=== PATIENT | female | born 1990 | race Caucasian/White ===

== ENCOUNTER 2017-01-05 05:51 | Emergency (ER) | payer MEDICAID ==
[~2017-01-05 05:51] MED LIST: EFFEXOR XR150 MG PO; IBUPROFEN200 M1 PO; NORCO 5-325 TA1 EACH PO; PREDNISONE20 MG PO
[2017-04-29] MEDS ORDERED: LATUDA20 MG PO (22:47)
[2017-04-29] MEDS ORDERED: WELLBUTRIN XL150 MG (22:48)
== END 2017-01-05 07:13 | disposition left against medical advice (07) ==
LOC: ED 05:51
DX: Z53.21 Procedure and treatment not carried out due to patient leaving prior to being seen by health care provider (principal)

== ENCOUNTER 2017-11-03 14:34 | Emergency (ER) | payer MEDICAID ==
[~2017-11-03] VITALS: Ht 172.7 cm; Wt 93.4 kg
[~2017-11-03 14:34] MED LIST changes: +LATUDA20 MG PO; +WELLBUTRIN XL150 MG
[2017-11-03] MEDS ORDERED: CIPRO500 MG PO (16:25)
== END 2017-11-03 16:52 | disposition home or self-care (01) ==
LOC: ED 14:34
DX: N39.0 Urinary tract infection, site not specified (principal); Z88.8 Allergy status to other drugs, medicaments and biological substances; Z79.899 Other long term (current) drug therapy
CPT/HCPCS: 74176; 81001; 87088; 87491; 87591; 99284

== ENCOUNTER 2019-02-15 18:57 | Emergency (ER) | payer OTHER ==
[~2019-02-15] VITALS: Ht 172.7 cm; Wt 93.4 kg
--- OUTSIDE RECORDS SUMMARY | ~2019-02-15 | XMS | Clinical Summary ---
Demographics + + + | Address | [address] | | | [place] [address] | + + + | Home Phone [...] Organization | [facility] | | | and [...] [place] | | | | | [address] | | + + + + + Care Team Providers + +------+ + | Care Pipe Fitter Marine Name | Role | Phone | + [...] | mouth at bedtime | | | /20 | | e | | ER tablet [...] + | Overview: Pap | + + Encounters +--------+ + + + + | Date | Type | Specialty | Care Team | Description | +--------+ + + + + | 12/13/ | Orders Only | | Provider, | | | 2019 | | | Aruna, | | +--------+ + + + + from Last 3 Months Immunizations + + + + | Name | Dates Previously Given | Next Due | + + + [...] + +---------+ + | Alcohol Use | Drinks/We | oz/Week | Comments | | | ek | | | + + +---------+ + | Yes | 1 Cans | 1.2 | | | | of beer | | | | | 1 Shots | | | | | of liquor | | | + + [...] Filed Vital Signs + + + + | Vital Sign | Reading | Time Taken | + + + + | Blood Pressure | 139/79 | 03/22/20182051 PST | + + + + | Pulse | 98 | 03/22/20182051 PST | + + + + | Temperature | 37.9 C (100.3 F) | 03/22/20182051 PST | + + + + | Respiratory Rate | 16 | 03/22/20182051 PST | + + + + | Oxygen Saturation | 98% | 03/22/20182051 PST | + + + + | Inhaled Oxygen | - | - | | Concentration | | | + + + + | Weight | 90.7 kg (200 lb) | 03/22/20182051 PST | + + + + | Height | 172.7 cm (5' 8") | 03/22/20182051 PST | + + + + | Body Mass Index | 30.41 | 03/22/20182051 PST | + + + + Plan of Treatment [...] Right: | JOLANTA | | 03/01/ | [id number] | | - SxImplanted: Qty: 1 on | | | [employer] | | 2019 | /X | | 04/30/2017 by Kilo Gallo | | Ureter | - JOLANTA | | | /[id number] | | MD Jeff | | | | | | 09 [...] | [employer] | MODA | [id number] | | [phone] | | Medica | | MEDICAID HMO [...] Self | [birth year] | [address] | | [place] | al/Fam | | 1989 | [phone] | [place], [place] | | | yoni | | | 3 (Home) | [address] | + +--------+ +--------+ + + Advance Directives Patient has advance care planning documents, and code status on file. For more information, please contact:[facility] [place] [id number] + + + + + | Code Status | Date | Date | Comments | | | Activated | Inactivated | | + + + + + | Full Code | 05/11/2017 | 05/11/2017 | | | | 18:55 | 21:37 | | + + + + + + + + +---+ | | | | | + + + +---+ | Full Code | 05/01/2017 | 05/02/2017 | | | | 11:21 | 18:59 | | + + + +---+ + + + +---+ | | | | | + + + +---+ | Full Code | 04/30/2017 | 04/30/2017 | | | | 6:04 | 10:56 | | + + + +---+
--- OUTSIDE RECORDS SUMMARY | ~2019-02-15 | XMS | Clinical Summary ---
Demographics + + + | Address | [address] | | | [place] [address] | + + + | Home Phone | | + + + | Preferred Language | Unknown | + + + | Marital Status | Single | + + + | Protestant Affiliation | Unknown | + + + | Race | Unknown | + + + | Ethnic Group | Unknown | + + + Author + + + | Author | [facility] | | | and [place] | + + + | Organization | [facility] | [...] [place] | | | | | [address] | | + + + + + Care Team Providers + +------+ + | Care File System Installer Name | Role | Phone | [...] Right: | JOLANTA | | 03/01/ | [id number] | | - SxImplanted: Qty: 1 on | | | [employer] | | 2019 | /X | | 04/30/2017 by Kilo Gallo | | Ureter | - JOLANTA | | | /[id number] | | MD Jeff | | | [...] | [employer]AN | MODA | [id number] | | [phone] | | Medica | | MEDICAID HMO [...] [place] | al/Fam | | 1989 | [phone] | [place], [place] | | | yoni | | | 3 (Home) | [address] | + +--------+ +--------+ + + Advance Directives Patient has advance care planning documents, and code status on file. For more information, please contact:[facility] [place] [facility] [place] [address] + + + + + | Code [...]
--- OUTSIDE RECORDS SUMMARY | ~2019-02-15 | XMS | Encounter Summary ---
Demographics + + + | Address | [address] | | | [place] [address] | + + + | Home Phone | | + + + | Preferred Language | Unknown | + + + | Marital Status | Single | + + + | Episcopal Affiliation | Unknown | + + + | Race | Unknown | + + + | Ethnic Group | Unknown | + + + Author + + + | Author | [facility] | | | and [place] | + + + | Organization | [facility] | | | and [place] | + + + | Address | Unknown | + + + | Phone | Unavailable | + + + Support + + + + + | Name | Relationship | Address | Phone | + + + + + | Gt Welch | ECON | [address] [facility] | | | | | [place] | | | | | [place] | | | | | [address] | | + + + + + Care Team Providers + +------+ + | Care Distributed Energy Systems Consultant Name | Role | Phone | [...] | | CONVERSION [address] LAO | [address] | | | | | [address] [place], [place] | [place] [id number] | | | | | [address] | | | | | | [phone] | | | +--------+ + + + [...]
--- OUTSIDE RECORDS SUMMARY | ~2019-02-15 | XMS | Encounter Summary ---
Demographics + + + | Address | [address] | | | [place] [address] | + + + | Home Phone [...] Organization | [facility] | | | and [place] | + + + | Address | Unknown | + + + | Phone | Unavailable | + + + Support + + + + + | Name | Relationship | Address | Phone | + + + + + | Gt Welch | ECON | [address] [facility] | | | | | [place] | | | | | [place] | | | | | [address] | | + + + + + Care Team Providers + +------+ + | Care Environmental Field Team Member Name | Role | Phone | + +------+ + | No, Physician | PCP | Unavailable | + +------+ + Encounter Details +--------+ + + + + | Date | Type | Department | Care Team | Description | +--------+ + + + + | 12/13/ | Orders Only | [facility] | Provider, | | | 2019 | | [facility] | MD Aruna [address] | | | | | CON[address] | [address] | | | | | [address] [place], [place] | [place] [address] | | | | | [address] | | | | | | [phone] | | | +--------+ + + + [...]
[~2019-02-15 18:57] MED LIST changes: +CIPRO500 MG PO
--- OUTSIDE RECORDS SUMMARY | 2019-02-15 19:00 | XMS ---
PreManage Notification: VEE RAMIREZ Security Marker Maker Events No recent Security Events currently on file CRITERIA MET - Group Notification - [facility] Guidelines [facility] CANDIS RICKS Nurse Practitioner: Women's Health 11/06/2017-Current PHONE: [phone] DANIELA ANGEL Primary Care 02/20/2015-Current PHONE: [phone] ISIDORO HOWARD Primary Care 04/07/2016-Current PHONE: [phone] Care Guidelines exist for the following facilities: [facility] ( 10/06/2014 ) Care History Medical/Surgical 11/06/2017 [facility] - Patient is currently established with [facility]. If patient is seen in the ED during business hours. Please contact CHWs at [facility] at [phone]. - Please refer patient to Candis Ricks patient PCP. Patient has not seen and or established with Candis Ricks. Patient needs to be seen and follow up with PCP. Care Recommendation: This patient has had 5 or more Emergency Department visits in the last 12 months.\T\nbsp; Patient requires education on the scope and purpose of the ED as an acute care provider not a Primary Care Provider and should not be utilized for chronic conditions.\T\nbsp; If patient returns to ED please contact Community Health WorkerTiffanie at [phone]. These are guidelines and the provider should exercise clinical judgment when providing care. E.D. VISIT COUNT (12 MO.) 1 [facility] 1 [facility] TOTAL 2 NOTE: Visits indicate total known visits. ED/UCC VISIT TRACKING (12 MO.) 02/15/2019 18:58 [facility] TYPE: Emergency COMPLAINT: - SOB 03/22/2018 20:18 [facility] Tressa LITTLE TYPE: Emergency DIAGNOSES: - Throat pain - Streptococcal pharyngitis - Sore Throat INPATIENT VISIT TRACKING (12 MO.) No inpatient visits to display in this time frame [id number]
[2019-02-15] MEDS ORDERED: METHADONE HCL40 MG PO (19:06)
== END 2019-02-15 21:07 | disposition home or self-care (01) ==
LOC: ED 18:57
DX: R10.11 Right upper quadrant pain (principal); F15.10 Other stimulant abuse, uncomplicated; F17.200 Nicotine dependence, unspecified, uncomplicated; Z88.8 Allergy status to other drugs, medicaments and biological substances; Z79.899 Other long term (current) drug therapy
CPT/HCPCS: 76705; 80053; 81001; 83690; 84703; 85025; 85379; 96361; 96374; 96375; 96376; 99284-25; J1170; J2405; J7030

== ENCOUNTER 2019-03-30 14:05 | Emergency (ER) | payer OTHER ==
[~2019-03-30] VITALS: Ht 172.7 cm; Wt 93.4 kg
--- OUTSIDE RECORDS SUMMARY | ~2019-03-30 | XMS | Encounter Summary ---
Demographics + + + | Address | [address] | | | [place] [address] | + + + | Home Phone | | + + + | Preferred Language | Unknown | + + + | Marital Status | Single | + + + | Quaker Affiliation | Unknown | + + + | Race | Unknown | + + + | Ethnic Group | Unknown | + + + Author + + + | Author | [facility] | | | and [place] | + + + | Organization | [facility] | | | and [place] | + + + | Address | Unknown | + + + | Phone | Unavailable | + + + Support + + + + + | Name | Relationship | Address | Phone | + + + + + | Gt Welch | ECON | [address] | | | | | [place] | | | | | [place] | | | | | [address] | | + + + + + Care Team Providers + +------+ + | Care Customer Greeter Name | Role | Phone | + +------+ + | No, Physician | PCP | Unavailable | + +------+ + Encounter Details +--------+ + + + + | Date | Type | Department | Care Team | Description | +--------+ + + + + | 01/16/ | Emergency | [facility] | Gold Delcid MD | Dependent edema | | 2018 | | [facility] | [address] | | | | | EMERGENCY CENTER | [place] [address] | | | | | [address] | [phone] | | | | | [place], [place] | | | | | | [address] | | | | | | [phone] | | | +--------+ + + + + Social History + + + +--------+ + | Tobacco Use | Types | Packs/Day | Years | Date | | | | | Used | | + + + +--------+ + | Former Smoker | Cigarettes | 0.5 | | Quit: 03/04/2015 | + + + +--------+ + + +---+---+---+ | Smokeless Tobacco: | | | | | Never Used | | | | + +---+---+---+ + + +---------+ + | Alcohol Use | Drinks/Week | oz/Week | Comments | + + +---------+ + | Yes | 1 Cans of beer 1 | 2.0 | | | | Shots of liquor | | | + + +---------+ + + + + | Sex Assigned at | Date Recorded | | | | + + + | Not on file | | + + + + + + + | Job Start Date | Occupation | Industry | + + + + | Not on file | Not on file | Not on file | + + + + + + + + | Travel History | Travel Start | Travel End | + + + + + + | No recent travel history available. | + + documented as of this encounter Last Filed Vital Signs + + + + + | Vital Sign | Reading | Time Taken | Comments | + + + + + | Blood Pressure | 126/67 | 01/16/2018 11:30 AM | | | | | PDT | | + + + + + | Pulse | 80 | 01/16/2018 11:30 AM | | | | | PDT | | + + + + + | Temperature | 36.7 C (98 F) | 01/16/2018 11:30 AM | | | | | PDT | | + + + + + | Respiratory Rate | 20 | 01/16/2018 11:30 AM | | | | | PDT | | + + + + + | Oxygen Saturation | - | - | | + + + + + | Inhaled Oxygen | - | - | | | Concentration | | | | + + + + + | Weight | 89.8 kg (197 lb 15.5 | 01/16/2018 11:30 AM | | | | oz) | PDT | | + + + + + | Height | - | - | | + + + + + | Body Mass Index | 30.1 | 07/21/2017 4:31 PM | | | | | PDT | | + + + + + documented in this encounter Functional Status + + + + | Functional Status | Response | Date of Assessment | + + + + | Are you deaf or do you have serious | No | 05/02/2017 | | difficulty hearing? | | | + + + + | Are you blind or do you have serious | No | 05/02/2017 | | difficulty seeing, even when wearing | | | | glasses? | | | + + + + | Do you have serious difficulty walking or | No | 05/02/2017 | | climbing stairs? (5 years old or older) | | | + + + + | Do you have difficulty dressing or bathing? | No | 05/02/2017 | | (5 years old or older) | | | + + + + | Because of a physical, mental, or emotional | No | 05/02/2017 | | condition, do you have difficulty doing | | | | errands alone such as visiting a doctor's | | | | office or shopping? [15 years old or | | | | older)] | | | + + + + + + + + | Cognitive Status | Response | Date of Assessment | + + + + | Because of a physical, mental, or emotional | No | 05/02/2017 | | condition, do you have serious difficulty | | | | concentrating, remembering, or making | | | | decisions? (5 years old or older) | | | + + + + documented as of this encounter Medications at Time of Discharge + + + +---------+ + + | Medication | Sig | Dispensed | Refills | Start | End Date | | | | | | Date | | + + + +---------+ + + | albuterol 90 | Inhale 2 puffs into | | 0 | | | | mcg/puff inhaler | the lungs as needed. | | | | | + + + +---------+ + + | | Place 1 Film under | | 0 | | | | buprenorphine-naloxo | the tongue Daily. | | | | | | ne (SUBOXONE) 8-2 mg | | | | | | | SL film | | | | | | + + + +---------+ + + | buPROPion | Take 300 mg by mouth | | 0 | | | | (WELLBUTRIN XL) 300 | every morning. | | | | | | mg 24 hr tablet | | | | | | + + + +---------+ + + | LATUDA 20 MG | Take 4 tablets by | | 0 | 04/25/20 | | | tablet | mouth nightly. | | | 17 | | + + + +---------+ + + | SUMAtriptan | Take 25 mg by mouth | | 0 | | | | (IMITREX) 25 mg | as needed for | | | | | | tablet | Migraine. | | | | | + + + +---------+ + + | ketorolac | Take 1 tablet by | 12 | 0 | 05/11/19 | | | (TORADOL) 10 MG | mouth every 6 hours | tablet | | 18 | 8 | | tablet | as needed for Pain. | | | | | + + + +---------+ + + | oxybutynin | Take 1 tablet by | 30 | 1 | 05/02/20 | | | (DITROPAN) 5 mg | mouth every 6 hours | tablet | | 17 | 8 | | tablet | as needed for | | | | | | | Urinary incontinence | | | | | | | or Bladder Spasms. | | | | | + + + +---------+ + + | traMADol (ULTRAM) | Take 1 tablet by | 10 | 0 | 05/11/19 | | | 50 mg tablet | mouth every 8 hours | tablet | | 18 | 8 | | | as needed for Pain. | | | | | + + + +---------+ + + documented as of this encounter Plan of Treatment Not on filedocumented as of this encounter Procedures + +--------+ + + + | Procedure Name | Priori | Date/Time | Associated Diagnosis | Comments | | | ty | | | | + +--------+ + + + | EXTERNAL LAB: KUSUM | Routin | 01/16/2018 | | Results for this | | | e | 10:15 AM | | procedure are in the | | | | PDT | | results section. | + +--------+ + + + | PROTIME INR | Routin | 01/16/2018 | | Results for this | | | e | 10:15 AM | | procedure are in the | | | | PDT | | results section. | + +--------+ + + + | B TYPE NATRIURETIC | Routin | 01/16/2018 | | Results for this | | PEPTIDE | e | 10:15 AM | | procedure are in the | | | | PDT | | results section. | + +--------+ + + + | MAGNESIUM | Routin | 01/16/2018 | | Results for this | | | e | 10:15 AM | | procedure are in the | | | | PDT | | results section. | + +--------+ + + + | LIPASE | Routin | 01/16/2018 | | Results for this | | | e | 10:15 AM | | procedure are in the | | | | PDT | | results section. | + +--------+ + + + | COMPREHENSIVE | Routin | 01/16/2018 | | Results for this | | METABOLIC PANEL | e | 10:15 AM | | procedure are in the | | | | PDT | | results section. | + +--------+ + + + | URINALYSIS, REFLEX | Routin | 01/16/2018 | | Results for this | | MICROSCOPIC AND/OR | e | 9:49 AM | | procedure are in the | | CULTURE | | PDT | | results section. | + +--------+ + + + documented in this encounter Results Protime INR (01/16/2018 10:15 AM PDT) + + + + + + | Component | Value | Ref Range | Performed | Pathologist | | | | | At | Signature | + + + + + + | INR | 1.0Comment: REFERENCE | | EXTERNAL | | | | RANGE:0.9 - 1.2 | | LAB | | | | NON-ANTICOAGULATED2.0 | | | | | | - 3.0 ALL OTHER | | | | | | THERAPEUTIC | | | | | | INDICATIONS2.5 - 3.5 | | | | | | MECHANICAL HEART VALVES, | | | | | | RECURRENT OR SYSTEMIC | | | | | | EMBOLISMTesting | | | | | | performed at [facility] | | | | | | [address];[place], [place] | | | | | | [address] | | | | + + + + + + + + | Specimen | + + | Blood specimen | | (specimen) | + + + +---------+ + + | Performing | Address | City/State/Zipcode | Phone Number | | Organization | | | | + +---------+ + + | EXTERNAL LAB | | | | + +---------+ + + External Lab: CBC (01/16/2018 10:15 AM PDT) + + + + + + | Component | Value | Ref Range | Performed | Pathologist | | | | | At | Signature | + + + + + + | WBC | 7.85 | 3.80 - 11.00 | EXTERNAL | | | | | K/uL | LAB | | + + + + + + | RED CELL | 4.61 | 3.70 - 5.10 | EXTERNAL | | | COUNT | | M/uL | LAB | | + + + + + + | Hgb | 14.7 | 11.3 - 15.5 | EXTERNAL | | | | | g/dL | LAB | | + + + + + + | Hematocrit, | 41.6 | 34.0 - 46.0 % | EXTERNAL | | | POC | | | LAB | | + + + + + + | MCV | 90.3 | 80.0 - 100.0 fl | EXTERNAL | | | | | | LAB | | + + + + + + | MCH | 31.9 | 27.0 - 34.0 pg | EXTERNAL | | | | | | LAB | | + + + + + + | MCHC | 35.3 | 32.0 - 35.5 | EXTERNAL | | | | | g/dL | LAB | | + + + + + + | RDW-CV | 40.7 | 37 - 53 fl | EXTERNAL | | | | | | LAB | | + + + + + + | Platelet | 278 | 150 - 400 K/uL | EXTERNAL | | | Count | | | LAB | | | Plasma | | | | | + + + + + + | MPV | 9.3 | fl | EXTERNAL | | | | | | LAB | | + + + + + + | Differentia | AUTOMATED | | EXTERNAL | | | l Type | | | LAB | | + + + + + + | % Segmented | 55.31 | % | EXTERNAL | | | | | | LAB | | | Neutrophils | | | | | + + + + + + | % | 32.65 | % | EXTERNAL | | | Lymphocytes | | | LAB | | + + + + + + | % Monocytes | 9.73 | % | EXTERNAL | | | | | | LAB | | + + + + + + | % | 1.52 | % | EXTERNAL | | | Eosinophils | | | LAB | | + + + + + + | % Basophils | 0.79 | % | EXTERNAL | | | | | | LAB | | + + + + + + | Absolute | 4.34 | 1.90 - 7.40 | EXTERNAL | | | Segmented | | K/uL | LAB | | | Neutrophils | | | | | + + + + + + | Absolute | 2.56 | 1.00 - 3.90 | EXTERNAL | | | Lymphocytes | | K/uL | LAB | | + + + + + + | Absolute | 0.76 | 0.00 - 0.80 | EXTERNAL | | | Monocytes | | K/uL | LAB | | + + + + + + | Absolute | 0.12 | 0.00 - 0.50 | EXTERNAL | | | Eosinophils | | K/uL | LAB | | + + + + + + | Absolute | 0.06Comment: Testing | 0.00 - 0.10 | EXTERNAL | | | Basophils | performed at [facility];[address] | [address] | LAB | | | | [address];[place], [place] | | | | | | [address] | | | | + + + + + + + + | Specimen | + + | Blood specimen | | (specimen) | + + + +---------+ + + | Performing | Address | City/State/Zipcode | Phone Number | | Organization | | | | + +---------+ + + | EXTERNAL LAB | | | | + +---------+ + + B Type Natriuretic Peptide (01/16/2018 10:15 AM PDT) + + + + + + | Component | Value | Ref Range | Performed | Pathologist | | | | | At | Signature | + + + + + + | BNP | <5.0Comment: Testing | 0 - 100 pg/mL | EXTERNAL | | | | performed at [facility] | | LAB | | | | [facility];[place], [place] | | | | | | [address] | | | | + + + + + + + + | Specimen | + + | Blood specimen | | (specimen) | + + + +---------+ + + | Performing | Address | City/State/Zipcode | Phone Number | | Organization | | | | + +---------+ + + | EXTERNAL LAB | | | | + +---------+ + + Magnesium (01/16/2018 10:15 AM PDT) + + + + + + | Component | Value | Ref Range | Performed | Pathologist | | | | | At | Signature | + + + + + + | Magnesium | 2.1Comment: Testing | 1.7 - 2.4 mg/dL | EXTERNAL | | | | performed at [facility];[address] | | LAB | | | | [address];[place] | | | | | | [address] | | | | + + + + + + + + | Specimen | + + | Blood specimen | | (specimen) | + + + +---------+ + + | Performing | Address | City/State/Zipcode | Phone Number | | Organization | | | | + +---------+ + + | EXTERNAL LAB | | | | + +---------+ + + Lipase (01/16/2018 10:15 AM PDT) + + + + + + | Component | Value | Ref Range | Performed | Pathologist | | | | | At | Signature | + + + + + + | Lipase | 101Comment: Testing | 73 - 393 U/L | EXTERNAL | | | | performed at [facility];[address] | | LAB | | | | [address];[place], [place] | | | | | | [address] | | | | + + + + + + + + | Specimen | + + | Blood specimen | | (specimen) | + + + +---------+ + + | Performing | Address | City/State/Zipcode | Phone Number | | Organization | | | | + +---------+ + + | EXTERNAL LAB | | | | + +---------+ + + Comprehensive Metabolic Panel (01/16/2018 10:15 AM PDT) + + + + + + | Component | Value | Ref Range | Performed | Pathologist | | | | | At | Signature | + + + + + + | Na | 140 | 135 - 145 | EXTERNAL | | | | | mmol/L | LAB | | + + + + + + | K | 3.4 (L) | 3.5 - 4.9 | EXTERNAL | | | | | mmol/L | LAB | | + + + + + + | Cl | 105 | 99 - 109 mmol/L | EXTERNAL | | | | | | LAB | | + + + + + + | CO2 | 28 | 23 - 32 mmol/L | EXTERNAL | | | | | | LAB | | + + + + + + | Anion Gap | 11 | 5 - 20 mmol/L | EXTERNAL | | | | | | LAB | | + + + + + + | Glucose, | 88 | 65 - 99 mg/dL | EXTERNAL | | | Fasting | | | LAB | | + + + + + + | BUN | 8 | 8 - 25 mg/dL | EXTERNAL | | | | | | LAB | | + + + + + + | Creatinine | 0.73 | 0.50 - 1.00 | EXTERNAL | | | | | mg/dL | LAB | | + + + + + + | BUN/Creatin | 12 | | EXTERNAL | | | ine Ratio | | | LAB | | + + + + + + | Calcium | 8.8 | 8.5 - 10.5 | EXTERNAL | | | | | mg/dL | LAB | | + + + + + + | Protein, | 7.7 | 6.3 - 8.2 g/dL | EXTERNAL | | | Total | | | LAB | | + + + + + + | Albumin | 4.0 | 3.6 - 5.0 g/dL | EXTERNAL | | | | | | LAB | | + + + + + + | Globulin | 3.7 | 1.3 - 4.9 g/dL | EXTERNAL | | | | | | LAB | | + + + + + + | A/G Ratio | 1.1 | 1.0 - 2.4 | EXTERNAL | | | | | | LAB | | + + + + + + | Bilirubin | 0.3 | 0.1 - 1.5 mg/dL | EXTERNAL | | | Total | | | LAB | | + + + + + + | ALP, | 52 | 35 - 115 U/L | EXTERNAL | | | External | | | LAB | | + + + + + + | AST | 8 (L) | 10 - 45 U/L | EXTERNAL | | | | | | LAB | | + + + + + + | ALT | 20 | 10 - 65 U/L | EXTERNAL | | | | | | LAB | | + + + + + + | Estimated | >60Comment: GFR <60: | mL/min/1.73m2 | EXTERNAL | | | GFR | CHRONIC KIDNEY DISEASE, | | LAB | | | | IF FOUND OVER A 3 MONTH | | | | | | PERIOD.GFR <15: KIDNEY | | | | | | FAILURE.FOR | | | | | | AMERICANS, MULTIPLY THE | | | | | | CALCULATED GFR BY | | | | | | 1.210.This eGFR is | | | | | | calculated using the | | | | | | [facility] traceable | | | | | | equation.Testing | | | | | | performed at [facility];[address] | | | | | | [facility];[place], [place] | | | | | | [address] | | | | + + + + + + + + | Specimen | + + | Blood specimen | | (specimen) | + + + +---------+ + + | Performing | Address | City/State/Zipcode | Phone Number | | Organization | | | | + +---------+ + + | EXTERNAL LAB | | | | + +---------+ + + Urinalysis, Reflex Microscopic and/or Culture (01/16/2018 9:49 AM PDT) + + + + + + | Component | Value | Ref Range | Performed | Pathologist | | | | | At | Signature | + + + + + + | Color | YELLOW | | EXTERNAL | | | | | | LAB | | + + + + + + | Clarity | HAZY | | EXTERNAL | | | | | | LAB | | + + + + + + | Specific | 1.020 | 1.002 - 1.030 | EXTERNAL | | | Baggs | | | LAB | | + + + + + + | Leukocyte | NEGATIVE | | EXTERNAL | | | Esterase, | | | LAB | | | Urine | | | | | + + + + + + | Nitrite, | NEGATIVE | | EXTERNAL | | | Urine | | | LAB | | + + + + + + | Urobilinoge | 4.0 (H) | mg/dL | EXTERNAL | | | n, Urine | | | LAB | | + + + + + + | Protein, | NEGATIVE | mg/dL | EXTERNAL | | | Urine | | | LAB | | + + + + + + | pH, Urine | 7.0 | 5.0 - 8.0 | EXTERNAL | | | | | | LAB | | + + + + + + | Blood, | NEGATIVE | | EXTERNAL | | | Urine | | | LAB | | + + + + + + | Ketones | NEGATIVE | mg/dL | EXTERNAL | | | | | | LAB | | + + + + + + | Bilirubin, | NEGATIVE | | EXTERNAL | | | Urine | | | LAB | | + + + + + + | Glucose, | NEGATIVEComment: Testing | mg/dL | EXTERNAL | | | Urine | performed at [facility];[address] | | LAB | | | | [address];[place] | | | | | | [address] | | | | + + + + + + + + | Specimen | + + | | + + + +---------+ + + | Performing | Address | City/State/Zipcode | Phone Number | | Organization | | | | + +---------+ + + | EXTERNAL LAB | | | | + +---------+ + + documented in this encounter Visit Diagnoses + + | Diagnosis | + + | Dependent edema Edema | + + documented in this encounter"
--- OUTSIDE RECORDS SUMMARY | ~2019-03-30 | XMS | Encounter Summary ---
Demographics + + + | Address | [address] | | | [place] [address] | + + + | Home Phone | | + + + | Preferred Language | Unknown | + + + | Marital Status | Single | + + + | Druze Affiliation | Unknown | + + + | Race | Unknown | + + + | Ethnic Group | Unknown | + + + Author + + + | Author | [facility] | | | and [place] | + + + | Organization | [facility] | | | and [place] | + + + | Address | Unknown | + + + | Phone | Unavailable | + + + Support + + + + + | Name | Relationship | Address | Phone | + + + + + | Gt Welch | ECON | [address] [facility] | | | | | [place] | | | | | [place] | | | | | [phone] | | + + + + + Care Team Providers + +------+ + | Care Cost And Risk Analysis Manager Name | Role | Phone | + +------+ + | Bro Mora MD | PCP | | + +------+ + Reason for Visit +--------+ + | Reason | Comments | +--------+ + | Cough | | +--------+ + Encounter Details +--------+ + + + + | Date | Type | Department | Care Team | Description | +--------+ + + + + | 08/03/ | Emergency | [facility] | [place], | Asthma, severe | | 2015 | | [facility] | Luis Carlos Cervnates MD [address] | persistent, with | | | | CENTER [address] | [address] [facility] | acute exacerbation | | | | [place] | [place] [address] | (Primary Dx) | | | | [address] | [phone] | | | | | [phone] | | | +--------+ + + + + Social History + + + +--------+------+ | Tobacco Use | Types | Packs/Day | Years | Date | | | | | Used | | + + + +--------+------+ | Current Every Day | Cigarettes | 0.5 | | | | Smoker | | | | | + + + +--------+------+ + +---+---+---+ | Smokeless Tobacco: | | | | | Never Used | | | | + +---+---+---+ + + +---------+ + | Alcohol Use | Drinks/Week | oz/Week | Comments | + + +---------+ + | No | | | | + + +---------+ + [...] + + + | Blood Pressure | 121/104 | 08/03/2014 11:21 AM | | | | | PDT | | + + + + + | Pulse | 133 | 08/03/2014 11:21 AM | | | | | PDT | | + + + + + | Temperature | 34.1 C (93.4 F) | 08/03/2014 9:35 AM | | | | | PDT | | + + + + + | Respiratory Rate | 18 | 08/03/2014 11:21 AM | | | | | PDT | | + + + + + | Oxygen Saturation | 96% | 08/03/2014 11:21 AM | | | | | PDT | | + + + + + | Inhaled Oxygen | - | - | | | Concentration | | | | + + + + + | Weight | 104.3 kg (230 lb) | 08/03/2014 9:35 AM | | | | | PDT | | + + + + + | Height | 172.7 cm (5' 7.99") | 08/03/2014 9:35 AM | | | | | PDT | | + + + + + | Body Mass Index | 34.98 | 08/03/2014 9:35 AM | | | | | PDT | | + + + + + documented in this encounter Functional Status + + + + | Functional Status | Response | Date of Assessment | + + + + | Are you deaf or do you have serious | No | 03/28/2014 | | difficulty hearing? | | | + + + + | Are you blind or do you have serious | No | 03/28/2014 | | difficulty seeing, even when wearing | | | | glasses? | | | + + + + | Do you have serious difficulty walking or | No | 03/28/2014 | | climbing stairs? (5 years old or older) | | | + + + + | Do you have difficulty dressing or bathing? | No | 03/28/2014 | | (5 years old or older) | | | + + + + | Because of a physical, mental, or emotional | No | 03/28/2014 | | condition, do you have difficulty [...] physical, mental, or emotional | No | 03/28/2014 | | condition, do you have serious difficulty | | | | concentrating, remembering, or making | | | | decisions? (5 years old or older) | | | + + + + documented as of this encounter Discharge Instructions Instructions Luis Carlos Camargo MD - 08/03/2014Continue inhalers Start terbutaline as well to help treat asthma Follow up in the women's clinic this week documented in this encounter Medications at Time of Discharge + + + +---------+ + + | Medication | Sig | Dispensed | Refills | Start | End Date | | | | | | Date | | + + + +---------+ + + | albuterol 2.5 mg/3 | Take 3 mLs by | 360 | 1 | 07/26/19 | | | mL nebulizer | nebulization every 3 | vial | | 15 | 7 | | solution | hours as needed for | | | | | | | Wheezing or | | | | | | | Shortness of Breath. | | | | | + + + +---------+ + + | | Inhale 1 treatment | 100 mL | 0 | 07/31/19 | | | albuterol-ipratropiu | in nebulizer every 4 | | | 15 | 7 | | m (DUONEB) 2.5-0.5 | hours daily | | | | | | mg/3 mL SOLN | | | | | | + + + +---------+ + + | azithromycin | Take 250 mg by mouth | | 0 | | | | (ZITHROMAX) 250 mg | Daily. | | | | 7 | | tablet | | | | | | + + + +---------+ + + | | Take 5 mLs by mouth | | 0 | | | | guaiFENesin-dextrome | 3 times daily as | | | | 7 | | thorphan (ROBITUSSIN | needed for Cough. | | | | | | DM) 100-10 mg/5 mL | | | | | | | syrup | | | | | | + + + +---------+ + + | ibuprofen | Take 800 mg by mouth | | 0 | | | | (ADVIL,MOTRIN) 800 | every 6 hours as | | | | 8 | | MG tablet | needed. | | | | | + + + +---------+ + + | | Take 1 tablet by | 10 | 0 | 08/04/19 | | | oxyCODONE-acetaminop | mouth every 6 hours | tablet | | 15 | 7 | | hen (PERCOCET) 5-325 | as needed (Cough). | | | | | | mg per tablet | | | | | | + + + +---------+ + + | 27-0.8 mg | Take 1 tablet by | | 0 | | | | multivitamin tablet | mouth Daily. | | | | 7 | + + + +---------+ + + | | Take 5 mLs by mouth | 240 mL | 1 | 07/26/19 | | | promethazine-codeine | EVERY 4 TO 6 HOURS | | | 15 | 7 | | (PHENERGAN WITH | NEEDED for Cough. | | | | | | CODEINE) 6.25-10 | | | | | | | mg/5 mL syrup | | | | | | + + + +---------+ + + | terbutaline | Take 1 tablet by | 40 | 0 | 08/04/19 | | | (BRETHINE) 2.5 mg | mouth every 6 hours | tablet | | 15 | 5 | | tablet | for 10 days. | | | | | + + + +---------+ + + documented as of this encounter Plan of Treatment Not on filedocumented as of this encounter Procedures + +--------+ + + + | Procedure Name | Priori | Date/Time | Associated Diagnosis | Comments | | | ty | | | | + +--------+ + + + | XR CHEST AP PORTABLE | STAT | 08/03/2014 | | Results for this | | | | 9:59 AM | | procedure are in the | | | | PDT | | results section. | + +--------+ + + + | ED INFORMATION | Routin | 08/03/2014 | | Results for this | | EXCHANGE | e | 9:29 AM | | procedure are in the | | | | PDT | | results section. | + +--------+ + + + documented in this encounter Results XR Chest AP Portable (08/03/2014 9:59 AM PDT) + + | Specimen | + + | | + + + + + | Narrative | Performed At | + + + | XR CHEST AP PORTABLE 08/03/2014 9:51 AM HISTORY: Dyspnea. | [facility] | | COMPARISON: None. Findings: Heart size is within normal limits. | | | Aorta is normal. Mediastinum is unremarkable. Central pulmonary | | | vasculature is normal. The bilateral lungs are clear with no evidence | | | for pleural effusion or pneumothorax. There are no acute osseous | | | abnormalities. IMPRESSION - No acute findings. Dictated and | | | Signed by: Curtis Esquivel MD Electronically signed: 08/03/2014 10:40 | | | AM | | + + + + + | Procedure Note | + + | Louie, Rad Results In - 08/03/2014 10:43 AM PDT XR CHEST AP PORTABLE 08/03/2014 9:51 AM | | | | HISTORY: Dyspnea. | | | | COMPARISON: None. | | | | Findings: | | Heart size is within normal limits. Aorta is normal. Mediastinum is | | unremarkable. Central pulmonary vasculature is normal. The bilateral lungs are | | clear with no evidence for pleural effusion or pneumothorax. There are no acute | | osseous abnormalities. | | | | IMPRESSION - | | No acute findings. | | | | Dictated and Signed by: Curtis Esquivel MD | | Electronically signed: 08/03/2014 10:40 AM | + + + +---------+ + + | Performing | Address | City/State/Zipcode | Phone Number | | Organization | | | | + +---------+ + + | [facility] | | | | + +---------+ + + ED INFORMATION EXCHANGE (08/03/2014 9:29 AM PDT) + + | Specimen | + + | | + + + + + | Narrative | Performed At | + + + | INPATIENT VISIT TRACKING (1 MO.) Visit Date | [facility] | | LocationTypeDiagnoses | | | VISIT TRACKING (3 MO.) Visit Date | | | Location Type | | | Diagnoses -------- | | | ---- 08/03/2014 | | | 09:28 [facility] | | | -Cough/SOB 07/30/2014 09:54 [facility] | | | Emergency -Cough | | | | | | -Asthma, unspecified type, with (acute) exacerbation | | | | | | -Cough, SOB 07/25/2014 16:01 [facility] | | | [facility] -Diff Breathing 07/25/2014 | | | 08:38 [facility] | | | -Unspecified infection or infestation of mother, antepartum | | | | | | condition or complication | | | | | | -Asthma, unspecified type, with (acute) | | | exacerbation | | | -Cough | | | | | | -COUGH/VOMITING/16 WKS PREG 07/04/2014 | | | 18:23 [facility] | | | -14 WEEKS , BLEEDING AND CRAMPING | | | | | | -Other specified complications of , antepartum | | | condition or | | | complication | | | | | | -Unspecified complication of | | | , antepartum condition or | | | | | | complication | | | 1. Unspecified | | | hemorrhage in early , antepartum condition | | | | | | or complication | | | | | | 2. Personal history of tobacco use 06/19/2014 15:28 [facility] | | | [facility] -COUGH, JAW PAIN | | | | | | -Other specified complications of | | | , antepartum condition or | | | | | | complication | | | -Other specified | | | complications of , antepartum condition or | | | | | | complication | | | | | | 1. Other specified complications of , antepartum condition | | | | | | or complication | | | | | | 2. Asthma,unspecified type, unspecified | | | | | | 2. Personal history of tobacco use | | | | | | 2. Acute bronchitis 05/20/2014 | | | 19:00 [facility] | | | -Unspecified hemorrhage in early , antepartum condition or | | | | | | complication | | | | | | -Threatened , antepartum condition or | | | complication | | | -VAGINAL BLEEDING | | | | | | 1. Threatened , antepartum | | | condition or complication | | | 2. | | | Recurrent loss, antepartum condition or complication | | | | | | 2. Personal history of tobacco use | | | VISIT COUNT (1 YR.) Visits [place] Dx Location | | | ------ --------- 2 0 | | | [facility] 2 0 | | | [facility] 6 0 | | | [facility] 6 0 | | | [facility] 1 0 | | | [facility] 17 0 | | | Total Note: Visits indicate total known visits. | | | [place] Dx are the number of primary diagnoses on the [facility]'s | | | non-emergent dx list. | | | | | | --- Guidelines Source: [facility] Guidelines | | | Date: 05/13/2013 Care Recommendation: -RESTRICT | | | USE OF OPIODS IN ED TO ONLY OBVIOUS TRAUMA OR SEVERE MEDICAL ISSUES | | | -ESTABLISH THAT NO OPATES OR BENZO'S WILL BE GIVEN FOR CHRONIC | | | CONDITIONS -PROVIDE EDUCATION REGARDING APPROPRIATE USE OF ER | | + + + + +---------+ + + | Performing | Address | City/State/Zipcode | Phone Number | | Organization | | | | + +---------+ + + | [facility] | | | | + +---------+ + + documented in this encounter Visit Diagnoses + + | Diagnosis | + + | Asthma, severe persistent, with acute exacerbation - Primary | + + documented in this encounter Administered Medications + +--------+ +-------+------+ + | Medication Order | MAR | Action | Dose | Rate | Site | | | Action | Date | | | | + +--------+ +-------+------+ + | diphenhydrAMINE (BENADRYL) | Given | 08/04/19 | 50 mg | | Deltoid- | | injection 50 mg 50 mg, | | 15 10:56 | | | Right | | Intramuscular, ONCE, 08/03/14 | | AM PDT | | | | | at 1115, For 1 dose | | | | | | + +--------+ +-------+------+ + +---+---+ | | | +---+---+ + +-------+ +---------+---+ + | terbutaline (BRETHINE) | Given | 08/04/19 | 0.25 mg | | Arm-Left | | injection 0.25 mg 0.25 mg, | | 15 10:28 | | | Upper | | Subcutaneous, ONCE, 08/03/14 | | AM PDT | | | | | at 1030, For 1 dose | | | | | | + +-------+ +---------+---+ + +---+---+ | | | +---+---+ documented in this encounter
--- OUTSIDE RECORDS SUMMARY | ~2019-03-30 | XMS | Encounter Summary ---
Demographics + + + | Address | [address] | | | [place] [address] | + + + | Home Phone | | + + + | Preferred Language | Unknown | + + + | Marital Status | Single | + + + | Congregational Affiliation | Unknown | + + + | Race | Unknown | + + + | Ethnic Group | Unknown | + + + Author + + + | Author | [facility] | | | and [place] | + + + | Organization | [facility] | | | and [place] | + + + | Address | Unknown | + + + | Phone | Unavailable | + + + Support + + + + + | Name | Relationship | Address | Phone | + + + + + | Gt Welch | ECON | [address] [facility] | | | | | [place] | | | | | [place] | | | | | [address] | | + + + + + Care Team Providers + +------+ + | Care Honey Blender Name | Role | Phone | + +------+ + | Bro Mora MD | PCP | | + +------+ + Reason for Visit Auth/Cert +--------+--------+ + + + + | Status | Reason | Specialty | Diagnoses / | Referred By | Referred To | | | | | Procedures | Contact | Contact | +--------+--------+ + + + + | | | | Diagnoses | | | | | | | Right | | | | | | | ureteral | | | | | | | calculus | | | | | | | (N20.1) | | | | | | | Procedures | | | | | | | CO | | | | | | | CYSTO/URETER | | | | | | | O/PYELOSCOPY | | | | | | | , CALCULUS | | | | | | | TX CO | | | | | | | CYSTOSCOPY,I | | | | | | | NSERT | | | | | | | URETERAL | | | | | | | STENT | | | | | | | Cystoscopy, | | | | | | | Right | | | | | | | Ureteroscopi | | | | | | | c Stone | | | | | | | Extraction, | | | | | | | Possible | | | | | | | Right | | | | | | | Ureteral | | | | | | | Stent | | | | | | | Replacement | | | +--------+--------+ + + + + Encounter Details +--------+ + + + + | Date | Type | Department | Care Team | Description | +--------+ + + + + | 05/11/ | Hospital | [facility] | Gold Florentino, | Ureteral calculus, | | 2018 | Encounter | [facility] OP | MD [address] | right | | | | [address] | [place], [place] | | | | | [place], [place] | [address] | | | | | [address] | | | | | | [phone] | | | +--------+ + + + [...] + + + | Blood Pressure | 130/88 | 05/11/2017 7:15 PM | | | | | PST | | + + + + + | Pulse | 82 | 05/11/2017 7:15 PM | | | | | PST | | + + + + + | Temperature | 36.5 C (97.7 F) | 05/11/2017 6:38 PM | | | | | PST | | + + + + + | Respiratory Rate | 16 | 05/11/2017 7:15 PM | | | | | PST | | + + + + + | Oxygen Saturation | 97% | 05/11/2017 7:15 PM | | | | | PST | | + + + + + | Inhaled Oxygen | - | - | | | Concentration | | | | + + + + + | Weight | - | - | | + + + + + | Height | - | - | | + + + + + | Body Mass Index | - | - | | + [...] as of this encounter Discharge Instructions Instructions Gold Florentino MD - 05/11/2017DISCHARGE INSTRUCTIONS URINARY TRACT STONE SURGERY including: URETEROSCOPY URETERAL STENT REMOVAL Good news!!! Your stone is gone, and I was able to remove your stent!!! Activity: Light for 1-2 days. Walk frequently as tolerated. Gradually return to normal activitie s as tolerated. Best to avoid intercourse for 5-7 days. Preferable to avoid heavy lifting or straining for 5-7 days. Following laser lithotripsy, please strain your urine and save any stones for analysis. Diet: Clear liquids until nausea passes, then return to normal diet as tolerated. Fluids are encouraged to help flush blood out of your urinary tract. Drink 8 glasses of fluid a day until urine is free of blood. Pain pills can cause constipation. Use a laxative of your choice if necessary. Pain and Comfort: Bloody urine is common and will generally clear up within several days, but can last tristan tono. Slight burning on urination may occur. Urinary urgency and frequency is also not unusua l after this type of surgery. Use pain medication as directed. Take Tylenol for less severe pain. Do not take Aspirin for 72 hours after your surgery, unless instructed differently. Additional Instructions: You may shower at any time. Follow up: Call Dr Florentino's office ([phone]) to set up your follow-up appointment or other arr angements as appropriate. Call YOUR UROLOGIST'S office for: Unremitting very heavy bright red bleeding and/or large volume of clots when urinating, that is worsening despite rest and pushing oral fluids. Inability to urinate. Elevated fever over 101 F. Frequent unremitting nausea/vomiting. Severe pain not relieved by rest or prescribed pain medication. If you are unable to reach your doctor at the above number, call the answering service at (after hours and weekends). If you have received sedation / an anesthetic today, DO NOT drive a vehicle, use alcoholic beverages, sign legal documents, take public transportation alone or care for a dependent pe rson for the next 24 hours. Also, you should not drive until you are off of all narcotic pa in medications and can move your legs easily without pain. Stent: You do not have a ureteral stent in on your right side. It was removed. documented in this encounter Medications at Time [...] 4 tablets by | | 0 | 12/19/20 | | | tablet | mouth nightly. [...] + + + +---------+ + + | levoFLOXacin | Take 1 tablet by | 10 | 0 | 05/05/20 | | | (LEVAQUIN) 500 mg | mouth Daily for 10 | tablet | | 17 | 8 | | tabletIndications: | days. Indications: | | | | | | UTI - LOWER, UTI - | UTI - Lower, UTI - | | | | | | UPPER | Upper | | | | | + + [...] | + +--------+ + + + | FL PYELOGRAM | Routin | 05/11/2017 | | Results for this | | RETROGRADE | e | 6:46 PM | | procedure are in the | | | | PST | | results section. | + +--------+ + + + | URETEROSCOPY STONE | | 05/11/2017 | Right ureteral | | | BASKETING | | 5:55 PM | calculus | | | | | PST | | | + +--------+ + + + documented in this encounter Results FL Pyelogram Retrograde (05/11/2017 6:46 PM PST) + + | Specimen | + + | | + + + + + | Narrative | Performed At | + + + | FL PYELOGRAM RETROGRADE 05/11/2017 6:45 PM HISTORY: intra op. | [facility] | | COMPARISON: None. FINDINGS: Fluoroscopic images from retrograde | | | pyelogram were obtained. IMPRESSION - Retrograde pyelogram. | | | Please see the operative report for further information. Dictated | | | and Signed by: Curtis Esquivel MD Electronically signed: 05/12/2017 | | | 8:55 AM | | + + + + + | Procedure Note | + + | Mack Palma Results In - 05/12/2017 8:58 AM PST FL PYELOGRAM RETROGRADE 05/11/2017 6:45 | | PMHISTORY: intra op.COMPARISON: None.FINDINGS:Fluoroscopic images from retrograde | | pyelogram were obtained.IMPRESSION -Retrograde pyelogram.Please see the operative report | | for further information.Dictated and Signed by: Curtis Esquivel MD Electronically signed: | | 05/12/2017 8:55 AM | | | |FINDINGS: | |Fluoroscopic images from retrograde pyelogram were obtained. | | | |IMPRESSION - | |Retrograde pyelogram. | | | |Please see the operative report for further information. | | | |Dictated and Signed by: Curtis Esquivel MD | | Electronically signed: 05/12/2017 8:55 AM | + + + +---------+ + + | Performing | Address | City/State/Zipcode | Phone Number | | Organization | | | | + +---------+ + + | [facility] | | | | + +---------+ + + documented in this encounter Visit Diagnoses + + | Diagnosis | + + | Ureteral calculus, right Calculus of ureter | + + documented in this encounter Administered Medications + +--------+ +--------+------+------+ | Medication Order | MAR | Action | Dose | Rate | Site | | | Action | Date | | | | + +--------+ +--------+------+------+ | acetaminophen (TYLENOL) tablet | Given | 05/11/19 | 975 mg | | | | 975 mg 975 mg (rounded from | | 18 5:44 | | | | | 1,000 mg), Oral, ONCE, Tiffany 05/11/17 | | PM PST | | | | | at 1800, For 1 dose, Pre-op | | | | | | + +--------+ +--------+------+------+ + +---+ | | | + +---+ | albuterol 2.5 mg/3 mL nebulizer | | | solution 2.5 mg 2.5 mg, | | | Nebulization, ONCE PRN, Wheezing, | | | Starting Tiffany 05/11/17 at 1733, For | | | 1 dose, RT will administer., | | | Pre-op | | + +---+ | | | + +---+ | albuterol 2.5 mg/3 mL nebulizer | | | solution 2.5 mg 2.5 mg, | | | Nebulization, ONCE PRN, Wheezing, | | | Starting Tiffany 05/11/17 at 1830, For | | | 1 dose, Notify anesthesia if | | | patient is wheezing and does not | | | have a history of asthma or COPD | | | or current smoking., | | | Recovery/Phase I | | + +---+ | | | + +---+ | albuterol-ipratropium (DUONEB) | | | 2.5-0.5 mg/3 mL nebulizer | | | solution 3 mL 3 mL, | | | Nebulization, ONCE PRN, Wheezing, | | | Starting Tiffany 05/11/17 at 1733, For | | | 1 dose, Pre-op | | + +---+ | | | + +---+ | dextrose 50% injection 12.5-25 | | | g 12.5-25 g, Intravenous, EVERY | | | 15 MIN PRN, Low Blood Sugar, Give | | | 12.5g (25 mL) IV if blood | | | glucose 50-69 mg/dL. Give 25g | | | (50 mL) IV if blood glucose < 50, | | | Starting [facility] 05/11/17 at 1733, | | | Repeat in 15 min if blood glucose | | | remains < 70 mg/dL. Repeat | | | blood glucose in 30 min once | | | blood glucose > 70., Pre-op | | + +---+ | | | + +---+ | fentaNYL (PF) injection 25-50 | | | mcg 25-50 mcg, Intravenous, | | | EVERY 15 MIN PRN, Pain, pain, | | | Starting [facility] 05/11/17 at 1733, Max | | | total dose 100 mcg., Pre-op | | + +---+ | | | + +---+ + +-------+ +--------+---+---+ | fentaNYL (PF) injection 25-50 | Given | 05/11/19 | 25 mcg | | | | mcg 25-50 mcg, Intravenous, | | 18 6:50 | | | | | EVERY 5 MIN PRN, Pain, Starting | | PM PST | | | | | Tiffany 05/11/17 at 1830, Maximum total | | | | | | | dose 250 mcg. PACU IV Narcotic | | | | | | | Priority: Only use fentanyl for | | | | | | | immediate post-op pain (one dose) | | | | | | | or breakthrough pain when any | | | | | | | other IV narcotics ordered have | | | | | | | been ineffective (if ordered). | | | | | | | If both morphine and | | | | | | | hydromorphone are ordered, use | | | | | | | morphine first, and use | | | | | | | hydromorphone if morphine | | | | | | | ineffective., Recovery/Phase I | | | | | | + +-------+ +--------+---+---+ +-------+ +--------+---+---+ | Given | 05/11/19 | 25 mcg | | | | | 18 6:48 | | | | | | PM PST | | | | +-------+ +--------+---+---+ +---+---+ | | | +---+---+ + +-------+ +--------+---+---+ | gabapentin (NEURONTIN) capsule | Given | 05/11/19 | 600 mg | | | | 600 mg 600 mg, Oral, ONCE, Tiffany | | 18 5:43 | | | | | 05/11/17 at 1800, For 1 dose, | | PM PST | | | | | Pre-op | | | | | | + +-------+ +--------+---+---+ +---+---+ | | | +---+---+ + +-------+ +--------+---+---+ | HYDROmorphone (DILAUDID) | Given | 05/11/19 | 0.5 mg | | | | injection 0.2-0.5 mg 0.2-0.5 mg, | | 18 7:08 | | | | | Intravenous, EVERY 5 MIN PRN, | | PM PST | | | | | Pain, Starting Tiffany 05/11/17 at | | | | | | | 1830, Maximum total dose 4 mg. | | | | | | | PACU IV Narcotic Priority: Only | | | | | | | use fentanyl for immediate | | | | | | | post-op pain (one dose) or | | | | | | | breakthrough pain when any other | | | | | | | IV narcotics ordered have been | | | | | | | ineffective (if ordered). If | | | | | | | both morphine and hydromorphone | | | | | | | are ordered, use morphine first, | | | | | | | and use hydromorphone if morphine | | | | | | | ineffective., Recovery/Phase I | | | | | | + +-------+ +--------+---+---+ +-------+ +--------+---+---+ | Given | 05/11/19 | 0.5 mg | | | | | 18 6:41 | | | | | | PM PST | | | | +-------+ +--------+---+---+ +---+---+ | | | +---+---+ + +-------+ +------+---+---+ | ondansetron (ZOFRAN) injection | Given | 05/11/19 | 4 mg | | | | 4 mg 4 mg, Intravenous, ONCE | | 18 7:08 | | | | | PRN, Nausea, Starting Tiffany 05/11/17 | | PM PST | | | | | at 1830, For 1 dose, | | | | | | | Recovery/Phase I | | | | | | + +-------+ +------+---+---+ +---+---+ | | | +---+---+ + +-------+ +------+---+---+ | oxybutynin (DITROPAN) tablet 5 | Given | 05/11/19 | 5 mg | | | | mg 5 mg, Oral, 3 TIMES DAILY | | 18 7:08 | | | | | PRN, Bladder Spasms, Starting Tiffany | | PM PST | | | | | 05/11/17 at 1855, Post-op/Phase II | | | | | | + +-------+ +------+---+---+ +---+---+ | | | +---+---+ + +-------+ +--------+---+---+ | phenazopyridine (PYRIDIUM) | Given | 05/11/19 | 200 mg | | | | tablet 200 mg 200 mg, Oral, | | 18 7:08 | | | | | ONCE, Tiffany 05/11/17 at 1915, For 1 | | PM PST | | | | | dose, Post-op/Phase II | | | | | | + +-------+ +--------+---+---+ +---+---+ | | | +---+---+ + +---------+ +---+---+---+ | sodium chloride 0.9% (NS) | New Bag | 05/11/19 | | | | | infusion at 25 mL/hr, | | 18 5:49 | | | | | Intravenous, CONTINUOUS, Starting | | PM PST | | | | | Tiffany 05/11/17 at 1800, TKO, Pre-op | | | | | | + +---------+ +---+---+---+ +---------+ +---+ +---+ | New Bag | 05/11/19 | | 25 mL/hr | | | | 18 5:45 | | | | | | PM PST | | | | +---------+ +---+ +---+ +---+---+ | | | +---+---+ + +-------+ +-------+---+---+ | traMADol (ULTRAM) tablet 50 mg | Given | 05/11/19 | 50 mg | | | | 50 mg, Oral, EVERY 6 HOURS PRN, | | 18 7:08 | | | | | Pain, Starting Tiffany 05/11/17 at | | PM PST | | | | | 1855, Post-op/Phase II | | | | | | + +-------+ +-------+---+---+ +---+---+ | | | +---+---+ documented in this encounter"
--- OUTSIDE RECORDS SUMMARY | ~2019-03-30 | XMS | Encounter Summary ---
Demographics + + + | Address | [address] | | | [place] [address] | + + + | Home Phone | | + + + | Preferred Language | Unknown | + + + | Marital Status | Single | + + + | Mu-Ism Affiliation | Unknown | + + + | Race | Unknown | + + + | Ethnic Group | Unknown | + + + Author + + + | Author | [facility] | | | and [place] | + + + | Organization | [facility] | | | and [place] | + + + | Address | Unknown | + + + | Phone | Unavailable | + + + Support + + + + + | Name | Relationship | Address | Phone | + + + + + | Gt Welch | ECON | [address] | | | | | [place] | | | | | [place] | | | | | [address] | | + + + + + Care Team Providers + +------+ + | Care Hyperion Developer Name | Role | Phone | + +------+ + | Bro Mora MD | PCP | | + +------+ + Encounter Details +--------+ + + + + | Date | Type | Department | Care Team | Description | +--------+ + + + + | 05/11/ | Episode | [facility] | Ambreen Torres | | | 2017 | Changes | [address] | [place] | | | | | [place], [place] | | | | | | [address] | | | | | | [phone] | | | +--------+ + + + [...] + + documented as of this encounter Functional Status + + + [...] Not on filedocumented as of this encounter Visit Diagnoses Not on filedocumented in this encounter"
--- OUTSIDE RECORDS SUMMARY | ~2019-03-30 | XMS | Encounter Summary ---
Demographics + + + | Address | [address] | | | [place] [address] | + + + | Home Phone | | + + + | Preferred Language | Unknown | + + + | Marital Status | Single | + + + | Anabaptism Affiliation | Unknown | + + + | Race | Unknown | + + + | Ethnic Group | Unknown | + + + Author + + + | Author | [facility] | | | and [place] | + + + | Organization | [facility] | | | and [place] | + + + | Address | Unknown | + + + | Phone | Unavailable | + + + Support + + + + + | Name | Relationship | Address | Phone | + + + + + | Gt Welch | ECON | [address] [facility] | | | | | [place] | | | | | [place] | | | | | [address] | | + + + + + Care Team Providers + +------+ + | Care Animal Husbandry Manager Name | Role | Phone | + +------+ + | No, Physician | PCP | Unavailable | + +------+ + Reason for Visit + + + | Reason | Comments | + + + | Abdominal Pain | | + + + Encounter Details +--------+ + + + + | Date | Type | Department | Care Team | Description | +--------+ + + + + | 02/25/ | Emergency | [facility] | Luis Carlos Bob | Pelvic pain in | | 2013 | | [facility] | Nico Contreras MD | female (Primary Dx); | | | | CENTER [address] | [address] | Ovarian cyst, left | | | | [place], [place] | [place], [place] | | | | | [address] | [address] | | | | | [phone] | | | +--------+ + + + + Social History + + + +--------+------+ | Tobacco Use | Types | Packs/Day | Years | Date | | | | | Used | | + + + +--------+------+ | Current Every Day | Cigarettes | 0.5 | | | | Smoker | | | | | + + + +--------+------+ + + | Tobacco Cessation: Ready to Quit: No | + + + + +---------+ + | Alcohol Use [...] + + + | Blood Pressure | 133/86 | 02/25/2014 12:13 AM | | | | | PDT | | + + + + + | Pulse | 88 | 02/25/2014 12:13 AM | | | | | PDT | | + + + + + | Temperature | 36 C (96.8 F) | 02/25/2014 12:13 AM | | | | | PDT | | + + + + + | Respiratory Rate | 14 | 02/25/2014 12:13 AM | | | | | PDT | | + + + + + | Oxygen Saturation | 98% | 02/25/2014 12:13 AM | | | | | PDT | | + + + + + | Inhaled Oxygen | - | - | | | Concentration | | | | + + + + + | Weight | 88.5 kg (195 lb) | 02/25/2014 12:13 AM | | | | | PDT | | + + + + + | Height | 172.7 cm (5' 8") | 02/25/2014 12:13 AM | | | | | PDT | | + + + + + | Body Mass Index | 29.65 | 02/25/2014 12:13 AM | | | | | PDT | | + + + + + documented in this encounter Discharge Instructions Instructions Luis Carlos Bob MD - 02/25/2014Return for worsening pain nausea v omiting or other worsening symptoms. documented in this encounter Medications at Time of Discharge + + + +---------+ + + | Medication | Sig | Dispensed | Refills | Start | End Date | | | | | | Date | | + + + +---------+ + + | | Take 1 tablet by | 15 | 0 | 02/26/20 | | | HYDROcodone-acetamin | mouth every 6 hours | tablet | | 14 | 5 | | ophen (NORCO) 5-325 | as needed for Pain. | | | | | | mg [...] + | ED INFORMATION | Routin | 02/24/2014 | | Results for this | | EXCHANGE | e | 11:43 PM | | procedure are in the | | | | PDT | | results section. | + +--------+ + + + documented in this encounter Results ED INFORMATION EXCHANGE (02/24/2014 11:43 PM PDT) + + | Specimen | + + | | + + + + + | Narrative | Performed At | + + + | VISIT TRACKING (3 MO.) Visit Date Location | [facility] | | Type Diagnoses | | | -------- | | | ---- 02/24/2014 23:42 [place] | | | [facility] -left ovary pain | | | 01/30/2014 10:02 [facility] | | | Emergency -Threatened , antepartum condition or | | | complication | | | -8 WEEK | | | AND BLEEDING | | | -Threatened | | | , antepartum condition or complication | | | | | | 1. Threatened , antepartum condition or | | | complication | | | 2. Supervision of | | | high-risk with other poor reproductive | | | | | | history | | | 2. | | | Tobacco use disorder complicating , childbirth, or the | | | | | | puerperium, antepartum condition or | | | complication | | | 2. Other | | | abnormalities in shape or position of gravid uterus and of | | | | | | neighboring structures, antepartum | | | condition or complication | | | 2. | | | Surgical or other procedure not carried out because of patient's | | | | | | decision | | | | | | 2. Other and unspecified ovarian cyst 01/24/2014 16:45 | | | [facility] Emergency -DENTAL | | | PAIN | | | -Unspecified disorder of the | | | teeth and supporting structures | | | | | | -Periapical abscess without sinus | | | | | | 1. Periapical abscess without sinus | | | | | | 2. Tobacco use disorder 12/22/2013 17:30 [facility] | | | [facility] 1. Acute bronchitis | | | | | | 2. Other malaise and fatigue | | | | | | 2. Personal history of tobacco use | | | VISIT COUNT (1 YR.) Visits Medicaid NE Dx Location | | | ------ --------- 3 0 | | | [facility] 3 0 | | | [facility] 1 0 | | | [facility] 4 0 | | | [facility] 1 0 | | | [facility] 1 0 | | | [facility] 2 0 | | | [facility] 1 0 | | | [facility] 2 0 | | | [facility] 18 0 | | | Total Note: Visits indicate total known visits. | | | Medicaid [place] Dx are the number of primary diagnoses on the [facility]'s | | | non-emergent dx list. | | | | | | --- Guidelines Source: [facility] Guidelines | | | Date: 05/13/2013 Care [...] | | + +---------+ + + | [facility] | | | | + +---------+ + + documented in this encounter Visit Diagnoses + + | Diagnosis | + + | Pelvic pain in female - Primary Unspecified symptom associated with female genital | | organs | + + | Ovarian cyst, left Other and unspecified ovarian cyst | + + documented in this encounter Administered Medications + + + + +------+------+ | Medication Order | MAR | Action | Dose | Rate | Site | | | Action | Date | | | | + + + + +------+------+ | HYDROcodone-acetaminophen | Dispense | 02/26/20 | 1 tablet | | | | (NORCO) 5-325 mg per tablet (ER | to Home | 14 12:32 | | | | | Prepack) 1-2 tablet 1-2 tablet, | | AM PDT | | | | | Oral, ONCE, 02/25/14 at 0045, | | | | | | | For 1 dose, 1 tablet(s) every 6 | | | | | | | hours prn pain Dispense for home | | | | | | | use., | | | | | | + + + + +------+------+ +---+---+ | | | +---+---+ + +-------+ +--------+---+---+ | ibuprofen (ADVIL,MOTRIN) tablet | Given | 02/26/20 | 600 mg | | | | 600 mg 600 mg, Oral, ONCE, Mon | | 14 12:32 | | | | | 02/25/14 at 0045, For 1 dose, | | AM PDT | | | | | Give with food., | | | | | | + +-------+ +--------+---+---+ +---+---+ | | | +---+---+ documented in this encounter
--- OUTSIDE RECORDS SUMMARY | ~2019-03-30 | XMS | Encounter Summary ---
Demographics + + + | Address | [address] | | | [place] [address] | + + + | Home Phone | | + + + | Preferred Language | Unknown | + + + | Marital Status | Single | + + + | Sikh Affiliation | Unknown | + + + | Race | Unknown | + + + | Ethnic Group | Unknown | + + + Author + + + | Author | [facility] | | | and [place] | + + + | Organization | [facility] | | | and [place] | + + + | Address | Unknown | + + + | Phone | Unavailable | + + + Support + + + + + | Name | Relationship | Address | Phone | + + + + + | Gt Welch | ECON | [address] [facility] | | | | | [place] | | | | | [place] | | | | | [address] | | + + + + + Care Team Providers + +------+ + | Care Elevated Guard Name | Role | Phone | + +------+ + PCP | Unavailable | + +------+ + Encounter Details +--------+ + + + + | Date | Type | Department | Care Team | Description | +--------+ + + + + | 06/06/ | Abstract | [facility] | Lori Newman, | | | 2017 | | [facility] FACTORY CLERK | | | | | [facility] [address] | | | | | [address] | | | | | | [place] [address] | | | | | | [phone] | | | +--------+ + + + [...]
--- OUTSIDE RECORDS SUMMARY | ~2019-03-30 | XMS | Encounter Summary ---
Demographics + + + | Address | [address] | | | [place] [address] | + + + | Home Phone | | + + + | Preferred Language | Unknown | + + + | Marital Status | Single | + + + | Anabaptist Affiliation | Unknown | + + + | Race | Unknown | + + + | Ethnic Group | Unknown | + + + Author + + + | Author | [facility] | | | and [place] | + + + | Organization | [facility] | | | and [place] | + + + | Address | Unknown | + + + | Phone | Unavailable | + + + Support + + + + + | Name | Relationship | Address | Phone | + + + + + | Gt Welch | ECON | [address] | | | | | [place] | | | | | [place] | | | | | [address] | | + + + + + Care Team Providers + +------+ + | Care Bindery Cutter Operator Name | Role | Phone | + +------+ + | Bro Mora MD | PCP | | + +------+ + Reason for Visit + + + | Reason | Comments | + + + | Headache | | + + + Encounter Details +--------+ + + + + | Date | Type | Department | Care Team | Description | +--------+ + + + + | 10/13/ | Hospital | [facility] | Marcell Hummel | | | 2015 | Encounter | [facility] | DO [address] | | | | [address] | [facility] | | | | | [place], | [place] [address] | | | | | [place] [address] | [phone] | | | | | [phone] | | | +--------+ + + + [...] + + + | Blood Pressure | 118/67 | 10/13/2014 2:30 PM | | | | | PDT | | + + + + + | Pulse | 84 | 10/13/2014 2:30 PM | | | | | PDT | | + + + + + | Temperature | 35.9 C (96.6 F) | 10/13/2014 2:00 PM | | | | | PDT | | + + + + + | Respiratory Rate | 16 | 10/13/2014 2:00 PM | | | | | PDT | | + + + + + | Oxygen Saturation | 96% | 10/13/2014 2:30 PM | | | | | PDT [...] as of this encounter Discharge Instructions Instructions Brianna Sahu RN - 10/13/2014Discharge Education for the Undelivered Patient You can use the following list as a guide to help you know when to call your provider or re turn to the hospital. Labor Contractions (labor pains) every 5 minutes or less, lasting 60 seconds or more Contractions become stronger Bag of pierce broken or leaking fluid from the vagina Labor (more than 3 weeks before your due date) Contractions (labor pains) that occur more than 4 times per hour (every 15 minutes), la sting 30 seconds or more, for 2 hours Backache or pelvic pressure Bag of pierce broken or leaking fluid from the vagina Movement Counting Starting at 7 months (28 weeks) Decreased (less than 10 movements in 2 hours) Other Reasons to Call Constant headache Changes in vision Sudden increase in swelling, especially rapid weight gain chiefly in your face and/ or hands Constant abdominal (belly) pain Bright red vaginal bleeding or passing enough clots to need a pad Temperature over 100.4 (38 C) documented in this encounter Medications at Time [...] | 360 | 1 | 07/26/19 | 05/02/ | | mL nebulizer | nebulization every [...] + + documented as of this encounter Progress Notes Brianna Sahu RN - 10/13/2014 3:42 PM PDTDischarge instructions received. Verbal and wri tten discharge instructions provided to patient. Patient verbalizes understanding.Electronic ally signed by Brianna Sahu RN at 10/13/2014 3:43 PM Brianna Barakat RN - 10/13/2014 2:00 PM PDTIce water and cool cloth provided.Electronically signed by Brianna Sahu RN at 0 10/13/2014 3:15 PM Brianna Barakat RN - 10/13/2014 1:46 PM PDTPatient presents to unit ith complaint of severe migraine. Denies vaginal bleeding, leaking of fluid or contractions. documented in this enc ounter Plan of Treatment Not on filedocumented as of this encounter Procedures + +--------+ + + + | Procedure Name | Priori | Date/Time | Associated Diagnosis | Comments | | | ty | | | | + +--------+ + + + | URINALYSIS WITH | Routin | 10/13/2014 | | Results for this | | MICROSCOPIC WITH | e | 3:07 PM | | procedure are in the | | CULTURE IF INDICATED | | PDT | | results section. | + +--------+ + + + documented in this encounter Results Urinalysis with Microscopic with Culture if Indicated (10/13/2014 3:07 PM PDT) + + + + + + | Component | Value | Ref Range | Performed | Pathologist | | | | | At | Signature | + + + + + + | Color | Yellow | Light Yellow, | [facility] | | | | | Yellow | [facility] | | | | | | [facility] | | | | | [facility] - | | | | | | LAB[facility]ATORY | | + + + + + + | Clarity | Clear | Clear | [facility] | | | | | | [facility] | | | | | | [facility] | | | | [facility] - | | | | | | LAB[facility]ATORY | | + + + + + + | pH, Urine | 6.5 | 5.0 - 8.0 | [facility] | | | | | | [facility] | | | [facility] | | [facility] | | | | | | [facility] - | | | | | | LAB[facility]ATORY | | + + + + + + | Specific | <=1.005 | 1.001 - 1.030 | [facility] | | | [place] | | | [facility] | | | | | | [facility] | | | | | | [facility] - | | | | | | LABORATORY | | + + + + + + | Protein, | Negative | Negative | [facility] | | | Urine | | | [facility] | | | | | | [facility] | | | | | | [facility] - | | | | | | LABORATORY | | + + + + + + | Blood, | Negative | Negative | [facility] | | | Urine | | | [facility] | | | | | | [facility] | | | | | | [facility] - | | | | | | LABORATORY | | + + + + + + | Glucose, | Negative | Negative | [facility] | | | Urine | | | [facility] | | | | | | [facility] | | | | | | [facility] - | | | | | | LABORATORY | | + + + + + + | Ketones, | Trace (A) | Negative | [facility] | | | Urine | | | [facility] | | | | | | [facility] | | | | | | [facility] - | | | | | | LAB[facility]ATORY | | + + + + + + | Bilirubin, | Negative | Negative | [facility] | | | Urine | | | [facility] | | | | | | [facility] | | | | | | [facility] - | | | | | | LABORATORY | | + + + + + + | Nitrite, | Negative | Negative | [facility] | | | Urine | | | [facility] | | | | | | [facility] | | | | | | [facility] - | | | | | | LAB[facility]ATORY | | + + + + + + | Leukocyte | Negative | Negative | [facility] | | | Esterase, | | | [facility] | | | Urine | | | MEDICAL | | | | | | CENTER - | | | | | | LABORATORY | | + + + + + + | Urobilinoge | 0.2 E.U./dL | 0.2 E.U./dL, | [facility] | | | n, Urine | | 1.0 E.U./dL | [facility] | | | | | | [facility] | | | | | | [facility] - | | | | | | LABORATORY | | + + + + + + | WBC UA | 0-2 | 0 - 2 /HPF | [facility] | | | | | | [facility] | | | | | | [facility] | | | | | | [facility] - | | | | | | LABORATORY | | + + + + + + | RBC UA | 0-2 | 0 - 2 /HPF | [facility] | | | | | | [facility] | | | | | | [facility] | | | | | | [facility] - | | | | | | LABORATORY | | + + + + + + | SQUAMOUS | 2-5 (A) | 0 - 2 /LPF | [facility] | | | EPITHELIAL | | | [facility] | | | UA | | | MEDICAL | | | | | | CENTER - | | | | | | LABORATORY | | + + + + + + | BACTERIA UA | 1+ (A) | Negative /HPF | [facility] | | | | | | [facility] | | | | | | [facility] | | | | | | [facility] - | | | | | | LABORATORY | | + + + + + + | URINE | Urine Culture Not | | [facility] | | | COMMENT | Indicated | | [facility] | | | | | | [facility] | | | | | | [facility] - | | | | | | LABORATORY | | + + + + + + + + | Specimen | + + | Urine | + + + + + + + | Performing | Address | City/State/Zipcode | Phone Number | | Organization | | | | + + + + + | [facility] | [address] | [place] | [phone] | | [facility] | | [address] | | | - LABORATORY | | | | + + + + + documented in this encounter Visit Diagnoses Not on filedocumented in this encounter Administered Medications + +--------+---------+------+------+------+ | Medication Order | MAR | Action | Dose | Rate | Site | | | Action | Date | | | | + +--------+---------+------+------+------+ + +---+ | acetaminophen (TYLENOL) 500 mg | | | tablet Starting 10/13/14 at | | | 1428, For 1 dose, BRIANNA SAHU: | | | cabinet override, | | + +---+ | | | + +---+ + +-------+ + +---+---+ | acetaminophen (TYLENOL) tablet | Given | 06/08/20 | 1,000 mg | | | | 1,000 mg 1,000 mg, Oral, EVERY 8 | | 15 2:33 | | | | | HOURS PRN, Pain, Starting Mon | | PM PDT | | | | | 10/13/14 at 1425 | | | | | | + +-------+ + +---+---+ +---+---+ | | | +---+---+ documented in this encounter"
--- OUTSIDE RECORDS SUMMARY | ~2019-03-30 | XMS | Encounter Summary ---
Demographics + + + | Address | [address] | | | [place] [address] | + + + | Home Phone | | + + + | Preferred Language | Unknown | + + + | Marital Status | Single | + + + | Mandaeism Affiliation | Unknown | + + + | Race | Unknown | + + + | Ethnic Group | Unknown | + + + Author + + + | Author | [facility] | | | and [place] | + + + | Organization | [facility] | | | and [place] | + + + | Address | Unknown | + + + | Phone | Unavailable | + + + Support + + + + + | Name | Relationship | Address | Phone | + + + + + | Gt Welch | ECON | [address] | | | | | [place] | | | | | [place] | | | | | [address] | | + + + + + Care Team Providers + +------+ + | Care Grain Shipper Name | Role | Phone | + [...] | | | | | | | STONE | | | | | | | INFECTION | | | | | | | FLANK PAIN | | | | | | | Procedures | | | | | | | CYSTOSCOPY | | | | | | | PLACEMENT | | | | | | | URETERAL | | | | | | | STENT | | | +--------+--------+ + + + + Encounter Details +--------+---------+ + + + | Date | Type | Department | Care Team | Description | +--------+---------+ + + + | 04/30/ | Surgery | [facility] | Kilo Gallo, | CYSTOSCOPY PLACEMENT | | 2016 | | [facility] | [address] | URETERAL STENT, | | | | [address] | [address] | bilateral retrograde | | | | [place] | [id number] | pyelogram, right | | | | [id number] | | ureteral stent | | | | [phone] | | placement | +--------+---------+ + + + Social History + + [...] + +---------+ + | Yes | 1 Shots of liquor | 2.0 | | | | 1 Cans of beer | | | + + +---------+ + [...] + + + | Blood Pressure | 126/66 | 05/02/2017 11:18 AM | | | | | PST | | + + + + + | Pulse | 116 | 05/02/2017 11:18 AM | | | | | PST | | + + + + + | Temperature | 37.2 C (99 F) | 05/02/2017 11:18 AM | | | | | PST | | + + + + + | Respiratory Rate | 16 | 05/02/2017 11:18 AM | | | | | PST | | + + + + + | Oxygen Saturation | 94% | 05/02/2017 11:18 AM | | | | | PST | | + + + + + | Inhaled Oxygen | - | - | | | Concentration | | | | + + + + + | Weight | 96.2 kg (212 lb) | 04/30/2017 5:44 AM | | | | | PST | | + + + + + | Height | 170.2 cm (5' 7") | 04/30/2017 5:44 AM | | | | | PST | | + + + + + | Body Mass Index | 33.2 | 04/30/2017 5:44 AM | | | | | PST | [...] + documented as of this encounter Discharge Summaries Gely Fernando RN - 05/02/2017 4:46 PM PSTPt left in w/c with friends/famly. Encouraged to follow d/c instructions. P M Juliet Stiles MD - 05/02/2017 8:53 AM PST [facility] UROLOGY DISCHARGE SUMMARY Patient Name: Albania Bain Patient : 1990 PCP: Bro Mora Date of Admission: 04/30/2017 Date of Discharge: 05/02/2017 Primary Discharge Dx: Infected, obstructed right ureteral stone Secondary Discharge Dx(s): Chronic pain There are no hospital problems to display for this patient. Procedure: Cystoscopy, right retrograde pyelogram with right ureteral stent placement, done by Dr. Rudi troncoso on 04/30/2017 Hospital Course: The patient was admitted to [facility] by Dr. Gallo for an infected ureteral ston e. She had been seen at [facility] in [facility] but the urologist e commerce solution architect their felt she was too complex to be admitted there. She was treated with IV antibiotics and went to [facility] operating room for ureteral stent placement. She was then taken to the the floor and sta yed on antibiotics. Prior to discharge she was no longer having fevers, her white count was down trending. She continued to complain of pain which she has chronic pain issues. Her cultures were no growth. She was discharged to home with antibiotics due to her presenting diagnosis and her having had antibiotics prior to the cultures drawn here. I was unable to find any positive culture from the outside. She will plan to have follow-up closer to her h ome, likely in [place]. She is aware she still has a stone and stent in place. Condition on Discharge: Stable Discharge Medications: Discharge Medications New Medications Details levoFLOXacin 500 mg tablet Take 1 tablet by mouth Daily for 10 days. Indications: UTI - Lower, UTI - Upper aka: LEVAQUIN oxybutynin 5 mg tablet Take 1 tablet by mouth every 6 hours as needed for Urinary incontinence or Bladder Spasms. aka: DITROPAN oxyCODONE 5 mg tablet Take 1-2 tablets by mouth EVERY 4 TO 6 HOURS NEEDED for Pain. aka: ROXICODONE tamsulosin 0.4 mg Caps Take 1 capsule by mouth daily (after breakfast). aka: FLOMAX Unchanged Medications Details buPROPion 300 mg 24 hr tablet Take 300 mg by mouth every morning. aka: WELLBUTRIN XL ibuprofen 800 MG tablet Take 800 mg by mouth every 6 hours as needed. aka: ADVIL,MOTRIN SUMAtriptan 25 mg tablet Take 25 mg by mouth as needed for Migraine. aka: IMITREX Discontinued Medications albuterol 2.5 mg/3 mL nebulizer solution albuterol-ipratropium 2.5-0.5 mg/3 mL Soln aka: DUONEB azithromycin 250 mg tablet aka: ZITHROMAX guaiFENesin-dextromethorphan 100-10 mg/5 mL syrup aka: ROBITUSSIN DM oxyCODONE-acetaminophen 5-325 mg per tablet aka: PERCOCET 27-0.8 mg multivitamin tablet promethazine-codeine 6.25-10 mg/5 mL syrup aka: PHENERGAN with CODEINE Follow-Up: 1. Patient is planning to find urologist closer to her home, likely in [place]. She s leisa have follow-up in the next 1-2 weeks. If there are any urological concerns or questions Please call [facility] at . Electronically Signed by: Juliet Darnell MD, 05/02/2017 8:53 [facility] Jones thapa in this encounter Discharge Instructions Instructions Juliet Darnell MD - 05/02/2017 [facility] DISCHARGE INSTRUCTIONS FOLLOWING YOUR PROCEDURE FOR YOUR URINARY STONES AFTER YOUR PROCEDURE: - You may experience blood in your urine and increased pain with urination, this is not uncommon. - You have an ureteral stent in place. This is not a permanent stent, and needs to be removed after further evaluation and potentially another surgery. - With the stent in place you may notice some occasional flank discomfort, and a sense of pressure in your side when you void, and sometimes a spasm type sensation when you complete voiding, this unfortunately is not unexpected with a stent in place. CALL YOUR DOCTOR IF: - you have a fever greater than 101.5F - you find that you cannot void - if you develop nausea, vomiting, and fear you are getting dehydrated - if your pain is not controlled with the prescribed pain medications PAIN CONTROL INSTRUCTIONS: - you may take the narcotic pain med prescribed for you as instructed - you can take this medication with scheduled ibuprofen, as per the instructions on the ibuprofen bottle, provided you do not have any issues with gastric ulcers CONTACT INFORMATION: - [facility] Office Number: [facility] Office [place] Office FOLLOWUP INFORMATION: - will see you back postoperatively in 5-10 days or you can work to schedule with a urologist in [place] with a Xray prior, please call to confirm this appointment if it has not been made already. documented in this encounter Medications at Time [...] tablet by | 10 | 0 | 05/02/20 | | | (LEVAQUIN) 500 mg | mouth Daily for 10 | tablet | | 17 | 7 | | tabletIndications: | days. Indications: | [...] + + + +---------+ + + | oxyCODONE | Take 1-2 tablets by | 30 | 0 | 05/02/20 | | | (ROXICODONE) 5 mg | mouth EVERY 4 TO 6 | tablet | | 17 | 7 | | tablet | HOURS NEEDED for | | | | | | | Pain. | | | | | + + + +---------+ + + | tamsulosin | Take 1 capsule by | 30 | 1 | 05/02/20 | | | (FLOMAX) 0.4 mg CAPS | mouth daily (after | capsule | | 17 | 8 | | | breakfast). | | | | | + + + +---------+ + + documented as of this encounter Progress Notes Oriana Jaimes RN - 05/02/2017 2:55 PM PSTDischarged to go home. Awaiting ride as lives [place] away. In am refused to ambulate in [place]. When giving discharge instructions , Pt said S he didn't care to hear them. Read Jessy discharge instructions . Printed discharge instr uctions given. Hardcopy prescriptions given. Pt still at [facility] at this time awaiting ride.( I have been given an Low census). 2: 59 PM Juliet Stiles MD - 05/02/2017 8:35 AM PSTFormatting of this note might be differ ent from the original. [facility] Day: 3 DATE/TIME: 05/02/2017 8:35 IMPRESSION POD #2 s/p Right ureteral stent by DR. Gallo for infected stone PLAN 1. D/c to home. Patient wants to do f/u in [place] which is closer to home. Will ne ed f/u in 7-10 days with a KUB done prior 2. D/C home with antibiotics due to her history. I expect this patient will be hospitalized for greater than 2-midnights and expect the post -hospital plan to be discharge to home or to an adult foster home. SUBJECTIVE -States she has pain from stent but pain meds do help when given -no fevers -urine culture no growth to date. Per Dr. Gallo's note there was no purulent output when st ent placed OBJECTIVE Temp: 37.6 C (99.6 F) BP: 112/67 Pulse: 96 Resp: 16 SpO2: 98 % on Min/Max Temp past 24 hours:Temp Av.8 C (98.2 F) Min: 36.2 C (97.2 F) Max: 3 7.6 C (99.6 F) Intake/Output Summary (Last 24 hours) at 05/02/17 0835 Last data filed at 05/02/17 0336 Gross per 24 hour Intake 4612 ml Output 3000 ml Net 1612 ml Wt. Admission: Weight: 96.2 kg (212 lb) Wt. Current: Weight: 96.2 kg (212 lb) General:alert in no acute distress Lungs: no labored breathing Abdomen/back: soft, non-tender. No CVA tenderness Chemistry: Hematology: Medications and labs were personally reviewed by me. Electronically Signed by: Juliet Darnell MD, 05/02/2017 8:35 [facility] Juliet Stiles MD - 1 07/02/2016 11:26 AM PST [facility] Day: 2 DATE/TIME: 05/01/2017 11:26 IMPRESSION POD #1 s/p Right ureteral stent by DR. Gallo for infected stone PLAN 1. Keep today for final cultures, since pt did have fever and still with leukocytosis thoug h decreasing. Will switch to levaquin for broader coverage. I do not have any previous cx' s on her. 2. OOB to halls 3. Oral pain meds for pain control 4. Plan for d/c home tomorrow. Patient wants to do f/u in [place] which is closer to ome. I expect this patient will be hospitalized for greater than 2-midnights and expect the post -hospital plan to be discharge to home or to an adult foster home. SUBJECTIVE -had issues with catheter, but now it is out. Hasn't voided yet -States she has a lot of pain, but per notes and on initial exam patient is resting and "un able to open eyes" -hasn't been oob to [place] -urine culture no growth to date. Per Dr. Gallo's note there was no purulent output when st ent placed OBJECTIVE Temp: 36.2 C (97.1 F) BP: 121/75 Pulse: 103 Resp: 16 SpO2: 95 % on Min/Max Temp past 24 hours:Temp Av.3 C (99.2 F) Min: 36.2 C (97.1 F) Max: 3 8.2 C (100.8 F) Intake/Output Summary (Last 24 hours) at 05/01/17 1126 Last data filed at 05/01/17 0930 Gross per 24 hour Intake 2628 ml Output 2600 ml Net 28 ml Wt. Admission: Weight: 96.2 kg (212 lb) Wt. Current: Weight: 96.2 kg (212 lb) General: initially patient can't open eyes and states she is in pain. Though resting quietl y. At end of visit pt is awake and eating breakfast in no acute distress. Lungs: no labored breathing Abdomen/back: soft, non-tender. No CVA tenderness : Boothe is out EXT: warm, no edema Chemistry: Hematology: Lab Results Component Value Date HGB 12.7 05/01/2017 HCT 36.5 05/01/2017 WBC 14.1 05/01/2017 Medications and labs were personally reviewed by me. Electronically Signed by: Juliet Darnell MD, 05/01/2017 11:26 [facility] awanna Choi R N - 04/30/2017 11:43 AM PSTPt drowsy but arouses to voice. Denies nausea. IVF's: NS at 125ml /hr. SCD's on and activated. Boothe patent, good output. Urine tung colored. Pt on cont ox: 94% on RA, HR 104. VSS. T: 100.1. Blankets removed. Pt has productive cough. Tele on. Electr onically signed by Tawanna Choi RN at 04/30/2017 11:46 AM PSTdocumented in this encou nter Plan of Treatment Not on filedocumented as of this encounter Procedures + +--------+ + + + | Procedure Name | Priori | Date/Time | Associated Diagnosis | Comments | | | ty | | | | + +--------+ + + + | CBC NO DIFFERENTIAL | Routin | 05/01/2017 | | Results for this | | | e | 3:42 AM | | procedure are in the | | | | PST | | results section. | + +--------+ + + + | CULTURE, URINE | Routin | 04/30/2017 | | Results for this | | | e | 10:44 AM | | procedure are in the | | | | PST | | results section. | + +--------+ + + + | CULTURE, URINE | Routin | 04/30/2017 | | Results for this | | | e | 10:40 AM | | procedure are in the | | | | PST | | results section. | + +--------+ + + + | FL PYELOGRAM | Routin | 04/30/2017 | | Results for this | | RETROGRADE | e | 10:10 AM | | procedure are in the | | | | PST | | results section. | + +--------+ + + + | CYSTOSCOPY PLACEMENT | | 04/30/2017 | FLANK PAIN | | | URETERAL STENT | | 9:11 AM | | | | | | PST | | | + +--------+ + + + | CBC NO DIFFERENTIAL | Routin | 04/30/2017 | | Results for this | | | e | 7:10 AM | | procedure are in the | | | | PST | | results section. | + +--------+ + + + | COMPREHENSIVE | Routin | 04/30/2017 | | Results for this | | METABOLIC PANEL | e | 7:10 AM | | procedure are in the | | | | PST | | results section. | + +--------+ + + + | LABS - EXTERNAL SCAN | | 04/29/2017 | | Results for this | | | | 12:00 AM | | procedure are in the | | | | PST | | results section. | + +--------+ + + + documented in this encounter Results CBC no Differential (05/01/2017 3:42 AM PST) + + + + + + | Component | Value | Ref Range | Performed | Pathologist | | | | | At | Signature | + + + + + + | WBC | 14.1 (H) | 4.0 - 11.0 K/uL | [facility] | | | | [facility] | [facility] | [facility] | | + + + + + + | RBC | 3.99 | 3.80 - 5.20 | [facility] | | | | | M/uL | [facility] | | | | | [facility] | | + + + + + + | Hemoglobin | 12.7 | 11.6 - 15.5 | [facility] | | | | | g/dL | [facility] | | | | | [facility] | | + + + + + + | Hematocrit | 36.5 | 35.0 - 46.0 % | [facility] | | | | | | [facility] | | | | | [facility] | | + + + + + + | MCV | 91.4 | 80.0 - 100.0 fL | [facility] | | | | | [facility] | | | | | | [facility] | | + + + + + + | MCH | 31.8 | 27.0 - 34.0 pg | [facility] | | | | | | [facility] | | | | | | [facility] | | + + + + + + | MCHC | 34.8 | 32.0 - 35.5 | [facility] | | | | | g/dL | [facility] | | | | | | [facility] | | + + + + + + | RDW-CV | 12.4 | 11.0 - 15.0 % | [facility] | | | | | | [facility] | | | | | | [facility] | | + + + + + + | Platelet | 224 | 150 - 400 K/uL | [facility] | | | Count | | | [facility] | [facility] | | | | | | [facility] | | + + + + + + + + | Specimen | + + | Blood | + + + + + + + | Performing | Address | City/State/Zipcode | Phone Number | | Organization | | | | + + + + + | [facility] | [address] [facility] | [place] [address] | | | [facility] | | | | | [facility]ORY | | | | + + + + + Culture, Urine (04/30/2017 10:44 AM PST) + + + + + + | Component | Value | Ref Range | Performed | Pathologist | | | | | At | Signature | + + + + + + | Specimen | Urine, Clean Catch | | [facility] | | | Source | | | [facility] | | | | [facility] | | | | | | [facility] | | + + + + + + | RESULT | No growth or <1,000 | | [facility] | | | | CFU/mL | | [facility] | [facility] | | | | | | [facility] | | + + + + + + | RESULT | Performed at [facility] | | [facility] | | | | [facility], | | [facility] | | | | [address] [place], [place] | | HOSPITAL | | | | [address] | | LABORATORY | | + + + + + + | Status | 05/02/2017 Final | | [facility] | | | | | | [facility] | | | | | | [facility] | | + + + + + + + + | Specimen | + + | Urine - Urine | | specimen obtained by | | clean catch | | procedure (specimen) | + + + + + + + | Performing | Address | City/State/Zipcode | Phone Number | | Organization | | | | + + + + + | [facility] | [address] [facility] | [place] [address] | | | [facility] | | | | | [facility]ATORY | | | | + + + + + Culture, Urine (04/30/2017 10:40 AM PST) + + + + + + | Component | Value | Ref Range | Performed | Pathologist | | | | | At | Signature | + + + + + + | Specimen | Urine, Clean Catch | | [facility] | | | Source | | | [facility] | | | | [facility] | | | | | | LAB[facility]ORY | | + + + + + + | RESULT | No growth or <1,000 | | [facility] | | | | CFU/mL | | [facility] | | | | [facility] | | | | | | [facility]ATORY | | + + + + + + | RESULT | Performed at [facility] | | [facility] | | | | [facility], | | [facility] | | | | [address], [place], [place] | | HOSPITAL | | | | [address] | | LABORATORY | | + + + + + + | Status | 05/02/2017 Final | | [facility] | | | | | | [facility] | | | | | | [facility] | | + + + + + + + + | Specimen | + + | Urine - Urine | | specimen obtained by | | clean catch | | procedure (specimen) | + + + + + + + | Performing | Address | City/State/Zipcode | Phone Number | | Organization | | | | + + + + + | [facility] | [address] | [place] [address] | | | [facility] | | | | | LAB[facility]ATORY | | | | + + + + + FL Pyelogram Retrograde (04/30/2017 10:10 AM [facility]) + + | Specimen | + + | | + + + + + | Narrative | Performed At | + + + | RETROGRADE PYELOGRAM CLINICAL INFORMATION: Bilateral | [facility] | | retrogrades. Right stent placement. COMPARISON: No comparisons | | | FINDINGS: Fluoroscopy guided retrograde pyelogram. Please see | | | separate procedural notes for details. Fluoro Time: 45 seconds | | | Total number of images: 10. IMPRESSION: Fluoroscopy guided | | | retrograde pyelogram. Please see separate procedural notes for | | | details. Signed by: Yahaira Marsh | | + + + + + | Procedure Note | + + | Mack Palma In - 04/30/2017 10:16 AM PST | | RETROGRADE PYELOGRAM | | | | CLINICAL INFORMATION: | | Bilateral retrogrades. Right stent placement. | | | | COMPARISON: | | No comparisons | | | | FINDINGS: | | Fluoroscopy guided retrograde pyelogram. Please see separate | | procedural notes for details. | | | | Fluoro Time: 45 seconds Total number of images: 10. | | | | IMPRESSION: | | Fluoroscopy guided retrograde pyelogram. Please see separate procedural | | notes for details. | | | | | | | | | | Signed by: Yahaira Marsh | + + + +---------+ + + | Performing | Address | City/State/Zipcode | Phone Number | | Organization | | | | + +---------+ + + | [facility] | | | | + +---------+ + + Comprehensive Metabolic Panel (04/30/2017 7:10 AM PST) + + + + + + | Component | Value | Ref Range | Performed | Pathologist | | | | | At | Signature | + + + + + + | Na | 139 | 135 - 146 | [facility] | | | | | mmol/L | [facility] | | | | | | [facility] | | + + + + + + | K | 3.7 | 3.6 - 5.2 | [facility] | | | | | mmol/L | [facility] | | | | | | [facility] | | + + + + + + | Cl | 104 | 98 - 109 mmol/L | [facility] | | | | | | [facility] | | | | | | [facility] | | + + + + + + | CO2 | 26 | 21 - 32 mmol/L | [facility] | | | | | | [facility] | | | | | | [facility] | | + + + + + + | Glucose | 83 | 65 - 99 mg/dL | [facility] | | | | | | [facility] | | | | | | [facility] | | + + + + + + | BUN | 6 (L) | 7 - 23 mg/dL | [facility] | | | | | | [facility] | | | | | | [facility] | | + + + + + + | Creatinine | 0.56 | 0.40 - 1.00 | [facility] | | | | | mg/dL | [facility] | | | | | | [facility] | | + + + + + + | Calcium | 8.1 (L) | 8.5 - 10.2 | [facility] | | | | | mg/dL | [facility] | | | | | | [facility] | | + + + + + + | Total | 6.7 | 6.3 - 8.0 g/dL | [facility] | | | Protein | | | [facility] | | | | | | [facility] | | + + + + + + | Albumin | 3.2 (L) | 3.5 - 5.0 g/dL | [facility] | | | | | | [facility] | | | | | | [facility] | | + + + + + + | Bilirubin | 0.6 | 0.1 - 1.5 mg/dL | [facility] | | | Total | | | [facility] | | | | | | [facility] | | + + + + + + | Alkaline | 53 | 35 - 115 U/L | [facility] | | | Phosphatase | | | [facility] | | | | | | [facility] | | + + + + + + | AST | 15 | 5 - 40 U/L | [facility] | | | | | | [facility] | | | | | | [facility] | | + + + + + + | ALT | 19 | 10 - 65 U/L | [facility] | | | | | | [facility] | | | | | | [facility] | | + + + + + + | Anion Gap | 9 | 5 - 16 mmol/L | [facility] | | | | | | [facility] | [facility] | | | | | | [facility] | | + + + + + + | Estimated | >60Comment: GFR <60: | >60 | [facility] | | | GFR | Chronic kidney disease, | ml/min/1.73m2 | [facility] | | | | if found over a 3 month | | HOSPITAL | | | | period.GFR <15: Kidney | | LABORATORY | | | | failure.For | | | | | | Americans, multiply the | | | | | | calculated GFR by 1.210 | | | | + + + + + + + + | Specimen | + + | Blood | + + + + + + + | Performing | Address | City/State/Zipcode | Phone Number | | Organization | | | | + + + + + | [facility] | [address] | [place] [address] | | | [facility] | | | | | LAB[facility]ORY | | | | + + + + + CBC no Differential (04/30/2017 7:10 AM PST) + + + + + + | Component | Value | Ref Range | Performed | Pathologist | | | | | At | Signature | + + + + + + | WBC | 15.5 (H) | 4.0 - 11.0 K/uL | [facility] | | | | | | [facility] | | | | | | [facility] | | + + + + + + | RBC | 4.35 | 3.80 - 5.20 | [facility] | | | | | M/uL | [facility] | | | | | | [facility] | | + + + + + + | Hemoglobin | 13.7 | 11.6 - 15.5 | [facility] | | | | | g/dL | [facility] | | | | | | [facility] | | + + + + + + | Hematocrit | 39.7 | 35.0 - 46.0 % | [facility] | | | | | | [facility] | | | | | | [facility] | | + + + + + + | MCV | 91.3 | 80.0 - 100.0 fL | [facility] | | | | | | [facility] | | | | | | [facility] | | + + + + + + | MCH | 31.4 | 27.0 - 34.0 pg | [facility] | | | | | | [facility] | | | | | | [facility] | | + + + + + + | MCHC | 34.4 | 32.0 - 35.5 | [facility] | | | | | g/dL | [facility] | | | | | | [facility] | | + + + + + + | RDW-CV | 12.4 | 11.0 - 15.0 % | [facility] | | | | | | [facility] | | | | | | [facility] | | + + + + + + | Platelet | 224 | 150 - 400 K/uL | [facility] | | | Count | | | [facility] | [facility] | | | | | | [facility] | | + + + + + + + + | Specimen | + + | Blood | + + + + + + + | Performing | Address | City/State/Zipcode | Phone Number | | Organization | | | | + + + + + | [facility] | [address] [facility] | [place] [address] | | | [facility] | | | | | LAB[facility]ORY | | | | + + + + + LABS - EXTERNAL SCAN (04/29/2017 12:00 AM PST) + + + | Narrative | Performed At | + + + | Ordered by an | | | unspecified provider. | | + + + documented in this encounter Visit Diagnoses Not on filedocumented in this encounter Administered Medications + +--------+---------+------+------+------+ | Medication Order | MAR | Action | Dose | Rate | Site | | | Action | Date | | | | + +--------+---------+------+------+------+ + +---+ | acetaminophen (TYLENOL) tablet | | | 650 mg 650 mg, Oral, EVERY 6 | | | HOURS PRN, Pain, Starting Mon | | | 05/01/17 at 1400 | | + +---+ | | | + +---+ + +-------+ +--------+---+---+ | amoxicillin (AMOXIL) capsule | Given | 05/02/20 | 500 mg | | | | 500 mg 500 mg, Oral, 3 TIMES | | 17 1:20 | | | | | DAILY, First dose on 05/01/17 | | PM PST | | | | | at 1400, Indications: UTI - | | | | | | | UPPER | | | | | | + +-------+ +--------+---+---+ +-------+ +--------+---+---+ | Given | 05/02/20 | 500 mg | | | | | 17 8:41 | | | | | | AM PST | | | | +-------+ +--------+---+---+ | Given | 05/01/20 | 500 mg | | | | | 17 9:03 | | | | | | PM PST | | | | +-------+ +--------+---+---+ +---+---+ | | | +---+---+ + +-------+ +--------+---+---+ | buPROPion (WELLBUTRIN XL) 24 hr | Given | 05/02/20 | 300 mg | | | | tablet 300 mg 300 mg, Oral, | | 17 8:41 | | | | | EVERY MORNING, First dose on Sun | | AM PST | | | | | 04/30/17 at 1145, Do not cut or | | | | | | | crush., | | | | | | + +-------+ +--------+---+---+ + + +--------+---+---+ | Given by Other | 05/01/20 | 300 mg | | | | | 17 9:36 | | | | | | AM PST | | | | + + +--------+---+---+ + +---+ | | | + +---+ | docusate sodium (COLACE) 50 | | | mg/5 mL liquid 100 mg 100 mg, | | | Oral, 2 TIMES DAILY PRN, | | | Constipation, Starting Sun | | | 04/30/17 at 1333 | | + +---+ | | | + +---+ + +-------+ +--------+---+ + | iohexol (OMNIPAQUE 300) 300 | Given | 04/30/20 | 30 mLs | | Surgical | | mg/mL injection PRN, Starting | | 17 9:53 | | | Site | | 04/30/17 at 0953, Intra-op | | AM PST | | | | + +-------+ +--------+---+ + +---+---+ | | | +---+---+ + +-------+ +-------+---+---+ | ketorolac (TORADOL) injection | Given | 05/01/20 | 30 mg | | | | 30 mg 30 mg, Intravenous, EVERY | | 17 11:47 | | | | | 6 HOURS PRN, Pain, Starting Mon | | PM PST | | | | | 05/01/17 at 1400, For 4 days | | | | | | + +-------+ +-------+---+---+ +-------+ +-------+---+---+ | Given | 05/01/20 | 30 mg | | | | | 17 4:09 | | | | | | PM PST | | | | +-------+ +-------+---+---+ +---+---+ | | | +---+---+ + +-------+ +--------+---+---+ | levoFLOXacin (LEVAQUIN) tablet | Given | 05/02/20 | 500 mg | | | | 500 mg 500 mg, Oral, DAILY, | | 17 8:42 | | | | | First dose on 05/01/17 at | | AM PST | | | | | 1200, Give 2 hours before or 2 | | | | | | | hours after antacids, iron, or | | | | | | | zinc., Indications: UTI - LOWER, | | | | | | | UTI - UPPER | | | | | | + +-------+ +--------+---+---+ +-------+ +--------+---+---+ | Given | 05/01/20 | 500 mg | | | | | 17 1:48 | | | | | | PM PST | | | | +-------+ +--------+---+---+ +---+---+ | | | +---+---+ + +-------+ + +---+---+ | lidocaine (XYLOCAINE) 2% jelly | Given | 04/30/20 | 1 | | | | (uro-jet) SARA, Starting Sun | | 17 9:53 | Applicat | | | | 04/30/17 at 0953, Intra-op | | AM PST | ion | | | + +-------+ + +---+---+ +---+---+ | | | +---+---+ + +-------+ +------+---+---+ | LORazepam (ATIVAN) injection | Given | 05/02/20 | 1 mg | | | | 0.5-1 mg 0.5-1 mg, Intravenous, | | 17 9:15 | | | | | EVERY 6 HOURS PRN, Anxiety, | | AM PST | | | | | Starting 04/30/17 at 1658, | | | | | | | Dilute 1:1 with Sterile Water or | | | | | | | Saline for Injection, | | | | | | + +-------+ +------+---+---+ +-------+ +------+---+---+ | Given | 05/01/20 | 1 mg | | | | | 17 10:12 | | | | | | PM PST | | | | +-------+ +------+---+---+ | Given | 05/01/20 | 1 mg | | | | | 17 4:08 | | | | | | PM PST | | | | +-------+ +------+---+---+ +---+---+ | | | +---+---+ + +---------+ +---------+---+ + | nicotine (NICODERM) 21 mg/24 hr | Patch | 05/02/20 | 1 patch | | Arm-Left | | 1 patch 1 patch, Transdermal, | Applied | 17 8:41 | | | Upper | | DAILY, First dose on 05/01/17 | | AM PST | | | | | at 1715 | | | | | | + +---------+ +---------+---+ + + + +---------+---+ + | Patch Applied | 05/01/20 | 1 patch | | Arm-Righ | | | 17 5:32 | | | t Upper | | | PM PST | | | | + + +---------+---+ + +---+---+ | | | +---+---+ + +-------+ +------+---+---+ | ondansetron (ZOFRAN ODT) | Given | 04/30/20 | 4 mg | | | | disintegrating tablet 4 mg 4 mg, | | 17 10:17 | | | | | Oral, EVERY 8 HOURS PRN, Nausea, | | PM PST | | | | | Vomiting, Starting 04/30/17 | | | | | | | at 1342 | | | | | | + +-------+ +------+---+---+ +---+---+ | | | +---+---+ + +-------+ +------+---+---+ | ondansetron (ZOFRAN) injection | Given | 05/01/20 | 4 mg | | | | 4 mg 4 mg, Intravenous, EVERY 8 | | 17 4:09 | | | | | HOURS PRN, Nausea, Vomiting, | | PM PST | | | | | Starting 04/30/17 at 1332, IV | | | | | | | Doses greater than 8 mg should | | | | | | | go in IVPB., | | | | | | + +-------+ +------+---+---+ +---+---+ | | | +---+---+ + +-------+ +------+---+---+ | oxybutynin (DITROPAN) tablet 5 | Given | 05/02/20 | 5 mg | | | | mg 5 mg, Oral, EVERY 6 HOURS | | 17 3:08 | | | | | PRN, Urinary incontinence, | | PM PST | | | | | Bladder Spasms, Starting Sun | | | | | | | 04/30/17 at 1700, Give on an | | | | | | | empty stomach., | | | | | | + +-------+ +------+---+---+ +-------+ +------+---+---+ | Given | 05/02/20 | 5 mg | | | | | 17 9:08 | | | | | | AM PST | | | | +-------+ +------+---+---+ | Given | 05/01/20 | 5 mg | | | | | 17 4:01 | | | | | | PM PST | | | | +-------+ +------+---+---+ +---+---+ | | | +---+---+ + +-------+ +-------+---+---+ | oxyCODONE (ROXICODONE) tablet | Given | 05/02/20 | 10 mg | | | | 5-10 mg 5-10 mg, Oral, EVERY 4 | | 17 1:20 | | | | | HOURS PRN, Pain, Starting Sun | | PM PST | | | | | 04/30/17 at 1407 | | | | | | + +-------+ +-------+---+---+ +-------+ +-------+---+---+ | Given | 05/02/20 | 10 mg | | | | | 17 8:42 | | | | | | AM PST | | | | +-------+ +-------+---+---+ | Given | 05/01/20 | 10 mg | | | | | 17 9:03 | | | | | | PM PST | | | | +-------+ +-------+---+---+ +---+---+ | | | +---+---+ + +-------+ +---------+---+---+ | probiotic formula capsule 1 | Given | 05/02/20 | 1 | | | | capsule 1 capsule, Oral, 2 TIMES | | 17 8:42 | capsule | | | | DAILY WITH BREAKFAST & DINNER, | | AM PST | | | | | First dose on 04/30/17 at | | | | | | | 1700, VSL#3 capsule. DO NOT OPEN | | | | | | | OR CRUSH. Opening capsules | | | | | | | increases the risk of | | | | | | | aerosolization of the probiotics | | | | | | | bacteria and contamination of the | | | | | | | surrounding environment., | | | | | | + +-------+ +---------+---+---+ + + +---------+---+---+ | Given | 05/01/20 | 1 | | | | | 17 5:32 | capsule | | | | | PM PST | | | | + + +---------+---+---+ | Given by Other | 05/01/20 | 1 | | | | | 17 9:36 | capsule | | | | | AM PST | | | | + + +---------+---+---+ +---+---+ | | | +---+---+ + +---------+ +---+-------+---+ | sodium chloride 0.9% (NS) | New Bag | 05/02/20 | | 125 | | | infusion at 125 mL/hr, | | 17 1:44 | | mL/hr | | | Intravenous, CONTINUOUS, Starting | | AM PST | | | | | 04/30/17 at 0630 | | | | | | + +---------+ +---+-------+---+ +---------+ +---------+-------+---+ | New Bag | 05/01/20 | 950 mLs | 125 | | | | 17 5:32 | | mL/hr | | | | PM PST | | | | +---------+ +---------+-------+---+ | New Bag | 05/01/20 | 950 mLs | 125 | | | | 17 9:30 | | mL/hr | | | | AM PST | | | | +---------+ +---------+-------+---+ +---+---+ | | | +---+---+ + +-------+ +--------+---+---+ | tamsulosin (FLOMAX) capsule 0.4 | Given | 05/02/20 | 0.4 mg | | | | mg 0.4 mg, Oral, DAILY AFTER | | 17 8:42 | | | | | BREAKFAST, First dose on Sun | | AM PST | | | | | 04/30/17 at 1730, May open | | | | | | | capsule and sprinkle over acidic | | | | | | | soft food (applesauce, yogurt) or | | | | | | | in a small quantity of acidic | | | | | | | fruit juice (orange, grape). Do | | | | | | | not crush, chew or dissolve | | | | | | | granules., | | | | | | + +-------+ +--------+---+---+ + + +--------+---+---+ | Given by Other | 05/01/20 | 0.4 mg | | | | | 17 9:36 | | | | | | AM PST | | | | + + +--------+---+---+ | Given | 04/30/20 | 0.4 mg | | | | | 17 6:52 | | | | | | PM PST | | | | + + +--------+---+---+ +---+---+ | | | +---+---+ documented in this encounter
--- OUTSIDE RECORDS SUMMARY | ~2019-03-30 | XMS | Encounter Summary ---
Demographics + + + | Address | [address] | | | [place] [address] | + + + | Home Phone | | + + + | Preferred Language | Unknown | + + + | Marital Status | Single | + + + | Orthodoxy Affiliation | Unknown | + + + | Race | Unknown | + + + | Ethnic Group | Unknown | + + + Author + + + | Author | [facility] | | | and [place] | + + + | Organization | [facility] | | | and [place] | + + + | Address | Unknown | + + + | Phone | Unavailable | + + + Support + + + + + | Name | Relationship | Address | Phone | + + + + + | Gt Rebekah | ECON | [address] | | | | | [place] | | | | | [place] | | | | | [address] | | + + + + + Care Team Providers + +------+ + | Care Gluing Machine Adjuster Name | Role | Phone | + +------+ + | No, Physician | PCP | Unavailable | + +------+ + Reason for Visit Evaluate & Treat (Routine) +--------+ + + + + + | Status | Reason | Specialty | Diagnoses / | Referred By | Referred To | | | | | Procedures | Contact | Contact | +--------+ + + + + + | Closed | Specialty | Oncology | Diagnoses | [place], | [facility] | | | Services | | 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 | [address] | Clinic [address] | | | | | embolism | [address] [place] | [place] | | | | | Procedures | [place], [place] | [place], | | | | | [place] OFFICE | [address] | [place] [address] | | | | | OUTPATIENT | Phone: | Phone: | | | | | NEW 45 | [phone] | [phone] | | | | | MINUTES | Fax: | Fax: | | | | | | [phone] | [phone] | +--------+ + + + + + Encounter Details +--------+ + + + + | Date | Type | Department | Care Team | Description | +--------+ + + + + | 06/07/ | Hospital | [facility] | Marcell Lebron | No Show | | 2018 | Encounter | MED CTR MEDICAL | MD Luis Carlos [address] | | | | | ONCOLOGY CLINIC [address] [place] | | | | | [place] | [place] [address] | | | | | [place] [address] | [phone] | | | | | [phone] | | | +--------+ + + + [...]
--- OUTSIDE RECORDS SUMMARY | ~2019-03-30 | XMS | Encounter Summary ---
Demographics + + + | Address | [address] | | | [place] [address] | + + + | Home Phone | | + + + | Preferred Language | Unknown | + + + | Marital Status | Single | + + + | Latter-Day Affiliation | Unknown | + + + | Race | Unknown | + + + | Ethnic Group | Unknown | + + + Author + + + | Author | [facility] | | | and [place] | + + + | Organization | [facility] | | | and [place] | + + + | Address | Unknown | + + + | Phone | Unavailable | + + + Support + + + + + | Name | Relationship | Address | Phone | + + + + + | Gt Rebekah | ECON | [address] | | | | | [place] | | | | | [place] | | | | | [address] | | + + + + + Care Team Providers + +------+ + | Care Machine Tech Name | Role | Phone | + +------+ + PCP | Unavailable | + +------+ + Encounter Details +--------+ + + + + | Date | Type | Department | Care Team | Description | +--------+ + + + + | /04/ | Emergency | [facility] | Ketty Aguilera, | Abdominal Pain, | | 2006 - | | MEDICAL CENTER | [address] | Unspecified Site | | | | EMERGENCY CENTER | [place] [address] | | | 08/10/ | | [address] | [phone] | | | 2006 | | [place], [place] | | | | | | [address] | | | | | | [phone] | | | +--------+ + + + + Social History + +-------+ +--------+------+ | Tobacco Use | Types | Packs/Day | Years | Date | | | | | Used | | + +-------+ +--------+------+ | Never Assessed | | | | | + +-------+ +--------+------+ + + + | Sex Assigned at [...] filedocumented as of this encounter Visit Diagnoses + + | Diagnosis | + + | Abdominal pain, unspecified site | + + documented in this encounter"
--- OUTSIDE RECORDS SUMMARY | ~2019-03-30 | XMS | Encounter Summary ---
Demographics + + + | Address | [address] | | | [place] [address] | + + + | Home Phone | | + + + | Preferred Language | Unknown | + + + | Marital Status | Single | + + + | Jain Affiliation | Unknown | + + + | Race | Unknown | + + + | Ethnic Group | Unknown | + + + Author + + + | Author | [facility] | | | and [place] | + + + | Organization | [facility] | | | and [place] | + + + | Address | Unknown | + + + | Phone | Unavailable | + + + Support + + + + + | Name | Relationship | Address | Phone | + + + + + | Gt Hartarte | ECON | [address] [facility] [facility] | | | | | [place] | | | | | [place] | | | | | [address] | | + + + + + Care Team Providers + +------+ + | Care Meal Attendant Name | Role | Phone | + +------+ + PCP | Unavailable | + +------+ + Encounter Details +--------+ + + + + | Date | Type | Department | Care Team | Description | +--------+ + + + + | 05/24/ | Hospital | [facility] | ChaddGold, | Right ureteral | | 2018 | Encounter | MED CTR XRAY [address] | [address] [facility] | calculus | | | | [place] | [place], [place] | | | | | [place] [address] | [address] | | | | | [phone] | | | +--------+ + + + [...] | 10 | 0 | 05/11/19 | 11/15/201 | | 50 mg tablet | mouth [...] + +--------+ + + + | XR ABDOMEN AP | Routin | 05/24/2017 | Right ureteral | Results for this | | | e | 7:51 AM | calculus | procedure are in the | | | | PST | | results section. | + +--------+ + + + documented in this encounter Results XR Abdomen AP (05/24/2017 7:51 AM PST) + + | Specimen | + + | | + + + + + | Narrative | Performed At | + + + | CLINICAL INFORMATION: Right ureteral calculus, spontaeously passed. | [facility] | | COMPARISON: Radiograph dated 05/11/[address] 05/05/2017. | | | FINDINGS: Frontal view of the abdomen. Bowel gas pattern: | | | Normal. Abnormal calcifications: No abnormal calcification | | | identified. Bones: No acute abnormality. IMPRESSION - No | | | calcified stone identified. Dictated and Signed by: Don | | | MD Sang Electronically signed: 05/24/2017 10:38 AM | | + + + + + | Procedure Note | + + | Louie, Rad Results In - 05/24/2017 10:41 AM PST CLINICAL INFORMATION: Right ureteral | | calculus, spontaeously passed.COMPARISON: Radiograph dated 05/11/[address] | | 05/05/2017.FINDINGS: Frontal view of the abdomen. Bowel gas pattern: Normal. Abnormal | | calcifications: No abnormal calcification identified. Bones: No acute abnormality. | | IMPRESSION - No calcified stone identified.Dictated and Signed by: Don Domínguez MD | | Electronically signed: 05/24/2017 10:38 AM | | | |Bowel gas pattern: Normal. | | | |Abnormal calcifications: No abnormal calcification identified. | | | |Bones: No acute abnormality. | | | | | |IMPRESSION - No calcified stone identified. | | | | | |Dictated and Signed by: Don Domínguez MD | | Electronically signed: 05/24/2017 10:38 AM | + + + +---------+ + + | Performing | Address | City/State/Zipcode | Phone Number | | Organization | | | | + +---------+ + + | [facility] | | | | + +---------+ + + documented in this encounter Visit Diagnoses + + | Diagnosis | + + | Right ureteral calculus Calculus of ureter | + + documented in this encounter"
--- OUTSIDE RECORDS SUMMARY | ~2019-03-30 | XMS | Encounter Summary ---
Demographics + + + | Address | [address] | | | [place] [address] | + + + | Home Phone | | + + + | Preferred Language | Unknown | + + + | Marital Status | Single | + + + | Denominational Affiliation | Unknown | + + + | Race | Unknown | + + + | Ethnic Group | Unknown | + + + Author + + + | Author | [facility] | | | and [place] | + + + | Organization | [facility] | | | and [place] | + + + | Address | Unknown | + + + | Phone | Unavailable | + + + Support + + + + + | Name | Relationship | Address | Phone | + + + + + | Gt Welch | ECON | [address] [facility] | | | | | [place] | | | | | [place] | | | | | [address] | | + + + + + Care Team Providers + +------+ + | Care Physical Therapist Clinic Director Name | Role | Phone | + [...] | | | | | | | [place] | | | | | | | CYSTO/URETER | | | | | | | O/PYELOSCOPY | | | | | | | , CALCULUS | | | | | | | [place] | | | | | | | [...] + + + + | 05/11/ | Anesthesia | [facility] | Yasmany Church, | | | 2018 | Event | MED CTR OR INTRA OP | DO [address] | | | | | [address] | [place], [place] | | | | | [place], [place] | [address] | | | | | [address] | | | | | | | Luis Carlos Maciel | | | | | | II, [address] | | | | | | [address] [place] | | | | | | [place] [address] | | | | | | [phone] | | | | | | | | +--------+ + + + + Anesthesia Record + + + + + | Procedure Name | Responsible | Anesthesia Start | Anesthesia Stop Time | | | Anesthesiologist | Time | | + + + + + | Cystoscopy, Right | Yasmany Church DO | 05/11/17 244 | 05/11/17 1839 | | Ureteroscopy, | | | | | Retrograde | | | | | Pyelogram, Right | | | | | Ureteral Stent | | | | | Removal (Right | | | | | Ureter) | | | | + + + + + +----+---+ + + | Da | T | Event | Comment | | te | i | | | | | m | | | | | e | | | +----+---+ + + | 01 | 1 | | | | /0 | 7 | | | | 4/ | 4 | | | | 20 | 7 | | | | 18 | | | | +----+---+ + + | | 1 | An Checkout | Pre-use anesthesia machine/equipment checkout. | | | 7 | | | | | 4 | | | | | 9 | | | +----+---+ + + | | 1 | An Start | Reassessment prior to anesthesia induction/procedure. | | | 7 | | | | | 5 | | | | | 8 | | | +----+---+ + + | | 1 | Preoxygenat | | | | 8 | ed | | | | 0 | | | | | 1 | | | +----+---+ + + | | 1 | Pre-Procedu | | | | 8 | ral Timeout | | | | 0 | Completed | | | | 1 | | | +----+---+ + + | | 1 | An | | | | 8 | Induction | | | | 0 | | | | | 1 | | | +----+---+ + + | | 1 | An | | | | 8 | Intubation | | | | 0 | | | | | 2 | | | +----+---+ + + | | 1 | Antibiotic | | | | 8 | Given | | | | 0 | | | | | 2 | | | +----+---+ + + | | 1 | [place] | | | | 8 | 43-degrees | | | | 0 | | | | | 5 | | | +----+---+ + + | | 1 | Breathing | | | | 8 | Spontaneous | | | | 0 | ly | | | | 5 | | | +----+---+ + + | | 1 | First | | | | 8 | Inc/Proc St | | | | 1 | | | | | 0 | | | +----+---+ + + | | 1 | Extubated | | | | 8 | Awake | | | | 3 | | | | | 5 | | | +----+---+ + + | | 1 | an stop | | | | 8 | data | | | | 3 | | | | | 5 | | | +----+---+ + + | | 1 | An Stop | Patient handed off to recovery nurse. | | | 3 | | | | | 9 | | | +----+---+ + + +------+ | Meds | +------+ + +--------+ | Name | Total | + +--------+ | midazolam | 2 mg | + +--------+ | fentaNYL injection (2 mL) | 50 mcg | + +--------+ | propofol (DIPRIVAN) injection | 150 mg | | (bolus) (20 mL) | | + +--------+ | lidocaine 2% | 100 mg | + +--------+ | ondansetron | 4 mg | + +--------+ | dexamethasone | 10 mg | + +--------+ | cefTRIAXone (ROCEPHIN) 1 g in | 1 g | | sodium chloride 0.9% 50 mL IVPB | | + +--------+ | sodium chloride 0.9% (NS) | 300 mL | | infusion | | + +--------+ + + | Name | + + | N2O Flow Rate (L/Min) | + + | O2 Flow Rate (L/Min) | + + | Insp O2 | + + | Exp SEV | + + | Air Flow Rate (L/Min) | + + + + | No blood administrations on file. | + + +--------+ + + + | Type | Details | Placement | Removal | +--------+ + + + | Periph | 05/11/17; 1727; Right; Hand; | 05/11/171727 by Jack | 05/11/171925 by Jack | | eral | [id number] catheter system; | Freda Faith RN | Freda Faith RN | | IV | 18 gauge; intradermal injection; | | | | | 05/11/17; 1925 | | | +--------+ + + + | Airway | Placement Date: 05/11/17; | 05/11/171801 by | 05/11/171834 by | | | Placement Time: 1801 (created via | Yasmany Church DO | Yasmany Church DO | | | procedure documentation); Mask | | | | | Ventilation: EZ; Attempts: 1; | | | | | Airway Type: laryngeal mask; | | | | | Size: 4; Trauma: none; Placement | | | | | Check: exhaled CO2 detection | | | | | device, bilateral chest rise; | | | | | Removal Date: 05/11/17; Removal | | | | | Time: 1834 | | | +--------+ + + + | Read | 05/11/17; 1823; vagina; 05/11/17; | 05/11/171823 by | 05/11/171925 by Jack | | only - | 1925 | Jose F Viera RN | Freda Faith RN | | | | | | | Incisi | | | | | on | | | | +--------+ + + + documented in this encounter Social History + + + +--------+------+ | [...] | + +--------+ + + + | ANE AIRWAY NOTE | Routin | 05/11/2017 | | Results for this | | | e | 6:07 PM | | procedure are in the | | | | PST | | results section. | + +--------+ + + + documented in this encounter Results Anesthesia Airway Note (05/11/2017 6:07 PM PST) + + + | Narrative | Performed At | + + + | Yasmany Church DO 05/11/2017 18:07 Anesthesia Airway | | | Placement 05/11/2017 18:02 Preprocedure check: patient identified, | | | oxygen, airway equipment checked, suction, airway assessed and | | | patient reassessment prior to induction Mask ventilation: easy | | | Attempts: 1 Airway type: laryngeal mask Size: 4 Route, reference | | | point: center of mouth Tube secured with: adhesive tape Trauma: none | | | Tube placement verification: bilateral chest rise and carbon dioxide | | | detection Performing provider: YASMANY CHURCH | | | Electronically Signed by: Yasmany Church DO | | | ESig date/time: 05/11/2017 18:07 | | | | | + + + + + | Procedure Note | + + | Yasmany Church DO - 05/11/2017 6:07 PM PST Anesthesia Airway Placement05/11/2017 | | 18:02Preprocedure check: patient identified, oxygen, airway equipment checked, suction, | | airway assessed and patient reassessment prior to inductionMask ventilation: | | easyAttempts: 1Airway type: laryngeal maskSize: 4Route, reference point: center of | | mouthTube secured with: adhesive tapeTrauma: noneTube placement verification: bilateral | | chest rise and carbon dioxide detectionPerforming provider: YASMANY CHURCH | | GABRIELElectronically Signed by: DO Davida Salmeron | | date/time: 05/11/2017 18:07 | |Route, reference point: center of mouth | |Tube secured with: adhesive tape | |Trauma: none | |Tube placement verification: bilateral chest rise and carbon dioxide detection | |Performing provider: YASMANY CHURCH | | | | | |Electronically Signed by: DO Davida Salmeron date/time : 05/11/2017 18:07 | | | + + documented in this encounter Visit Diagnoses Not on filedocumented in this encounter Administered Medications + +---------+ +------+------+------+ | Medication Order | MAR | Action | Dose | Rate | Site | | | Action | Date | | | | + +---------+ +------+------+------+ | cefTRIAXone (ROCEPHIN) 1 g in | New Bag | 05/11/19 | 1 g | | | | sodium chloride 0.9% 50 mL IVPB | | 18 6:02 | | | | | 1 g, Intravenous, Administer over | | PM PST | | | | | 30 Minutes, TEAR DOWN WORKER, Starting | | | | | | | Tiffany 05/11/17 at 1733, For 1 dose, | | | | | | | Activate system and mix before | | | | | | | use., Pre-op, Indications: | | | | | | | Surgical Prophylaxis | | | | | | + +---------+ +------+------+------+ +---+---+ | | | +---+---+ + +-------+ +-------+---+---+ | dexamethasone (PF) 10 mg/mL | Given | 05/11/19 | 10 mg | | | | injection Intravenous, PRN, | | 18 6:01 | | | | | Starting [facility] 05/11/17 at 1801, | | PM PST | | | | | Anesthesia Intra-op | | | | | | + +-------+ +-------+---+---+ +---+---+ | | | +---+---+ + +-------+ +--------+---+---+ | fentaNYL (PF) injection | Given | 05/11/19 | 50 mcg | | | | Intravenous, PRN, Pain, Starting | | 18 6:01 | | | | | Tiffany 05/11/17 at 1801, Anesthesia | | PM PST | | | | | Intra-op | | | | | | + +-------+ +--------+---+---+ +---+---+ | | | +---+---+ + +-------+ +--------+---+---+ | lidocaine (PF) 2% injection | Given | 05/11/19 | 100 mg | | | | Intravenous, PRN, Starting Tiffany | | 18 6:01 | | | | | 05/11/17 at 1801, Anesthesia | | PM PST | | | | | Intra-op | | | | | | + +-------+ +--------+---+---+ +---+---+ | | | +---+---+ + +-------+ +------+---+---+ | midazolam (VERSED) 1 mg/mL | Given | 05/11/19 | 2 mg | | | | injection Intravenous, PRN, | | 18 5:56 | | | | | Anxiety, Starting Tiffany 05/11/17 at | | PM PST | | | | | 1756, Anesthesia Intra-op | | | | | | + +-------+ +------+---+---+ +---+---+ | | | +---+---+ + +-------+ +------+---+---+ | ondansetron (ZOFRAN) injection | Given | 05/11/19 | 4 mg | | | | Intravenous, PRN, Nausea, | | 18 6:01 | | | | | Vomiting, Starting Tiffany 05/11/17 at | | PM PST | | | | | 1801, Anesthesia Intra-op | | | | | | + +-------+ +------+---+---+ +---+---+ | | | +---+---+ + +-------+ +--------+---+---+ | propofol (DIPRIVAN) injection | Given | 05/11/19 | 150 mg | | | | Intravenous, PRN, Starting Tiffany | | 18 6:01 | | | | | 05/11/17 at 1801, Anesthesia | | PM PST | | | | | Intra-op | | | | | | + [...] +---+ +---+ +---+---+ | | | +---+---+ documented in this encounter"
--- OUTSIDE RECORDS SUMMARY | ~2019-03-30 | XMS | Encounter Summary ---
Demographics + + + | Address | [address] | | | [place] [address] | + + + | Home Phone | | + + + | Preferred Language | Unknown | + + + | Marital Status | Single | + + + | Islam Affiliation | Unknown | + + + | Race | Unknown | + + + | Ethnic Group | Unknown | + + + Author + + + | Author | [facility] | | | and [place] | + + + | Organization | [facility] | | | and [place] | + + + | Address | Unknown | + + + | Phone | Unavailable | + + + Support + + + + + | Name | Relationship | Address | Phone | + + + + + | Gt Welch | ECON | [address] | | | | | [place] | | | | | [place] | | | | | [address] | | + + + + + Care Team Providers + +------+ + | Care Financial Sales Manager Name | Role | Phone | [...] | +--------+ + + + + | 07/30/ | Emergency | [facility] | James Thompson, | Reactive airway | | 2015 | | [facility] | [address] | disease, mild | | | | CENTER [address] | [place] | persistent, with | | | | [place] | [phone] | acute exacerbation | | | | [phone] | | (Primary Dx) | | | | [phone] | | | +--------+ + + + [...] + + + | Blood Pressure | 122/70 | 07/30/2014 9:58 AM | | | | | PDT | | + + + + + | Pulse | 102 | 07/30/2014 10:23 AM | | | | | PDT | | + + + + + | Temperature | 37.3 C (99.1 F) | 07/30/2014 9:58 AM | | | | | PDT | | + + + + + | Respiratory Rate | 18 | 07/30/2014 10:23 AM | | | | | PDT | | + + + + + | Oxygen Saturation | 97% | 07/30/2014 10:23 AM | | | | | PDT | | + + + + + | Inhaled Oxygen | - | - | | | Concentration | | | | + + + + + | Weight | 59 kg (130 lb) | 07/30/2014 9:58 AM | | | | | PDT | | + + + + + | Height | 172.7 cm (5' 8") | 07/30/2014 9:58 AM | | | | | PDT | | + + + + + | Body Mass Index | 19.77 | 07/30/2014 9:58 AM | | | | | PDT [...] documented as of this encounter Discharge Instructions AttachmentsThe following attachments cannot be sent through Care Everywhere.ASTHMA AND PREG NILSA (VIETNAMESE)documented in this encounter Medications at Time of [...] tablet by | 15 | 0 | 07/31/19 | | | oxyCODONE-acetaminop | mouth every 6 hours | tablet | | 15 | 5 | | hen (PERCOCET) 5-325 | as needed for Pain. | [...] + | ED INFORMATION | Routin | 07/30/2014 | | Results for this | | EXCHANGE | e | 9:40 AM | | procedure are in the | | | | PDT | | results section. | + +--------+ + + + documented in this encounter Results ED INFORMATION EXCHANGE (07/30/2014 9:40 AM PDT) + + | Specimen | + + | | + + + + + | Narrative | Performed At | + + + | INPATIENT VISIT TRACKING (1 MO.) Visit Date | [facility] | | LocationTypeDiagnoses | | | VISIT TRACKING (3 MO.) Visit Date | | | Location Type | | | Diagnoses -------- | | | ---- 07/30/2014 | | | 09:39 [facility] Emergency | | | -Cough, SOB 07/25/2014 16:01 [facility] | | | Center Emergency -Diff Breathing 07/25/2014 08:38 | | | [facility] Emergency -Unspecified | | | infection or infestation of mother, antepartum | | | | | | condition or complication | | | | | | -Asthma, unspecified type, with (acute) exacerbation | | | | | | -Cough | | | | | | -COUGH/VOMITING/16 WKS PREG 07/04/2014 18:23 [place] | | | [facility] Emergency -14 WEEKS , | | | BLEEDING AND CRAMPING | | | -Other | | | specified complications of , antepartum condition or | | | | | | complication | | | | | | -Unspecified complication of , antepartum | | | condition or | | | complication | | | | | | 1. Unspecified hemorrhage in early | | | , antepartum condition | | | | | | or complication | | | 2. Personal | | | history of tobacco use 06/19/2014 15:28 [facility] | | | Hospital Emergency -COUGH, JAW PAIN | | | | | | -Other specified complications of , | | | antepartum condition or | | | | [...] Acute bronchitis 05/20/2014 | | | 19:00 [facility] Emergency | | | -Unspecified hemorrhage in [...] ------ --------- 2 0 | | | [facility] 2 0 | | | [facility] 5 0 | | | [facility] 6 0 | | | [facility] 1 0 | | | [facility] 16 0 | | | Total Note: Visits indicate total known visits. | | | Medicaid [place] Dx are the number of primary diagnoses on the [facility]'s | | | non-emergent dx list. | | | | | | --- Guidelines Source: [facility] Guidelines | | | Date: [...] | + +---------+ + + | [place] [facility] | | | | + +---------+ + + documented in this encounter Visit Diagnoses + + | Diagnosis | + + | Reactive airway disease, mild persistent, with acute exacerbation - Primary | + + documented in this encounter Administered Medications + +--------+ +-------+------+------+ | Medication Order | MAR | Action | Dose | Rate | Site | | | Action | Date | | | | + +--------+ +-------+------+------+ | albuterol-ipratropium (DUONEB) | Given | 07/30/20 | 3 mLs | | | | 2.5-0.5 mg/3 mL nebulizer | | 15 10:23 | | | | | solution 3 mL 3 mL, | | AM PDT | | | | | Nebulization, RT Once, Wed | | | | | | | 07/30/14 at 1030, For 1 dose | | | | | | + +--------+ +-------+------+------+ +---+---+ | | | +---+---+ + +-------+ + +---+---+ | oxyCODONE-acetaminophen | Given | 07/31/19 | 1 tablet | | | | (PERCOCET) 5-325 mg per tablet 1 | | 15 10:33 | | | | | tablet 1 tablet, Oral, ONCE, Wed | | AM PDT | | | | | 07/30/14 at 1045, For 1 dose | | | | | | + +-------+ + +---+---+ +---+---+ | | | +---+---+ documented in this encounter
--- OUTSIDE RECORDS SUMMARY | ~2019-03-30 | XMS | Encounter Summary ---
Demographics + + + | Address | [address] | | | [place] [address] | + + + | Home Phone | | + + + | Preferred Language | Unknown | + + + | Marital Status | Single | + + + | Roman Catholic Affiliation | Unknown | + + + | Race | Unknown | + + + | Ethnic Group | Unknown | + + + Author + + + | Author | [facility] | | | and [place] | + + + | Organization | [facility] | | | and [place] | + + + | Address | Unknown | + + + | Phone | Unavailable | + + + Support + + + + + | Name | Relationship | Address | Phone | + + + + + | Gt Welch | ECON | [address] [facility] | | | | | [place] | | | | | [place] | | | | | [address] | | + + + + + Care Team Providers + +------+ + | Care Shipping Clerk Packing Name | Role | Phone | + +------+ + | Maikol Lance MD | PCP | | + +------+ + Reason for Visit + + + | Reason | Comments | + + + | Numbness | left leg | + + + Encounter Details +--------+ + + + + | Date | Type | Department | Care Team | Description | +--------+ + + + + | 03/28/ | Emergency | [facility] | Nico Orourke | Leg numbness | | 2013 | | [facility] CTR EM[facility] | MD Michael [address] | (Primary Dx); Leg | | | | CENTER [address] | [address] [facility] | weakness | | | | [place], [place] | [place] [address] | | | | | [address] | [phone] | | | | | [phone] | | | +--------+ + + + [...] + + + | Blood Pressure | 118/60 | 03/28/2014 12:59 AM | | | | | PST | | + + + + + | Pulse | 78 | 03/28/2014 1:15 AM | | | | | PST | | + + + + + | Temperature | 35.7 C (96.2 F) | 03/28/2014 12:08 AM | | | | | PST | | + + + + + | Respiratory Rate | 20 | 03/28/2014 12:08 AM | | | | | PST | | + + + + + | Oxygen Saturation | 98% | 03/28/2014 1:15 AM | | | | | PST | | + + + + + | Inhaled Oxygen | - | - | | | Concentration | | | | + + + + + | Weight | 90.7 kg (200 lb) | 03/28/2014 12:08 AM | | | | | PST | | + + + + + | Height | 172.7 cm (5' 8") | 03/28/2014 12:08 AM | | | | | PST | | + + + + + | Body Mass Index | 30.41 | 03/28/2014 12:08 AM | | | | | PST [...] as of this encounter Discharge Instructions Instructions Nico Orourke MD - 03/28/2014See printed instructions. Return with n ew or worsening symptoms. Followup with your DrNicole for further workup. AttachmentsThe following attachments cannot be sent through Care Everywhere.ED WEAKNESS, UN K CAUSE (TAJIK)ED PARAESTHESIAS (TAJIK)documented in this encounter Medications at Time of Discharge + + + +---------+ + + | Medication | Sig | Dispensed | Refills | Start | End Date | | | | | | Date | | + + + +---------+ + + | busPIRone (BUSPAR) | Take 10 mg by mouth | | 0 | | | | 10 MG tablet | 3 times daily. | | | | 5 | + + + +---------+ + + [...] | + +--------+ + + + | CT HEAD WO CONTRAST | STAT | 03/28/2014 | | Results for this | | | | 12:53 AM | | procedure are in the | | | | PST | | results section. | + +--------+ + + + | ED INFORMATION | Routin | 03/28/2014 | | Results for this | | EXCHANGE | e | 12:09 AM | | procedure are in the | | | | PST | | results section. | + +--------+ + + + documented in this encounter Results CT Head wo Contrast (03/28/2014 12:53 AM PST) + + | Specimen | + + | | + + + + + | Narrative | Performed At | + + + | CT HEAD WITHOUT CONTRAST: 03/28/2014 12:52 AM CLINICAL HISTORY: | MISCELANIOUS | | NUMBNESS TECHNIQUE: Axial images are obtained from skull base to | LAB | | calvarium without the use of contrast. Study is reviewed in | | | multiplanar reformations. COMPARISON: None FINDINGS:No | | | intra-axial or extra-axial hemorrhage or midline shift. The | | | ventricular spaces, CSF cisterns and sulci show a normal symmetric | | | appearance. Mild kylah cisterna magna configuration. Arhcer-white | | | differentiation is normal. No mass or mass effect. No areas of | | | abnormal white matter signal. Posterior fossa contents are normal. | | | Normal pituitary. No orbital abnormality. Mild mucoperiosteal | | | thickening in the ethmoid regions, with otherwise normal mastoids and | | | paranasal sinuses. No bony abnormality. IMPRESSION - No acute | | | intracranial abnormality. Comment: Results of this exam, without | | | significant discordance, were provided by the after-hours radiology | | | service on completion of the study. Dictated and Signed by: Deion Selby | | MD Gage Electronically signed: 03/28/2014 9:00 AM | | + + + + + | Procedure Note | + + | Louie, Rad Results In - 03/28/2014 9:[address] HEAD WITHOUT CONTRAST: 03/28/2014 | | 12:52 AMCLINICAL HISTORY: NUMBNESSTECHNIQUE: Axial images are obtained from skull base | | to calvarium without theuse of contrast. Study is reviewed in multiplanar | | reformations.COMPARISON: NoneFINDINGS:No intra-axial or extra-axial hemorrhage or | | midline shift. Theventricular spaces, CSF cisterns and sulci show a normal symmetric | | appearance.Mild kylah cisterna magna configuration. Archer-white differentiation is normal. | | Nomass or mass effect. No areas of abnormal white matter signal.Posterior fossa | | contents are normal. Normal pituitary. No orbital abnormality.Mild mucoperiosteal | | thickening in the ethmoid regions, with otherwise normalmastoids and paranasal sinuses. | | No bony abnormality.IMPRESSION -No acute intracranial abnormality.Comment: Results of | | this exam, without significant discordance, were provided bythe after-hours radiology | | service on completion of the study.Dictated and Signed by: Deion Almonte MD | | Electronically signed: 03/28/2014 9:00 AM | | | |Posterior fossa contents are normal. Normal pituitary. No orbital abnormality. | |Mild mucoperiosteal thickening in the ethmoid regions, with otherwise normal | |mastoids and paranasal sinuses. No bony abnormality. | | | |IMPRESSION - | |No acute intracranial abnormality. | | | |Comment: Results of this exam, without significant discordance, were provided by | |the after-hours radiology service on completion of the study. | | | |Dictated and Signed by: Deion Almonte MD | | Electronically signed: 03/28/2014 9:00 AM | + + + +---------+ + + | Performing | Address | City/State/Zipcode | Phone Number | | Organization | | | | + +---------+ + + | MISCELLANEOUS LAB | | | [phone] | + +---------+ + + | MISCELANIOUS LAB | | | [phone] | + +---------+ + + ED INFORMATION EXCHANGE (03/28/2014 12:09 AM PST) + + | Specimen | + + | | + + + + + | Narrative | Performed At | + + + | VISIT TRACKING (3 MO.) Visit Date Location | [facility] | | Type Diagnoses | | | -------- | | | ---- 03/28/2014 00:06 [place] | | | [facility] Emergency -Numbness 02/25/2014 | | | 00:[address] [facility] Emergency | | | -Unspecified symptom associated with female genital organs | | | | | | -left ovary pain | | | | | | -Abdominal Pain | | | | | | -Other and unspecified ovarian cyst 01/30/2014 10:02 [place] | | | [facility] Emergency -Threatened , | | | antepartum condition or complication | | | | | | -8 WEEK AND BLEEDING | | | | | | -Threatened , antepartum condition or complication | | | | | | 1. Threatened , antepartum | | | condition or complication | | | 2. | | | Supervision of high-risk with other poor reproductive | | | | | | history | | | | | | 2. Tobacco use disorder complicating , childbirth, | | | or the | | | puerperium, antepartum | | | condition or complication | | | 2. | | | Other abnormalities in shape or position of gravid [...] ovarian cyst 01/24/2014 16:45 | | | Emergency -DENTAL | | | PAIN | | | -Unspecified disorder of the | | | teeth and supporting structures | | | | | | -Periapical abscess without sinus | | | | | | 1. Periapical abscess without sinus | | | | | | 2. Tobacco use disorder VISIT COUNT (1 YR.) Visits | | | Medicaid [place] Dx Location ------ | | | --------- [address] [facility] | | | [facility] 3 0 [facility] | | | [facility] 1 0 [facility] | | | [facility] 3 0 | | | [facility] 2 0 | | | [facility] 1 0 | | | [facility] 2 0 | | | 2 0 | | | [facility] 17 0 | | | Total Note: Visits indicate total known visits. | | | Medicaid [place] Dx are the number of primary diagnoses on the [facility]'s | | | non-emergent dx list. | | | | | | --- Guidelines Source: [facility] Guidelines | | | Date: 05/13/2013 [...] + | Diagnosis | + + | Leg numbness - Primary Disturbance of skin sensation | + + | Leg weakness Other musculoskeletal symptoms referable to limbs | + + documented in this encounter Administered Medications + +--------+ +--------+------+------+ | Medication Order | MAR | Action | Dose | Rate | Site | | | Action | Date | | | | + +--------+ +--------+------+------+ | acetaminophen (TYLENOL) tablet | Given | 03/28/20 | 650 mg | | | | 650 mg 650 mg, Oral, ONCE, Fri | | 14 12:23 | | | | | 03/28/14 at 0045, For 1 dose | | AM PST | | | | + +--------+ +--------+------+------+ +---+---+ | | | +---+---+ documented in this encounter
--- OUTSIDE RECORDS SUMMARY | ~2019-03-30 | XMS | Encounter Summary ---
Demographics + + + | Address | [address] | | | [place] [address] | + + + | Home Phone | | + + + | Preferred Language | Unknown | + + + | Marital Status | Single | + + + | Orthodoxy Affiliation | Unknown | + + + | Race | Unknown | + + + | Ethnic Group | Unknown | + + + Author + + + | Author | [facility] | | | and [place] | + + + | Organization | [facility] | | | and [place] | + + + | Address | Unknown | + + + | Phone | Unavailable | + + + Support + + + + + | Name | Relationship | Address | Phone | + + + + + | Gtjuliann Welch | ECON | [address] [facility] | | | | | [place] | | | | | [place] | | | | | [address] | | + + + + + Care Team Providers + +------+ + | Care Grad Intern Name | Role | Phone | + +------+ + PCP | Unavailable | + +------+ + Encounter Details +--------+ + + + + | Date | Type | Department | Care Team | Description | +--------+ + + + + | 01/08/ | Emergency | [facility] | Keshav Blanchard | Right ankle sprain | | 2011 | | MEDICAL CENTER | MD [place] [address] | | | | | [facility] | [address] | | | | | [address] | [place] [address] | | | | | [place], [place] | [phone] | | | | | [address] | | | | | | [phone] | | | +--------+ + + + [...] + +--------+ + + + | XR ANKLE RIGHT 3 + | Routin | 01/09/2012 | | Results for this | | VW | e | 10:15 PM | | procedure are in the | | | | PDT | | results section. | + +--------+ + + + documented in this encounter Results XR Ankle Right 3 + Vw (01/09/2012 10:15 PM PDT) + + | Specimen | + + | | + + + + + | Narrative | Performed At | + + + | [facility] XR ANKLE RIGHT 01/09/2012 10:10 PM HISTORY: | | | Injury. TECHNIQUE: Three views right ankle. FINDINGS: No | | | comparison. There is mild soft tissue swelling. No acute fracture | | | or dislocation is seen. A plantar calcaneal spur is noted. | | | IMPRESSION: 1. Soft tissue swelling, but no evidence of acute | | | fracture. Electronically signed by Brock Oneil MD on | | | 01/10/2012 7:51 AM | | + + + + + | Procedure Note | + + | Mack Palma - 12/29/2018 7:20 AM [facility] ANKLE RIGHT01/09/2012 | | 10:10 PM HISTORY:Injury. TECHNIQUE:Three views right ankle. FINDINGS:No comparison. | | There is mild soft tissue swelling. No acute fracture or dislocation is seen. A | | plantar calcaneal spur is noted. IMPRESSION:1. Soft tissue swelling, but no evidence of | | acute fracture. | |Injury. | | | |TECHNIQUE: | |Three views right ankle. | | | |FINDINGS: | |No comparison. There is mild soft tissue swelling. No acute fracture or dislocation is se en. A plantar calcaneal spur is noted. | | | |IMPRESSION: | |1. Soft tissue swelling, but no evidence of acute fracture. | | | | | + + documented in this encounter Visit Diagnoses + + | Diagnosis | + + | Right ankle sprain Sprain of ankle, unspecified site | + + documented in this encounter"
--- OUTSIDE RECORDS SUMMARY | ~2019-03-30 | XMS | Encounter Summary ---
Demographics + + + | Address | [address] | | | [place] [address] | + + + | Home Phone | | + + + | Preferred Language | Unknown | + + + | Marital Status | Single | + + + | Christian Affiliation | Unknown | + + + | Race | Unknown | + + + | Ethnic Group | Unknown | + + + Author + + + | Author | [facility] | | | and [place] | + + + | Organization | [facility] | | | and [place] | + + + | Address | Unknown | + + + | Phone | Unavailable | + + + Support + + + + + | Name | Relationship | Address | Phone | + + + + + | Gt Welch | ECON | [address] [facility] | | | | | [place] | | | | | [place] | | | | | [address] | | + + + + + Care Team Providers + +------+ + | Care Dice Table Operator Name | Role | Phone | + +------+ + | Bro Mora MD | PCP | | + +------+ + Encounter Details +--------+ + + + + | Date | Type | Department | Care Team | Description | +--------+ + + + + | 08/19/ | Hospital | [facility] | Marcell Hummel | Supervision of other | | 2015 | Encounter | MED CTR ULTRASOUND | DO Michael [address] | normal , | | | | [address] [place] | [address] [place] | second trimester | | | | [place], [place] | [place] [address] | | | | | [address] | [phone] | | | | | [phone] | | | | | | | [address] | | | | | | Billy, Technologist | | | | | | [place], [place] | | | | | | [address] | | +--------+ + + + + [...] | + +--------+ + + + | US OB 14 + WEEKS | Routin | 08/19/2014 | Supervision of | Results for this | | SINGLE OR FIRST | e | 11:08 AM | other normal | procedure are in the | | GESTATION | | PDT | , second | results section. | | | | | trimester | | + +--------+ + + + documented in this encounter Results US OB 14 + Week Singl or First Gestation (08/19/2014 11:08 AM PDT) + + | Specimen | + + | | + + + + + | Narrative | Performed At | + + + | COMPLETE OBSTETRIC ULTRASOUND 08/19/2014 9:50 AM CLINICAL | [facility] | | HISTORY: Evaluate size and dates, approximately 19 weeks 2 days | | | based on LMP COMPARISON: LIMITED OBSTETRIC ULTRASOUND | | | JULY 25 FINDINGS: A single intrauterine fetus is present, and is | | | in variable lie. The maternal cervix is not optimally visualized | | | due to poor acoustic windows but appears closed and measures | | | approximately 4.9 cm in length. The placenta is anterior, without | | | evidence of placenta previa or subchorionic hemorrhage. Amniotic | | | fluid volume is subjectively within normal limits. | | | biometric data: BPD of 4.1 cm equals 18 weeks 3 days. Head | | | circumference of 16.1 cm equals 19 weeks 0 days. Abdominal | | | circumference of 13.4 cm equals 19 weeks 0 days. Femur length of 2.9 | | | cm equals 19 weeks 0 days. Average sonographic age is 18 weeks 6 | | | days, which is 3 days less than the calculated gestational age based | | | on LMP. anatomic survey: Contents of the posterior fossa and | | | the lateral ventricles are unremarkable. A four-chamber heart | | | is present, with a regular rate of 152 BPM. Cardiac ventricular | | | outflow tracts are normal in orientation. A fluid filled stomach | | | and bladder are present. The spine, renal region and | | | three-vessel umbilical cord and its insertion are unremarkable. | | | Two upper and lower extremities are visualized. IMPRESSION | | | - 1. SINGLE, LIVING INTRAUTERINE FETUS IN VARIABLE LIE, WITH | | | AVERAGE SONOGRAPHIC AGE 18 WEEKS 6 DAYS, WHICH IS 3 DAYS LESS THAN | | | THE CALCULATED GESTATIONAL AGE BASED ON LMP. 2. NORMAL | | | ANATOMIC SURVEY. Dictated and Signed by: Theodore Lu MD | | | Electronically signed: 08/19/2014 11:31 AM | | + + + + + | Procedure Note | + + | Louie, Rad Results In - 08/19/2014 11:34 AM PDT COMPLETE OBSTETRIC ULTRASOUND | | 08/19/2014 9:50 AMCLINICAL HISTORY: Evaluate size and dates, approximately 19 weeks 2 | | days based on LMPCOMPARISON: LIMITED OBSTETRIC ULTRASOUND JULY 25FINDINGS: A | | single intrauterine fetus is present, and is in variable lie. Thematernal cervix is not | | optimally visualized due to poor acoustic windows butappears closed and measures | | approximately 4.9 cm in length. The placenta isanterior, without evidence of placenta | | previa or subchorionic hemorrhage. Amniotic fluid volume is subjectively within normal | | limits. biometric data:BPD of 4.1 cm equals 18 weeks 3 days.Head circumference of | | 16.1 cm equals 19 weeks 0 days.Abdominal circumference of 13.4 cm equals 19 weeks 0 | | days.Femur length of 2.9 cm equals 19 weeks 0 days.Average sonographic age is 18 weeks 6 | | days, which is 3 days less than thecalculated gestational age based on LMP. | | anatomic survey: Contents of the posterior fossa and the lateralventricles are | | unremarkable. A four-chamber heart is present, with a regularrate of 152 BPM. | | Cardiac ventricular outflow tracts are normal in orientation. A fluid filled stomach | | and bladder are present. The spine, renalregion and three-vessel umbilical cord | | and its insertion are unremarkable. Two upper and lower extremities are visualized. | | IMPRESSION -1. SINGLE, LIVING INTRAUTERINE FETUS IN VARIABLE LIE, WITH AVERAGE | | SONOGRAPHICAGE 18 WEEKS 6 DAYS, WHICH IS 3 DAYS LESS THAN THE CALCULATED GESTATIONAL | | AGEBASED ON LMP. 2. NORMAL ANATOMIC SURVEY.Dictated and Signed by: Theodore Lu | | Electronically signed: 08/19/2014 11:31 AM | |calculated gestational age based on LMP. | | | | anatomic survey: Contents of the posterior fossa and the lateral | |ventricles are unremarkable. A four-chamber heart is present, with a regular | |rate of 152 BPM. Cardiac ventricular outflow tracts are normal in orientation. | | A fluid filled stomach and bladder are present. The spine, renal | |region and three-vessel umbilical cord and its insertion are unremarkable. | |Two upper and lower extremities are visualized. | | | |IMPRESSION - | |1. SINGLE, LIVING INTRAUTERINE FETUS IN VARIABLE LIE, WITH AVERAGE SONOGRAPHIC | |AGE 18 WEEKS 6 DAYS, WHICH IS 3 DAYS LESS THAN THE CALCULATED GESTATIONAL AGE | |BASED ON LMP. | | | |2. NORMAL ANATOMIC SURVEY. | | | |Dictated and Signed by: Theodore Lu MD | | Electronically signed: 08/19/2014 11:31 AM | + + + +---------+ + + | Performing | Address | City/[facility] | Phone Number | | Organization | | | | + +---------+ + + | [facility] | | | | + +---------+ + + documented in this encounter Visit Diagnoses + + | Diagnosis | + + | Supervision of other normal , second trimester | + + documented in this encounter"
--- OUTSIDE RECORDS SUMMARY | ~2019-03-30 | XMS | Encounter Summary ---
Demographics + + + | Address | [address] | | | [place] [address] | + + + | Home Phone [...] | Organization | [facility] | | | and [place] | + + + | Address | Unknown | + + + | Phone | Unavailable | + + + Support + + + + + | Name | Relationship | Address | Phone | + + + + + | Gt Welch | ECON | [address] [facility] | | | | | [place] | | | | | [place] | | | | | [address] | | + + + + + Care Team Providers + +------+ + | Care Faucet Polisher Name | Role | Phone | + +------+ + | No, Physician | PCP | Unavailable | + +------+ + Encounter Details +--------+ + + + + | Date | Type | Department | Care Team | Description | +--------+ + + + + | 05/11/ | Orders Only | [facility] | Conversion | | | 2018 | | [address] | Transaction, | | | | | [address] | Provider Unknown | | | | | [address] | [phone] | | | | | [phone] | | | +--------+ + + + [...] | + +--------+ + + + | CREATININE | Routin | 05/11/2017 | | Results for this | | | e | 12:00 AM | | procedure are in the | | | | PST | | results section. | + +--------+ + + + documented in this encounter Results Creatinine (05/11/2017 12:00 AM PST) + +-------+ + + + | Component | Value | Ref Range | Performed | Pathologist | | | | | At | Signature | + +-------+ + + + | Creatinine | 0.66 | mg/dL | EXTERNAL | | | | | | LAB | | + +-------+ + + + + + | Specimen [...]
--- OUTSIDE RECORDS SUMMARY | ~2019-03-30 | XMS | Encounter Summary ---
Demographics + + + | Address | [address] | | | [place] [address] | + + + | Home Phone | | + + + | Preferred Language | Unknown | + + + | Marital Status | Single | + + + | Nondenominational Affiliation | Unknown | + + + | Race | Unknown | + + + | Ethnic Group | Unknown | + + + Author + + + | Author | [facility] | | | and [place] | + + + | Organization | [facility] | | | and [place] | + + + | Address | Unknown | + + + | Phone | Unavailable | + + + Support + + + + + | Name | Relationship | Address | Phone | + + + + + | Gt Welch | ECON | [address] [facility] | | | | | [place] | | | | | [place] | | | | | [address] | | + + + + + Care Team Providers + +------+ + | Care Munitions Handler Supervisor Name | Role | Phone | + +------+ + | Bro Mora MD | PCP | | + +------+ + Encounter Details +--------+ + + + + | Date | Type | Department | Care Team | Description | +--------+ + + + + | 11/06/ | Emergency | [facility] | Ariane Almanza, | Plantar fasciitis | | 2016 - | | [facility] | MD Mahi Alexandra | | | | | EMERGENCY RAUL | [place] [address] | | | 11/07/ | | [address] | [phone] | | | 2015 | | [place], [place] | | | | | | [address] | | | | | | [phone] | | | +--------+ + + + [...] + + + | Blood Pressure | 165/80 | 11/07/2015 11:34 PM | | | | | PDT | | + + + + + | Pulse | 84 | 11/07/2015 11:34 PM | | | | | PDT | | + + + + + | Temperature | 36.7 C (98.1 F) | 11/07/2015 11:34 PM | | | | | PDT | | + + + + + | Respiratory Rate | 20 | 11/07/2015 11:34 PM | | | | | PDT | | + + + + + | Oxygen Saturation | - | - | | + + + + + | Inhaled Oxygen | - | - | | | Concentration | | | | + + + + + | Weight | 101.8 kg (224 lb 6.9 | 11/07/2015 11:34 PM | | | | oz) | PDT | | + + + + + | Height | 172.7 cm (5' 8") | 11/07/2015 11:34 PM | | | | | PDT | | + + + + + | Body Mass Index | 34.12 | 11/07/2015 11:34 PM | | | | | PDT [...] + | Diagnosis | + + | Plantar fasciitis Plantar fascial fibromatosis | + + documented in this encounter
--- OUTSIDE RECORDS SUMMARY | ~2019-03-30 | XMS | Encounter Summary ---
Demographics + + + | Address | [address] | | | [place] [address] | + + + | Home Phone | | + + + | Preferred Language | Unknown | + + + | Marital Status | Single | + + + | Druze Affiliation | Unknown | + + + | Race | Unknown | + + + | Ethnic Group | Unknown | + + + Author + + + | Author | [facility] | | | and [place] | + + + | Organization | [facility] | | | and [place] | + + + | Address | Unknown | + + + | Phone | Unavailable | + + + Support + + + + + | Name | Relationship | Address | Phone | + + + + + | Gt Rebekah | ECON | [address] [facility] | | | | | [place] | | | | | [place] | | | | | [id number] | | + + + + + Care Team Providers + +------+ + | Care Manager Data Warehouse Name | Role | Phone | + +------+ + | Bro Mora MD | PCP | | + +------+ + Reason for Referral Evaluate & Treat (Routine) +--------+ + + + + + | Status | Reason | Specialty | Diagnoses / | Referred By | Referred To | | | | | Procedures | Contact | Contact | +--------+ + + + + + | Closed | Specialty | Oncology | Diagnoses | Chadd, | [facility] | | | Services | | 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 | [address] | Clinic [address] | | | | | embolism | [address] [place] | [place] | | | | | Procedures | [place], [place] | [place], | | | | | [place] OFFICE | [address] | [place] [address] | | | | | OUTPATIENT | Phone: | Phone: | | | | | NEW 45 | [phone] | [phone] | | | | | MINUTES | Fax: | Fax: | | | | | | [phone] | [phone] | +--------+ + + + + + Reason for Visit + + + | Reason | Comments | + + + | Nephrolithiasis | | + + + Evaluate & Treat (Emergency) +--------+--------+ + + + + | Status | Reason | Specialty | Diagnoses / | Referred By | Referred To | | | | | Procedures | Contact | Contact | +--------+--------+ + + + + | Closed | | Urology | Diagnoses | Brian, | Chadd, | | | | | Calculus of | Gabriel Richards, | Gold Cervantes MD | | | | | ureter | [address] | [address] | | | | | Unspecified | [address] | [place], | | | | | abdominal | [facility] | [place] [address] | | | | | pain NEW/ | [place], | Phone: | | | | | ER FOLLOW | [place] | [phone] | | | | | UP, STENT | [address] | Fax: | | | | | REMOVAL, S/P | Phone: | [phone] | | | | | SURG BY | [phone] | | | | | | [place] | Fax: | | | | | | 04/30/17 | [phone] | | | | | | Procedures | | | | | | | [place] OFFICE | | | | | | | OUTPATIENT | | | | | | | NEW 45 | | | | | | | MINUTES NEW | | | | | | | PATIENT | | | +--------+--------+ + + + + Encounter Details +--------+---------+ + + + | Date | Type | Department | Care Team | Description | +--------+---------+ + + + | 05/11/ | Office | [facility] | Gold Florentino, | Right ureteral | | 2018 | Visit | [address] | MD [address] | calculus (Primary | | | | [place], [place] | [place], [place] | Dx); Abnormal | | | | [address] | [address] | urinalysis; Flank | | | | [phone] | | pain; History of | | | | | | pulmonary embolism | +--------+---------+ + + + Social History [...] + + + | Blood Pressure | 164/104 | 05/11/2017 12:50 PM | | | | | PST | | + + + + + | Pulse | 95 | 05/11/2017 12:50 PM | | | | | PST | | + + + + + | Temperature | - | - | | + + + + + | Respiratory Rate | 16 | 05/11/2017 12:50 PM | | | | | PST | | + + + + + | Oxygen Saturation | - | - | | + + + + + | Inhaled Oxygen | - | - | | | Concentration | | | | + + + + + | Weight | 93.6 kg (206 lb 5.6 | 05/11/2017 12:50 PM | | | | oz) | PST | | + + + + + | Height | 172.7 cm (5' 8") | 05/11/2017 12:50 PM | | | | | PST | | + + + + + | Body Mass Index | 31.38 | 05/11/2017 12:50 PM | | | | | PST [...] + + documented as of this encounter Patient Instructions Patient Instructions Ambreen Torres RN - 05/11/2017 1:30 PM PSTPreoperative Instructi ons Your surgery with Dr. Gold Florentino has been scheduled for May 11, 2017 at 6:30 PM at [facility]. [facility] no later than 5:00 PM. REMEMBER: NOTHING TO EAT OR DRINK UNTIL AFTER SURGERY. NO ASPIRIN OR ASPIRIN PRODUCTS ONE WEEK PRIOR TO SURGERY. Tylenol and Advil are OK. You will need to get the following testing done prior to surgery: CBC, BMP Call us at [phone] with any questions. [x] Pain management booklet provided to patient. documented in this encounter Progress Notes Gold Florentino MD - 05/11/2017 1:30 PM PSTFormatting of this note might be different fro m the original. [place] is a 27 y.o. female patient of Bro Mora MD being seen today for kidney sto neNicole Lovelace presented to [facility] on ~04/29/2017 with a 3 mm right ureteral stone associated with infection and obstruction. She was apparently refused at [facility], and was then sent by [employer] air transport to [place] where she was treated at [facility] by Dr. Kilo Gallo. A right ureteral stent was placed by Dr. Kilo Gallo on 04/30/2017. Dr. Gallo encountere d "extensive cystitis throughout the bladder" with a right distal ureteral calculus with min imal obstruction and minimal hydronephrosis and no grossly purulent urine obtained from the right renal pelvis. Left retrograde pyelogram was normal. She states that she forgot to vegetable picker her antibiotic prescription in [place], but was recen tly seen in the emergency department at [facility] on 05/05/2017 and diagnosed with infection and treated with oral Levaquin, which she states she is continuing to take. She presents today complaining of increasing pain in her right flank, exacerbated with void ing. The pain is constant, and sharp and crampy in nature. She denies any fever or chills, but has had hematuria. She denies any dysuria, but does have suprapubic pressure and urgen cy. No radiation of her pain into the buttock or legs. She continues to use oxybutynin, which does help somewhat. She quit taking Flomax, after s he developed a rash. She denies chronic back pain. She denies any radiculopathy symptoms. She denies any cough or chest pain or shortness breath or hemoptysis. She has had history of pulmonary embolus following her hysterectomy. She also reports that her mother has had a PE and an aunt has also had a pulmonary embolus. She also has history of uterine cancer in 2015 treated with hysterectomy and subsequent bakari motherapy. She reports past history of endometriosis, and chronic pain. She reports that her physicia n had been treating her with oxycodone 30 mg a day which she took for about a year, and then after her physician reportedly lost his license (per patient) she was then titrated down to oxycodone 15 mg a day which she used for about 5 years. She is not currently taking any narcotics, but is taking Suboxone which she has been utiliz ing for the past year. She takes it intermittently, and states that she'll take 1 tablet ab out every 2 weeks. She last used Suboxone about 2 days ago. She has never previously had kidney stones. She blames her current kidney stone episode on drinking 40 ounces of Red Bull daily. She denies any vaginal drainage or discharge or bleeding. She denies any changes in her bowel habits. She denies any hematochezia or melena or const ipation or diarrhea. 10 point review of systems has multiple positives, including fever and chills prior to her recent surgical procedure, change in appetite and energy, abdominal pain, nausea, indigestio n, skin rash, back pain, otherwise negative. She states she is smoking 1 cigarette per day. She is currently on Wellbutrin. I spent in excess of 45 minutes with [place] today, over 50% of this time spent in student loan counselor ing regarding her ureteral calculus and flank pain and treatment options for stone, and diet pako recommendations to reduce her risk of stone disease, and her history of pulmonary embolu s. Past Medical History She has a past medical history of Asthma; Endometriosis of ovary; Pulmonary embolism (HCC) (05/22/2014); and Uterine cancer (HCC) (05/08/2014). Past Surgical History She has a past surgical history that includes Carpal tunnel release (2008); Endometrial bio psy; and Cystoscopy Insertion/Removal Stent/Stone (N/A, 04/30/2017). Family History: Mother is alive at age 50. She has had a pulmonary embolus. Father is alive at age 52. H er grandfather had prostate cancer. Social History: She reports that she has been smoking Cigarettes. She has been smoking about 0.50 packs pe r day. She has never used smokeless tobacco. She reports that she drinks about 1.2 oz of alc ohol per week . She reports that she uses drugs, including Marijuana. Allergies Allergen Reactions Lamotrigine Rash Tamsulosin Hcl Rash Medications: Outpatient Encounter Prescriptions as of 05/11/2017 Medication Sig Dispense Refill albuterol 90 mcg/puff inhaler Inhale 2 puffs into the lungs as needed. buprenorphine-naloxone (SUBOXONE) 8-[address] 1 Film under the tongue Daily. buPROPion (WELLBUTRIN XL) 300 mg 24 hr tablet Take 300 mg by mouth every morning. ibuprofen (ADVIL,MOTRIN) 800 MG tablet Take 800 mg by mouth every 6 hours as needed. LATUDA 20 MG tablet Take 4 tablets by mouth nightly. 0 levoFLOXacin (LEVAQUIN) 500 mg tablet Take 1 tablet by mouth Daily for 10 days. Indicat ions: UTI - Lower, UTI - Upper 10 tablet 0 oxybutynin (DITROPAN) 5 mg tablet Take 1 tablet by mouth every 6 hours as needed for Ur inary incontinence or Bladder Spasms. 30 tablet 1 SUMAtriptan (IMITREX) 25 mg tablet Take 25 mg by mouth as needed for Migraine. [DISCONTINUED] tamsulosin (FLOMAX) 0.4 mg CAPS Take 1 capsule by mouth daily (after babar akfast). (Patient not taking: Reported on 05/11/2017) 30 capsule 1 No facility-administered encounter medications on file as of 05/11/2017. REVIEW OF SYSTEMS: [] All Negative Constitutional Symptoms: []Fever [x]Chills [x]Headache [x]Change in appetite [] Change in weight [x] Change in en ergy []Other: Neurological: []Tremors []Dizzy Spells []Numbness/Tingling []Seizures []Other: Endocrine: []Excessive thirst []Too hot [] Too cold []Tired/Sluggish Gastrointestinal: [x]Abdominal pain [x]Nausea/vomiting [x]Indigestion/heartburn []Change in stool size [] Ch john in stool shape [] Change in stool color []Pain with swallowing []Other: Cardiovascular: []Chest Pain []Rapid heart rate []High blood pressure []Other: Integumentary: [x]Skin rash [x]Boils []Persistent itch []Other: Musculoskeletal: []Neck Pain []Joint swelling/pain [x]Back pain []Bone pain []Other: Respiratory: []Wheezing []Frequent cough []Shortness of breath []Other: Hematologic/Lymphatic: []Swollen glands []Blood clotting problems []Prior blood transfusions []Other: Psychologic: Are you generally satisfied with your life? yes Do you feel severely depressed? no Have you considered suicide? no Other: Habits: Do you smoke? yes :Occasionally [x] Yes [] No Patient advised to follow up with PCP regarding positives on review of s ystems. PHYSICAL EXAM Vitals: BP (!) 164/104 | Pulse 95 | Resp 16 | Ht 1.727 m (5' 8") | Wt 93.6 kg (206 lb 5 .6 oz) | LMP 04/06/2014 (Approximate) | BMI 31.38 kg/m General: Awake, alert, in moderate distress. Appears uncomfortable. Speech is fluent. A ppears to be stated age. Initially laying down on the exam table, then sitting up, and then laying back down again. Neck: Supple; no lymphadenopathy. Lungs: Normal respiratory effort, no wheezing, no stridor, no tachypnea. Chest: No rib or bony tenderness. Back: 2+ right CVA tenderness. Abdomen: Soft, nondistended, moderate right flank tenderness,, no hepatosplenomegaly. No m asses. No guarding; benign. Bladder nondistended, but there is mild suprapubic guarding. Extremities: Non-edematous. Hips and long bones nontender to fist percussion. Neuro: Awake, alert, oriented x3. Normal station and gait. Psychiatric: Mood and affect are normal. Normal judgment. Skin: Warm and dry, no erythematous rash. Groin: No mass. No lymphadenopathy. Genitalia: No vaginal drainage or discharge or bleeding. Normal-appearing external genita shashi. DIAGNOSTIC DATA: Lab Results Component Value Date CREA 0.71 05/05/2017 BUN 10 05/05/2017 NA 135 (L) 05/05/2017 K 3.7 05/05/2017 CL 102 05/05/2017 CO2 26 05/05/2017 Lab Results Component Value Date WBC 12.0 (H) 05/05/2017 HGB 13.4 05/05/2017 HCT 39.1 05/05/2017 MCV 90.5 05/05/2017 PLT 369 05/05/2017 Lab Results Component Value Date ALT 19 04/30/2017 AST 15 04/30/2017 ALKPHOS 53 04/30/2017 BILITOT 0.6 04/30/2017 Lab Results Component Value Date COLORUA Yellow 05/05/2017 CLARITYUA Hazy (A) 05/05/2017 PHUR 6.0 05/05/2017 SPECIFICGRAV 1.015 05/05/2017 PROTUA 30 mg/dL (A) 05/05/2017 BLOODU Moderate (A) 05/05/2017 GLUCOSEU Negative 05/05/2017 KETONES Negative 05/05/2017 BILIRUBINUA Negative 05/05/2017 NITRITEUA Negative 05/05/2017 LEUKOESTUA Moderate (A) 05/05/2017 UROBILIUA Negative 05/05/2017 WBCUA >100 (A) 05/11/2017 RBCUA >100 (A) 05/11/2017 SQUAMEPIUA 0-2 05/11/2017 BACTERIAUA 1+ (A) 05/11/2017 Lab Results Component Value Date COLORPOC Brown (A) 05/11/2017 CLARITYU Turbid 05/11/2017 GLUCOSEPOC Negative 05/11/2017 BILIPOC Moderate (A) 05/11/2017 SG 1.020 05/11/2017 RBCUR Large (A) 05/11/2017 PHUAPOC 5.5 05/11/2017 PROTEINPOC >=300 mg/dL (A) 05/11/2017 UROBILINOGEN 1.0 E.U./dL 05/11/2017 NITRITEPOC Positive (A) 05/11/2017 LEUKOCYTESUR Trace (A) 05/11/2017 Microbiology Results (Last 14 Days by Collected Date with Culture/Sensitivity) Procedure Component Value Units Date/Time Culture, Urine [[id number]] Collected: 05/11/17 8651 Order Status: Sent Lab Status: In process Updated: 05/11/17 1355 Specimen: Urine from Urine, clean catch Culture, Urine [[id number]] Collected: 04/30/17 1044 Order Status: Completed Lab Status: Final result Updated: 05/02/17715 Specimen: Urine from Urine, clean catch Specimen Source Urine, Clean Catch RESULT No growth or <1,000 CFU/mL RESULT Performed at [facility], [address], [place] [address] Status 05/02/2017 Final Culture, Urine [[id number]] Collected: 04/30/17 1040 Order Status: Completed Lab Status: Final result Updated: 05/02/17715 Specimen: Urine from Urine, clean catch Specimen Source Urine, Clean Catch RESULT No growth or <1,000 CFU/mL RESULT Performed at [facility], [address], [place] [address] Status 05/02/[address] ABDOMEN AND PELVIS WITHOUT CONTRAST (CPT) CT KUB CLINICAL INFORMATION: Right flank pain for four days post right ureteral stent placement. COMPARISON: None available. PROCEDURE: Axial images through the abdomen and pelvis. Multiplanar reconstructions. FINDINGS: KIDNEYS, URETERS and BLADDER: Right ureteral stent in good position. No residual hydronephrosis. There is a persistent small calcification near the right UVJ, however it is 3 mm from the ureteral stent and is probably not within the ureter. No solid renal mass. LUNG BASES: No significant pulmonary abnormality. No pleural effusion or pneumothorax. ABDOMEN Liver and Biliary: Solid organ evaluation suboptimal without contrast. No visible abnormality in the liver or gallbladder. Pancreas, Spleen and Adrenals: Normal adrenal, spleen and pancreas morphology, without adjacent stranding or hematoma. ABDOMEN AND PELVIS Bowel: No small bowel or colonic dilation or adjacent inflammation. No appendiceal dilation or inflammation. Moderate amount stool noted throughout the colon. Vessels: Abdominal aorta normal in caliber. No aneurysm. Veins not assessed without contrast. Lymph Nodes: No adenopathy. Peritoneum and Retroperitoneum: No ascites or free air. No significant retroperitoneal abnormality. PELVIS Genitourinary: No pelvic mass and no significant urethral abnormality. Hysterectomy changes. BODY WALL Soft Tissues: No bowel or inflamed fat containing hernia, mass or hemorrhage. Bones: No acute fracture or vertebral end plate destruction. No lytic or blastic lesion. IMPRESSION- Right ureteral stent in good position. No residual hydronephrosis. There is a persistent small calcification near the right UVJ, however it is 3 mm from the ureteral stent and likely represents a phlebolith. Moderate amount of stool throughout the colon. Dictated and Signed by: Don Domínguez MD Electronically signed: 05/06/2017 (Images personally reviewed with the patient today) IMPRESSION: 1. 3 mm distal right ureteral calculus. This appears to be near the UVJ. Status post rig ht ureteral stent placement by Dr. Gallo on 04/30/2017. 2. Severe right flank pain. 3. Chronic narcotic dependence. Currently on Suboxone. 4. Hematuria and pyuria. Likely related to her ureteral stent. She is currently on Levaq uin, saw not suspicious of a UTI. Recent urinalysis showed no bacteria. 5. Anxiety disorder. 6. History of pulmonary embolus. This is following a hysterectomy procedure. Cannot rule out coagulopathy. 7. Family history of pulmonary emboli. 8. History of uterine cancer. Status post hysterectomy in 2014. 9. Endometriosis. PLAN: [place] is given Toradol 30 mg IM today. Elements of a kidney stone risk reduction diet are reviewed with [place] in detail. I rec ommended that she increase water intake to target a urinary output of 2 L per day. I gave Silvio geovani a list of foods containing oxalates, and I recommended a low oxalate diet, with inst ructions to minimize oxalate consumption to 40-50 mg per day. I also recommended a low sodi um, low animal protein, low fat, high citrate diet. She has already. I gave [place] a pamphlet describing kidney stones and the various treatment options avail able, which we reviewed together. We discussed performing ESWL vs ureteroscopy with laser l ithotripsy vs PCNL (percutaneous nephrostolithotomy) (Not recommended) vs seeking a second o jarvis vs doing nothing. After a thorough discussion, she elects to proceed with right ureteroscopy with stone extra ction. I told her I think is unlikely that she'll require laser lithotripsy. The risks, benefits, and alternatives of cystoscopy, and right ureteroscopy with ureteral s tone extraction, and possible right ureteral stent replacement are discussed with [place] herndon. I told her that this procedure may not render her stone free, necessitating adrian tional procedures in the future. Risks are to include, but are not limited to bleeding, pain, infection, failure of the proc edure, inability to retrieve or remove or fragment the stone, failure to diagnose, ureteral injury, ureteral perforation, ureteral avulsion with its severe sequelae of damage to the ki dney or need for subsequent surgical corrective procedures, potential need for additional pr ocedures, inherent irritability and discomfort associated with a ureteral stent, inherent ri sks of any surgical procedure and anesthesia including DVT, PE, ID, CVA, and even . [place] indicates her understanding, and indicates a desire to proceed as outlined. No gu arantees are given or implied. Given her severe pain, at her request, her surgical procedure will be performed later today . [place] is given appropriate written and verbal preoperative instructions. She indicates that she has been NPO since yesterday. We also discussed her past history of pulmonary embolus, and her family history of pulmonar y emboli. I told her that she needs to see a sinter press operator for further evaluation of her coa gulopathy. A referral was submitted to the [facility]. [place] is instructed to resume her usual and customary care with her primary care provide r. I asked [place] to notify me if there were any difficulties voiding, or UTI symptoms, or f lank pain, or for any questions or concerns whatsoever. This document was generated in part using voice recognition software. Although I have atte mpted to edit the content, I have not thoroughly proofread this note, and carpet repairer erro rs may occur. documented in this en counter Plan of Treatment + + +--------+ + + | Name | Type | Priori | Associated Diagnoses | Order Schedule | | | | ty | | | + + +--------+ + + | * [facility] | Outpatient | Routin | History of | Ordered: 05/11/2017 | | Oncology Clinic - | Referral | e | pulmonary embolism | | | AMB Referral | | | | | + + +--------+ + + documented as of this encounter Procedures + +--------+ + + + | Procedure Name | Priori | Date/Time | Associated Diagnosis | Comments | | | ty | | | | + +--------+ + + + | URINALYSIS, | Routin | 05/11/2017 | Abnormal | Results for this | | MICROSCOPIC ONLY, | e | 1:18 PM | urinalysis | procedure are in the | | WITH CULTURE IF | | PST | | results section. | | INDICATED | | | | | + +--------+ + + + | CULTURE, URINE | Routin | 05/11/2017 | Abnormal | Results for this | | | e | 1:18 PM | urinalysis | procedure are in the | | | | PST | | results section. | + +--------+ + + + | POCT URINALYSIS, | Routin | 05/11/2017 | Abnormal | Results for this | | AUTO WITH CONF | e | 1:17 PM | urinalysis | procedure are in the | | | | PST | | results section. | + +--------+ + + + | PATHOLOGY - EXTERNAL | | 03/04/2015 | | Results for this | | SCAN | | 12:00 AM | | procedure are in the | | | | PDT | | results section. | + +--------+ + + + documented in this encounter Results Basic Metabolic Panel (05/11/2017 3:47 PM PST) + + + + + + | Component | Value | Ref Range | Performed | Pathologist | | | | | At | Signature | + + + + + + | Na | 142 | 136 - 149 | [facility] | | | | | mmol/L | [facility] | | | | | | [facility] | | | | | | [facility] - | | | | | | LABORATORY | | + + + + + + | K | 4.0 | 3.5 - 5.1 | [facility] | | | | | mmol/L | [facility] | | | | | | [facility] | | | | | | [facility] - | | | | | | LABORATORY | | + + + + + + | Cl | 105 | 98 - 109 mmol/L | [facility] | | | | | | [facility] | | | | | | [facility] | | | | | | [facility] - | | | | | | LABORATORY | | + + + + + + | CO2 | 28 | 24 - 31 mmol/L | [facility] | | | | | | [facility] | | | | | | [facility] | | | | | | [facility] - | | | | | | LABORATORY | | + + + + + + | Anion Gap | 9 | 3 - 16 mmol/L | [facility] | | | | | | [facility] | | | | | | [facility] | | | | | | [facility] - | | | | | | LABORATORY | | + + + + + + | Glucose | 91 | 70 - 109 mg/dL | [facility] | | | | | | [facility] | | [facility] | | | [facility] | | | | | | [facility] - | | | | | | LABORATORY | | + + + + + + | BUN | 11 | 7 - 18 mg/dL | [facility] | | | | | | [facility] | | | | | | [facility] | | | | | | C[facility] - | | | | | | LABORATORY | | + + + + + + | Creatinine | 0.66 | 0.60 - 1.30 | [facility] | | | | | mg/dL | [facility] | | | | | | MEDICAL | | | | | | CENTER - | | | | | | LABORATORY | | + + + + + + | eGFR if not | >60Comment: GLOMERULAR | >=60 | [facility] | | | | FILTRATION | mL/min/1.73m2 | [facility] | | | COLOMBIAN | RATE,ESTIMATED | | MEDICAL | | | | mL/min/1.21y2Fcnq than | | CENTER - | | | | 60 Chronic kidney | | LABORATORY | | | | disease,if found over a | | | | | | 3-month period.Less than | | | | | | 15 Kidney failureFor | | | | | | | | | | | | Americans,multiply the | | | | | | calculated GFR by 1.21. | | | | | | | | | | + + + + + + | Calcium | 9.3 | 8.3 - 10.5 | [facility] | | | | | mg/dL | [facility] | | | | | | [facility]ICAL | | | | | | CENTER - | | | | | | LABORATORY | | + + + + + + | BUN/Creatin | 16.7 | | [facility] | | | ine Ratio | | | [facility] | | [...] | + + + + + | [facility] | [address] | [place] | [phone] | | [facility] | | [address] | | | - LABORATORY | | | | + + + + + CBC with Differential (05/11/2017 3:47 PM PST) + + + + + + | Component | Value | Ref Range | Performed | Pathologist | | | | | At | Signature | + + + + + + | WBC | 12.2 (H) | 4.0 - 11.0 K/uL | [facility] | | | | | | [facility] | | | | | | [facility] | | | | | | [facility] - | | | | | | LABORATORY | | + + + + + + | RBC | 4.38 | 3.70 - 5.20 | [facility] | | | | | M/uL | [facility] | | | | | | [facility] | | | | | | C[facility] - | | | | | | LABORATORY | | + + + + + + | Hemoglobin | 13.7 | 11.5 - 16.0 | [facility] | | | | | g/dL | [facility] | | | | | | MEDICAL | | | | | | CENTER - | | | | | | LABORATORY | | + + + + + + | Hematocrit | 40.2 | 34.0 - 47.0 % | [facility] | | | | | | [facility] | | | | | | [facility] | | | | | | [facility] - | | | | | | LABORATORY | | + + + + + + | MCV | 91.8 | 83.0 - 101.0 fL | [facility] | | | | | | [facility] | | | | | | MEDICAL | | | | | | CENTER - | | | | | | LABORATORY | | + + + + + + | MCH | 31.2 | 28.0 - 35.0 pg | [facility] | | | | | | [facility] | | | | | | [facility] | | | | | | CENTER - | | | | | | LABORATORY | | + + + + + + | MCHC | 34.0 | 32.0 - 36.0 | [facility] | | | | | g/dL | [facility] | | | | | | MEDICAL | | | | | | CENTER - | | | | | | LABORATORY | | + + + + + + | RDW-CV | 12.5 | <15.0 % | [facility] | | | | | | [facility] | | | | | | [facility] | | | | | | CENTER - | | | | | | LABORATORY | | + + + + + + | Platelet | 360 | 140 - 440 K/uL | [facility] | | | Count | | | [facility] | | | | | | [facility] | | | | | | CENTER - | | | | | | LABORATORY | | + + + + + + | MPV | 8.4 | fL | [facility] | | | | | | [facility] | | | | | | [facility] | | | | | | CENTER - | | | | | | LABORATORY | | + + + + + + | % | 59.3 | 45.0 - 82.0 % | [facility] | | | Neutrophils | | | [facility] | | | | | | [facility]ICAL | | | | | | CENTER - | | | | | | LABORATORY | | + + + + + + | % | 30.2 | 20.0 - 45.0 % | [facility] | | | Lymphocytes | | | [facility] | | | | | | [facility]ICAL | | | | | | CENTER - | | | | | | LABORATORY | | + + + + + + | % Monocytes | 7.4 | 4.0 - 12.0 % | [facility] | | | | | | [facility] | | | | | | [facility] | | | | | | CENTER - | | | | | | LABORATORY | | + + + + + + | % | 2.3 | 0.0 - 5.0 % | [facility] | | | Eosinophils | | | [facility] | | | | | | MEDICAL | | | | | | CENTER - | | | | | | LABORATORY | | + + + + + + | % Basophils | 0.8 | 0.0 - 1.0 % | [facility] | | | | | | [facility] | | | | | | [facility] | | | | | | CENTER - | | | | | | LABORATORY | | + + + + + + | Absolute | 7.20 | 1.80 - 8.50 | [facility] | | | Neutrophils | | K/uL | [facility] | | | | | | [facility]ICAL | | | | | | CENTER - | | | | | | LABORATORY | | + + + + + + | Absolute | 3.70 (H) | 0.60 - 3.20 | [facility] | | | Lymphocytes | | K/uL | [facility] | | | | | | MEDICAL | | | | | | CENTER - | | | | | | LABORATORY | | + + + + + + | Absolute | 0.90 | 0.00 - 1.00 | [facility] | | | Monocytes | | K/uL | [facility] | | | | | | MEDICAL | | | | | | CENTER - | | | | | | LABORATORY | | + + + + + + | Absolute | 0.30 | 0.00 - 0.40 | [facility] | | | Eosinophils | | K/uL | [facility] | | | | | | MEDICAL | | | | | | CENTER - | | | | | | LABORATORY | | + + + + + + | Absolute | 0.10 | 0.00 - 0.10 | [facility] | | | Basophils | | K/uL | [facility] | | | | [...] | + + + + + | [facility] | [address] | [place] | [phone] | | [facility] | | [address] | | | - LABORATORY | | | | + + + + + Culture, Urine (05/11/2017 1:18 PM PST) + + + + + + | Component | Value | Ref Range | Performed | Pathologist | | | | | At | Signature | + + + + + + | Culture | No Growth | | [facility] | | | | | | [facility] | | | | | | [...] + + | [facility] | [address] | [place], [place] | [phone] | | [facility] | | [address] | | | - LABORATORY | | | | + + + + + Urinalysis, Microscopic Only, with Culture if Indicated (05/11/2017 1:18 PM PST) + + + + + + | Component | Value | Ref Range | Performed | Pathologist | | | | | At | Signature | + + + + + + | WBC UA | >100 (A) | 0 - 2 /HPF | [facility] | | | | | | [facility] | | | [facility] | | [facility]ICAL | | | | | | CENTER - | | | | | | LABORATORY | | + + + + + + | WBC CLUMPS | Many (A) | None Seen /HPF | [facility] | | | UA | | | [facility] | | | | | | MEDICAL | | | | | | CENTER - | | | | | | LABORATORY | | + + + + + + | RBC UA | >100 (A) | 0 - 2 /HPF | [facility] | | | | | | [facility] | | [facility] | | | [facility]ICAL | | | | | | CENTER - | | | | | | LABORATORY | | + + + + + + | SQUAMOUS | 0-2 | 0 - 2 /LPF | [facility] [...] [address] | [place] | [phone] | | [facility] | | [address] | | | - LABORATORY | | | | + + + + + POCT Urinalysis Dipstick Automated (05/11/2017 1:17 PM PST) + + + + + + | Component | Value | Ref Range | Performed | Pathologist | | | | | At | Signature | + + + + + + | Color, UA, | Brown (A) | Yellow, Light | | | | POC | | Yellow | | | + + + + + + | Clarity, | Turbid | | | | | UA, POC | | | | | + + + + + + | Glucose, | Negative | Negative | | | | UA, POC | | | | | + + + + + + | Bilirubin, | Moderate (A) | Negative | | | | UA, POC | | | | | + + + + + + | Ketones, | Trace (A) | Negative, 100 | | | | UA, POC | | mg/dL | | | + + + + + + | Specific | 1.020 | 1.001 - 1.030 | | | | Wedron, | | | | | | UA, POC | | | | | + + + + + + | Blood, UA, | Large (A) | Negative | | | | POC | | | | | + + + + + + | pH, UA, POC | 5.5 | 5.0, 6.0, 7.0, | | | | | | 8.0, 5.5, 6.5, | | | | | | 7.5 | | | + + + + + + | Protein, | >=300 mg/dL (A) | Negative | | | | UA, POC | | | | | + + + + + + | Urobilinoge | 1.0 E.U./dL | 0.2, Negative, | | | | n, UA, POC | | Normal, < 0.2 | | | | | | mg/dL, 1 mg/dL, | | | | | | < 0.2 E.U./dl, | | | | | | 1.0 E.U./dL, | | | | | | 0.2 mg/dL | | | + + + + + + | Nitrite, | Positive (A) | Negative | | | | UA, POC | | | | | + + + + + + | Leukocyte | Trace (A) | Negative | | | | Esterase, | | | | | | UA, POC | | | | | + + + + + + | Reducing | | | | | | Substances, | | | | | | Urine | | | | | + + + + + + | Ictotest | | Negative | | | + + + + + + | Remark | | | | | + + + + + + + + | Specimen | + + | Urine | + + PATHOLOGY - EXTERNAL SCAN (03/04/2015 12:00 AM PDT) + + + | Narrative | Performed At | + + + | Ordered by an | | | unspecified provider. | | + + + documented in this encounter Visit Diagnoses + + | Diagnosis | + + | Right ureteral calculus - Primary Calculus of ureter | + + | Abnormal urinalysis Other nonspecific finding on examination of urine | + + | Flank pain Abdominal pain, unspecified site | + + | History of pulmonary embolism Personal history of pulmonary embolism | + + documented in this encounter Administered Medications + +--------+ +-------+------+ + | Medication Order | MAR | Action | Dose | Rate | Site | | | Action | Date | | | | + +--------+ +-------+------+ + | ketorolac (TORADOL) injection | Given | 05/11/19 | 30 mg | | Glut-Lef | | 30 mg 30 mg, Intramuscular, | | 18 2:00 | | | t | | ONCE, [facility] 05/11/17 at 1445, For 1 | | PM PST | | | | | dose | | | | | | + +--------+ +-------+------+ + +---+---+ | | | +---+---+ documented in this encounter
--- OUTSIDE RECORDS SUMMARY | ~2019-03-30 | XMS | Encounter Summary ---
Demographics + + + | Address | [address] | | | [place] [address] | + + + | Home Phone | | + + + | Preferred Language | Unknown | + + + | Marital Status | Single | + + + | Protestant Affiliation | Unknown | + + + | Race | Unknown | + + + | Ethnic Group | Unknown | + + + Author + + + | Author | [facility] | | | and [place] | + + + | Organization | [facility] | | | and [place] | + + + | Address | Unknown | + + + | Phone | Unavailable | + + + Support + + + + + | Name | Relationship | Address | Phone | + + + + + | Gt Welch | ECON | [address] [facility] | | | | | [place] | | | | | [place] | | | | | [address] | | + + + + + Care Team Providers + +------+ + | Care English As A Second Language Teacher Name | Role | Phone | + +------+ + | Bro Mora MD | PCP | | + +------+ + Encounter Details +--------+ + + + + | Date | Type | Department | Care Team | Description | +--------+ + + + + | 02/01/ | Emergency | [facility] | Nico [facility] | Pain, dental; | | 2015 | | [facility] | MD Michael [address] | Elevated blood | | | | EMERGENCY [facility] | [facility] | pressure | | | | [address] | [place] [address] | | | | | [place] | [phone] | | | | | [address] | | | | | | [phone] | | | +--------+ + + + [...] + + + | Blood Pressure | 145/94 | 02/02/2016 1:39 PM | | | | | PDT | | + + + + + | Pulse | 79 | 02/02/2016 1:39 PM | | | | | PDT | | + + + + + | Temperature | 36.7 C (98.1 F) | 02/02/2016 1:39 PM | | | | | PDT | | + + + + + | Respiratory Rate | 16 | 02/02/2016 1:39 PM | | | | | PDT | | + + + + + | Oxygen Saturation | - | - | | + + + + + | Inhaled Oxygen | - | - | | | Concentration | | | | + + + + + | Weight | 99.2 kg (218 lb 11.2 | 02/02/2016 1:39 PM | | | | oz) | PDT | | + + + + + | Height | 172.7 cm (5' 8") | 02/02/2016 1:39 PM | | | | | PDT | | + + + + + | Body Mass Index | 33.25 | 02/02/2016 1:39 PM | | | | | PDT [...] + | Diagnosis | + + | Pain, dental Unspecified disorder of the teeth and supporting structures | + + | Elevated blood pressure Elevated blood pressure reading without diagnosis of | | hypertension | + + documented in this encounter
--- OUTSIDE RECORDS SUMMARY | ~2019-03-30 | XMS | Encounter Summary ---
Demographics + + + | Address | [address] | | | [place] [address] | + + + | Home Phone | | + + + | Preferred Language | Unknown | + + + | Marital Status | Single | + + + | Scientology Affiliation | Unknown | + + + | Race | Unknown | + + + | Ethnic Group | Unknown | + + + Author + + + | Author | [facility] | | | and [place] | + + + | Organization | [facility] | | | and [place] | + + + | Address | Unknown | + + + | Phone | Unavailable | + + + Support + + + + + | Name | Relationship | Address | Phone | + + + + + | Gtjuliann Welch | ECON | [address] [facility] | | | | | [place] | | | | | [place] | | | | | [address] | | + + + + + Care Team Providers + +------+ + | Care Watch Engine Operator Name | Role | Phone | + +------+ + | No, Physician | PCP | Unavailable | + +------+ + Encounter Details +--------+ + + + + | Date | Type | Department | Care Team | Description | +--------+ + + + + | 07/26/ | Orders Only | [facility] | Gold Florentino, | Right kidney stone | | 2018 | | [address] | MD [address] | (Primary Dx) | | | | [place] | [place] | | | | | [address] | [address] | | | | | [phone] | | | +--------+ + + + [...] as of this encounter Plan of Treatment + +---------+--------+ + + | Name | Type | Priori | Associated Diagnoses | Order Schedule | | | | ty | | | + +---------+--------+ + + | XR Abdomen AP | Imaging | Routin | Right kidney stone | Expected: 05/23/2018 | | | | e | | (Approximate), | | | | | | Expires: 07/26/2018 | + +---------+--------+ + + documented as of this encounter Visit Diagnoses + + | Diagnosis | + + | Right kidney stone - Primary Calculus of kidney | + + documented in this encounter"
--- OUTSIDE RECORDS SUMMARY | ~2019-03-30 | XMS | Encounter Summary ---
Demographics + + + | Address | [address] | | | [place] [address] | + + + | Home Phone | | + + + | Preferred Language | Unknown | + + + | Marital Status | Single | + + + | Gnosticism Affiliation | Unknown | + + + | Race | Unknown | + + + | Ethnic Group | Unknown | + + + Author + + + | Author | [facility] | | | and [place] | + + + | Organization | [facility] | | | and [place] [...] [place] | | | | | [address] | | + + + + + Care Team Providers + +------+ + | Care Apparatus Repair Mechanic Name | Role | Phone | + +------+ + PCP | Unavailable | + +------+ + Encounter Details +--------+ + + + + | Date | Type | Department | Care Team | Description | +--------+ + + + + | 02/ | Emergency | [facility] | Surjit Morrison | Substance abuse; | | 2013 - | | MEDICAL CENTER | DO Crow Anguiano | Vomiting; Abdominal | | | | EMERGENCY CENTER | [place], [place] | pain; Discomfort | | 06/17/ | | [address] | [address] | during ; | | 2013 | | [place], [place] | | Suicidal ideation | | | | [address] | | | | | | [phone] | | | +--------+ + + + [...] documented as of this encounter Progress Notes Conversion Transaction, Provider Unknown - 06/16/2013 10:57 PM PSTFormatting of this note m ight be different from the original. Case Management by PAARG Pimentel at 06/16/132256 Author: PARAG Pimentel Service: (none) Author Type: Logistics/Shipper Filed: 06/16/13 4380 Date of Service: 06/16/132256 Status: Signed Sales Order Processor: PARAG Pimentel (Logistics/Shipper) CM spoke with patient about suicidal ideations. It was concerning when patient spoke of hu rting herself. She spoke of herself in negative terms. "I'm so stupid. I'm so embarrassed to see my family after my relapse." "I miss my children." ED MD would like CRU to come and evaluate her and I agree. CM called Crisis. They need to know she is medically cleared. MD says she is. CM faxed l ab results. CRU would like toxicology results also before they come out. Tox results need to be faxed as soon as they arrive at [phone]. onver rafaela Transaction, Provider Unknown - 06/16/2013 9:05 PM PST Case Management by PARAG Pimentel at 06/16/132104 Author: PARAG Pimentel Service: (none) Author Type: Logistics/Shipper Filed: 06/16/132106 Date of Service: 06/16/132104 Status: Signed Sales Order Processor: PARAG Pimentel (Logistics/Shipper) E.D. Visit Count ([address] Y[address] ED 1 [facility] 1 Total 9 Provider Type Service Dates Phone Fax [facility] Current Care Recommendation: RESTRICT USE OF OPIODS IN ED TO ONLY OBVIOUS TRAUMA OR SEVERE MEDICAL ISSUES ESTABLISH THAT NO OPATES OR BENZO'S WILL BE GIVEN FOR CHRONIC CONDITIONS PROVIDE EDUCATION REGARDING APPROPRIATE USE OF ER These are guidelines and the provider should exercise clinical judgment when providing care . Last Modified by Nila Oquendo on May 13, 2013 Visit Date Location Type Diagnoses 06/16/2013 20:51 [facility] Emergency - Abdominal Pain - Emesis - Nausea - Rash 05/25/2013 07:55 [facility] Emergency 1. Urinary tract infection, site not specified 2. Unspecified symptom associated with female genital organs 3. Leukorrhea, not specified as infective 4. Tobacco use disorder 5. Amphetamine or related acting sympathomimetic abuse, unspecified 05/17/2013 16:52 [facility] Emergency 0. Dehydration 1. Nausea with vomiting 1. Tobacco use disorder 1. Long-term (current) use of other medications 1. Counseling on substance use and abuse 05/12/2013 22:59 [facility] Emergency 1. Dental caries, unspecified 05/03/2013 11:37 [facility] Emergency - Issue of repeat prescriptions - Sleep disturbance, unspecified - Dysuria 04/29/2013 14:32 [facility] Emergency - Other specified symptoms asso ciated with female genital organs 04/23/2013 09:56 [facility] Emergency - Drug withdrawal 03/21/2013 15:26 [facility] Emergency 02/25/2013 23:34 [facility] Emergency - Arm Pain - Cellulitis and abscess of upper arm and forearm - possible seizure - Amphetamine or related acting sympathomimetic abuse, unspecified - Anxiety state, unspecified docume nted in this encounter Plan of Treatment Not on filedocumented as of this encounter Procedures + +--------+ + + + | Procedure Name | Priori | Date/Time | Associated Diagnosis | Comments | | | ty | | | | + +--------+ + + + | DRUGS OF ABUSE | Routin | 06/16/2013 | | Results for this | | SCREEN, URINE (H) | e | 10:40 PM | | procedure are in the | | | | PST | | results section. | + +--------+ + + + | URINALYSIS, | Routin | 06/16/2013 | | Results for this | | MICROSCOPIC ONLY | e | 10:40 PM | | procedure are in the | | | | PST | | results section. | + +--------+ + + + | HCG, URINE, QUAL | Routin | 06/16/2013 | | Results for this | | | e | 10:40 PM | | procedure are in the | | | | PST | | results section. | + +--------+ + + + | EXTERNAL LAB: CBC | Routin | 06/16/2013 | | Results for this | | | e | 9:15 PM | | procedure are in the | | | | PST | | results section. | + +--------+ + + + | PROTIME INR | Routin | 06/16/2013 | | Results for this | | | e | 9:15 PM | | procedure are in the | | | | PST | | results section. | + +--------+ + + + | LIPASE | Routin | 06/16/2013 | | Results for this | | | e | 9:15 PM | | procedure are in the | | | | PST | | results section. | + +--------+ + + + | AMYLASE | Routin | 06/16/2013 | | Results for this | | | e | 9:15 PM | | procedure are in the | | | | PST | | results section. | + +--------+ + + + | ALCOHOL | Routin | 06/16/2013 | | Results for this | | | e | 9:15 PM | | procedure are in the | | | | PST | | results section. | + +--------+ + + + | ACETAMINOPHEN LEVEL | Routin | 06/16/2013 | | Results for this | | | e | 9:15 PM | | procedure are in the | | | | PST | | results section. | + +--------+ + + + | SALICYLATE LEVEL | Routin | 06/16/2013 | | Results for this | | | e | 9:15 PM | | procedure are in the | | | | PST | | results section. | + +--------+ + + + | COMPREHENSIVE | Routin | 06/16/2013 | | Results for this | | METABOLIC PANEL | e | 9:15 PM | | procedure are in the | | | | PST | | results section. | + +--------+ + + + documented in this encounter Results Drugs Of ABuse Screen, Urine (H) (06/16/2013 10:40 PM PST) + + + + + + | Component | Value | Ref Range | Performed | Pathologist | | | | | At | Signature | + + + + + + | Methampheta | POSITIVE (A)Comment: | | EXTERNAL | | | mine/ | Positive cutoff for | | LAB | | | Amphetamine | AMP = 1000 ng/mLTesting | | | | | Screen, | performed at [facility];[address] | | | | | UA, POC | [address];[place] | | | | | | [address] | | | | + + + + + + | Barbiturate | NEGATIVEComment: | | EXTERNAL | | | s Screen, | Positive cutoff for | | LAB | | | Urine | CONCHA = 200 ng/mLTesting | | | | | | performed at [facility];[address] | | | | | | [address];[place] | | | | | | [address] | | | | + + + + + + | Benzodiazep | NEGATIVEComment: | | EXTERNAL | | | vin | Positive cutoff for | | LAB | | | Screen, | BENZO = 200 ng/mLTesting | | | | | Urine | performed at [facility];[address] | | | | | | [address];[place] | | | | | | [address] | | | | + + + + + + | Cocaine | NEGATIVEComment: | | EXTERNAL | | | | Positive cutoff for | | LAB | | | | EPIFANIO = 300 ng/mLTesting | | | | | | performed at [facility];[address] | | | | | | [address];[place] | | | | | | [address] | | | | + + + + + + | Methadone | NEGATIVEComment: | | EXTERNAL | | | | Positive cutoff for | | LAB | | | | MTD = 300 ng/mLTesting | | | | | | performed at [facility];[address] | | | | | | [address];[place] | | | | | | [address] | | | | + + + + + + | Opiates | NEGATIVEComment: | | EXTERNAL | | | | Positive cutoff for | | LAB | | | | OPI = 300 ng/mLTesting | | | | | | performed at [facility];[address] | | | | | | [address];[place] | | | | | | [address] | | | | + + + + + + | PCP | NEGATIVEComment: | | EXTERNAL | | | | Positive cutoff for PCP | | LAB | | | | = 25 ng/mLTesting | | | | | | performed at [facility] | | | | | | [address];[place] | | | | | | [address] | | | | + + + + + + | Cannabinoid | NEGATIVEComment: | | EXTERNAL | | | s Screen, | Positive cutoff for THC | | LAB | | | Serum | = 50 ng/mLThe above are | | | | | | unconfirmed screening | | | | | | results. These results | | | | | | are to be used only for | | | | | | medical | | | | | | (i.e.,treatment) | | | | | | purposes. Unconfirmed | | | | | | screening results must | | | | | | not be used for | | | | | | non-medical purposes | | | | | | (e.g., employment | | | | | | testing, legal | | | | | | testing).Testing | | | | | | performed at [facility];[address] | | | | | | [address];[place] | | | | | | [address] | | | | + + + + + + + + | Specimen | + + | | + + + +---------+ + + | Performing | Address | City/State/Zipcode | Phone Number | | Organization | | | | + +---------+ + + | EXTERNAL LAB | | | | + +---------+ + + , Urine, Qual (06/16/2013 10:40 PM PST) + + + + + + | Component | Value | Ref Range | Performed | Pathologist | | | | | At | Signature | + + + + + + | Preg Test, | POSITIVEComment: Testing | | EXTERNAL | | | Ur | performed at [facility];[address] | | LAB | | | | [address];[place], [place] | | | | | | [address] | | | | + + + + + + + + | Specimen | + + | Urine specimen | | (specimen) | + + + +---------+ + + | Performing | Address | City/State/Zipcode | Phone Number | | Organization | | | | + +---------+ + + | EXTERNAL LAB | | | | + +---------+ + + Urinalysis, Microscopic Only (06/16/2013 10:40 PM PST) + + + + + + | Component | Value | Ref Range | Performed | Pathologist | | | | | At | Signature | + + + + + + | WBC, UA | 0-2Comment: Testing | 0 - 5 /hpf | EXTERNAL | | | | performed at [facility];[address] | | LAB | | | | [address];[place] | | | | | | [address] | | | | + + + + + + | RBC, UA | 0-2Comment: Testing | 0 - 5 /hpf | EXTERNAL | | | | performed at [facility];[address] | | LAB | | | | [address];[place] | | | | | | [address] | | | | + + + + + + | Epithelial | 6-10Comment: Testing | /lpf | EXTERNAL | | | Cells | performed at [facility];[address] | | LAB | | | | [address];[place] | | | | | | [address] | | | | + + + + + + | Bacteria, | TRACE (A)Comment: | | EXTERNAL | | | UA | Testing performed at | | LAB | | | | [facility];[address] [facility] | | | | | | [facility];[place] [address] | | | | + + + + + + + + | Specimen | + + | Urine specimen | | (specimen) | + + + +---------+ + + | Performing | Address | City/State/Zipcode | Phone Number | | Organization | | | | + +---------+ + + | EXTERNAL LAB | | | | + +---------+ + + Katarzynaime INR (06/16/2013 9:15 PM PST) + + + + + + | Component | Value | Ref Range | Performed | Pathologist | | | | | At | Signature | + + + + + + | INR | 1.1Comment: REFERENCE | | EXTERNAL | | | [...] | | | | | performed at [facility] | | | | | | [address];[place], [place] | | | | | | [address] | | | | + + + [...] + +---------+ + + External Lab: CBC (06/16/2013 9:15 PM PST) + + + + + + | Component | Value | Ref Range | Performed | Pathologist | | | | | At | Signature | + + + + + + | WBC | 13.6 (H)Comment: Testing | 3.8 - 11.0 K/uL | EXTERNAL | | | | performed at [facility] | | LAB | | | | [address];[place] | | | | | | [address] | | | | + + + + + + | RED CELL | 3.94Comment: Testing | 3.70 - 5.10 | EXTERNAL | | | COUNT | performed at [facility];[address] | M/uL | LAB | | | | [address];[place] | | | | | | [address] | | | | + + + + + + | Hgb | 12.7Comment: Testing | 11.3 - 15.5 | EXTERNAL | | | | performed at [facility];[address] | g/dL | LAB | | | | [address];[place] | | | | | | [address] | | | | + + + + + + | Hematocrit, | 35.6Comment: Testing | 34.0 - 46.0 % | EXTERNAL | | | POC | performed at [facility];[address] | | LAB | | | | [address];[place] | | | | | | [address] | | | | + + + + + + | MCV | 90.4Comment: Testing | 80.0 - 100.0 fl | EXTERNAL | | | | performed at [facility];[address] | | LAB | | | | [address];[place] | | | | | | [address] | | | | + + + + + + | MCH | 32.3Comment: Testing | 27.0 - 34.0 pg | EXTERNAL | | | | performed at [facility];[address] | | LAB | | | | [address];[place] | | | | | | [address] | | | | + + + + + + | MCHC | 35.7 (H)Comment: Testing | 32.0 - 35.5 | EXTERNAL | | | | performed at [facility];[address] | g/dL | LAB | | | | [address];[place] | | | | | | [address] | | | | + + + + + + | RDW-CV | 41.1Comment: Testing | 37 - 53 fl | EXTERNAL | | | | performed at [facility];[address] | | LAB | | | | [address];[place] | | | | | | [address] | | | | + + + + + + | Platelet | 272Comment: Testing | 150 - 400 K/uL | EXTERNAL | | | Count | performed at [facility];[address] | | LAB | | | Plasma | [address];[place] | | | | | | [address] | | | | + + + + + + | MPV | 8.3Comment: Testing | fl | EXTERNAL | | | | performed at [facility];[address] | | LAB | | | | [address];[place] | | | | | | [address] | | | | + + + + + + | Differentia | AUTOMATEDComment: | | EXTERNAL | | | l Type | Testing performed at | | LAB | | | | [facility];[address];[place] [address] | | | | + + + + + + | % Segmented | 69.7 | % | EXTERNAL | | | | | | LAB | | | Neutrophils | | | | | + + + + + + | % | 19.6 | % | EXTERNAL | | | Lymphocytes | | | LAB | | + + + + + + | % Monocytes | 9.5 | % | EXTERNAL | | | | | | LAB | | + + + + + + | % | 0.4 | % | EXTERNAL | | | Eosinophils | | | LAB | | + + + + + + | % Basophils | 0.8 | % | EXTERNAL | | | | | | LAB | | + + + + + + | Absolute | 9.5 (H) | 1.9 - 7.4 K/uL | EXTERNAL | | | Segmented | | | LAB | | | Neutrophils | | | | | + + + + + + | Absolute | 2.7 | 1.0 - 3.9 K/uL | EXTERNAL | | | Lymphocytes | | | LAB | | + + + + + + | Absolute | 1.3 (H) | 0 - 0.8 K/uL | EXTERNAL | | | Monocytes | | | LAB | | + + + + + + | Absolute | 0.1 | 0 - 0.5 K/uL | EXTERNAL | | | Eosinophils | | | LAB | | + + + + + + | Absolute | 0.1 | 0 - 0.1 K/uL | EXTERNAL | | | Basophils | | | LAB | | + [...] | | + +---------+ + + Lipase (06/16/2013 9:15 PM PST) + + + + + + | Component | Value | Ref Range | Performed | Pathologist | | | | | At | Signature | + + + + + + | Lipase | 60 (L)Comment: Testing | 73 - 393 U/L | EXTERNAL | | | | performed at [facility];[address] | | LAB | | | | [address];[place] | | | | | | [address] | | | | + + + + + + + + | Specimen | + + | Blood specimen | | (specimen) | + + + +---------+ + + | Performing | Address | City/State/Zipcode | Phone Number | | Organization | | | | + +---------+ + + | EXTERNAL LAB | | | | + +---------+ + + Amylase (06/16/2013 9:15 PM PST) + + + + + + | Component | Value | Ref Range | Performed | Pathologist | | | | | At | Signature | + + + + + + | Amylase | 28Comment: Testing | 25 - 115 U/L | EXTERNAL | | | | performed at [facility];[address] | | LAB | | | | [address];[place] | | | | | | [address] | | | | + + + + + + + + | Specimen | + + | Blood specimen | | (specimen) | + + + +---------+ + + | Performing | Address | City/State/Zipcode | Phone Number | | Organization | | | | + +---------+ + + | EXTERNAL LAB | | | | + +---------+ + + Ethanol (06/16/2013 9:15 PM PST) + + + + + + | Component | Value | Ref Range | Performed | Pathologist | | | | | At | Signature | + + + + + + | Ethyl | <3Comment: Testing | mg/dL | EXTERNAL | | | Alcohol | performed at [facility];[address] | | LAB | | | | [address];[place] | | | | | | [address] | | | | + + + + + + + + | Specimen | + + | Blood specimen | | (specimen) | + + + +---------+ + + | Performing | Address | City/State/Zipcode | Phone Number | | Organization | | | | + +---------+ + + | EXTERNAL LAB | | | | + +---------+ + + Acetaminophen Level (06/16/2013 9:15 PM PST) + + + + + + | Component | Value | Ref Range | Performed | Pathologist | | | | | At | Signature | + + + + + + | ACETAMINOPH | <2.0 (L)Comment: Testing | 10.0 - 30.0 | EXTERNAL | | | EN LEVEL | performed at [facility];[address] | ug/mL | LAB | | | | [address];[place], [place] | | | | | | [address] | | | | + + + + + + + + | Specimen | + + | Blood specimen | | (specimen) | + + + +---------+ + + | Performing | Address | City/State/Zipcode | Phone Number | | Organization | | | | + +---------+ + + | EXTERNAL LAB | | | | + +---------+ + + Salicylate Level (06/16/2013 9:15 PM PST) + + + + + + | Component | Value | Ref Range | Performed | Pathologist | | | | | At | Signature | + + + + + + | Salicylate | <1.7 (L)Comment: Testing | 2.8 - 20.0 | EXTERNAL | | | Lvl | performed at [facility];[address] | mg/dL | LAB | | | | [address];[place], [place] | | | | | | [address] | | | | + + + [...] + +---------+ + + Comprehensive Metabolic Panel (06/16/2013 9:15 PM PST) + + + + + + | Component | Value | Ref Range | Performed | Pathologist | | | | | At | Signature | + + + + + + | Na | 140Comment: Testing | 135 - 143 | EXTERNAL | | | | performed at [facility];[address] | mmol/L | LAB | | | | [address];[place] | | | | | | [address] | | | | + + + + + + | K | 3.2 (L)Comment: Testing | 3.5 - 4.9 | EXTERNAL | | | | performed at [facility];[address] | mmol/L | LAB | | | | [address];[place] | | | | | | [address] | | | | + + + + + + | Cl | 107Comment: Testing | 99 - 109 mmol/L | EXTERNAL | | | | performed at [facility];[address] | | LAB | | | | [address];[place] | | | | | | [address] | | | | + + + + + + | CO2 | 23Comment: Testing | 23 - 32 mmol/L | EXTERNAL | | | | performed at [facility];[address] | | LAB | | | | [address];[place] | | | | | | [address] | | | | + + + + + + | Anion Gap | 13Comment: Testing | 5 - 20 mmol/L | EXTERNAL | | | | performed at [facility];[address] | | LAB | | | | [address];[place] | | | | | | [address] | | | | + + + + + + | Glucose, | 82Comment: Testing | 65 - 99 mg/dL | EXTERNAL | | | Fasting | performed at [facility];[address] | | LAB | | | | [address];[place] | | | | | | [address] | | | | + + + + + + | BUN | 7 (L)Comment: Testing | 8 - 25 mg/dL | EXTERNAL | | | | performed at [facility];[address] | | LAB | | | | [address];[place] | | | | | | [address] | | | | + + + + + + | Creatinine | 0.63Comment: Testing | 0.50 - 1.00 | EXTERNAL | | | | performed at [facility];[address] | mg/dL | LAB | | | | [address];[place] | | | | | | [address] | | | | + + + + + + | BUN/Creatin | 11Comment: Testing | | EXTERNAL | | | ine Ratio | performed at [facility];[address] | | LAB | | | | [address];[place] | | | | | | [address] | | | | + + + + + + | Calcium | 8.0 (L)Comment: Testing | 8.5 - 10.2 | EXTERNAL | | | | performed at [facility];[address] | mg/dL | LAB | | | | [address];[place] | | | | | | [address] | | | | + + + + + + | Protein, | 6.8Comment: Testing | 6.3 - 8.2 g/dL | EXTERNAL | | | Total | performed at [facility];[address] | | LAB | | | | [address];[place] | | | | | | [address] | | | | + + + + + + | Albumin | 3.5 (L)Comment: Testing | 3.6 - 5.0 g/dL | EXTERNAL | | | | performed at [facility];[address] | | LAB | | | | [address];[place] | | | | | | [address] | | | | + + + + + + | Globulin | 3.3Comment: Testing | 1.3 - 4.9 g/dL | EXTERNAL | | | | performed at [facility];[address] | | LAB | | | | [address];[place] | | | | | | [address] | | | | + + + + + + | A/G Ratio | 1.1Comment: Testing | 1.0 - 2.4 | EXTERNAL | | | | performed at [facility];[address] | | LAB | | | | [address];[place] | | | | | | [address] | | | | + + + + + + | Bilirubin | 0.4Comment: Testing | 0.1 - 1.5 mg/dL | EXTERNAL | | | Total | performed at [facility];[address] | | LAB | | | | [address];[place] | | | | | | [address] | | | | + + + + + + | ALP, | 50Comment: Testing | 35 - 115 U/L | EXTERNAL | | | External | performed at [facility];[address] | | LAB | | | | [address];[place] | | | | | | [address] | | | | + + + + + + | AST | 16Comment: Testing | 10 - 45 U/L | EXTERNAL | | | | performed at [facility];[address] | | LAB | | | | [address];[place] | | | | | | [address] | | | | + + + + + + | ALT | 18Comment: Testing | 10 - 65 U/L | EXTERNAL | | | | performed at [facility];[address] | | LAB | | | | [address];[place] | | | | | | [address] | | | | + + + [...] BY | | | | | | 1.210.Testing performed | | | | | | at [facility];[address] | | | | | | [facility];[place] [address] | | | | + + + [...] + | Diagnosis | + + | Substance abuse (HCC) Other, mixed, or unspecified nondependent drug abuse, | | unspecified | + + | Vomiting Vomiting alone | + + | Abdominal pain Abdominal pain, unspecified site | + + | Discomfort during | + + | Suicidal ideation | + + documented in this encounter
--- OUTSIDE RECORDS SUMMARY | ~2019-03-30 | XMS | Encounter Summary ---
Demographics + + + | Address | [address] | | | [place] [address] | + + + | Home Phone | | + + + | Preferred Language | Unknown | + + + | Marital Status | Single | + + + | Yarsanism Affiliation | Unknown | + + + | Race | Unknown | + + + | Ethnic Group | Unknown | + + + Author + + + | Author | [facility] | | | and [place] | + + + | Organization | [facility] | | | and [place] | + + + | Address | Unknown | + + + | Phone | Unavailable | + + + Support + + + + + | Name | Relationship | Address | Phone | + + + + + | Gtjuliann Welch | ECON | [address] | | | | | [place] | | | | | [place] | | | | | [address] | | + + + + + Care Team Providers + +------+ + | Care Narrative Writer Name | Role | Phone | + [...] [place] | | | | | [address] | [address] | | | | | [phone] | | | +--------+ + + + [...]
--- OUTSIDE RECORDS SUMMARY | ~2019-03-30 | XMS | Encounter Summary ---
Demographics + + + | Address | [address] | | | [place] [address] | + + + | Home Phone | | + + + | Preferred Language | Unknown | + + + | Marital Status | Single | + + + | Congregational Affiliation | Unknown | + + + | Race | Unknown | + + + | Ethnic Group | Unknown | + + + Author + + + | Author | [facility] | | | and [place] | + + + | Organization | [facility] | | | and [place] | + + + | Address | Unknown | + + + | Phone | Unavailable | + + + Support + + + + + | Name | Relationship | Address | Phone | + + + + + | Gt Welch | ECON | [address] [facility] | | | | | [place] | | | | | [place] | | | | | [address] | | + + + + + Care Team Providers + +------+ + | Care Expeditionary Fighting Vehicle Crewman Name | Role | Phone | + +------+ + PCP | Unavailable | + +------+ + Encounter Details +--------+ + + + + | Date | Type | Department | Care Team | Description | +--------+ + + + + | 02/25/ | Emergency | [facility] | Brock Fernández, | Cellulitis of right | | 2012 - | | MEDICAL CENTER | MD Mahi ZHAO | arm; Methamphetamine | | | | [place] | [place] [address] | abuse; Anxiety | | 02/26/ | | [address] | [phone] | reaction | | 2012 | | [place], [place] | | | | | | [address] | | | | | | [phone] | | | +--------+ + + + [...] + | CULTURE, URINE | Routin | 02/26/2013 | | Results for this | | | e | 12:03 AM | | procedure are in the | | | | PDT | | results section. | + +--------+ + + + documented in this encounter Results Culture, Urine (02/26/2013 12:03 AM PDT) + + | Specimen | + + | | + + + + + | Narrative | Performed At | + + + | Specimen Description CLEAN CATCH URINE | EXTERNAL LAB | | Testing performed at | | | [facility], [address] [place] [address] CULTURE | | | 10,000 TO 50,000 CFU/ML MIXED GRAM POSITIVE | | | ROCAEL INCLUDING | | | <10,000 CFU/ML STREPTOCOCCUS AGALACTIAE (GROUP B)Abnormal | | | THE PRESENCE OF GROUP B | | | STREP IS RELEVANT ONLY IN WOMEN. 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
--- OUTSIDE RECORDS SUMMARY | ~2019-03-30 | XMS | Encounter Summary ---
Demographics + + + | Address | [address] | | | [place] [address] | + + + | Home Phone | | + + + | Preferred Language | Unknown | + + + | Marital Status | Single | + + + | Cheondoism Affiliation | Unknown | + + + | Race | Unknown | + + + | Ethnic Group | Unknown | + + + Author + + + | Author | [facility] | | | and [place] | + + + | Organization | [facility] | | | and [place] | + + + | Address | Unknown | + + + | Phone | Unavailable | + + + Support + + + + + | Name | Relationship | Address | Phone | + + + + + | Gt Welch | ECON | [address] [facility] | | | | | [place] | | | | | [place] | | | | | [address] | | + + + + + Care Team Providers + +------+ + | Care Network Development Coordinator Name | Role | Phone | + +------+ + | Bro Mora MD | PCP | | + +------+ + Encounter Details +--------+ + + + + | Date | Type | Department | Care Team | Description | +--------+ + + + + | 05/12/ | Orders Only | [facility] | Gold Florentino, | Right ureteral | | 2018 | | [address] | MD [address] | calculus (Primary | | | | [place], [place] | [place], [place] | Dx) | | | | [address] | [address] | | | | | [phone] | | | +--------+ + + + [...] Not on filedocumented as of this encounter Results XR Abdomen AP (05/24/2017 [...] + | Mack Palma Results In - 05/24/2017 10:41 AM PST [...] Primary Calculus of ureter | + + documented in this encounter"
--- OUTSIDE RECORDS SUMMARY | ~2019-03-30 | XMS | Encounter Summary ---
Demographics + + + | Address | [address] | | | [place] [address] | + + + | Home Phone | | + + + | Preferred Language | Unknown | + + + | Marital Status | Single | + + + | Congregational Affiliation | Unknown | + + + | Race | Unknown | + + + | Ethnic Group | Unknown | + + + Author + + + | Author | [facility] | | | and [place] | + + + | Organization | [facility] | | | and [place] | + + + | Address | Unknown | + + + | Phone | Unavailable | + + + Support + + + + + | Name | Relationship | Address | Phone | + + + + + | Gt Hartarte | ECON | [address] [facility] | | | | | [place] | | | | | [place] | | | | | [address] | | + + + + + Care Team Providers + +------+ + | Care Living Advisor Name | Role | Phone | + +------+ + PCP | Unavailable | + +------+ + Encounter Details +--------+ + + + + | Date | Type | Department | Care Team | Description | +--------+ + + + + | 04/05/ | Emergency | [facility] | Dana Nolenn Jeff, | Abdominal Pain, | | 2006 | | MEDICAL CENTER | [address] [facility] | Unspecified Site | | | | EMERGENCY CENTER | [place], [place] | | | | | [address] | [address] | | | | | [place], [place] | | | | | | [address] | | | | | | [phone] | | | +--------+ + + + [...]
--- OUTSIDE RECORDS SUMMARY | ~2019-03-30 | XMS | Encounter Summary ---
Demographics + + + | Address | [address] | | | [place] [address] | + + + | Home Phone | | + + + | Preferred Language | Unknown | + + + | Marital Status | Single | + + + | Shinto Affiliation | Unknown | + + + | Race | Unknown | + + + | Ethnic Group | Unknown | + + + Author + + + | Author | [facility] | | | and [place] | + + + | Organization | [facility] | | | and [place] | + + + | Address | Unknown | + + + | Phone | Unavailable | + + + Support + + + + + | Name | Relationship | Address | Phone | + + + + + | Gt Welch | ECON | [address] [facility] | | | | | [place] | | | | | [place] | | | | | [address] | | + + + + + Care Team Providers + +------+ + | Care Supervisor Air Conditioning Installer Name | Role | Phone | + +------+ + | No, Physician | PCP | Unavailable | + +------+ + Reason for Visit + + + | Reason | Comments | + + + | Flu Like Symptoms | | + + + Encounter Details +--------+ + + + + | Date | Type | Department | Care Team | Description | +--------+ + + + + | 07/21/ | Emergency | [facility] | Keith Martinez | Strep pharyngitis | | 2018 | | [facility] | MD Luis Carlos [address] | (Primary Dx) | | | | CENTER [address] | [facility] | | | | | [place], [place] | [place] [address] | | | | | [address] | [phone] | | | | | [phone] | | | +--------+ + + + [...] + + + | Blood Pressure | 179/98 | 07/21/2017 4:31 PM | | | | | PDT | | + + + + + | Pulse | 104 | 07/21/2017 4:31 PM | | | | | PDT | | + + + + + | Temperature | 37.2 C (99 F) | 07/21/2017 4:31 PM | | | | | PDT | | + + + + + | Respiratory Rate | 18 | 07/21/2017 4:31 PM | | | | | PDT | | + + + + + | Oxygen Saturation | 99% | 07/21/2017 4:31 PM | | | | | PDT | | + + + + + | Inhaled Oxygen | - | - | | | Concentration | | | | + + + + + | Weight | 86.2 kg (190 lb) | 07/21/2017 4:31 PM | | | | | PDT | | + + + + + | Height | 172.7 cm (5' 8") | 07/21/2017 4:31 PM | | | | | PDT | | + + + + + | Body Mass Index | 28.89 | 07/21/2017 4:31 PM | | | [...] following attachments cannot be sent through Care Everywhere.Pharyngitis, St rep (Presumed) (Indonesian)documented in this encounter Medications at Time of [...] + + + +---------+ + + | amoxicillin | Take 1 capsule by | 20 | 0 | 07/22/19 | | | (AMOXIL) 500 MG | mouth 2 times daily | capsule | | 18 | 8 | | capsule | for 10 days. | | | | | + + + +---------+ + + | ibuprofen (ADVIL, | Take 1 tablet by | 12 | 0 | 07/22/19 | | | MOTRIN) 400 mg | mouth every 8 hours | tablet | | 18 | 8 | | tablet | as needed for up to | | | | | | | 3 days. | | | | | + [...] of this encounter Plan of Treatment + +------+--------+ + + | Name | Type | Priori | Associated Diagnoses | Date/Time | | | | ty | | | + +------+--------+ + + | ED INFORMATION | OLAF | Routin | | 07/21/2017 4:29 PM | | EXCHANGE | | e | | PDT | + +------+--------+ + + documented as of this encounter Procedures + +--------+ + + + | Procedure Name | Priori | Date/Time | Associated Diagnosis | Comments | | | ty | | | | + +--------+ + + + | URINALYSIS WITH | Routin | 07/21/2017 | | Results for this | | MICROSCOPIC WITH | e | 4:53 PM | | procedure are in the | | CULTURE IF INDICATED | | PDT | | results section. | + +--------+ + + + | POCT TEST, | STAT | 07/21/2017 | | Results for this | | URINE, QUAL | | 4:53 PM | | procedure are in the | | | | PDT | | results section. | + +--------+ + + + | INFLUENZA A AND B | STAT | 07/21/2017 | | Results for this | | RNA, NAAT | | 4:42 PM | | procedure are in the | | | | PDT | | results section. | + +--------+ + + + | ED INFORMATION | Routin | 07/21/2017 | | | | EXCHANGE | e | 4:29 PM | | | | | | PDT | | | + +--------+ + + + +---+--------+ | | | | | Proced | | | ure | | | Note - | | | Zuleika, | | | Lab In | | | | | | Hlseve | | | n - | | | 07/21/ | | | 2017 | | | 4:30 | | | PM PDT | | | | | | Format | | | ting | | | of | | | this | | | note | | | might | | | be | | | differ | | | ent | | | from | | | the | | | origin | | | al.ZULEIKA | | | E?NOTI | | | FICATI | | | ON?/ | | | | | | 8 | | | 16:26? | | | CHUTE, | | | | | | CASAND | | | RA | | | C?MRN: | | | | | | [id number] | | | [id number] | | | his | | | patien | | | t has | | | regist | | | ered | | | at the | | | | | | Provid | | | ence | | | St. | | | [facility] | | | Medica | | | l | | | Center | | | | | | Emerge | | | ncy | | | Depart | | | ment | | | For | | | more | | | inform | | | ation | | | visit: | | | | | | https: | | | //secu | | | [email or web address] | | | ecarep | | | [email or web address] | | | m/denita | | | ent/67 | | | [id number] | | | -[phone] | | | [id number] | | | [id number] | | | [email or web address] | | | [email or web address] | | | Securi | | | ty | | | Events | | | Date | | | Locati | | | on | | | Type | | | Specif | | | ics | | | 8/31/1 | | | 7 5:51 | | | AM | | | [facility] | | | [facility] | | | al | | | Elopem | | | ent | | | Patien | | | t | | | eloped | | | | | | before | | | | | | treatm | | | ent | | | comple | | | alanis. | | | Detail | | | s: | | | LWBS | | | Securi | | | ty | | | Events | | | (18 | | | Mo.) | | | Count | | | Elopem | | | ent 1 | | | Total | | | 1 ED | | | Care | | | Guidel | | | inesTh | | | ere | | | are | | | curren | | | tly no | | | ED | | | Care | | | Guidel | | | vin | | | in | | | OLAF | | | for | | | this | | | patien | | | t. | | | Please | | | check | | | your | | | facili | | | ty's | | | medica | | | l | | | record | | | s | | | system | | | .Recen | | | t | | | Emerge | | | ncy | | | Depart | | | ment | | | Visit | | | Summar | | | yAdmit | | | Date | | | Facili | | | ty | | | City | | | State | | | Type | | | Major | | | Type | | | Diagno | | | ses or | | | Chief | | | | | | Compla | | | int | | | Mar | | | 16, | | | 2018 | | | Provid | | | ence | | | [facility] | | | [facility] | | | [place] | | | [place] | | | Emerge | | | ncy | | | Emerge | | | ncy | | | | | | Flu-li | | | ke | | | sympto | | | ms | | | Joel | | | 27, | | | 2018 | | | [facility] | | | [facility] | | | [place] | | | [place] | | | Emerge | | | ncy | | | Emerge | | | ncy | | | | | | Person | | | al | | | histor | | | y of | | | urinar | | | y | | | calcul | | | i | | | Person | | | al | | | histor | | | y of | | | pneumo | | | loyda | | | (recur | | | rent) | | | | | | Allerg | | | y | | | status | | | to | | | other | | | drugs, | | | | | | medica | | | ments | | | and | | | biolog | | | ical | | | substa | | | nces | | | status | | | | | | Headac | | | he | | | Acquir | | | ed | | | absenc | | | e of | | | both | | | cervix | | | and | | | uterus | | | Dec | | | 29, | | | 2017 | | | Provid | | | ence | | | [facility] | | | [facility] | | | [place] | | | [place] | | | Emerge | | | ncy | | | Emerge | | | ncy | | | rash, | | | back | | | pain | | | Rash | | | | | | Dysuri | | | a | | | Flank | | | Pain | | | Pain | | | from | | | genito | | | urinar | | | y | | | prosth | | | etic | | | device | | | s, | | | implan | | | ts and | | | | | | grafts | | | , | | | initia | | | l | | | encoun | | | ter | | | Other | | | | | | prurig | | | o | | | Unspec | | | ified | | | abdomi | | | nal | | | pain | | | Dec | | | 23, | | | 2017 | | | [facility] | | | [place] | | | [place] | | | Emerge | | | ncy | | | Emerge | | | ncy | | | | | | Urinar | | | y | | | tract | | | infect | | | ion, | | | site | | | not | | | specif | | | ied | | | | | | Person | | | al | | | histor | | | y of | | | pulmon | | | pako | | | emboli | | | sm | | | Acquir | | | ed | | | absenc | | | e of | | | both | | | cervix | | | and | | | uterus | | | | | | Nicoti | | | ne | | | depend | | | ence, | | | unspec | | | ified, | | | | | | uncomp | | | licate | | | d | | | Other | | | long | | | term | | | (curre | | | nt) | | | drug | | | therap | | | y | | | Unspec | | | ified | | | abdomi | | | nal | | | pain | | | | | | Hydron | | | ephros | | | is | | | with | | | renal | | | and | | | ureter | | | al | | | calcul | | | ous | | | obstru | | | ction | | | | | | Sepsis | | | , | | | unspec | | | ified | | | organi | | | sm | | | E.D. | | | Visit | | | Count | | | (12 | | | mo.)Fa | | | cility | | | | | | Visits | | | Low | | | Acuity | | | | | | Provid | | | ence | | | St. | | | [facility] | | | Medica | | | l | | | Center | | | 2 0 | | | [facility] | | | y | | | Hospit | | | al 4 0 | | | Total | | | 6 0 | | | Note: | | | Visits | | | | | | indica | | | te | | | total | | | known | | | visits | | | . | | | Medica | | | id Low | | | | | | Acuity | | | Dx | | | are | | | the | | | number | | | of | | | primar | | | y | | | diagno | | | ses on | | | the | | | Medica | | | id's | | | Low | | | Acuity | | | dx | | | list. | | | | | | Recent | | | | | | Inpati | | | ent | | | Visit | | | Summar | | | yAdmit | | | Date | | | Facili | | | ty | | | City | | | State | | | Type | | | Major | | | Type | | | Diagno | | | ses or | | | Chief | | | | | | Compla | | | int | | | Dec | | | 24, | | | 2017 | | | Provid | | | ence | | | [facility] | | [facility] | | | [place] | [place] | | | [place] | | | Urolog | | | y | | | Inpati | | | ent | | | | | | URETER | | | AL | | | STONE | | | INFECT | | | ION | | | FLANK | | | PAIN | | | Care | | | Provid | | | ersPro | | | vider | | | PRC | | | Type | | | Phone | | | Fax | | | Servic | | | e | | | Dates | | | PIERSO | | | N, | | | ANNA | | | H T. | | | Primar | | | y Care | | | (509) | | | | | | [phone] | | | 23 | | | Oct | | | 16, | | | 2015 - | | | | | | Curren | | | t | | | ANNA | | | H | | | PIERSO | | | N | | | Primar | | | y Care | | | (509) | | | | | | [phone] | | | 23 | | | Oct | | | 16, | | | 2015 - | | | | | | Curren | | | t | | | Criter | | | ia met | | | PDMP | | | | | | Medica | | | id 5 | | | in | | | 12Know | | | n | | | Aliase | | | sNo | | | known | | | aliase | | | s. The | | | above | | | | | | inform | | | ation | | | is | | | provid | | | ed for | | | the | | | sole | | | purpos | | | e of | | | patien | | | t | | | treatm | | | ent. | | | Use of | | | this | | | inform | | | ation | | | beyond | | | the | | | terms | | | of | | | Data | | | Sharin | | | g | | | Memora | | | ndum | | | of | | | Unders | | | tandin | | | g and | | | Licens | | | e | | | Agreem | | | ent is | | | | | | prohib | | | ited. | | | In | | | certai | | | n | | | cases | | | not | | | all | | | visits | | | may | | | be | | | repres | | | ented. | | | | | | Consul | | | t the | | | aforem | | | ention | | | ed | | | facili | | | ties | | | for | | | additi | | | onal | | | inform | | | ation. | | | ? | | | 2018 | | | [employer] | | | tive | | | Medica | | | l | | | [employer] | | | logies | | | , [employer] | | | - | | | [place] | | | [place] | | | [place], | | | [place] - | | | [email or web address] | | | ollect | | | ivemed | | | icalte | | | [email or web address] | | | | +---+--------+ documented in this encounter Results POCT Test, Urine, QUAL (07/21/2017 4:53 PM PDT) + + + + + + | Component | Value | Ref Range | Performed | Pathologist | | | | | At | Signature | + + + + + + | | Negative | Negative | | | | Test, | | | | | | Urine, POC | | | | | + + + + + + | Internal QC | Acceptable | Acceptable | | | + + + + + + | Specific | | 1.010, 1.015, | | | | [place], | | 1.020, 1.025 | | | | POC | | | | | + + + + + + | Lot Number | | | | | + + + + + + | Expiration | | | | | | Date | | | | | + + + + + + + + | Specimen | + + | Urine | + + Urinalysis with Microscopic with Culture if Indicated (07/21/2017 4:53 PM PDT) + + + + + + | Component | Value | Ref Range | Performed | Pathologist | | | | | At | Signature | + + + + + + | Color | Yellow | Light Yellow, | [facility] | | | | | Yellow, Straw | [facility] | | | | | | MEDICAL | | | | | | CENTER - | | | | | | LABORATORY | | + + + + + + | Clarity | Cloudy (A) | Clear | [facility] | | | | | | [facility] | | | | | | MEDICAL | | | | | | CENTER - | | | | | | LABORATORY | | + + + + + + | pH, Urine | 5.0 | 5.0 - 8.0 | [facility] | | | | | | [facility] | | | | | | MEDICAL | | | | | | CENTER - | | | | | | LABORATORY | | + + + + + + | Specific | 1.019 | 1.001 - 1.030 | [facility] | | | [place] | | | [facility] | | | | | | MEDICAL | | | | | | CENTER - | | | | | | LABORATORY | | + + + + + + | Protein, | Negative | Negative | [facility] | | | Urine | | | [facility] | | | | | | MEDICAL | | | | | | CENTER - | | | | | | LABORATORY | | + + + + + + | Blood, | Negative | Negative | [facility] | | | Urine | | | [facility] | | | | | | MEDICAL | | | | | | CENTER - | | | | | | LABORATORY | | + + + + + + | Glucose, | Negative | Negative | [facility] | | | Urine | | | [facility] | | | | | | MEDICAL | | | | | | CENTER - | | | | | | LABORATORY | | + + + + + + | Ketones, | 20 mg/dL (A) | Negative | [facility] | | | Urine | | | [facility] | | | | | | MEDICAL | | | | | | CENTER - | | | | | | LABORATORY | | + + + + + + | Bilirubin, | Negative | Negative | [facility] | | | Urine | | | [facility] | | | | | | MEDICAL | | | | | | CENTER - | | | | | | LABORATORY | | + + + + + + | Nitrite, | Negative | Negative | [facility] | | | Urine | | | [facility] | | | | | | MEDICAL | | | | | | CENTER - | | | | | | LABORATORY | | + + + + + + | Leukocyte | Negative | Negative | [facility] | | | Esterase, | | | [facility] | | | Urine | | | MEDICAL | | | | | | CENTER - | | | | | | LABORATORY | | + + + + + + | Urobilinoge | Negative | 0.2 mg/dL, 1.0 | [facility] | | | n, Urine | | mg/dL, Negative | [facility] | | | | | | MEDICAL | | | | | | CENTER - | | | | | | LABORATORY | | + + + + + + | WBC UA | 2-5 (A) | 0 - 2 /HPF | [facility] | | | | | | [facility] | | | | | | MEDICAL | | | | | | CENTER - | | | | | | LABORATORY | | + + + + + + | RBC UA | 2-5 (A) | 0 - 2 /HPF | [facility] | | | | | | [facility] | | | | | | MEDICAL | | | | | | CENTER - | | | | | | LABORATORY | | + + + + + + | SQUAMOUS | >100 (A) | 0 - 2 /LPF | [facility] | | | EPITHELIAL | | | [facility] | | | UA | | | MEDICAL | | | | | | CENTER - | | | | | | LABORATORY | | + + + + + + | BACTERIA UA | 1+ (A) | Negative /HPF | [facility] | | | | | | [facility] | | | | | | MEDICAL [...] ST. | [address] | [place], [place] | [phone] | | [facility] | | [address] | | | - LABORATORY | | | | + + + + + Influenza A and B RNA, NAAT (07/21/2017 4:42 PM PDT) + + + + + + | Component | Value | Ref Range | Performed | Pathologist | | | | | At | Signature | + + + + + + | Influenza A | Negative | Negative | [facility] | | | PCR | | | [facility] | | | | | | MEDICAL | | | | | | CENTER - | | | | | | LABORATORY | | + + + + + + | Influenza B | Negative | Negative | [facility] | | | PCR | | | [facility] | | | | | | MEDICAL | | | | | | CENTER - | | | | | | LABORATORY | | + + + + + + + + | Specimen | + + | Respiratory - Both | | anterior nares (body | | structure) | + + + + + + + | Performing | Address | City/State/Zipcode | Phone Number | | Organization | | | | + + + + + | [facility] | [address] | [place] | [phone] | | [facility] | | [address] | | | - LABORATORY | | | | + + + + + documented in this encounter Visit Diagnoses + + | Diagnosis | + + | Strep pharyngitis - Primary Streptococcal sore throat | + + documented in this encounter Administered Medications + +--------+ +--------+------+------+ | Medication Order | MAR | Action | Dose | Rate | Site | | | Action | Date | | | | + +--------+ +--------+------+------+ | amoxicillin (AMOXIL) capsule | Given | 07/22/19 | 500 mg | | | | 500 mg 500 mg, Oral, ONCE, Fri | | 18 5:23 | | | | | 07/21/17 at 1715, For 1 dose, | | PM PDT | | | | | Indications: Streptococcal | | | | | | | Pharyngitis | | | | | | + +--------+ +--------+------+------+ +---+---+ | | | +---+---+ + +-------+ +-------+---+---+ | dexamethasone (DECADRON) 10 | Given | 07/22/19 | 10 mg | | | | mg/mL injection for oral use 10 | | 18 5:23 | | | | | mg 10 mg, Oral, ONCE, Fri | | PM PDT | | | | | 18 at 1715, For 1 dose, Use | | | | | | | dexamethasone 10 mg/mL vial for | | | | | | | inject for this oral dose, | | | | | | + +-------+ +-------+---+---+ +---+---+ | | | +---+---+ + +-------+ +--------+---+---+ | ibuprofen (ADVIL,MOTRIN) tablet | Given | 07/22/19 | 600 mg | | | | 600 mg 600 mg, Oral, ONCE, Fri | | 18 5:24 | | | | | 07/21/17 at 1715, For 1 dose, Give | | PM PDT | | | | | with food., | | | | | | + +-------+ +--------+---+---+ +---+---+ | | | +---+---+ documented in this encounter
--- OUTSIDE RECORDS SUMMARY | ~2019-03-30 | XMS | Encounter Summary ---
Demographics + + + | Address | [address] | | | [place] [address] | + + + | Home Phone | | + + + | Preferred Language | Unknown | + + + | Marital Status | Single | + + + | Alevism Affiliation | Unknown | + + + | Race | Unknown | + + + | Ethnic Group | Unknown | + + + Author + + + | Author | [facility] | | | and [place] | + + + | Organization | and [facility] | | | and [place] | + + + | Address | Unknown | + + + | Phone | Unavailable | + + + Support + + + + + | Name | Relationship | Address | Phone | + + + + + | Gt Welch | ECON | [address] [facility] | | | | | [place] | | | | | [place] | | | | | [address] | | + + + + + Care Team Providers + +------+ + | Care Wet Roller Name | Role | Phone | + +------+ + | Bro Mora MD | PCP | | + +------+ + Reason for Visit + + + | Reason | Comments | + + + | Rash | | + + + | Dysuria | | + + + | Flank Pain | | + + + Encounter Details +--------+ + + + + | Date | Type | Department | Care Team | Description | +--------+ + + + + | 05/05/ | Emergency | [facility] [place] | Gabriel Torres, | Right flank pain | | 2017 | | [facility] | MD [address] | (Primary Dx); Pain | | | | CENTER [address] | [facility] [place] | due to ureteral | | | | [place], [place] | [place] [address] | stent, initial | | | | [address] | [phone] | encounter (HCC); | | | | [phone] | | Pruritic rash | +--------+ + + + + Social [...] + + + | Blood Pressure | 128/77 | 05/05/2017 11:15 PM | | | | | PST | | + + + + + | Pulse | 94 | 05/05/2017 11:15 PM | | | | | PST | | + + + + + | Temperature | 36.1 C (97 F) | 05/05/2017 9:20 PM | | | | | PST | | + + + + + | Respiratory Rate | 15 | 05/05/2017 9:20 PM | | | | | PST | | + + + + + | Oxygen Saturation | 95% | 05/05/2017 11:15 PM | | | | | PST | | + + + + + | Inhaled Oxygen | - | - | | | Concentration | | | | + + + + + | Weight | 95 kg (209 lb 7 oz) | 05/05/2017 9:20 PM | | | | | PST | | + + + + + | Height | 172.7 cm (5' 8") | 05/05/2017 9:20 PM | | | | | PST | | + + + + + | Body Mass Index | 31.84 | 05/05/2017 9:20 PM | | | | | PST [...] as of this encounter Discharge Instructions Instructions Gabriel Torres MD - 05/05/2017Levaquin daily Benadryl as needed for itching Stop Flomax Follow-up with urology Follow-up with primary care Stay well-hydrated AttachmentsThe following attachments cannot be sent through Care Everywhere.Stents, Uretera l (Lao)documented in this encounter Medications at Time of [...] INFORMATION | OLAF | Routin | | 05/05/2017 9:11 PM | | EXCHANGE | | e | | PST | + +------+--------+ + + documented as of this encounter Procedures + +--------+ + + + | Procedure Name | Priori | Date/Time | Associated Diagnosis | Comments | | | ty | | | | + +--------+ + + + | URINALYSIS WITH | STAT | 05/05/2017 | | Results for this | | MICROSCOPIC WITH | | 10:57 PM | | procedure are in the | | CULTURE IF INDICATED | | PST | | results section. | + +--------+ + + + | CBC WITH | STAT | 05/05/2017 | | Results for this | | DIFFERENTIAL | | 9:43 PM | | procedure are in the | | | | PST | | results section. | + +--------+ + + + | BASIC METABOLIC | STAT | 05/05/2017 | | Results for this | | PANEL | | 9:43 PM | | procedure are in the | | | | PST | | results section. | + +--------+ + + + | CT RENAL STONE WO | STAT | 05/05/2017 | | Results for this | | CONTRAST | | 9:41 PM | | procedure are in the | | | | PST | | results section. | + +--------+ + + + | ED INFORMATION | Routin | 05/05/2017 | | | | EXCHANGE | e | 9:11 PM | | | | | | PST | | | + +--------+ + + + +---+--------+ | | | | | Proced | | | ure | | | Note - | | | Zuleika, | | | Lab In | | | | | | Hlseve | | | n - | | | 05/05/ | | | 2016 | | | 9:12 | | | PM PST | | | | | | Format [...] ON?/ | | | | | | 7 | | | 21:09? | | | CHUTE, | | | | | | CASAND | | | RA | | | C?MRN: | | | | | | [id number] | | | [id number] | | | his | | | [...] | | | ent/67 | | | [id number] | | | [id number] | | | [...] | | | St. | | | [facility] | | | y | | | [...] | | | St. | | | [facility] | | | y H. | | [...] Acuity | | | | | | [facility] | | | | | | Region | | | al | | | Medica | | | l | | | Center | | | 1 0 | | | Provid | | | ence | | | St. | | | [facility] | | | Medica | | | l | | | Center | | | 1 0 | | | [facility] | | | [facility] | | | y | | | Hospit | | | al 3 0 | | | Total | | | 5 0 | | | Note: | | [...] | | | Dates | | | Shavon | | | T | | | Amie | | | | | | Primar | | | y Care | | | | | | Curren | | | t | | | SHANNO | | | N | | | LEE | | | | | | Primar | | | y Care | | | (509) | | | | | | [phone] | | | 43 | | | (509) | | | [phone] | | | 27 Dec | | | 1, | | | 2016 - | | | | | | Curren | | | t | | | LADI | | | J ORTIZ | | | | | | Primar | | | y Care | | | (509) | | | | | | [phone] | | | 98 | | | (509) | | | [phone] | | | 61 | | | Curren | | | t | | | ANFISS | | | A | | | [place] | | | [place] | | | Primar | | | y Care | | | | | | Curren | | | t | | | PIERSO | | | [...] | | | ? | | | 2017 | | | Collec | | | [...] | +---+--------+ documented in this encounter Results Urinalysis with Microscopic with Culture if Indicated (05/05/2017 10:57 PM PST) + + + + + [...] + + + + | Clarity | Hazy (A) | Clear | [facility] | | | | | | [facility]ICAL | | | | | | CENTER - | | | | | | LABORATORY | | + + + + + + | pH, Urine | 6.0 | 5.0 - 8.0 | [facility] | | | | | | [facility] | | | | | | MEDICAL | | | | | | CENTER - | | | | | | LABORATORY | | + + + + + + | Specific | 1.015 | 1.001 - 1.030 | [facility] | | | [place] | | | [facility] | | | | | | MEDICAL | | | | | | CENTER - | | | | | | LABORATORY | | + + + + + + | Protein, | 30 mg/dL (A) | Negative | [facility] | | | Urine | | | [facility] | | | | | | MEDICAL | | | | | | CENTER - | | | | | | LABORATORY | | + + + + + + | Blood, | Moderate (A) | Negative | [facility] | | [...] + + + + | Ketones, | Negative | Negative | [facility] | [...] + + + + | Leukocyte | Moderate (A) | Negative | [facility] | | [...] + + + | WBC UA | 15-25 (A) | 0 - 2 /HPF | [...] + + + + | SQUAMOUS | 10-15 (A) | 0 - 2 /LPF | [facility] | | | EPITHELIAL | | | [facility] | | | UA | | | MEDICAL | | | | | | CENTER - | | | | | | LABORATORY | | + + + + + + | BACTERIA UA | Negative | Negative /HPF | [facility] | | | | | | [facility] | | | | | | MEDICAL | | | | | | CENTER - | | | | | | LABORATORY | | + + + + + + | MUCUS UA | Present (A) | Negative /LPF | [facility] | | | | | | [facility] | | | | | | MEDICAL | | | | | | CENTER - | | | | | | LABORATORY | | + + + + + + | URINE | Urine Culture Not | | [facility] | | | COMMENT | Indicated | | [facility] | | | [...] + | [facility] | [address] | [place] | [phone] | | [facility] | | [address] | | | - LABORATORY | | | | + + + + + Basic Metabolic Panel (05/05/2017 9:43 PM PST) + + + + + + | Component | Value | Ref Range | Performed | Pathologist | | | | | At | Signature | + + + + + + | Na | 135 (L) | 136 - 149 | [facility] | | | | | mmol/L | [facility] | | | | | | MEDICAL | | | | | | CENTER - | | | | | | LABORATORY | | + + + + + + | K | 3.7 | 3.5 - 5.1 | [facility] | | | | | mmol/L | [facility] | | | | | | MEDICAL | | | | | | CENTER - | | | | | | LABORATORY | | + + + + + + | Cl | 102 | 98 - 109 mmol/L | [facility] | | | | | | [facility] | | | | | | MEDICAL | | | | | | CENTER - | | | | | | LABORATORY | | + + + + + + | CO2 | 26 | 24 - 31 mmol/L | [facility] | | | | | | [facility] | | | | | | MEDICAL | | | | | | CENTER - | | | | | | LABORATORY | | + + + + + + | Anion Gap | 7 | 3 - 16 mmol/L | [facility] | | | | | | [facility] | | | | | | MEDICAL | | | | | | CENTER - | | | | | | LABORATORY | | + + + + + + | Glucose | 97 | 70 - 109 mg/dL | [facility] | | | | | | [facility] | | | | | | MEDICAL | | | | | | CENTER - | | | | | | LABORATORY | | + + + + + + | BUN | 10 | 7 - 18 mg/dL | [facility] | | | | | | [facility] | | | | | | MEDICAL | | | | | | CENTER - | | | | | | LABORATORY | | + + + + + + | Creatinine | 0.71 | 0.60 - 1.30 | [facility] | | | | | mg/dL | [facility] | | | | | | MEDICAL | | | | | | CENTER - | | | | | | LABORATORY | | + + + + + + | eGFR if not | >60Comment: GLOMERULAR | >=60 | [facility] | | | | FILTRATION | mL/min/1.73m2 | [facility] | | | [place] | RATE,ESTIMATED | | MEDICAL | | | | mL/min/1.33f8Illf than | | CENTER - | | [...] + + + + | Calcium | 8.9 | 8.3 - 10.5 | [facility] | | | | | mg/dL | [facility] | | | | | | MEDICAL | | | | | | CENTER - | | | | | | LABORATORY | | + + + + + + | BUN/Creatin | 14.1 | | [facility] | | | ine Ratio | | | [facility] | | | | | | [...] ST. | [address] | [place] | [phone] | | [facility] | | [address] | | | - LABORATORY | | | | + + + + + CBC with Differential (05/05/2017 9:43 PM PST) + + + + + + | Component | Value | Ref Range | Performed | Pathologist | | | | | At | Signature | + + + + + + | WBC | 12.0 (H) | 4.0 - 11.0 K/uL | [facility] | | | | | | [facility] | | | | | | MEDICAL | | | | | | CENTER - | | | | | | LABORATORY | | + + + + + + | RBC | 4.32 | 3.70 - 5.20 | [facility] | | | | | M/uL | [facility] | | | | | | MEDICAL | | | | | | CENTER - | | | | | | LABORATORY | | + + + + + + | Hemoglobin | 13.4 | 11.5 - 16.0 | [facility] | | | | | g/dL | [facility] | | | | | | MEDICAL | | | | | | CENTER - | | | | | | LABORATORY | | + + + + + + | Hematocrit | 39.1 | 34.0 - 47.0 % | [facility] | | | | | | [facility] | | | | | | MEDICAL | | | | | | CENTER - | | | | | | LABORATORY | | + + + + + + | MCV | 90.5 | 83.0 - 101.0 fL | [facility] | | | | | | [facility] | | | | | | MEDICAL | | | | | | CENTER - | | | | | | LABORATORY | | + + + + + + | MCH | 30.9 | 28.0 - 35.0 pg | [facility] | | | | | | [facility] | | | | | | MEDICAL | | | | | | CENTER - | | | | | | LABORATORY | | + + + + + + | MCHC | 34.1 | 32.0 - 36.0 | [facility] | | | | | g/dL | [facility] | | | | | | MEDICAL | | | | | | CENTER - | | | | | | LABORATORY | | + + + + + + | RDW-CV | 12.1 | <15.0 % | [facility] | | | | | | [facility] | | | | | | MEDICAL | | | | | | CENTER - | | | | | | LABORATORY | | + + + + + + | Platelet | 369 | 140 - 440 K/uL | [facility] | | | Count | | | [facility] | | | | | | MEDICAL | | | | | | CENTER - | | | | | | LABORATORY | | + + + + + + | MPV | 8.0 | fL | [facility] | | | | | | [facility] | | | | | | MEDICAL | | | | | | CENTER - | | | | | | LABORATORY | | + + + + + + | % | 55.5 | 45.0 - 82.0 % | [facility] | | | Neutrophils | | | [facility] | | | | | | MEDICAL | | | | | | CENTER - | | | | | | LABORATORY | | + + + + + + | % | 29.6 | 20.0 - 45.0 % | [facility] | | | Lymphocytes | | | [facility] | | | | | | MEDICAL | | | | | | CENTER - | | | | | | LABORATORY | | + + + + + + | % Monocytes | 10.4 | 4.0 - 12.0 % | [facility] | | | | | | [facility] | | | | | | MEDICAL | | | | | | CENTER - | | | | | | LABORATORY | | + + + + + + | % | 3.6 | 0.0 - 5.0 % | [facility] | | | Eosinophils | | | [facility] | | | | | | MEDICAL | | | | | | CENTER - | | | | | | LABORATORY | | + + + + + + | % Basophils | 0.9 | 0.0 - 1.0 % | [facility] | | | | | | [facility] | | | | | | MEDICAL | | | | | | CENTER - | | | | | | LABORATORY | | + + + + + + | Absolute | 6.60 | 1.80 - 8.50 | [facility] | | | Neutrophils | | K/uL | [facility] | | | | | | MEDICAL | | | | | | CENTER - | | | | | | LABORATORY | | + + + + + + | Absolute | 3.50 (H) | 0.60 - 3.20 | [facility] | | | Lymphocytes | | K/uL | [facility] | | | | | | MEDICAL | | | | | | CENTER - | | | | | | LABORATORY | | + + + + + + | Absolute | 1.20 (H) | 0.00 - 1.00 | [facility] | | | Monocytes | | K/uL | [facility] | | | | | | MEDICAL | | | | | | CENTER - | | | | | | LABORATORY | | + + + + + + | Absolute | 0.40 | 0.00 - 0.40 | [facility] | | | Eosinophils | | K/uL | [facility] | | | | | | MEDICAL | | | | | | CENTER - | | | | | | LABORATORY | | + + + + + + | Absolute | 0.10 | 0.00 - 0.10 | [facility] | | | Basophils | | K/uL | [facility] | | | | [...] [address] | [place] | [phone] | | [facility] | | [address] | | | - LABORATORY | | | | + + + + + CT Renal Stone Wo Contrast (05/05/2017 9:41 PM PST) + + | Specimen | + + | | + + + + + | Narrative | Performed At | + + + | CT ABDOMEN AND PELVIS WITHOUT CONTRAST (CPT) CT KUB | [facility] | | CLINICAL INFORMATION: Right flank pain for four days post right | | | ureteral stent placement. COMPARISON: None available. | | | PROCEDURE: Axial images through the abdomen and pelvis. Multiplanar | | | reconstructions. FINDINGS: KIDNEYS, URETERS and BLADDER: Right | | | ureteral stent in good position. No residual hydronephrosis. There | | | is a persistent small calcification near the right UVJ, however it is | | | 3 mm from the ureteral stent and is probably not within the ureter. | | | No solid renal mass. LUNG BASES: No significant pulmonary | | | abnormality. No pleural effusion or pneumothorax. ABDOMEN Liver | | | and Biliary: Solid organ evaluation suboptimal without contrast. No | | | visible abnormality in the liver or gallbladder. Pancreas, Spleen and | | | Adrenals: Normal adrenal, spleen and pancreas morphology, without | | | adjacent stranding or hematoma. ABDOMEN AND PELVIS Bowel: No | | | small bowel or colonic dilation or adjacent inflammation. No | | | appendiceal dilation or inflammation. Moderate amount stool noted | | | throughout the colon. Vessels: Abdominal aorta normal in caliber. | | | No aneurysm. Veins not assessed without contrast. Lymph Nodes: | | | No adenopathy. Peritoneum and Retroperitoneum: No ascites or free | | | air. No significant retroperitoneal abnormality. PELVIS | | | Genitourinary: No pelvic mass and no significant urethral abnormality. | | | Hysterectomy changes. BODY WALL Soft Tissues: No bowel or | | | inflamed fat containing hernia, mass or hemorrhage. Bones: No acute | | | fracture or vertebral end plate destruction. No lytic or blastic | | | lesion. IMPRESSION- Right ureteral stent in good position. No | | | residual hydronephrosis. There is a persistent small calcification | | | near the right UVJ, however it is 3 mm from the ureteral stent and | | | likely represents a phlebolith. Moderate amount of stool | | | throughout the colon. Dictated and Signed by: Don Domínguez MD | | | Electronically signed: 05/06/2017 10:13 AM | | + + + + + | Procedure Note | + + | Zuleika, Rad Results In - 05/06/2017 10:16 AM PST | | CT ABDOMEN AND PELVIS WITHOUT CONTRAST (CPT) | | | | CT KUB | | | | CLINICAL INFORMATION: | | Right flank pain for four days post right ureteral stent placement. | | | | COMPARISON: | | None available. | | | | PROCEDURE: | | Axial images through the abdomen and pelvis. Multiplanar | | reconstructions. | | | | FINDINGS: | | KIDNEYS, URETERS and BLADDER: Right ureteral stent in good position. | | No residual hydronephrosis. There is a persistent small calcification | | near the right UVJ, however it is 3 mm from the ureteral stent and is | | probably not within the ureter. No solid renal mass. | | | | LUNG BASES: No significant pulmonary abnormality. No pleural effusion | | or pneumothorax. | | | | ABDOMEN | | Liver and Biliary: Solid organ evaluation suboptimal without contrast. | | No visible abnormality in the liver or gallbladder. | | Pancreas, Spleen and Adrenals: Normal adrenal, spleen and pancreas | | morphology, without adjacent stranding or hematoma. | | | | ABDOMEN AND PELVIS | | Bowel: No small bowel or colonic dilation or adjacent inflammation. No | | appendiceal dilation or inflammation. Moderate amount stool noted throughout | | the colon. | | Vessels: Abdominal aorta normal in caliber. No aneurysm. Veins not | | assessed without contrast. | | Lymph Nodes: No adenopathy. | | Peritoneum and Retroperitoneum: No ascites or free air. No significant | | retroperitoneal abnormality. | | | | PELVIS | | Genitourinary: No pelvic mass and no significant urethral abnormality. | | Hysterectomy changes. | | | | BODY WALL | | Soft Tissues: No bowel or inflamed fat containing hernia, mass or | | hemorrhage. | | Bones: No acute fracture or vertebral end plate destruction. No lytic | | or blastic lesion. | | | | IMPRESSION- | | Right ureteral stent in good position. No residual hydronephrosis. | | There is a persistent small calcification near the right UVJ, however | | it is 3 mm from the ureteral stent and likely represents a phlebolith. | | | | Moderate amount of stool throughout the colon. | | | | Dictated and Signed by: Don Domínguez MD | | Electronically signed: 05/06/2017 10:13 AM | + + + +---------+ + + | Performing | Address | City/State/Zipcode | Phone Number | | Organization | | | | + +---------+ + + | [facility] | | | | + +---------+ + + documented in this encounter Visit Diagnoses + + | Diagnosis | + + | Right flank pain - Primary Abdominal pain, unspecified site | + + | Pain due to ureteral stent, initial encounter (HCC) | + + | Pruritic rash Prurigo | + + documented in this encounter Administered Medications + +--------+ +------+------+------+ | Medication Order | MAR | Action | Dose | Rate | Site | | | Action | Date | | | | + +--------+ +------+------+------+ | HYDROmorphone (DILAUDID) 1 | Given | 05/05/20 | 1 mg | | | | mg/mL injection 1 mg 1 mg, | | 17 10:10 | | | | | Intravenous, ONCE, Mon05/05/17 | | PM PST | | | | | at 2205, For 1 dose | | | | | | + +--------+ +------+------+------+ +---+---+ | | | +---+---+ + +---------+ +--------+-------+---+ | sodium chloride 0.9% (NS) bolus | New Bag | 05/05/20 | 1,000 | 1000 | | | 1,000 mL 1,000 mL, Intravenous, | | 17 10:16 | mLs | mL/hr | | | Administer over 1 Hours, ONCE, | | PM PST | | | | | 05/05/17 at 2215, For 1 dose | | | | | | + +---------+ +--------+-------+---+ +---+---+ | | | +---+---+ documented in this encounter
--- OUTSIDE RECORDS SUMMARY | ~2019-03-30 | XMS | Encounter Summary ---
Demographics + + + | Address | [address] | | | [place] [address] | + + + | Home Phone | | + + + | Preferred Language | Unknown | + + + | Marital Status | Single | + + + | Yazidism Affiliation | Unknown | + + + | Race | Unknown | + + + | Ethnic Group | Unknown | + + + Author + + + | Author | [facility] | | | and [place] | + + + | Organization | [facility] | | | and [place] | + + + | Address | Unknown | + + + | Phone | Unavailable | + + + Support + + + + + | Name | Relationship | Address | Phone | + + + + + | Gt Welch | ECON | [address] [facility] | | | | | [place] | | | | | [place] | | | | | [address] | | + + + + + Care Team Providers + +------+ + | Care Account Executive Metalworking Name | Role | Phone | + +------+ + | Bro Mora MD | PCP | | + +------+ + Encounter Details +--------+ + + + + | Date | Type | Department | Care Team | Description | +--------+ + + + + | 04/30/ | Hospital | [facility] | Conversion | Pain | | 2017 | Encounter | CONVERSION [address] | Transaction, | | | | | [address] | Provider Unknown | | | | | [place], [place] | [phone] | | | | | [address] | (Fax) | | | | | [phone] | | | +--------+ + + + [...] + +--------+ + + + | CT ABDOMEN PELVIS WO | Routin | 04/29/2017 | | Results for this | | CONTRAST | e | 12:13 AM | | procedure are in the | | | | PST | | results section. | + +--------+ + + + documented in this encounter Results CT Abdomen Pelvis wo Contrast (04/29/2017 12:13 AM PST) + + | Specimen | + + | | + + + + + | Narrative | Performed At | + + + | This is a non-reportable procedure without a radiologist report and | | | is used for image storage only | | + + + + + | Procedure Note | + + | Mack Palma - 12/20/2018 4:16 AM PDT This is a non-reportable procedure | | without a radiologist report and isused for image storage only | + + documented in this encounter Visit Diagnoses + + | Diagnosis | + + | Pain Generalized pain | + + documented in this encounter"
--- OUTSIDE RECORDS SUMMARY | ~2019-03-30 | XMS | Encounter Summary ---
Demographics + + + | Address | [address] | | | [place] [address] | + + + | Home Phone | | + + + | Preferred Language | Unknown | + + + | Marital Status | Single | + + + | Orthodox Affiliation | Unknown | + + + | Race | Unknown | + + + | Ethnic Group | Unknown | + + + Author + + + | Author | [facility] | | | and [place] | + + + | Organization | [facility] | | | and [place] | + + + | Address | Unknown | + + + | Phone | Unavailable | + + + Support + + + + + | Name | Relationship | Address | Phone | + + + + + | Gt Welch | ECON | [address] [facility] | | | | | [place] | | | | | [place] | | | | | [address] | | + + + + + Care Team Providers + +------+ + | Care Manager Animal Name | Role | Phone | + +------+ + | No, Physician | PCP | Unavailable | + +------+ + Encounter Details +--------+ + + + + | Date | Type | Department | Care Team | Description | +--------+ + + + + | 05/14/ | Orders Only | [facility] | Conversion | | | 2018 | | [address] | Transaction, | | | | | [address] [place] | Provider Unknown | | | | | [address] | [phone] | | | | | [phone] | | | +--------+ + + + [...] + + | CREATININE | Routin | 05/14/2017 | | Results for this | | | e | 11:13 AM | | procedure are in the | | | | PST | | results section. | + +--------+ + + + documented in this encounter Results Creatinine (05/14/2017 11:13 AM PST) + +-------+ + + + [...]
--- OUTSIDE RECORDS SUMMARY | ~2019-03-30 | XMS | Encounter Summary ---
Demographics + + + | Address | [address] | | | [place] [address] | + + + | Home Phone | | + + + | Preferred Language | Unknown | + + + | Marital Status | Single | + + + | Christian Affiliation | Unknown | + + + | Race | Unknown | + + + | Ethnic Group | Unknown | + + + Author + + + | Author | [facility] | | | and [place] | + + + | Organization | [facility] | | | and [place] | + + + | Address | Unknown | + + + | Phone | Unavailable | + + + Support + + + + + | Name | Relationship | Address | Phone | + + + + + | Gt Welch | ECON | [address] [facility] | | | | | [place] | | | | | [place] | | | | | [address] | | + + + + + Care Team Providers + +------+ + | Care Icd 9 Coder Name | Role | Phone | + +------+ + PCP | Unavailable | + +------+ + Encounter Details +--------+ + + + + | Date | Type | Department | Care Team | Description | +--------+ + + + + | // | Emergency | [facility] | Sherry Ramirez, | C[facility] | | 2009 | | [facility] | DO [address] | | | | | EMERGENCY CENTER | [place] [address] | | | | | [address] | [phone] | | | | | [place], [place] | | | | | | [address] | | | | | | [phone] | | | +--------+ + + + [...] + | Diagnosis | + + | Cough | + + documented in this encounter"
--- OUTSIDE RECORDS SUMMARY | ~2019-03-30 | XMS | Encounter Summary ---
Demographics + + + | Address | [address] | | | [place] [address] | + + + | Home Phone | | + + + | Preferred Language | Unknown | + + + | Marital Status | Single | + + + | Yarsanism Affiliation | Unknown | + + + | Race | Unknown | + + + | Ethnic Group | Unknown | + + + Author + + + | Author | [facility] | | | and [place] | + + + | Organization | [facility] | | | and [place] | + + + | Address | Unknown | + + + | Phone | Unavailable | + + + Support + + + + + | Name | Relationship | Address | Phone | + + + + + | Gt Welch | ECON | [address] | | | | | [place] | | | | | [place] | | | | | [address] | | + + + + + Care Team Providers + +------+ + | Care Lawn Maintenance Worker Name | Role | Phone | + +------+ + PCP | Unavailable | + +------+ + Encounter Details +--------+ + + + + | Date | Type | Department | Care Team | Description | +--------+ + + + + | 11/28/ | Emergency | [facility] | Caleb Bowling | Cervicalgia | | 2008 | | MEDICAL CENTER | [place] [address] | | | | | EMERGENCY CENTER | [address] [place], [place] | | | | | [address] [facility] | [address] | | | | | [place], [place] | [phone] | | | | | [address] | | | | | | [phone] | | | +--------+ + + + [...] + | Diagnosis | + + | Cervicalgia | + + documented in this encounter"
--- OUTSIDE RECORDS SUMMARY | ~2019-03-30 | XMS | Encounter Summary ---
Demographics + + + | Address | [address] | | | [place] [address] | + + + | Home Phone | | + + + | Preferred Language | Unknown | + + + | Marital Status | Single | + + + | Orthodoxy Affiliation | Unknown | + + + | Race | Unknown | + + + | Ethnic Group | Unknown | + + + Author + + + | Author | [facility] | | | and [place] | + + + | Organization | [facility] | | | and [...] [place] | | | | | [address] | | + + + + + Care Team Providers + +------+ + | Care Cdl Team Truck Driver Name | Role | Phone | + +------+ + PCP | Unavailable | + +------+ + Encounter Details +--------+ + + + + | Date | Type | Department | Care Team | Description | +--------+ + + + + | 06/06/ | Abstract | [facility] | Lori Newman, | | | 2017 | | [facility] | [facility] | | | | | [facility] [address] | | | | | | [address] | | | | | | [place] [address] | | | | | | [phone] | | | +--------+ + + + [...]
--- OUTSIDE RECORDS SUMMARY | ~2019-03-30 | XMS | Encounter Summary ---
Demographics + + + | Address | [address] | | | [place] [address] | + + + | Home Phone | | + + + | Preferred Language | Unknown | + + + | Marital Status | Single | + + + | Episcopalian Affiliation | Unknown | + + + | Race | Unknown | + + + | Ethnic Group | Unknown | + + + Author + + + | Author | [facility] | | | and [place] | + + + | Organization | [facility] | | | and [place] | + + + | Address | Unknown | + + + | Phone | Unavailable | + + + Support + + + + + | Name | Relationship | Address | Phone | + + + + + | Gt Welch | ECON | [address] [facility] | | | | | [place] | | | | | [place] | | | | | [address] | | + + + + + Care Team Providers + +------+ + | Care Development Professional Name | Role | Phone | + +------+ + | Bro Mora MD | PCP | | + +------+ + Encounter Details +--------+ + + + + | Date | Type | Department | Care Team | Description | +--------+ + + + + | 06/30/ | Emergency | [facility] | Mike Perry MD | Epigastric abdominal | | 2017 | | MEDICAL CENTER | [address] | pain; Nausea and | | | | EMERGENCY CENTER | [place] [address] | vomiting, | | | | [address] | [phone] | intractability of | | | | [place], [place] | | vomiting not | | | | [address] | | specified, | | | | [phone] | | unspecified vomiting | | | | | | type; | | | | | | Gastroesophageal | | | | | | reflux disease, | | | | | | esophagitis presence | | | | | | not specified | +--------+ + + + + Social [...] + + + | Blood Pressure | 146/97 | 06/30/2016 7:56 PM | | | | | PST | | + + + + + | Pulse | 86 | 06/30/2016 7:56 PM | | | | | PST | | + + + + + | Temperature | 36.3 C (97.3 F) | 06/30/2016 7:56 PM | | | | | PST | | + + + + + | Respiratory Rate | 18 | 06/30/2016 7:56 PM | | | | | PST | | + + + + + | Oxygen Saturation | - | - | | + + + + + | Inhaled Oxygen | - | - | | | Concentration | | | | + + + + + | Weight | 96.6 kg (212 lb 15.4 | 06/30/2016 7:56 PM | | | | oz) | PST | | + + + + + | Height | - | - | | + + + + + | Body Mass Index | 32.38 | 02/02/2016 1:39 PM | | | [...] + +--------+ + + + | CT ANGIOGRAM | Routin | 06/30/2016 | | Results for this | | PULMONARY | e | 8:07 PM | | procedure are in the | | | | PST | | results section. | + +--------+ + + + | EXTERNAL LAB: CBC | Routin | 06/30/2016 | | Results for this | | | e | 6:25 PM | | procedure are in the | | | | PST | | results section. | + +--------+ + + + | D-DIMER | Routin | 06/30/2016 | | Results for this | | | e | 6:25 PM | | procedure are in the | | | | PST | | results section. | + +--------+ + + + | LIPASE | Routin | 06/30/2016 | | Results for this | | | e | 6:25 PM | | procedure are in the | | | | PST | | results section. | + +--------+ + + + | COMPREHENSIVE | Routin | 06/30/2016 | | Results for this | | METABOLIC PANEL | e | 6:25 PM | | procedure are in the | | | | PST | | results section. | + +--------+ + + + | URINALYSIS, REFLEX | Routin | 06/30/2016 | | Results for this | | MICROSCOPIC AND/OR | e | 6:24 PM | | procedure are in the | | CULTURE | | PST | | results section. | + +--------+ + + + | HCG, URINE, QUAL | Routin | 06/30/2016 | | Results for this | | | e | 6:24 PM | | procedure are in the | | | | PST | | results section. | + +--------+ + + + documented in this encounter Results CT Angiogram Pulmonary w Contrast (06/30/2016 8:07 PM PST) + + | Specimen | + + | | + + + + + | Impressions | Performed At | + + + | 1. No pulmonary arterial embolism seen. 2. No evidence of | | | pneumonia, pleural effusion or pneumothorax noted. 3. Interval | | | resolution of the previously noted airspace disease. 4. Unchanged | | | soft tissue density in the anterior mediastinum, likely representing | | | residual thymic tissue. | | + + + + + + | Narrative | Performed At | + + + | VEE RAMIRZE 1990 26 years Female CTA CHEST PULMONARY | | | EMBOLISM W CONTRAST 06/30/2016 8:07 PM HISTORY: Pulmonary | | | embolism. Elevated d-dimer. TECHNIQUE: 1.5-mm axial images of the | | | chest were acquired in the arterial phase according to a CT | | | angiography protocol. Coronal CT angiographic MIP reconstructions | | | were performed by nuclear medicine chief technologist. No 3-D imaging. Radiation dose | | | reduction performed with automated exposure control. IV contrast: | | | 78 mL Isovue-370 COMPARISON: CT chest 09/18/2015 FINDINGS: No | | | main or lobar pulmonary arterial embolus seen. No definite segmental | | | pulmonary arterial embolus seen. No pulmonary artery enlargement | | | noted. Small amount of dependent atelectasis involving the lungs. | | | No evidence of pneumonia, pleural effusion or pneumothorax seen. | | | Previously noted foci of airspace disease appear to have resolved. | | | Aorta appears to be normal in course and caliber. No cardiomegaly or | | | pericardial effusion seen. The enlarged right hilar lymph node appears | | | to have resolved. Unchanged soft tissue density noted within the | | | anterior mediastinum, likely representing residual thymic tissue. No | | | enlarged mediastinal or hilar lymph nodes by CT size criteria noted. | | | The visualized liver, spleen, pancreas appear grossly unremarkable. No | | | acute or destructive osseous process seen. | | + + + + + | Procedure Note | + + | Louie, Rad Conversion - 12/20/2018 4:16 AM PDT VEE Anguiano [age] years | | FemaleCTA CHEST PULMONARY EMBOLISM W CONTRAST06/30/2016 8:07 PM HISTORY:Pulmonary | | embolism. Elevated d-dimer. TECHNIQUE:1.5-mm axial images of the chest were acquired in | | the arterial phase according to a CT angiography protocol. Coronal CT angiographic MIP | | reconstructions were performed by nuclear medicine chief technologist. No 3-D imaging. Radiation dose | | reduction performed with automated exposure control.IV contrast: 78 mL Isovue-370 | | COMPARISON: CT chest 09/18/2015 FINDINGS: No main or lobar pulmonary arterial embolus | | seen. No definite segmental pulmonary arterial embolus seen. No pulmonary artery | | enlargement noted. Small amount of dependent atelectasis involving the lungs. No | | evidence of pneumonia, pleural effusion or pneumothorax seen. Previously noted foci of | | airspace disease appear to have resolved. Aorta appears to be normal in course and | | caliber. No cardiomegaly or pericardial effusion seen. The enlarged right hilar lymph | | node appears to have resolved. Unchanged soft tissue density noted within the anterior | | mediastinum, likely representing residual thymic tissue. No enlarged mediastinal or | | hilar lymph nodes by CT size criteria noted. The visualized liver, spleen, pancreas | | appear grossly unremarkable. No acute or destructive osseous process seen. IMPRESSION: | | 1. No pulmonary arterial embolism seen.2. No evidence of pneumonia, pleural effusion | | or pneumothorax noted.3. Interval resolution of the previously noted airspace | | disease.4. Unchanged soft tissue density in the anterior mediastinum, likely | | representing residual thymic tissue. Electronically signed by Nimesh Sol MD on | | 06/30/2016 8:17 PM | |residual thymic tissue. No enlarged mediastinal or hilar lymph nodes by CT size criteria no alanis. The visualized liver, spleen, pancreas appear grossly unremarkable. No acute or destruc tive osseous process seen. | | | |IMPRESSION: | |1. No pulmonary arterial embolism seen. | |2. No evidence of pneumonia, pleural effusion or pneumothorax noted. | |3. Interval resolution of the previously noted airspace disease. | |4. Unchanged soft tissue density in the anterior mediastinum, likely representing residual thymic tissue. | | | | | + + D-Dimer (06/30/2016 6:25 PM PST) + + + + + + | Component | Value | Ref Range | Performed | Pathologist | | | | | At | Signature | + + + + + + | D-DIMER, | 0.60 (H)Comment: D Dimer | 0.19 - 0.50 | EXTERNAL | | | MANUAL | results less than 0.50 | mg/L FEU | LAB | | | | mg/L FEU may rule out | | | | | | DVT and PE. However, | | | | | | all laboratory results | | | | | | should be interpreted in | | | | | | the context of all | | | | | | available clinical, | | | | | | radiologic and | | | | | | laboratory | | | | | | information.Testing | | | | | | performed at [facility] | | | | | | [facility];[place], [place] | | | | | | [address] | | | | + + + [...] + +---------+ + + External Lab: CBC (06/30/2016 6:25 PM PST) + + + + + + | Component | Value | Ref Range | Performed | Pathologist | | | | | At | Signature | + + + + + + | WBC | 9.98Comment: Testing | 3.80 - 11.00 | EXTERNAL | | | | performed at [facility];[address] | K/uL | LAB | | | | [address];[place] | | | | | | [address] | | | | + + + + + + | RED CELL | 4.33Comment: Testing | 3.70 - 5.10 | EXTERNAL | | | COUNT | performed at [facility];[address] | M/uL | LAB | | | | [address];[place] | | | | | | [address] | | | | + + + + + + | Hgb | 13.6Comment: Testing | 11.3 - 15.5 | EXTERNAL | | | | performed at [facility];[address] | g/dL | LAB | | | | [address];[place] | | | | | | [address] | | | | + + + + + + | Hematocrit, | 37.9Comment: Testing | 34.0 - 46.0 % | EXTERNAL | | | POC | performed at [facility];[address] | | LAB | | | | [address];[place] | | | | | | [address] | | | | + + + + + + | MCV | 87.6Comment: Testing | 80.0 - 100.0 fl | EXTERNAL | | | | performed at [facility];[address] | | LAB | | | | [address];[place] | | | | | | [address] | | | | + + + + + + | MCH | 31.4Comment: Testing | 27.0 - 34.0 pg | EXTERNAL | | | | performed at [facility];[address] | | LAB | | | | [address];[place] | | | | | | [address] | | | | + + + + + + | MCHC | 35.8 (H)Comment: Testing | 32.0 - 35.5 | EXTERNAL | | | | performed at [facility];888 | g/dL | LAB | | | | [address];[place] | | | | | | [address] | | | | + + + + + + | RDW-CV | 38.5Comment: Testing | 37 - 53 fl | EXTERNAL | | | | performed at [facility];[address] | | LAB | | | | [address];[place] | | | | | | [address] | | | | + + + + + + | Platelet | 207Comment: Testing | 150 - 400 K/uL | EXTERNAL | | | Count | performed at [facility];[address] | | LAB | | | Plasma | [address];[place] | | | | | | [address] | | | | + + + + + + | MPV | 8.8Comment: Testing | fl | EXTERNAL | | | | performed at [facility];[address] | | LAB | | | | [address];[place] | | | | | | [address] | | | | + + + + + + | Differentia | AUTOMATEDComment: | | EXTERNAL | | | l Type | Testing performed at | | LAB | | | | [facility];[address];[place] [address] | | | | + + + + + + | % Segmented | 60.57Comment: Testing | % | EXTERNAL | | | | performed at [facility];[address] | | LAB | | | Neutrophils | [address];[place] | | | | | | [address] | | | | + + + + + + | % | 28.91Comment: Testing | % | EXTERNAL | | | Lymphocytes | performed at [facility];[address] | | LAB | | | | [address];[place] | | | | | | [address] | | | | + + + + + + | % Monocytes | 7.73Comment: Testing | % | EXTERNAL | | | | performed at [facility];[address] | | LAB | | | | [address];[place] | | | | | | [address] | | | | + + + + + + | % | 2.31Comment: Testing | % | EXTERNAL | | | Eosinophils | performed at [facility];[address] | | LAB | | | | [address];[place] | | | | | | [address] | | | | + + + + + + | % Basophils | 0.48Comment: Testing | % | EXTERNAL | | | | performed at [facility];[address] | | LAB | | | | [address];[place] | | | | | | [address] | | | | + + + + + + | Absolute | 6.04Comment: Testing | 1.90 - 7.40 | EXTERNAL | | | Segmented | performed at [facility];[address] | K/uL | LAB | | | Neutrophils | [address];[place] | | | | | | [address] | | | | + + + + + + | Absolute | 2.89Comment: Testing | 1.00 - 3.90 | EXTERNAL | | | Lymphocytes | performed at [facility];[address] | K/uL | LAB | | | | [address];[place] | | | | | | [address] | | | | + + + + + + | Absolute | 0.77Comment: Testing | 0.00 - 0.80 | EXTERNAL | | | Monocytes | performed at [facility];[address] | K/uL | LAB | | | | [address];[place] | | | | | | [address] | | | | + + + + + + | Absolute | 0.23Comment: Testing | 0.00 - 0.50 | EXTERNAL | | | Eosinophils | performed at [facility];[address] | K/uL | LAB | | | | [address];[place] | | | | | | [address] | | | | + + + + + + | Absolute | 0.05Comment: Testing | 0.00 - 0.10 | EXTERNAL | | | Basophils | performed at [facility];[address] | K/uL | LAB | | | | [address];[place] | | | | | | [address] | | | | + + + + + + + + | Specimen | + + | Blood specimen | | (specimen) | + + + +---------+ + + | Performing | Address | City/State/Zipcode | Phone Number | | Organization | | | | + +---------+ + + | EXTERNAL LAB | | | | + +---------+ + + Lipase (06/30/2016 6:25 PM PST) + + + + + + | Component | Value | Ref Range | Performed | Pathologist | | | | | At | Signature | + + + + + + | Lipase | 128Comment: Testing | 73 - 393 U/L | EXTERNAL | | | | performed at [facility];[address] | | LAB | | | | [address];[place], [place] | | | | | | [address] | | | | + + + [...] + +---------+ + + Comprehensive Metabolic Panel (06/30/2016 6:25 PM PST) + + + + + + | Component | Value | Ref Range | Performed | Pathologist | | | | | At | Signature | + + + + + + | Na | 142Comment: Testing | 135 - 145 | EXTERNAL | | | | performed at [facility];[address] | mmol/L | LAB | | | | [address];[place] | | | | | | [address] | | | | + + + + + + | K | 3.4 (L)Comment: Testing | 3.5 - 4.9 | EXTERNAL | | | | performed at [facility];888 | mmol/L | LAB | | | | [address];[place] | | | | | | [address] | | | | + + + + + + | Cl | 107Comment: Testing | 99 - 109 mmol/L | EXTERNAL | | | | performed at [facility];[address] | | LAB | | | | [address];[place] | | | | | | [address] | | | | + + + + + + | CO2 | 29Comment: Testing | 23 - 32 mmol/L | EXTERNAL | | | | performed at [facility];[address] | | LAB | | | | [address];[place] | | | | | | [address] | | | | + + + + + + | Anion Gap | 10Comment: Testing | 5 - 20 mmol/L | EXTERNAL | | | | performed at [facility];[address] | | LAB | | | | [address];[place] | | | | | | [address] | | | | + + + + + + | Glucose, | 114 (H)Comment: Testing | 65 - 99 mg/dL | EXTERNAL | | | Fasting | performed at [facility];[address] | | LAB | | | | [address];[place] | | | | | | [address] | | | | + + + + + + | BUN | 9Comment: Testing | 8 - 25 mg/dL | EXTERNAL | | | | performed at [facility];[address] | | LAB | | | | [address];[place] | | | | | | [address] | | | | + + + + + + | Creatinine | 0.56Comment: Testing | 0.50 - 1.00 | EXTERNAL | | | | performed at [facility];888 | mg/dL | LAB | | | | [address];[place] | | | | | | [address] | | | | + + + + + + | BUN/Creatin | 17Comment: Testing | | EXTERNAL | | | ine Ratio | performed at [facility];[address] | | LAB | | | | [address];[place] | | | | | | [address] | | | | + + + + + + | Calcium | 8.6Comment: Testing | 8.5 - 10.5 | EXTERNAL | | | | performed at [facility];888 | mg/dL | LAB | | | | [address];[place] | | | | | | [address] | | | | + + + + + + | Protein, | 6.6Comment: Testing | 6.3 - 8.2 g/dL | EXTERNAL | | | Total | performed at [facility];[address] | | LAB | | | | [address];[place] | | | | | | [address] | | | | + + + + + + | Albumin | 3.3 (L)Comment: Testing | 3.6 - 5.0 g/dL | EXTERNAL | | | | performed at [facility];[address] | | LAB | | | | [address];[place] | | | | | | [address] | | | | + + + + + + | Globulin | 3.3Comment: Testing | 1.3 - 4.9 g/dL | EXTERNAL | | | | performed at [facility];[address] | | LAB | | | | [address];[place] | | | | | | [address] | | | | + + + + + + | A/G Ratio | 1.0Comment: Testing | 1.0 - 2.4 | EXTERNAL | | | | performed at [facility];[address] | | LAB | | | | [address];[place] | | | | | | [address] | | | | + + + + + + | Bilirubin | 0.2Comment: Testing | 0.1 - 1.5 mg/dL | EXTERNAL | | | Total | performed at [facility];[address] | | LAB | | | | [address];[place] | | | | | | [address] | | | | + + + + + + | ALP, | 52Comment: Testing | 35 - 115 U/L | EXTERNAL | | | External | performed at [facility];[address] | | LAB | | | | [address];[place] | | | | | | [address] | | | | + + + + + + | AST | 22Comment: Testing | 10 - 45 U/L | EXTERNAL | | | | performed at [facility];[address] | | LAB | | | | [address];[place] | | | | | | [address] | | | | + + + + + + | ALT | 35Comment: Testing | 10 - 65 U/L | EXTERNAL | | | | performed at [facility];[address] | | LAB | | | | [address];[place] | | | | | | [address] | | | | + + + [...] | | | | | | at [facility];[address] [facility] | | | | | | [address];[place] [address] | | | | + + + [...] + + Urinalysis, Reflex Microscopic and/or Culture (06/30/2016 6:24 PM PST) + + + + + + | Component | Value | Ref Range | Performed | Pathologist | | | | | At | Signature | + + + + + + | Color | YELLOWComment: Testing | | EXTERNAL | | | | performed at [facility];[address] | | LAB | | | | [address];[place] | | | | | | [address] | | | | + + + + + + | Clarity | CLEARComment: Testing | | EXTERNAL | | | | performed at [facility];[address] | | LAB | | | | [address];[place] | | | | | | [address] | | | | + + + + + + | Specific | 1.006Comment: Testing | 1.002 - 1.030 | EXTERNAL | | | [place] | performed at [facility];[address] | | LAB | | | | [address];[place] | | | | | | [address] | | | | + + + + + + | Leukocyte | NEGATIVEComment: Testing | | EXTERNAL | | | Esterase, | performed at [facility];[address] | | LAB | | | Urine | [address];[place] | | | | | | [address] | | | | + + + + + + | Nitrite, | NEGATIVEComment: Testing | | EXTERNAL | | | Urine | performed at [facility];[address] | | LAB | | | | [address];[place] | | | | | | [address] | | | | + + + + + + | Urobilinoge | NORMALComment: Testing | mg/dL | EXTERNAL | | | n, Urine | performed at [facility];[address] | | LAB | | | | [address];[place] | | | | | | [address] | | | | + + + + + + | Protein, | NEGATIVEComment: Testing | mg/dL | EXTERNAL | | | Urine | performed at [facility];[address] | | LAB | | | | [address];[place] | | | | | | [address] | | | | + + + + + + | pH, Urine | 6.0Comment: Testing | 5.0 - 8.0 | EXTERNAL | | | | performed at [facility];[address] | | LAB | | | | [address];[place] | | | | | | [address] | | | | + + + + + + | Blood, | NEGATIVEComment: Testing | | EXTERNAL | | | Urine | performed at [facility];[address] | | LAB | | | | [address];[place] | | | | | | [address] | | | | + + + + + + | Ketones | NEGATIVEComment: Testing | mg/dL | EXTERNAL | | | | performed at [facility];[address] | | LAB | | | | [address];[place] | | | | | | [address] | | | | + + + + + + | Bilirubin, | NEGATIVEComment: Testing | | EXTERNAL | | | Urine | performed at [facility];[address] | | LAB | | | | [address];[place] | | | | | | [address] | | | | + + + + + + | Glucose, | NEGATIVEComment: Testing | mg/dL | EXTERNAL | | | Urine | performed at [facility];[address] | | LAB | | | | [address];[place], [place] | | | | | | [address] | | | | + + + + + + + + | Specimen | + + | | + + + +---------+ + + | Performing | Address | City/State/Zipcode | Phone Number | | Organization | | | | + +---------+ + + | EXTERNAL LAB | | | | + +---------+ + + , Urine, Qual (06/30/2016 6:24 PM PST) + + + + + + | Component | Value | Ref Range | Performed | Pathologist | | | | | At | Signature | + + + + + + | Preg Test, | NEGATIVEComment: Testing | | EXTERNAL | | | Ur | performed at [facility] | | LAB | | | | [address];[place] | | | | | | [address] | | | | + + + [...] + | Diagnosis | + + | Epigastric abdominal pain Abdominal pain, epigastric | + + | Nausea and vomiting, intractability of vomiting not specified, unspecified vomiting | | type | + + | Gastroesophageal reflux disease, esophagitis presence not specified | + + documented in this encounter"
--- OUTSIDE RECORDS SUMMARY | ~2019-03-30 | XMS | Encounter Summary ---
Demographics + + + | Address | [address] | | | [place] [address] | + + + | Home Phone [...] + + | Author | [facility] | | | and [place] | + + + | Organization | [facility] | | | and [place] | + + + | Address | Unknown | + + + | Phone | Unavailable | + + + Support + + + + + | Name | Relationship | Address | Phone | + + + + + | Gt Welch | ECON | [address] [facility] [facility] [address] | | | | | [place] | | | | | [place] | | | | | [address] | | + + + + + Care Team Providers + +------+ + | Care Nurse Healthcare Manager Name | Role | Phone | + +------+ + PCP | Unavailable | + +------+ + Encounter Details +--------+ + + + + | Date | Type | Department | Care Team | Description | +--------+ + + + + | 09/30/ | Emergency | [facility] | Nolen, Thanh S, | Cervicalgia | | 2007 | | MEDICAL CENTER | [address] [facility] | | | | | EMERGENCY CENTER | [place], [place] | | | | | [address] [facility] | [address] | | | | | [place], [place] | | | | | | [address] | | | | | | [phone] | | | +--------+ + + + [...]
--- OUTSIDE RECORDS SUMMARY | ~2019-03-30 | XMS | Encounter Summary ---
Demographics + + + | Address | [address] | | | [place] [address] | + + + | Home Phone [...] + + + | Author | [facility] | | | and [place] | + + + | Organization | [facility] | | | and [place] | + + + | Address | Unknown | + + + | Phone | Unavailable | + + + Support + + + + + | Name | Relationship | Address | Phone | + + + + + | Gt Welch | ECON | [address] [facility] | | | | | [place] | | | | | [place] | | | | | [address] | | + + + + + Care Team Providers + +------+ + | Care Car Rental Agency Manager Name | Role | Phone | + +------+ + | Bro Mora MD | PCP | | + +------+ + Reason for Visit +--------+ + | Reason | Comments | +--------+ + | Other | Discontinue Levaquin | +--------+ + Encounter Details +--------+ + + + + | Date | Type | Department | Care Team | Description | +--------+ + + + + | 05/12/ | Telephone | [facility] | Gold Florentino, | Other (Discontinue | | 2017 | | [address] | MD [address] | Mall[place]) | | | | [place] | [place] | | | | | [address] | [address] | | | | | [phone] | | | +--------+ + + + [...]
--- OUTSIDE RECORDS SUMMARY | ~2019-03-30 | XMS | Encounter Summary ---
Demographics + + + | Address | [address] | | | [place] [address] | + + + | Home Phone | | + + + | Preferred Language | Unknown | + + + | Marital Status | Single | + + + | Buddhism Affiliation | Unknown | + + + | Race | Unknown | + + + | Ethnic Group | Unknown | + + + Author + + + | Author | [facility] | | | and [place] | + + + | Organization | [facility] | | | and [place] | + + + | Address | Unknown | + + + | Phone | Unavailable | + + + Support + + + + + | Name | Relationship | Address | Phone | + + + + + | Gt Welch | ECON | [address] [facility] | | | | | [place] | | | | | [place] | | | | | [address] | | + + + + + Care Team Providers + +------+ + | Care Director Of Payroll Name | Role | Phone | + [...] | | | | | | | [place] | | | | | | | CYSTO/URETER | | | | | | | O/PYELOSCOPY | | | | | | | , CALCULUS | | | | | | | [place] | | | | | | | [...] | | | | | [address] | [place], [place] | | | | | [place], [place] | [address] | | | | | [address] | | | | | | | Luis Carlos Maciel | | | | | | II, [address] | | | | | | [address] [place] | | | | | | [place] [address] | | | | | | [phone] | | | | | | | | +--------+ + + + + Anesthesia Record + + + + + | Procedure Name | Responsible | Anesthesia Start | Anesthesia Stop Time | | | Anesthesiologist | Time | | + + + + + | Cystoscopy, Right | Yasmany Church DO | 05/11/17 678 | 05/11/17 1839 | | Ureteroscopy, | [...] +----+---+ + + | | 1 | [place] | | | | 8 | 43-degrees [...] 05/11/171925 by Jack | | eral | yrku-dds-gibiau catheter system; | Freda Faith RN | [...] | | | | | 30 Minutes, COLOR CONTROL OPERATOR, Starting | | | | | | [...] 6:01 | | | | | [facility] 05/11/17 at 1801, | | PM PST [...]
--- OUTSIDE RECORDS SUMMARY | ~2019-03-30 | XMS | Encounter Summary ---
Demographics + + + | Address | [address] | | | [place] [address] | + + + | Home Phone | | + + + | Preferred Language | Unknown | + + + | Marital Status | Single | + + + | Anabaptist Affiliation | Unknown | + + + | Race | Unknown | + + + | Ethnic Group | Unknown | + + + Author + + + | Author | [facility] | | | and [place] | + + + | Organization | [facility] [...] [place] | | | | | [address] | | + + + + + Care Team Providers + +------+ + | Care Wire Frame Lamp Shade Maker Name | Role | Phone | + +------+ + | No, Physician | PCP | Unavailable | + +------+ + Reason for Visit + + + | Reason | Comments | + + + | Sore Throat | | + + + Encounter Details +--------+ + + + + | Date | Type | Department | Care Team | Description | +--------+ + + + + | 03/22/ | Emergency | [facility] | Gabriel Torres, | Strep throat | | 2018 | | [facility] | MD [address] | (Primary Dx) | | | | CENTER [address] | [facility] [place] | | | | | [place] | [place], [place] [address] | | | | | [address] | [phone] | | | | | [phone] | | | +--------+ + + + [...] + + + | Blood Pressure | 139/79 | 03/22/2018 8:52 PM | | | | | PST | | + + + + + | Pulse | 98 | 03/22/2018 8:52 PM | | | | | PST | | + + + + + | Temperature | 37.9 C (100.3 F) | 03/22/2018 8:52 PM | | | | | PST | | + + + + + | Respiratory Rate | 16 | 03/22/2018 8:52 PM | | | | | PST | | + + + + + | Oxygen Saturation | 98% | 03/22/2018 8:52 PM | | | | | PST | | + + + + + | Inhaled Oxygen | - | - | | | Concentration | | | | + + + + + | Weight | 90.7 kg (200 lb) | 03/22/2018 8:52 PM | | | | | PST | | + + + + + | Height | 172.7 cm (5' 8") | 03/22/2018 8:52 PM | | | | | PST | | + + + + + | Body Mass Index | 30.41 | 03/22/2018 8:52 PM | | | | | PST [...] as of this encounter Discharge Instructions Instructions Cynthia Barker RN - 03/22/2018Take the medicine as prescribed It is very important to take the antibiotics until completed Follow-up with primary care AttachmentsThe following attachments cannot be sent through Care Everywhere.Strep Throat (E rennylish)documented in this encounter Medications at Time of [...] + + + +---------+ + + | COMBIVENT RESPIMAT | | | 0 | 03/03/20 | | | 20-100 MCG/ACT | | | | 18 | | | inhaler | | | | | | + + + +---------+ + + | FLUZONE | | | 0 | 03/15/20 | | | QUADRIVALENT vaccine | | | | 18 | | | injection | | | | | | + + + +---------+ + + | LATUDA 20 MG | Take 4 tablets by | | 0 | 04/25/20 | | | tablet | mouth nightly. | | | 17 | | + + + +---------+ + + | methylphenidate | take 1 tablet by | | 0 | 02/29/20 | | | (CONCERTA) 27 mg ER | mouth every morning | | | 18 | | | tablet | | | | | | + + + +---------+ + + | phentermine | | | 0 | 02/17/20 | | | (ADIPEX-P) 37.5 mg | | | | 18 | | | tablet | | | | | | + + + +---------+ + + | propranolol | take 1 capsule by | | 0 | 03/16/20 | | | (INDERAL LA) 80 mg | mouth once daily | | | 18 | | | SR capsule | | | | | | + + + +---------+ + + | QUEtiapine | take 1 tablet by | | 0 | 03/16/20 | | | (SEROQUEL XR) 300 mg | mouth at bedtime | | | 18 | | | ER tablet | | | | | | + + + +---------+ + + | SUMAtriptan | Take 25 mg by mouth | | 0 | | | | (IMITREX) 25 mg | as needed for | | | | | | tablet | Migraine. | | | | | + + + +---------+ + + | ziprasidone | take 1 capsule by | | 0 | 02/29/20 | | | (GEODON) 40 mg | mouth AFTER EVENING | | | 18 | | | capsule | MEAL for 4 days then | | | | | | | INCREA... (REFER | | | | | | | TO PRESCRIPTION | | | | | | | NOTES). | | | | | + + + +---------+ + + | ibuprofen | Take 1 tablet by | 20 | 0 | 03/22/20 | | | (ADVIL,MOTRIN) 600 | mouth every 6 hours | tablet | | 18 | 8 | | MG tablet | for 5 days. | | | | | + + + +---------+ + + | penicillin 500 mg | Take 2 tablets by | 40 | 0 | 03/22/20 | | | tablet | mouth 2 times daily | tablet | | 18 | 8 | | | for 10 days. | | | | | + + + +---------+ + + documented as of this encounter Plan of Treatment + +------+--------+ + + | Name | Type | Priori | Associated Diagnoses | Date/Time | | | | ty | | | + +------+--------+ + + | ED INFORMATION | OLAF | Routin | | 03/22/2018 8:22 PM | | EXCHANGE | | e | | PST | + +------+--------+ + + documented as of this encounter Procedures + +--------+ + + + | Procedure Name | Priori | Date/Time | Associated Diagnosis | Comments | | | ty | | | | + +--------+ + + + | STREP A DNA PROBE, | STAT | 03/22/2018 | | Results for this | | NAAT | | 8:56 PM | | procedure are in the | | | | PST | | results section. | + +--------+ + + + | ED INFORMATION | Routin | 03/22/2018 | | | | EXCHANGE | e | 8:22 PM | | | | | | PST | | | + +--------+ + + + +---+--------+ | | | | | Proced | | | ure | | | Note - | | | Zuleika, | | | Lab In | | | | | | Hlseve | | | n - | | | 11/15/ | | | 2018 | | | 8:23 | | | PM PST | | [...] | | | FICATI | | | ON?11/ | | | 15/201 | | | 8 | | | 20:18? | | | CHUTE, | | | | | | CASAND | | | RA | | | C?MRN: | | | | | | [id number] | | | [id number] | | | his | | | [...] | | | ent/67 | | | [id number] | | | [id number] | | | [id number] | | | [id number] | | | [id number] | | | [id number] | | | Securi | | | ty | | | Events | | | Date | | | Locati | | | on | | | Type | | | Specif | | | ics | | | 01/05/ | | | 7 5:51 | | | AM | | | [facility] | | | y | | | [...] | | | int | | | Nov | | | 15, | | | 2018 | | | Provid | | | ence | | | St[facility] | | | [facility] | [facility] | | | [place] | | | [place] | | | Emerge | | | ncy | | | Emerge | | | ncy | | | | | | Throat | | | pain | | | Sep | | | 11, | | | 2018 | | | [facility] | | | | | | Region | | | al | | | [facility] | | | [place] | | | [place] | | | Emerge | | | ncy | | | Emerge | | | ncy | | | Leg | | | Swelli | | | ng | | | Dizzin | | | ess | | | | | | Dysuri | | | a | | | Abdomi | | | nal | | | Pain | | | | | | Edema, | | | | | | unspec | | | ified | | | E.D. | | | [...] | | | Center | | | 3 0 | | | [facility] | | | y | | | Hospit | | | al 3 0 | | | Total | | | 7 0 | | | Note: | | [...] | | | Summar | | | yNo | | | record | | | ed | | | inpati | | | ent | | | visits | | | . PDMP | | | | | | Report | | | PDMP | | | query | | | found | | | no | | | report | | | .Care | | | Provid | | | ersPro | | | vider | | | PRC | | | Type | | | Phone | | | Fax | | | Servic | | | e | | | Dates | | | MOR[place] | | | A, | | | TABBY | | | C, | | | WHNP-B | | | C | | | Nurse | | | Practi | | | tioner | | | : | | | Women' | | | s | | | Health | | | (541) | | | | | | [phone] | | | 35 | | | (541) | | | [phone] | | | 97 Richard | | | 2, | | | 2018 - | | | | | | [...] (509) | | | | | | [phone] | | | 11 | | | (509) | | | [phone] | | | 91 Oct | | | 16, | | | 2015 - | | | | | | Curren | | | t | | | Care | | | Histor | | | yMedic | | | al/Dannielle | | | [email or web address] | | | /2/18 | | | 12:00 | | | AM | | | [facility] | | | Hospit | | | al | | | Patien | | | t is | | | curren | | | tly | | | establ | | | ished | | | with | | | St | | | [facility] | | | y | | | Clinic | | | . If | | | patien | | | t is | | | seen | | | in the | | | ED | | | during | | | | | | busine | | | ss | | | hours. | | | | | | Please | | | | | | contac | | | t [facility] | | | at St | | | | | | [facility] | | | y | | | Clinic | | | at | | | Ext | | | [phone] | | | 04. | | | Please | | | refer | | | | | | patien | | | t to | | | Tabby | | | [place] | | | a | | | patien | | | t PCP. | | | | | | Patien | | | t has | | | not | | | seen | | | and or | | | | | | establ | | | ished | | | with | | | Tabby | | | [place] | | | a. | | | Patien | | | t | | | needs | | | to be | | | seen | | | and | | | follow | | | up | | | with | | | PCP.Ca | | | re | | | Recomm | | | endati | | | on:Thi | | | s | | | patien | | | t has | | | had 5 | | | or | | | more | | | Emerge | | | ncy | | | Depart | | | ment | | | visits | | | in | | | the | | | last | | | 12 | | | months | | | .? | | | Patien | | | t | | | requir | | | es | | | educat | | | ion on | | | the | | | scope | | | and | | | purpos | | | e of | | | the ED | | | as an | | | acute | | | care | | | provid | | | er not | | | a | | | Primar | | | y Care | | | | | | Provid | | | er and | | | | | | should | | | not | | | be | | | utiliz | | | ed for | | | | | | chroni | | | c | | | condit | | | ions.? | | | If | | | patien | | | t | | | return | | | s to | | | ED | | | please | | | | | | contac | | | t | | | Commun | | | ity | | | Health | | | | | | Worker | | | , | | | Tiffanie | | | at | | | [phone] | | | .These | | | are | | | guidel | | | vin | | | and | | | the | | | provid | | | er | | | should | | | | | | exerci | | | se | | | clinic | | | al | | | judgme | | | nt | | | when | | | provid | | | ing | | | care.C | | | riteri | | | a met | | | | | | Medica [...] | +---+--------+ documented in this encounter Results Strep A DNA probe, NAAT (03/22/2018 8:56 PM PST) + + + + + + | Component | Value | Ref Range | Performed | Pathologist | | | | | At | Signature | + + + + + + | Group A | Positive (A) | Negative | [facility] | | | Strep, DNA | | | [facility] | | | | | | MEDICAL | | | | | | CENTER - | | | | | | LABORATORY | | + + + + + + + + | Specimen | + + | Tissue - Specimen | | from throat | | (specimen) | + + + + + + + | Performing | Address | City/State/Zipcode | Phone Number | | Organization | | | | + + + + + | [facility] | [address] | [place] | [phone] | | [facility] | | [address] | | | - LABORATORY | | | | + + + + + documented in this encounter Visit Diagnoses + + | Diagnosis | + + | Strep throat - Primary Streptococcal sore throat | + + documented in this encounter Administered Medications + +--------+ +--------+------+------+ | Medication Order | MAR | Action | Dose | Rate | Site | | | Action | Date | | | | + +--------+ +--------+------+------+ | ibuprofen (ADVIL,MOTRIN) tablet | Given | 03/22/20 | 600 mg | | | | 600 mg 600 mg, Oral, ONCE, Tiffany | | 18 9:44 | | | | | 03/22/18 at 2140, For 1 dose, | | PM PST | | | | | Give with food., | | | | | | + +--------+ +--------+------+------+ +---+---+ | | | +---+---+ + +-------+ +--------+---+---+ | penicillin tablet 500 mg 500 | Given | 03/22/20 | 500 mg | | | | mg, Oral, ONCE, Tiffany 03/22/18 at | | 18 9:44 | | | | | 2140, For 1 dose, Give 1 hour | | PM PST | | | | | before or 2 hours after meals., | | | | | | | Indications: Streptococcal | | | | | | | Pharyngitis | | | | | | + +-------+ +--------+---+---+ +---+---+ | | | +---+---+ documented in this encounter
--- OUTSIDE RECORDS SUMMARY | ~2019-03-30 | XMS | Encounter Summary ---
Demographics + + + | Address | [address] | | | [place] [address] | + + + | Home Phone [...] + + | Author | [facility] | | | and [place] | + + + | Organization | [facility] | | | and [place] | + + + | Address | Unknown | + + + | Phone | Unavailable | + + + Support + + + + + | Name | Relationship | Address | Phone | + + + + + | Gt Rebekah | ECON | [address] | | | | | [place] | | | | | [place] | | | | | [address] | | + + + + + Care Team Providers + +------+ + | Care Conventional Mortgage Underwriter Name | Role | Phone | + [...] | Oncology | Diagnoses | Chadd, | [facility] | | | Services | | 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 | [address] | Clinic [address] | | | | | embolism | [address] [place] | [place] | | | | | Procedures | [place], [place] | [place], | | | | | [place] OFFICE | [address] | [place] [address] | | | | | OUTPATIENT | Phone: | Phone: | | | | | NEW 45 | [phone] | [phone] | | | | | MINUTES | Fax: | Fax: | | | | | | [phone] | [phone] | +--------+ + + + + + [...] | abdominal | [facility] | [place] [address] | | | | | pain NEW/ | [place], | Phone: | | | | | ER FOLLOW | [place] | [phone] | | | | | UP, STENT | [address] | Fax: | | | | | REMOVAL, S/P | Phone: | [phone] | | | | | SURG BY | [phone] | | | | | | YOMAIR[place] ON | Fax: | | | | | | 04/30/17 | [phone] | | | | | | Procedures | | | | | | | [place] OFFICE | | | | | | [...] | calculus (Primary | | | | [place], [place] | [place], [place] | Dx); Abnormal | | | | [address] | [address] | urinalysis; Flank | | | | [phone] | | pain; History of | | [...] May 11, 2017 at 6:[address] [facility]. Please report to [facility] no later than 5:00 PM. REMEMBER: NOTHING TO EAT OR DRINK UNTIL AFTER SURGERY. NO ASPIRIN OR ASPIRIN PRODUCTS ONE WEEK PRIOR TO SURGERY. Tylenol and Advil are OK. You will need to get the following testing done prior to surgery: CBC, BMP Call us at [phone] with any questions. [x] Pain management booklet provided to patient. documented in this encounter Progress Notes Gold Florentino MD - 05/11/2017 1:30 PM PSTFormatting of this note might be different fro m the original. [place] is a 27 y.o. female patient of Bro Mora MD being seen today for kidney sto neNicole Lovelace presented to [facility] on ~04/29/2017 with a 3 mm right ureteral stone associated with infection and obstruction. She was apparently refused at [facility], and was then sent by [employer] air transport to [place] where she was treated at [facility] by Dr. Kilo Gallo. A right ureteral stent was placed by Dr. Kilo Gallo on 04/30/2017. Dr. Gallo encountere d "extensive cystitis throughout the bladder" with a right distal ureteral calculus with min imal obstruction and minimal hydronephrosis and no grossly purulent urine obtained from the right renal pelvis. Left retrograde pyelogram was normal. She states that she forgot to sweet pickled fruit maker her antibiotic prescription in [place], but was recen tly seen in the emergency department at [facility] on 05/05/2017 and diagnosed with infection [...] over 50% of this time spent in enrollment counselor ing regarding her ureteral calculus and [...] Procedure Component Value Units Date/Time Culture, Urine [[id number]] Collected: 05/11/17 1719 Order Status: Sent Lab Status: In process Updated: 05/11/17 1355 Specimen: Urine from Urine, clean catch Culture, Urine [[id number]] Collected: 04/30/17 1044 Order Status: Completed Lab Status: Final result Updated: 05/02/17715 Specimen: Urine from Urine, clean catch Specimen Source Urine, Clean Catch RESULT No growth or <1,000 CFU/mL RESULT Performed at [facility], [address], [place] [address] Status 05/02/2017 Final Culture, Urine [[id number]] Collected: 04/30/17 1040 Order Status: Completed Lab Status: Final result Updated: 05/02/17715 Specimen: Urine from Urine, clean catch Specimen Source Urine, Clean Catch RESULT No growth or <1,000 CFU/mL RESULT Performed at [facility], [address], [place] [address] Status 05/02/[address] ABDOMEN AND PELVIS [...] surgical procedure and anesthesia including DVT, PE, AZ, CVA, and even . [place] indicates her [...] her that she needs to see a sap integration architect for further evaluation of her coa gulopathy. A referral was submitted to the [facility]. [place] is instructed to resume her usual [...] have not thoroughly proofread this note, and powder nipper erro rs may occur. documented in this [...] 11 | 7 - 18 mg/dL | [facility] | | | | | | [facility] | | | | | | MEDICAL | | | | | | CENTER - | | | | | | LABORATORY | | + + + + + + | Creatinine | 0.66 | 0.60 - 1.30 | [facility] | | | | | mg/dL | [facility] | | | | | | MEDICAL | | | | | | CENTER - | | | | | | LABORATORY | | + + + + + + | eGFR if not | >60Comment: GLOMERULAR | >=60 | [facility] | | | | FILTRATION | mL/min/1.73m2 | [facility] | | | MICRONESIAN | RATE,ESTIMATED | | MEDICAL | | | | mL/min/1.70l9Hjtz than | | CENTER - | | [...] + | [facility] | [address] | [place] | [phone] | | [facility] | | [address] | | | - LABORATORY | | [...] [address] | [place] | [phone] | | [facility] | | [address] | | | - LABORATORY | | [...] ST. | [address] | [place], [place] | [phone] | | [facility] | | [address] | | | - LABORATORY | | [...] [address] | [place] | [phone] | | [facility] | | [address] | | | - LABORATORY | | [...] 1.001 - 1.030 | | | | [place], | | | | | | UA, [...] | | | t | | ONCE, [facility] 05/11/17 at 1445, For 1 | | PM PST | | | | | dose | | | | | | + +--------+ +-------+------+ + +---+---+ | | | +---+---+ documented in this encounter
--- OUTSIDE RECORDS SUMMARY | ~2019-03-30 | XMS | Encounter Summary ---
Demographics + + + | Address | [address] | | | [place] [address] | + + + | Home Phone | | + + + | Preferred Language | Unknown | + + + | Marital Status | Single | + + + | Holiness Affiliation | Unknown | + + + | Race | Unknown | + + + | Ethnic Group | Unknown | + + + Author + + + | Author | [facility] | | | and [place] | + + + | Organization | [facility] | | | and [...] [place] | | | | | [address] | | + + + + + Care Team Providers + +------+ + | Care Compliance Intern Name | Role | Phone | + +------+ + | Bro Mora MD | PCP | | + +------+ + Encounter Details +--------+ + + + + | Date | Type | Department | Care Team | Description | +--------+ + + + + | 08/19/ | Hospital | [facility] | Marcell Hummel | Supervision of other | | 2015 | Encounter | MED CTR [facility] | DO Michael [address] | normal , | | | | [address] [place] | [address] [place] | second trimester | | | | [place], [place] | [place] [address] | | | | | [address] | [phone] | | | | | [phone] | | | | | | | [address] [place] | | | | | | Billy, Technologist | | | | | | [place], [place] | | | | | | [address] | | +--------+ + + + + [...] + + | Performing | Address | City/State/[facility] | Phone Number | | Organization | | | | + +---------+ + + | [facility] | | | | + +---------+ + + documented in this encounter Visit Diagnoses + + | Diagnosis | + + | Supervision of other normal , second trimester | + + documented in this encounter"
--- OUTSIDE RECORDS SUMMARY | ~2019-03-30 | XMS | Encounter Summary ---
Demographics + + + | Address | [address] | | | [place] [address] | + + + | Home Phone | | + + + | Preferred Language | Unknown | + + + | Marital Status | Single | + + + | Gnosticist Affiliation | Unknown | + + + | Race | Unknown | + + + | Ethnic Group | Unknown | + + + Author + + + | Author | [facility] | | | and [place] | + + + | Organization | [facility] | | | and [place] | + + + | Address | Unknown | + + + | Phone | Unavailable | + + + Support + + + + + | Name | Relationship | Address | Phone | + + + + + | Gt Welch | ECON | [address] [facility] | | | | | [place] | | | | | [place] | | | | | [address] | | + + + + + Care Team Providers + +------+ + | Care Burglar Alarm Operator Name | Role | Phone | [...] + + | 08/03/ | Emergency | [facility] | [place], | Asthma, severe | | 2015 | | [facility] | Luis Carlos Cervantes MD [address] | persistent, with | | | | CENTER [address] | [address] [facility] | acute exacerbation | | | | [place] | [place] [address] | (Primary Dx) | | | | [address] | [phone] | | | | | [phone] | | | +--------+ + + + [...] | ---- 08/03/2014 | | | 09:28 [facility] Emergency | | | -Cough/SOB 07/30/2014 09:54 [facility] | | | Emergency -Cough | | | | | | -Asthma, unspecified type, with (acute) exacerbation | | | | | | -Cough, SOB 07/25/2014 16:01 [facility] | | | [facility] Emergency -Diff Breathing 07/25/2014 | | | 08:38 [facility] Emergency | | | -Unspecified infection or infestation of mother, antepartum | | | | | | condition or complication | | | | | | -Asthma, unspecified type, with (acute) | | | exacerbation | | | -Cough | | | | | | -COUGH/VOMITING/16 WKS PREG 07/04/2014 | | | 18:23 [facility] Emergency | | | -14 WEEKS , [...] Personal history of tobacco use 06/19/2014 15:28 [facility] | | | [facility] Emergency -COUGH, JAW PAIN | | [...] Acute bronchitis 05/20/2014 | | | 19:00 [facility] Emergency | | | -Unspecified hemorrhage in [...] ------ --------- 2 0 | | | [facility] 2 0 | | | [facility] 6 0 | | | [facility] 6 0 | | | [facility] 1 0 | | | [facility] 17 0 | | | Total Note: Visits indicate total known visits. | | | Medicaid [place] Dx are the number of primary diagnoses on the [facility]'s | | | non-emergent dx list. | | | | | | --- Guidelines Source: [facility] Guidelines | | | Date: 05/13/2013 Care [...]
--- OUTSIDE RECORDS SUMMARY | ~2019-03-30 | XMS | Encounter Summary ---
Demographics + + + | Address | [address] | | | [place] [address] | + + + | Home Phone | | + + + | Preferred Language | Unknown | + + + | Marital Status | Single | + + + | Tenriism Affiliation | Unknown | + + + | Race | Unknown | + + + | Ethnic Group | Unknown | + + + Author + + + | Author | [facility] | | | and [place] | + + + | Organization | [facility] | | | and [place] | + + + | Address | Unknown | + + + | Phone | Unavailable | + + + Support + + + + + | Name | Relationship | Address | Phone | + + + + + | Gt Hartarte | ECON | [address] [facility] [facility] | | | | | [place] | | | | | [place] | | | | | [address] | | + + + + + Care Team Providers + +------+ + | Care Rotary Drill Operator Helper Name | Role | Phone | + [...] | | MEDICAL CENTER | [address] [facility] | Unspecified Site | | | | EMERGENCY CENTER | [place], [place] | | | | | [address] | [address] | | | | | [place], [place] | | | | | | [address] | | | | | | [phone] | | | +--------+ + + + [...]
--- OUTSIDE RECORDS SUMMARY | ~2019-03-30 | XMS | Encounter Summary ---
Demographics + + + | Address | [address] | | | [place] [address] | + + + | Home Phone | | + + + | Preferred Language | Unknown | + + + | Marital Status | Single | + + + | Church Affiliation | Unknown | + + + | Race | Unknown | + + + | Ethnic Group | Unknown | + + + Author + + + | Author | [facility] | | | and [place] | + + + | Organization | [facility] | | | and [place] | + + + | Address | Unknown | + + + | Phone | Unavailable | + + + Support + + + + + | Name | Relationship | Address | Phone | + + + + + | Gt Welch | ECON | [address] [facility] | | | | | [place] | | | | | [place] | | | | | [address] | | + + + + + Care Team Providers + +------+ + | Care Personal Development Coach Name | Role | Phone | + +------+ + | No, Physician | PCP | Unavailable | + +------+ + Encounter Details +--------+ + + + + | Date | Type | Department | Care Team | Description | +--------+ + + + + | 05/14/ | Orders Only | [facility] | Conversion | | | 2018 | | [address] | Transaction, | | | | | [address] | Provider Unknown | | | | | [address] | [phone] | | | | | [phone] | | | +--------+ + + + [...]
--- OUTSIDE RECORDS SUMMARY | ~2019-03-30 | XMS | Encounter Summary ---
Demographics + + + | Address | [address] | | | [place] [address] | + + + | Home Phone | | + + + | Preferred Language | Unknown | + + + | Marital Status | Single | + + + | Congregational Affiliation | Unknown | + + + | Race | Unknown | + + + | Ethnic Group | Unknown | + + + Author + + + | Author | [facility] | | | and [place] | + + + | Organization | [facility] | | | and [place] | + + + | Address | Unknown | + + + | Phone | Unavailable | + + + Support + + + + + | Name | Relationship | Address | Phone | + + + + + | Gt Welch | ECON | [address] [facility] | | | | | [place] | | | | | [place] | | | | | [address] | | + + + + + Care Team Providers + +------+ + | Care Patient Registration Supervisor Name | Role | Phone | + +------+ + | Bro Mora MD | PCP | | + +------+ + Reason for Visit + + + | Reason | Comments | + + + | Barky Cough | | + + + | Emesis | | + + + | Back Pain | | + + + Encounter Details +--------+ + + + + | Date | Type | Department | Care Team | Description | +--------+ + + + + | 07/25/ | Emergency | [facility] | [place], | Cough (Primary Dx); | | 2014 | | [facility] EM[facility] | Luis Carlos Cervantes MD [address] | Asthma, unspecified | | | | CENTER [address] | [address] | asthma severity, | | | | [place], [place] | [place] [address] | with acute | | | | [address] | [phone] | exacerbation; | | | | [phone] | | and | | | | | | infectious disease | | | | | | in second trimester | +--------+ + + + + Social [...] + + + | Blood Pressure | 132/112 | 07/25/2014 8:44 AM | | | | | PDT | | + + + + + | Pulse | 127 | 07/25/2014 8:44 AM | | | | | PDT | | + + + + + | Temperature | 37.2 C (98.9 F) | 07/25/2014 8:44 AM | | | | | PDT | | + + + + + | Respiratory Rate | 22 | 07/25/2014 8:44 AM | | | | | PDT | | + + + + + | Oxygen Saturation | 97% | 07/25/2014 8:44 AM | | | | | PDT | | + + + + + | Inhaled Oxygen | - | - | | | Concentration | | | | + + + + + | Weight | 104.3 kg (230 lb) | 07/25/2014 8:44 AM | | | | | PDT | | + + + + + | Height | 172.7 cm (5' 7.99") | 07/25/2014 8:44 AM | | | | | PDT | | + + + + + | Body Mass Index | 34.98 | 07/25/2014 8:44 AM | | | | | PDT [...] Instructions Instructions Luis Carlos Camargo MD - 07/25/2014Use promethazine with codeine to help wi th cough and vomiting. Use your inhaler or nebulizer machine to help with wheezing. documented in this encounter Medications at Time [...] + | ED INFORMATION | Routin | 07/25/2014 | | Results for this | | EXCHANGE | e | 8:34 AM | | procedure are in the | | | | PDT | | results section. | + +--------+ + + + documented in this encounter Results ED INFORMATION EXCHANGE (07/25/2014 8:34 AM PDT) + + | Specimen | + + | | + + + + + | Narrative | Performed At | + + + | INPATIENT VISIT TRACKING (1 MO.) Visit Date | [place] [facility] | | LocationTypeDiagnoses | | | VISIT TRACKING (3 MO.) Visit Date | | | Location Type | | | Diagnoses -------- | | | ---- 07/25/2014 | | | 08:34 [facility] Emergency | | | -COUGH/VOMITING/16 WKS PREG 07/04/2014 18:23 [facility] -14 WEEKS , | | [...] | history of tobacco use 06/19/2014 15:28 [facility] | | | [facility] Emergency -COUGH, JAW [...] Acute bronchitis 05/20/2014 | | | 19:00 [facility] Emergency | | | -Unspecified hemorrhage [...] history of tobacco use | | | 04/27/2014 19:33 [facility] | | | Emergency -Cervicalgia | | | | | | -Sprain of neck | | | -HEADACHE | | | | | | 1. Sprain of neck | | | | | | 2. Long-term (current) use of non-steroidal | | | anti-inflammatories | | | (NSAID) | | | | | | 2. Unspecified gastritis and | | | gastroduodenitis, without mention of | | | | | | hemorrhage | | | 2. Tobacco use | | | disorder VISIT COUNT (1 YR.) Visits Medicaid [place] Dx | | | Location ------ --------- 2 0 | | | [facility] 2 0 | | | [facility] 3 0 | | | [facility] 6 0 | | | [facility] 1 0 | | | [facility] 14 0 | | | Total Note: Visits indicate total known | | | visits. Medicaid [place] Dx are the number of primary diagnoses on the | | | [facility]'s non-emergent dx list. | | | | | | --- Guidelines Source: [facility] Guidelines | | | Date: 05/13/2013 Care [...] | | + +---------+ + + | [place] | | | | + +---------+ + + documented in this encounter Visit Diagnoses + + | Diagnosis | + + | Cough - Primary | + + | Asthma, unspecified asthma severity, with acute exacerbation | + + | and infectious disease in second trimester | + + documented in this encounter Administered Medications + + + +-------+------+------+ | Medication Order | MAR | Action | Dose | Rate | Site | | | Action | Date | | | | + + + +-------+------+------+ | promethazine-codeine (PHENERGAN | Dispense | 07/26/19 | 5 mLs | | | | with CODEINE) liquid (ER | to Home | 15 9:16 | | | | | Prepack) 5 mL 5 mL, Oral, ONCE, | | AM PDT | | | | | 07/25/14 at 0930, For 1 dose, | | | | | | | Take 5 mL every 4 hours prn cough | | | | | | | Dispense for home use., | | | | | | + + + +-------+------+------+ +---+---+ | | | +---+---+ documented in this encounter
--- OUTSIDE RECORDS SUMMARY | ~2019-03-30 | XMS | Encounter Summary ---
Demographics + + + | Address | [address] | | | [place] [address] | + + + | Home Phone [...] + + + | Author | [facility] | | | and [place] | + + + | Organization | [facility] | | | and [place] | + + + | Address | Unknown | + + + | Phone | Unavailable | + + + Support + + + + + | Name | Relationship | Address | Phone | + + + + + | Gt Welch | ECON | [address] [facility] | | | | | [place] | | | | | [place] | | | | | [address] | | + + + + + Care Team Providers + +------+ + | Care Superintendent [employer] Name | Role | Phone | + [...] + + + + | 04/30/ | Anesthesia | [facility] | Yolanda Caba, | | | 2017 | Event | [facility] | [address] | | | | | [address] | [place] [address] | | | | | [place] | [phone] | | | | | [address] | | | | | | [phone] | | | +--------+ + + + + Anesthesia Record + + + + + | Procedure Name | Responsible | Anesthesia Start | Anesthesia Stop Time | | | Anesthesiologist | Time | | + + + + + | CYSTOSCOPY PLACEMENT | Yolanda Caba MD | 04/30/17 0925 | 04/30/17 1016 | | URETERAL STENT, | | | | | bilateral retrograde | | | | | pyelogram, right | | | | | ureteral stent | | | | | placement (N/A | | | | | Flank) | | | | + + + + + +----+---+ + + | Da | T | Event | Comment | | te | i | | | | | m | | | | | e | | | +----+---+ + + | 12 | 0 | | | | /2 | 8 | | | | 4/ | 5 | | | | 20 | 8 | | | | 17 | | | | +----+---+ + + | | 0 | An Start | Reassessment prior to anesthesia induction/procedure. | | | 9 | | | | | 2 | | | | | 5 | | | +----+---+ + + | | 0 | Preoxygenat | | | | 9 | ed | | | | 3 | | | | | 1 | | | +----+---+ + + | | 0 | An | | | | 9 | Induction | | | | 3 | | | | | 2 | | | +----+---+ + + | | 0 | An | | | | 9 | Intubation | | | | 3 | | | | | 4 | | | +----+---+ + + | | 0 | First | | | | 9 | Inc/Proc St | | | | 4 | | | | | 8 | | | +----+---+ + + | | 1 | Breathing | | | | 0 | Spontaneous | | | | 0 | ly | | | | 0 | | | +----+---+ + + | | 1 | Extubated | | | | 0 | Awake | | | | 0 | | | | | 8 | | | +----+---+ + + | | 1 | An Stop | Patient handed off to recovery nurse. | | | 1 | | | | | 6 | | | +----+---+ + + +------+ | Meds | +------+ + +---------+ | Name | Total | + +---------+ | fentaNYL | 200 mcg | + +---------+ | lidocaine 2% | 60 mg | + +---------+ | propofol | 200 mg | + +---------+ | succinylcholine | 100 mg | + +---------+ | ondansetron | 4 mg | + +---------+ | ciprofloxacin | 400 mg | + +---------+ | LR (Infusion) | 400 mL | + +---------+ +---------+ | Name | +---------+ | Insp O2 | +---------+ | Exp N2O | +---------+ | Exp SEV | +---------+ + + | No blood administrations on file. | + + +--------+ + + + | Type | Details | Placement | Removal | +--------+ + + + | Periph | 04/29/17; 0000; Right; Distal; | 04/29/17 0000 by | 05/02/17 1327 by | | amanda | Forearm; [id number]-mixdwg catheter | Tawanna Choi, | Oriana Jaimes RN | | IV | system; In place at beginning of | RN | | | | shift; expected removal post | | | | | discharge; 05/02/17; 1327 | | | +--------+ + + + | Airway | Placement Date: 04/30/17; | 04/30/17929 by | 04/30/17 1008 by | | | Placement Time: 929 (created via | Yolanda Caba MD | Yolanda Caba MD | | | procedure documentation); Mask | | | | | Ventilation: EZ; Airway Grade: 1; | | | | | Successful Technique: video | | | | | scope; Laryngoscope Blade Size: | | | | | 3; Attempts: 1; Airway Type: | | | | | endotracheal; Size: 7.5; Other | | | | | Equipment: stylette; Placement | | | | | Check: exhaled CO2 detection | | | | | device, video laryngoscope, | | | | | breath sounds equal bilaterally; | | | | | Removal Date: 04/30/17; Removal | | | | | Time: 1008 | | | +--------+ + + + | Urethr | 04/30/17; 956; indicated due to | 04/30/17956 by | 05/01/17 0938 by | | al | specific surgical procedure; All | Lorrie Kowalski RN | Tawanna Choi, | | Cathet | elements; All elements; All | | RN | | er | elements; indwelling double lumen | | | | | catheter; latex; 16; None; 1; | | | | | 10; 10; intraurethral Xylocaine | | | | | gel (PLACED BY ); | | | | | drainage bag to dependent | | | | | drainage; urethral catheter | | | | | removed; 05/01/17; 0938 | | | +--------+ + + + [...] | ANE AIRWAY NOTE | Routin | 04/30/2017 | | Results for this | | | e | 9:43 AM | | procedure are in the | | | | PST | | results section. | + +--------+ + + + documented in this encounter Results Anesthesia Airway Note (04/30/2017 9:43 AM PST) + + + | Narrative | Performed At | + + + | Yolanda Caba MD 04/30/2017 9:43 Anesthesia Airway | | | Placement 04/30/2017 9:30 Preprocedure check: patient identified, | | | oxygen, airway assessed, suction, airway equipment checked and | | | patient reassessment prior to induction Rapid Sequence Induction: no | | | Mask ventilation: easy Successful technique: videoscope | | | Laryngoscope blade size: 3 Airway grade: 1 (Full view of glottis) | | | Other equipment: stylette Attempts: 1 Airway type: endotracheal | | | Size: 7.5 Cuffed: cuffed Tube placement verification: equal | | | bilateral breath sounds, video laryngoscope and carbon dioxide | | | detection Performing provider: YOLANDA CABA | | | Electronically Signed by: Yolanda Caba MD | | | ESig date/time: 04/30/2017 9:43 | | | | | + + + + + | Procedure Note | + + | Yolanda Caba MD - 04/30/2017 9:43 AM PST Anesthesia Airway Kcgfphbrt50/24/2017 | | 9:30Preprocedure check: patient identified, oxygen, airway assessed, suction, airway | | equipment checked and patient reassessment prior to inductionRapid Sequence Induction: | | noMask ventilation: easySuccessful technique: videoscopeLaryngoscope blade size: 3 | | Airway grade: 1 (Full view of glottis)Other equipment: styletteAttempts: 1Airway type: | | endotrachealSize: 7.5Cuffed: cuffedTube placement verification: equal bilateral breath | | sounds, video laryngoscope and carbon dioxide detectionPerforming provider: ROXANE | | YOLANDA Cohenectronically Signed by: Yolanda Caba MD [facility] | | date/time: 04/30/2017 9:43 | |Other equipment: stylette | |Attempts: 1 | |Airway type: endotracheal | |Size: 7.5 | |Cuffed: cuffed | |Tube placement verification: equal bilateral breath sounds, video laryngoscope and carbon d ioxide detection | |Performing provider: YOLANDA CABA | | | | | |Electronically Signed by: MD Davida Chase date/time: 04/30/2017 9:43 | | | + + documented in this encounter Visit Diagnoses Not on filedocumented in this encounter Administered Medications + +--------+ +--------+------+------+ | Medication Order | MAR | Action | Dose | Rate | Site | | | Action | Date | | | | + +--------+ +--------+------+------+ | ciprofloxacin in dextrose | Given | 04/30/20 | 400 mg | | | | (CIPRO) IVPB Intravenous, | | 17 9:39 | | | | | Administer over 1 Hours, PRN, | | AM PST | | | | | Starting 04/30/17 at 0939, | | | | | | | Anesthesia Intra-op | | | | | | + +--------+ +--------+------+------+ +---+---+ | | | +---+---+ + +-------+ +---------+---+---+ | fentaNYL (PF) injection | Given | 04/30/20 | 100 mcg | | | | Intravenous, PRN, Pain, Starting | | 17 9:41 | | | | | 04/30/17 at 0932, Anesthesia | | AM PST | | | | | Intra-op | | | | | | + +-------+ +---------+---+---+ +-------+ +---------+---+---+ | Given | 04/30/20 | 100 mcg | | | | | 17 9:32 | | | | | | AM PST | | | | +-------+ +---------+---+---+ +---+---+ | | | +---+---+ + + + +---+---+---+ | lactated ringers (LR) infusion | Restarte | 04/30/20 | | | | | Intravenous, CONTINUOUS PRN, | d | 17 10:23 | | | | | Starting 04/30/17 at 0925, | | AM PST | | | | | Anesthesia Intra-op | | | | | | + + + +---+---+---+ +---------+ +---+---+---+ | New Bag | 04/30/20 | | | | | | 17 9:25 | | | | | | AM PST | | | | +---------+ +---+---+---+ +---+---+ | | | +---+---+ + +-------+ +-------+---+---+ | lidocaine (PF) 2% injection | Given | 04/30/20 | 60 mg | | | | Intravenous, PRN, Starting Sun | | 17 9:32 | | | | | 04/30/17 at 0932, Anesthesia | | AM PST | | | | | Intra-op | | | | | | + +-------+ +-------+---+---+ +---+---+ | | | +---+---+ + +-------+ +------+---+---+ | ondansetron (ZOFRAN) injection | Given | 04/30/20 | 4 mg | | | | Intravenous, PRN, Nausea, | | 17 9:59 | | | | | Vomiting, Starting 04/30/17 | | AM PST | | | | | at 0959, Anesthesia Intra-op | | | | | | + +-------+ +------+---+---+ +---+---+ | | | +---+---+ + +-------+ +--------+---+---+ | propofol (DIPRIVAN) injection | Given | 04/30/20 | 200 mg | | | | Intravenous, PRN, Starting Sun | | 17 9:32 | | | | | 04/30/17 at 0932, Anesthesia | | AM PST | | | | | Intra-op | | | | | | + +-------+ +--------+---+---+ +---+---+ | | | +---+---+ + +-------+ +--------+---+---+ | succinylcholine (ANECTINE) | Given | 04/30/20 | 100 mg | | | | injection Intravenous, SARA, | | 17 9:32 | | | | | Starting 04/30/17 at 0932, | | AM PST | | | | | Anesthesia Intra-op | | | | | | + +-------+ +--------+---+---+ +---+---+ | | | +---+---+ documented in this encounter"
--- OUTSIDE RECORDS SUMMARY | ~2019-03-30 | XMS | Encounter Summary ---
Demographics + + + | Address | [address] | | | [place] [address] | + + + | Home Phone [...] + + + | Author | [facility] | | | and [place] | + + + | Organization | [facility] | | | and [place] [...] [place] | | | | | [id number] | | + + + + + Care Team Providers + +------+ + | Care Capsule Maker Name | Role | Phone | + +------+ + | Bro Mora MD | PCP | | + +------+ + Encounter Details +--------+ + + + + | Date | Type | Department | Care Team | Description | +--------+ + + + + | 08/18/ | Hospital | [facility] | Lopez Lopez | | | 2015 | Encounter | [facility] | MD Ronald [address] | | | | | [address] | [place], [place] | | | | | [place], | [address] | | | | | [place] [address] | | | | | | [phone] | | | +--------+ + + + [...] + + + | Blood Pressure | - | - | | + + + + + | Pulse | - | - | | + + + + + | Temperature | 35.5 C (95.9 F) | 08/18/2014 8:35 PM | | | | | PDT | | + + + + + | Respiratory Rate | - | - | | + [...] as of this encounter Discharge Instructions Instructions Jigna Terrell RN - 08/18/2014 False Labor [Term ] If your is at 37 weeks or more and you are having contractions that are not true labor, you are having false labor. This means that it is not time yet to deliver your baby. True labor contractions can start unevenly but soon come closer together in a regular patte rn, getting stronger and longer. The intervals between contractions gets shorter. Even at th e onset, these contractions last at least 30 seconds and increase to a minute. Most women fi rst feel them high up in the abdomen, then they spread over the whole abdomen and into the l ower back. Sometimes they go in the reverse order. False labor contractions can be strong, frequent, and painful, but there is no regular marilee temi. They might come five, then two, then eight, then five minutes apart. The intensity can vary from strong to mild to strong again. While true labor contractions don t stop no sofia er what you are doing, false labor may stop on its own, or when you begin or end an activity . False labor is usually felt strongest in the lower abdomen and groin area. False labor lewis ht make you feel anxious or lose sleep. Having false labor doesn t mean you are sick or th at anything is wrong with your baby. You don t need to take medicine for it. Home Care: It can help to drink plenty of water and take warm baths. Do what you can ahead of time to prepare for giving so you ll have less to worry about later. Keep a record of your contractions. Write down what time each one starts and how long it lasts. A stopwatch is helpful. Look for the pattern of regularly spaced out contractions wi th a gradual increase in the time each one lasts. Don t be embarrassed about going to the hospital with a false alarm. Think of it as good practice for the real thing. Follow Up with your doctor or as advised by our staff. If you are worried, confused, can t eat or s leep, or have questions about your health or , call your doctor. Get Prompt Medical Attention if any of the following occur: If you are earlier than 37 weeks and begin having any contractions again Contractions are regular, getting longer, stronger, and closer together (true labor) Fever of 100.4F (38C) or higher, or as directed by your healthcare provider You pass water or begin to bleed You re not sure if you are having false or true labor [id number] [employer]. [address] [place] [address]. All righ ts reserved. This information is not intended as a substitute for professional medical care. Always follow your healthcare professional's instructions. documented in this encounter Medications at Time [...] documented as of this encounter Progress Notes Jigna Terrell, RN - 08/18/2014 10:26 PM PDTPt arrived with c/o bright bleeding with wiping this evening. Reports had intercourse several hours ago. C/O low abd pressure/crampy/achy s ensation. Urine sample to lab, bleeding lessening. States has been having some mild ligament pain recently but that this pain is different. Pt reports she is a pt of Dr. Mora and [place] [facility] No record available at this time. Reports MARY is 01/06/15, 20 weeks and 1 day . Pt reports she is a high risk d/t history of cervical cancer x2, history of pre-eclampsia and with 2 prior pregnancies and is taking Progestero ne injections weekly. Dr. Lopez spoke with pt, gave discharge instructions and performed portable U/S and SVE, little to no vaginal bleeding noted at that time. D/C'd home at 2225.E lectronically signed by Jigna Terrell RN at 08/18/2014 10:46 PM Lopez Holbrook MD - 08/18/2014 9:49 PM PDTThe patient presents at 20 weeks and 1 day with vaginal bleeding sev eral hours after intercourse. She has a history of 35 week deliveries. She is on progester one injections. About 3 weeks ago, she had an ultrasound that showed a 4.3 cm long cervix. She denies contractions. Her heart rate is in the 130s. No contractions are seen on the monitor. Her urine analysis is normal. Her cervix is posterior long and closed. The anterior vagina slightly irregular which may represent condyloma. I will notify her provide r of this finding. A brief informal ultrasound showed what appeared to be a normal-appearin g placenta is anterior. We will discharge her home with precautions. She has an ultrasound tomorrow. She has a follow-up visit on . I asked her to avoid pelvic activities u ntil further discussion with her regular provider. documented in this encounter Plan of Treatment Not on filedocumented as of this encounter Procedures + +--------+ + + + | Procedure Name | Priori | Date/Time | Associated Diagnosis | Comments | | | ty | | | | + +--------+ + + + | URINALYSIS WITH | Routin | 08/18/2014 | | Results for this | | MICROSCOPIC | e | 9:13 PM | | procedure are in the | | | | PDT | | results section. | + +--------+ + + + documented in this encounter Results Urinalysis With Microscopic (08/18/2014 9:13 PM PDT) + + + + + [...] + + + | pH, Urine | 7.5 | 5.0 - 8.0 | [facility] | | | | | [facility] | | | [facility] | [facility] - | | | | | | LAB[facility]ATORY | | + + + + + + | Specific | 1.015 | 1.001 - 1.030 | [facility] | | | [place] | | | [facility] | | [...] | | Urine | | | [facility] | | | | | | [facility] [...] | | [facility], | | | [facility] | | | Urine | | | [...] + + + + + + | AMORPHOUS | Few (A) | None Seen /HPF | [facility] | | | [facility] | | | [facility] | | [...] + + + + + | [facility] | [address] | [place], [place] | [phone] | | [facility] | | [address] | | | - LABORATORY | | | | + + + + + documented in this encounter Visit Diagnoses Not on filedocumented in this encounter"
--- OUTSIDE RECORDS SUMMARY | ~2019-03-30 | XMS | Encounter Summary ---
Demographics + + + | Address | [address] | | | [place] [address] | + + + | Home Phone | | + + + | Preferred Language | Unknown | + + + | Marital Status | Single | + + + | Episcopalian Affiliation | Unknown | + + + | Race | Unknown | + + + | Ethnic Group | Unknown | + + + Author + + + | Author | [facility] | | | and [place] | + + + | Organization | [facility] | | | and [place] | + + + | Address | Unknown | + + + | Phone | Unavailable | + + + Support + + + + + | Name | Relationship | Address | Phone | + + + + + | Gt Welch | ECON | [address] | | | | | [place] | | | | | [place] | | | | | [address] | | + + + + + Care Team Providers + +------+ + | Care Hot Dog Vendor Name | Role | Phone | + +------+ + | Bro Mora MD | PCP | | + +------+ + Encounter Details +--------+ + + + + | Date | Type | Department | Care Team | Description | +--------+ + + + + | 09/17/ | Emergency | [facility] | Gabe Wright, | Pneumonia of right | | 2016 | | MEDICAL CENTER | [address] | middle lobe due to | | | | [facility] | [place] [address] | infectious organism | | | | [address] | [phone] | | | | | [place], [place] | | | | | | [address] | | | | | | [phone] | | | +--------+ + + + [...] + + + | Blood Pressure | 124/77 | 09/18/2015 11:46 PM | | | | | PDT | | + + + + + | Pulse | 73 | 09/18/2015 11:46 PM | | | | | PDT | | + + + + + | Temperature | 37.1 C (98.8 F) | 09/18/2015 11:46 PM | | | | | PDT | | + + + + + | Respiratory Rate | 16 | 09/18/2015 11:46 PM | | | | | PDT | | + + + + + | Oxygen Saturation | - | - | | + + + + + | Inhaled Oxygen | - | - | | | Concentration | | | | + + + + + | Weight | 95.3 kg (210 lb) | 09/18/2015 11:46 PM | | | | | PDT | | + + + + + | Height | 172.7 cm (5' 8") | 09/18/2015 11:46 PM | | | | | PDT | | + + + + + | Body Mass Index | 31.93 | 09/18/2015 11:46 PM | | | | | PDT [...] + | CT ANGIOGRAM | Routin | 09/18/2015 | | Results for this | | PULMONARY | e | 10:54 PM | | procedure are in the | | | | PDT | | results section. | + +--------+ + + + | XR CHEST 2 VIEWS | Routin | 09/18/2015 | | Results for this | | | e | 10:02 PM | | procedure are in the | | | | PDT | | results section. | + +--------+ + + + | HISTORICAL LAB PANEL | Routin | 09/18/2015 | | Results for this | | RESULT | e | 9:30 PM | | procedure are in the | | | | PDT | | results section. | + +--------+ + + + | TROPONIN I | Routin | 09/18/2015 | | Results for this | | | e | 9:30 PM | | procedure are in the | | | | PDT | | results section. | + +--------+ + + + | D-DIMER | Routin | 09/18/2015 | | Results for this | | | e | 9:30 PM | | procedure are in the | | | | PDT | | results section. | + +--------+ + + + documented in this encounter Results CT Angiogram Pulmonary w Contrast (09/18/2015 10:54 PM PDT) + + | Specimen | + + | | + + + + + | Impressions | Performed At | + + + | 1. Diminished sensitivity as noted in the findings. No main | | | pulmonary arterial embolus seen. No gross evidence of a lobar | | | pulmonary arterial embolus seen. 2. Multiple foci of airspace | | | disease involving the right middle lobe and the right lower lobe, | | | likely representing pneumonia. Recommend follow-up chest CT | | | examination in 6 weeks after appropriate therapy to evaluate for | | | resolution. 3. Enlarged right hilar lymph node measuring 1.7 cm x | | | 1.2 cm in size. This is likely reactive. Attention on follow-up CT | | | chest examination is recommended. | | + + + + + + | Narrative | Performed At | + + + | VEE RAMIREZ 1990 25 years Female CTA CHEST PULMONARY | | | EMBOLISM W CONTRAST 09/18/2015 10:54 PM HISTORY: Evaluate for | | | pulmonary embolism. History of hysterectomy 3 weeks ago. | | | TECHNIQUE: 1.5-mm axial images of the chest were acquired in the | | | arterial phase according to a CT angiography protocol. Coronal CT | | | angiographic MIP reconstructions were performed by process safety engineering technologist. No | | | 3-D imaging. Radiation dose reduction performed with automated | | | exposure control. IV contrast: 100 mL Isovue-370 COMPARISON: | | | None. FINDINGS: There is somewhat suboptimal contrast | | | opacification of the pulmonary arteries due to patient body habitus. | | | No evidence of a main pulmonary arterial embolus seen. No gross | | | evidence of a lobar pulmonary arterial embolus identified. Segmental | | | pulmonary arteries are difficult to adequately characterize. No | | | pulmonary artery enlargement seen. Multiple foci of airspace | | | opacity identified involving the right middle lobe and the right lower | | | lobe seen on series 7B, image 90, 120, 145 and 156. No pneumothorax | | | or pleural effusion seen. Aorta appears to be normal in course and | | | caliber. No cardiomegaly or pericardial effusion seen. Ill-defined | | | soft tissue density seen in the prevascular region on series 5, image | | | 49 measuring 4.6 cm x 1.9 cm in size. Visualized thyroid appears | | | unremarkable. There is a borderline enlarged right hilar lymph node | | | seen on series 5, image 51 measuring 1.7 cm x 1.2 cm in size. No acute | | | or destructive osseous process seen. The visualized liver, pancreas, | | | spleen, adrenal glands, left kidney appear grossly unremarkable. | | + + + + + | Procedure Note | + + | Louie, Rad Conversion - 12/20/2018 5:32 PM PDT VEE Anguiano [place] years | | FemaleCTA CHEST PULMONARY EMBOLISM W CONTRAST09/18/2015 10:54 PM HISTORY: Evaluate for | | pulmonary embolism. History of hysterectomy 3 weeks ago. TECHNIQUE:1.5-mm axial images | | of the chest were acquired in the arterial phase according to a CT angiography protocol. | | Coronal CT angiographic MIP reconstructions were performed by process safety engineering technologist. No 3-D | | imaging. Radiation dose reduction performed with automated exposure control.IV | | contrast: 100 mL Isovue-370 COMPARISON: None. FINDINGS: There is somewhat suboptimal | | contrast opacification of the pulmonary arteries due to patient body habitus. No | | evidence of a main pulmonary arterial embolus seen. No gross evidence of a lobar | | pulmonary arterial embolus identified. Segmental pulmonary arteries are difficult to | | adequately characterize. No pulmonary artery enlargement seen. Multiple foci of airspace | | opacity identified involving the right middle lobe and the right lower lobe seen on | | series 7B, image 90, 120, 145 and 156. No pneumothorax or pleural effusion seen. Aorta | | appears to be normal in course and caliber. No cardiomegaly or pericardial effusion | | seen. Ill-defined soft tissue density seen in the prevascular region on series 5, image | | 49 measuring 4.6 cm x 1.9 cm in size. Visualized thyroid appears unremarkable. There is | | a borderline enlarged right hilar lymph node seen on series 5, image 51 measuring 1.7 cm | | x 1.2 cm in size. No acute or destructive osseous process seen. The visualized liver, | | pancreas, spleen, adrenal glands, left kidney appear grossly unremarkable. IMPRESSION: | | 1. Diminished sensitivity as noted in the findings. No main pulmonary arterial embolus | | seen. No gross evidence of a lobar pulmonary arterial embolus seen.2. Multiple foci of | | airspace disease involving the right middle lobe and the right lower lobe, likely | | representing pneumonia. Recommend follow-up chest CT examination in 6 weeks after | | appropriate therapy to evaluate for resolution.3. Enlarged right hilar lymph node | | measuring 1.7 cm x 1.2 cm in size. This is likely reactive. Attention on follow-up CT | | chest examination is recommended. | | PM | | | | | + + XR Chest 2 Vws (09/18/2015 10:02 PM PDT) + + | Specimen | + + | | + + + + + | Impressions | Performed At | + + + | 1. No acute cardiopulmonary process noted. Electronically | | | signed by Nimesh Sol on 09/18/2015 10:43 PM | | + + + + + + | Narrative | Performed At | + + + | VEE RAMIREZ 1990 25 years XR CHEST 2 VIEW FRONTAL AND | | | LATERAL 09/18/2015 10:02 PM INDICATION: Shortness of breath. | | | TECHNIQUE: Frontal, lateral views. COMPARISON: None. FINDINGS: | | | The lungs appear clear. Cardiomediastinal silhouette appears | | | unremarkable. Osseous structures appear unremarkable. No pleural | | | effusion seen. | | + + + + + | Procedure Note | + + | Mack Palma Conversion - 12/20/2018 5:32 PM SHINE RAMIREZ yearsXR | | CHEST 2 VIEW FRONTAL AND LATERAL09/18/2015 10:02 PM INDICATION: Shortness of breath. | | TECHNIQUE: Frontal, lateral views. COMPARISON: None. FINDINGS: The lungs appear clear. | | Cardiomediastinal silhouette appears unremarkable. Osseous structures appear | | unremarkable. No pleural effusion seen. IMPRESSION: 1. No acute cardiopulmonary process | | noted. | |INDICATION: Shortness of breath. | | | |TECHNIQUE: Frontal, lateral views. | | | |COMPARISON: None. | | | |FINDINGS: The lungs appear clear. Cardiomediastinal silhouette appears unremarkable. Minerva us structures appear unremarkable. No pleural effusion seen. | | | |IMPRESSION: | |1. No acute cardiopulmonary process noted. | | | | | + + HISTORICAL LAB PANEL RESULT (09/18/2015 9:30 PM PDT) + + + + + + | Component | Value | Ref Range | Performed | Pathologist | | | | | At | Signature | + + + + + + | WBC | 11.64 (H)Comment: | 3.80 - 11.00 | EXTERNAL | | | | Testing performed at | K/uL | LAB | | | | [facility], [address], | | | | | | [place] [address] | | | | + + + + + + | RED CELL | 4.40Comment: Testing | 3.70 - 5.10 | EXTERNAL | | | COUNT | performed at [facility], [address] | M/uL | LAB | | | | [address] [place], | | | | | | [place] [address] | | | | + + + + + + | Hgb | 13.3Comment: Testing | 11.3 - 15.5 | EXTERNAL | | | | performed at [facility], [address] | g/dL | LAB | | | | [address] [place], | | | | | | [place] [address] | | | | + + + + + + | Hematocrit, | 40.0Comment: Testing | 34.0 - 46.0 % | EXTERNAL | | | POC | performed at [facility], [address] | | LAB | | | | [address] [place], | | | | | | [place] [address] | | | | + + + + + + | MCV | 90.9Comment: Testing | 80.0 - 100.0 fl | EXTERNAL | | | | performed at [facility], [address] | | LAB | | | | [address] [place], | | | | | | [place] [address] | | | | + + + + + + | MCH | 30.2Comment: Testing | 27.0 - 34.0 pg | EXTERNAL | | | | performed at [facility], [address] | | LAB | | | | [address] [place], | | | | | | [place] [address] | | | | + + + + + + | MCHC | 33.2Comment: Testing | 32.0 - 35.5 | EXTERNAL | | | | performed at [facility], [address] | g/dL | LAB | | | | [address] [place], | | | | | | [place] [address] | | | | + + + + + + | RDW-CV | 41.1Comment: Testing | 37 - 53 fl | EXTERNAL | | | | performed at [facility], [address] | | LAB | | | | [address] [place], | | | | | | [place] [address] | | | | + + + + + + | Platelet | 275Comment: Testing | 150 - 400 K/uL | EXTERNAL | | | Count | performed at [facility], [address] | | LAB | | | Plasma | [address] [place], | | | | | | [place] [address] | | | | + + + + + + | MPV | 8.9Comment: Testing | fl | EXTERNAL | | | | performed at [facility], [address] | | LAB | | | | [address] [place], | | | | | | [place] [address] | | | | + + + + + + | Differentia | AUTOMATEDComment: | | EXTERNAL | | | l Type | Testing performed at | | LAB | | | | [facility], [address], | | | | | | [place] [address] | | | | + + + + + + | % Segmented | 52.76Comment: Testing | % | EXTERNAL | | | | performed at [facility], [address] | | LAB | | | Neutrophils | [address] [place], | | | | | | [place] [address] | | | | + + + + + + | % | 33.42Comment: Testing | % | EXTERNAL | | | Lymphocytes | performed at [facility], [address] | | LAB | | | | [address] [place], | | | | | | [place] [address] | | | | + + + + + + | % Monocytes | 10.92Comment: Testing | % | EXTERNAL | | | | performed at [facility], [address] | | LAB | | | | [address] [place], | | | | | | [place] [address] | | | | + + + + + + | % | 2.09Comment: Testing | % | EXTERNAL | | | Eosinophils | performed at [facility], [address] | | LAB | | | | [address] [place], | | | | | | [place] [address] | | | | + + + + + + | % Basophils | 0.81Comment: Testing | % | EXTERNAL | | | | performed at [facility], [address] | | LAB | | | | [address] [place], | | | | | | [place] [address] | | | | + + + + + + | Absolute | 6.14Comment: Testing | 1.90 - 7.40 | EXTERNAL | | | Segmented | performed at [facility], [address] | K/uL | LAB | | | Neutrophils | [address] [place], | | | | | | [place] [address] | | | | + + + + + + | Absolute | 3.89Comment: Testing | 1.00 - 3.90 | EXTERNAL | | | Lymphocytes | performed at [facility], [address] | K/uL | LAB | | | | [address] [place], | | | | | | [place] [address] | | | | + + + + + + | Absolute | 1.27 (H)Comment: Testing | 0.00 - 0.80 | EXTERNAL | | | Monocytes | performed at [facility], [address] | K/uL | LAB | | | | [address] [place], | | | | | | [place] [address] | | | | + + + + + + | Absolute | 0.24Comment: Testing | 0.00 - 0.50 | EXTERNAL | | | Eosinophils | performed at [facility], [address] | K/uL | LAB | | | | [address] [place], | | | | | | [place] [address] | | | | + + + + + + | Absolute | 0.10Comment: Testing | 0.00 - 0.10 | EXTERNAL | | | Basophils | performed at [facility], [address] | K/uL | LAB | | | | [address] [place], | | | | | | [place] [address] | | | | + + + + + + | Na | 142Comment: Testing | 135 - 143 | EXTERNAL | | | | performed at [facility], [address] | mmol/L | LAB | | | | [address] [place], | | | | | | [place] [address] | | | | + + + + + + | K | 3.2 (L)Comment: Testing | 3.5 - 4.9 | EXTERNAL | | | | performed at [facility], [address] | mmol/L | LAB | | | | [address] [place], | | | | | | [place] [address] | | | | + + + + + + | Cl | 107Comment: Testing | 99 - 109 mmol/L | EXTERNAL | | | | performed at [facility], [address] | | LAB | | | | [address] [place], | | | | | | [place] [address] | | | | + + + + + + | CO2 | 27Comment: Testing | 23 - 32 mmol/L | EXTERNAL | | | | performed at [facility], [address] | | LAB | | | | [address] [place], | | | | | | [place] [address] | | | | + + + + + + | Anion Gap | 11Comment: Testing | 5 - 20 mmol/L | EXTERNAL | | | | performed at [facility], [address] | | LAB | | | | [address] [place], | | | | | | [place] [address] | | | | + + + + + + | Glucose, | 90Comment: Testing | 65 - 99 mg/dL | EXTERNAL | | | Fasting | performed at [facility], [address] | | LAB | | | | [address] [place], | | | | | | [place] [address] | | | | + + + + + + | BUN | 6 (L)Comment: Testing | 8 - 25 mg/dL | EXTERNAL | | | | performed at [facility], [address] | | LAB | | | | [address] [place], | | | | | | [place] [address] | | | | + + + + + + | Creatinine | 0.7Comment: Testing | 0.50 - 1.00 | EXTERNAL | | | | performed at [facility], [address] | mg/dL | LAB | | | | [address] [place], | | | | | | [place] [address] | | | | + + + + + + | BUN/Creatin | 9Comment: Testing | | EXTERNAL | | | ine Ratio | performed at [facility], [address] | | LAB | | | | [address] [place], | | | | | | [place] [address] | | | | + + + + + + | Calcium | 8.0 (L)Comment: Testing | 8.5 - 10.5 | EXTERNAL | | | | performed at [facility], [address] | mg/dL | LAB | | | | [address] [place], | | | | | | [place] [address] | | | | + + + + + + | Protein, | 7.0Comment: Testing | 6.3 - 8.2 g/dL | EXTERNAL | | | Total | performed at [facility], [address] | | LAB | | | | [address] [place], | | | | | | [place] [address] | | | | + + + + + + | Albumin | 3.3 (L)Comment: Testing | 3.6 - 5.0 g/dL | EXTERNAL | | | | performed at [facility], [address] | | LAB | | | | [address] [place], | | | | | | [place] [address] | | | | + + + + + + | Globulin | 3.7Comment: Testing | 1.3 - 4.9 g/dL | EXTERNAL | | | | performed at [facility], [address] | | LAB | | | | [address] [place], | | | | | | [place] [address] | | | | + + + + + + | A/G Ratio | 0.9 (L)Comment: Testing | 1.0 - 2.4 | EXTERNAL | | | | performed at [facility], [address] | | LAB | | | | [address] [place], | | | | | | [place] [address] | | | | + + + + + + | Bilirubin | 0.2Comment: Testing | 0.1 - 1.5 mg/dL | EXTERNAL | | | Total | performed at [facility], [address] | | LAB | | | | [address] [place], | | | | | | [place] [address] | | | | + + + + + + | ALP, | 49Comment: Testing | 35 - 115 U/L | EXTERNAL | | | External | performed at [facility], [address] | | LAB | | | | [address] [place], | | | | | | [place] [address] | | | | + + + + + + | AST | 18Comment: Testing | 10 - 45 U/L | EXTERNAL | | | | performed at [facility], [address] | | LAB | | | | [address] [place], | | | | | | [place] [address] | | | | + + + + + + | ALT | 29Comment: Testing | 10 - 65 U/L | EXTERNAL | | | | performed at [facility], [address] | | LAB | | | | [address] [place], | | | | | | [place] [address] | | | | + + + [...] | | | | | | at [facility], [address] | | | | | | [place], [place] | | | | | | [address] | | | | + + + + + + | CK, Total | 53Comment: Testing | 30 - 240 U/L | EXTERNAL | | | | performed at [facility], [address] | | LAB | | | | [address] [place], | | | | | | [place] [address] | | | | + + + [...] | | | | | performed at [facility], [address] | | | | | | [address] [place], | | | | | | [place] [address] | | | | + + + + + + | aPTT, | 29Comment: Testing | 23 - 32 seconds | EXTERNAL | | | Patient | performed at [facility], [address] | | LAB | | | | [address] [place], | | | | | | [place] [address] | | | | + + + + + + | CK-MB | <0.5 (L)Comment: Testing | 0.5 - 3.6 ng/mL | EXTERNAL | | | | performed at [facility], [address] | | LAB | | | | [address] [place], | | | | | | [place] [address] | | | | + + + + + + | CK-MB Index | UNABLE TO | | EXTERNAL | | | | CALCULATEComment: | | LAB | | | | Testing performed at | | | | | | [facility], [address], | | | | | | [place] [address] | | | | + + + + + + + + | Specimen | + + | | + + + +---------+ + + | Performing | Address | City/State/Zipcode | Phone Number | | Organization | | | | + +---------+ + + | EXTERNAL LAB | | | | + +---------+ + + Troponin I (09/18/2015 9:30 PM PDT) + + + + + + | Component | Value | Ref Range | Performed | Pathologist | | | | | At | Signature | + + + + + + | Troponin I, | <0.04Comment: 0.00 to | 0.00 - 0.10 | EXTERNAL | | | Qual | 0.10 CONSISTENT WITH | ng/mL | LAB | | | | NORMAL POPULATION0.11 to | | | | | | 0.60 CONSISTENT WITH | | | | | | INCREASED RISK FOR | | | | | | ADVERSE OUTCOMES> 0.60 | | | | | | CONSISTENT | | | | | | WITH WHO CRITERIA FOR | | | | | | ACUTE CT Testing | | | | | | performed at [facility], [address] [place], | | | | | | [place] [address] | | | | + + + + + + + + | Specimen | + + | Blood specimen | | (specimen) | + + + +---------+ + + | Performing | Address | City/State/Zipcode | Phone Number | | Organization | | | | + +---------+ + + | EXTERNAL LAB | | | | + +---------+ + + D-Dimer (09/18/2015 9:30 PM PDT) + + + + + + | Component | Value | Ref Range | Performed | Pathologist | | | | | At | Signature | + + + + + + | D-DIMER, | 0.59 (H)Comment: D Dimer | 0.19 - 0.50 [...] | | | | | performed at [facility], [address] | | | | | | [address] [place], | | | | | | [place] [address] | | | | + + + [...] + | Diagnosis | + + | Pneumonia of right middle lobe due to infectious organism (HCC) | + + documented in this encounter
--- OUTSIDE RECORDS SUMMARY | ~2019-03-30 | XMS | Encounter Summary ---
Demographics + + + | Address | [address] | | | [place] [address] | + + + | Home Phone | | + + + | Preferred Language | Unknown | + + + | Marital Status | Single | + + + | Adventism Affiliation | Unknown | + + + | Race | Unknown | + + + | Ethnic Group | Unknown | + + + Author + + + | Author | [facility] | | | and [place] | + + + | Organization | [facility] | | | and [place] | + + + | Address | Unknown | + + + | Phone | Unavailable | + + + Support + + + + + | Name | Relationship | Address | Phone | + + + + + | Gt Welch | ECON | [address] | | | | | [place] | | | | | [place] | | | | | [address] | | + + + + + Care Team Providers + +------+ + | Care Coupon Manifest Clerk Name | Role | Phone | + +------+ + | No, Physician | PCP | Unavailable | + +------+ + Encounter Details +--------+ + + + + | Date | Type | Department | Care Team | Description | +--------+ + + + + | 05/05/ | Orders Only | [facility] | Conversion | | | 2017 | | [address] | Transaction, | | | | | [address] [place] | Provider Unknown | | | | | [id number] | [phone] | | | | | [phone] | | | +--------+ + + + [...] + + | CREATININE | Routin | 05/05/2017 | | Results for this | | | e | 12:00 AM | | procedure are in the | | | | PST | | results section. | + +--------+ + + + documented in this encounter Results Creatinine (05/05/2017 12:00 AM PST) + +-------+ + + + | Component | Value | Ref Range | Performed | Pathologist | | | | | At | Signature | + +-------+ + + + | Creatinine | 0.71 | mg/dL | EXTERNAL | | | [...]
--- OUTSIDE RECORDS SUMMARY | ~2019-03-30 | XMS | Encounter Summary ---
Demographics + + + | Address | [address] | | | [place] [address] | + + + | Home Phone | | + + + | Preferred Language | Unknown | + + + | Marital Status | Single | + + + | Temple Affiliation | Unknown | + + + | Race | Unknown | + + + | Ethnic Group | Unknown | + + + Author + + + | Author | [facility] | | | and [place] | + + + | Organization | [facility] | | | and [place] | + + + | Address | Unknown | + + + | Phone | Unavailable | + + + Support + + + + + | Name | Relationship | Address | Phone | + + + + + | Gtjuliann [place] | ECON | [address] [facility] | | | | | [place] | | | | | [place] | | | | | [address] | | + + + + + Care Team Providers + +------+ + | Care Fishing Lure Assembler Name | Role | Phone | + +------+ + PCP | Unavailable | + +------+ + Encounter Details +--------+ + + + + | Date | Type | Department | Care Team | Description | +--------+ + + + + | 01/08/ | Emergency | [facility] | Ksehav Blanchard | Right ankle sprain | | 2011 | | [facility] | [place] [address] | | | | | [facility] | [address] | | | | | [address] | [place] [address] | | | | | [place], [place] | [phone] | | | | | [address] | | | | | | [phone] | | | +--------+ + + + [...]
--- OUTSIDE RECORDS SUMMARY | ~2019-03-30 | XMS | Encounter Summary ---
Demographics + + + | Address | [address] | | | [place] [address] | + + + | Home Phone | | + + + | Preferred Language | Unknown | + + + | Marital Status | Single | + + + | Worship Affiliation | Unknown | + + + | Race | Unknown | + + + | Ethnic Group | Unknown | + + + Author + + + | Author | [facility] | | | and [place] | + + + | Organization | [facility] | | | and [place] | + + + | Address | Unknown | + + + | Phone | Unavailable | + + + Support + + + + + | Name | Relationship | Address | Phone | + + + + + | Gt Welch | ECON | [address] [facility] | | | | | [place] | | | | | [place] | | | | | [address] | | + + + + + Care Team Providers + +------+ + | Care Music Artist Name | Role | Phone | + [...] | | | | EMERGENCY CENTER | [place] [address] | | | | | [address] | [phone] | | | | | [place], [place] | | | | | | [address] | | | | | | [phone] | | | +--------+ + + + [...]
--- OUTSIDE RECORDS SUMMARY | ~2019-03-30 | XMS | Encounter Summary ---
Demographics + + + | Address | [address] | | | [place] [address] | + + + | Home Phone | | + + + | Preferred Language | Unknown | + + + | Marital Status | Single | + + + | Confucianism Affiliation | Unknown | + + + | Race | Unknown | + + + | Ethnic Group | Unknown | + + + Author + + + | Author | [facility] | | | and [place] | + + + | Organization | [facility] | | | and [place] | + + + | Address | Unknown | + + + | Phone | Unavailable | + + + Support + + + + + | Name | Relationship | Address | Phone | + + + + + | Gt Welch | ECON | [address] [facility] | | | | | [place] | | | | | [place] | | | | | [address] | | + + + + + Care Team Providers + +------+ + | Care Bevel Gear Generator Operator Name | Role | Phone | [...] Mallika) | | | | [place] | [place] | | | | | [address] | [address] | | | | | [phone] | | | +--------+ + + + [...]
--- OUTSIDE RECORDS SUMMARY | ~2019-03-30 | XMS | Encounter Summary ---
Demographics + + + | Address | [address] | | | [place] [address] | + + + | Home Phone | | + + + | Preferred Language | Unknown | + + + | Marital Status | Single | + + + | Church Affiliation | Unknown | + + + | Race | Unknown | + + + | Ethnic Group | Unknown | + + + Author + + + | Author | [facility] | | | and [place] | + + + | Organization | [facility] | | | and [place] | + + + | Address | Unknown | + + + | Phone | Unavailable | + + + Support + + + + + | Name | Relationship | Address | Phone | + + + + + | Gt Welch | ECON | [address] [facility] | | | | | [place] | | | | | [place] | | | | | [address] | | + + + + + Care Team Providers + +------+ + | Care Mysql Database Administrator Name | Role | Phone | + [...] + + | 04/30/ | Hospital | [facility] | Kilo Gallo, | | | 2017 - | Encounter | [facility] | [address] | | | | | [address] | [address] [place], [place] | | | 05/02/ | | [place], [place] | [address] | | | 2017 | | [address] | | | | | | [phone] | | | +--------+ + + + [...] Stiles MD - 05/02/2017 8:53 AM PST [facility] UROLOGY DISCHARGE SUMMARY Patient Name: [place]ia Bain [...] Hospital Course: The patient was admitted to [facility] by Dr. Gallo for an infected ureteral ston e. She had been seen at [facility] but the urologist marketing operations analyst their felt she was too complex to be admitted there. She was treated with IV antibiotics and [facility] operating room for ureteral stent placement. She [...] closer to her h ome, likely in [place]. She is aware she still has a [...] urologist closer to her home, likely in [place]. She s hould have follow-up in the next 1-2 weeks. If there are any urological concerns or questions Please call [facility] at [phone]. Electronically Signed by: Juliet Darnell MD, 05/02/2017 8:53 [facility] Jones thapa in this encounter Discharge Instructions Instructions Juliet Darnell MD - 05/02/2017 [place] [facility] DISCHARGE INSTRUCTIONS FOLLOWING YOUR PROCEDURE FOR [...] issues with gastric ulcers CONTACT INFORMATION: - [facility] Office Number: [facility] Office [place] [facility] FOLLOWUP INFORMATION: - will see you back postoperatively in 5-10 days or you can work to schedule with a urologist in [place] with a Xray prior, please call to [...] given. Hardcopy prescriptions given. Pt still at [facility] at this time awaiting ride.( I have been given an Low census). 2: 59 PM Juliet Stiles MD - 05/02/2017 8:35 AM PSTFormatting of this note might be differ ent from the original. [facility] Day: 3 DATE/TIME: 05/02/2017 8:35 IMPRESSION POD #2 s/p Right ureteral stent by DR. Gallo for infected stone PLAN 1. D/c to home. Patient wants to do f/u in [place] which is closer to home. Will ne [...] Medications and labs were personally reviewed by ny. Electronically Signed by: Juliet Darnell MD, 05/02/2017 8:35 [facility] Juliet Stiles MD - 1 07/02/2016 11:26 AM PST [facility] Day: 2 DATE/TIME: 05/01/2017 11:26 IMPRESSION POD [...] tomorrow. Patient wants to do f/u in [place] which is closer to h ome. I expect this patient will be [...] to open eyes" -hasn't been oob to [facility] -urine culture no growth to date. Per [...] Juliet Darnell MD, 05/01/2017 11:26 [facility] awanna Choi R N - 04/30/2017 11:43 [...] 12.4 | 11.0 - 15.0 % | [facility] | | | | | | [facility] | | | | | [facility] | | | | | | LABORATORY | | + + + + + + | Platelet | 224 | 150 - 400 K/uL | [facility] | | | Count | | | [facility] | | [...] + | [facility] | [address] | [place] [address] | | | [facility] | | [...] | | | Source | | | [facility] | | | | | | HOSPITAL | | | | | | LABORATORY | | + + + + + + | RESULT | No growth or <1,000 | | [facility] | | | | CFU/mL | | [facility] | | | | | | [facility]OSP[facility] | | | | | | LABORATORY | | + + + + + + | RESULT | Performed at [facility] | | [facility] | | | | [facility], | | [facility] | | | | [address], [place], [place] | | HOSPITAL | | | | [address] | | LABORATORY | | + + + + + + | Status | 05/02/2017 Final | | [facility] | | | | | | [facility] | | [...] + + + + + | [facility] | [address] | [place] [address] | | | [facility] | | [...] | | | | CFU/mL | | [facility] | | | | | | HOSPITAL | | | | | | LABORATORY | | + + + + + + | RESULT | Performed at [facility] | | [facility] | | | | [facility], | | [facility] | | | | [address], [place], [place] | | HOSPITAL | | | | [address] | | LABORATORY | | + + + + + + | Status | 05/02/2017 Final | | [facility] | | | | | | [facility] | | | | | | [...] + | [facility] | [address] [facility] | [place] [address] | | | [facility] | | | | | LABORATORY | | | | + + + + + FL Pyelogram Retrograde (04/30/2017 10:10 AM PST) + + | Specimen | [...] + | Louie, Rad Results In - 04/30/2017 10:16 AM PST | [...] + + + | [facility] | [address] | [place] [address] | | | [facility] | | [...] + + + | [facility] | [address] | [place] [address] | | | [facility] | | | | | LABORATORY [...] | acetaminophen (TYLENOL) tablet | Given | 04/30/20 | 650 mg | | | | 650 mg 650 mg, Oral, EVERY 6 | | 17 1:42 | | | | | HOURS (4 times per day), First | | PM PST | | | | | dose on 04/30/17 at 1400, For | | | | | | | 24 hours, q6hr x 24hr then prn, | | | | | | + +--------+ +--------+------+------+ + +---+ | | | + +---+ | acetaminophen (TYLENOL) tablet | [...] + +--------+---+---+ +---+---+ | | | +---+---+ + + + +--------+---+---+ | ciprofloxacin (CIPRO) tablet | Given by | 05/01/20 | 500 mg | | | | 500 mg 500 mg, Oral, 2 TIMES | Other | 17 9:36 | | | | | DAILY, First dose on 04/30/17 | | AM PST | | | | | at 1430, Give 2 hours before or | | | | | | | 6 hours after antacids, dairy, | | | | | | | calcium, iron, or zinc., | | | | | | | Indications: UTI - LOWER | | | | | | + + + +--------+---+---+ +-------+ +--------+---+---+ | Given | 04/30/20 | 500 mg | | | | | 17 10:08 | | | | | | PM PST | | | | +-------+ +--------+---+---+ + +---+ | | | + +---+ | docusate sodium (COLACE) 50 | | | mg/5 mL liquid 100 mg 100 mg, | | | Oral, 2 TIMES DAILY PRN, | | | Constipation, Starting Sun | | | 04/30/17 at 1333 | | + +---+ | | | + +---+ + +-------+ +-------+---+---+ | famotidine (PEPCID) injection | Given | 04/30/20 | 20 mg | | | | 20 mg 20 mg, Intravenous, 2 | | 17 8:38 | | | | | TIMES DAILY, First dose on Sun | | AM PST | | | | | 04/30/17 at 0900, Prior to | | | | | | | administration, prepare a 20 mg | | | | | | | dose by diluting 2 mL of | | | | | | | famotidine 10 mg/mL to 10 mL with | | | | | | | normal saline., Pre-op | | | | | | + +-------+ +-------+---+---+ +---+---+ | | | +---+---+ + +---------+ +-------+---+---+ | HYDROmorphone in saline | New Bag | 04/30/20 | 30 mg | | | | (DILAUDID) 1 mg/mL ENGINEERING GROUP LEADER | | 17 6:46 | | | | | Intravenous, CONTINUOUS, Starting | | AM PST | | | | | 04/30/17 at 0630, for | | | | | | | adult patients LESS than 65 years | | | | | | | old and NO risk of sleep | | | | | | | apnea, Pre-op, Loading | | | | | | | Dose(mg): 0, Starting ENGINEERING GROUP LEADER | | | | | | | Dose(mg): 0.2, Incremental | | | | | | | Increase ENGINEERING GROUP LEADER Dose(mg): 0.1, | | | | | | | Maximum ENGINEERING GROUP LEADER Dose(mg): 0.4, | | | | | | | Lockout Interval(min): 10, One | | | | | | | Hour Limit(mg): 3 | | | | | | + +---------+ +-------+---+---+ +---+---+ | | | +---+---+ + +-------+ +-------+---+---+ | ketorolac (TORADOL) injection | Given | 05/01/20 | 30 mg | | | | 30 mg 30 mg, Intravenous, EVERY | | 17 5:47 | | | | | 6 HOURS (4 times per day), First | | AM PST | | | | | dose on 04/30/17 at 1400, For | | | | | | | 24 hours, q 6 hr x 24hr then | | | | | | | prn, | | | | | | + +-------+ +-------+---+---+ +-------+ +-------+---+---+ | Given | 04/30/20 | 30 mg | | | | | 17 11:39 | | | | | | PM PST | | | | +-------+ +-------+---+---+ | Given | 04/30/20 | 30 mg | | | | | 17 5:11 | | | | | | PM [...] +-------+---+---+ +---+---+ | | | +---+---+ + + [...] + +---+---+ | oxyCODONE-acetaminophen | Given | 12/24/20 | 1 tablet | | | | (PERCOCET) 5-325 mg per tablet 1 | | 17 1:11 | | | | | tablet 1 tablet, Oral, EVERY 6 | | PM PST | | | | | HOURS PRN, Cough, Starting Sun | | | | | | | 04/30/17 at 1017 | | | | | | + +-------+ + +---+---+ +---+---+ | | | +---+---+ + +-------+ + +---+---+ | oxyCODONE-acetaminophen | Given | 04/30/20 | 1 tablet | | | | (PERCOCET) 5-325 mg per tablet | | 17 1:42 | | | | | 1-2 tablet 1-2 tablet, Oral, | | PM PST | | | | | EVERY 4 HOURS PRN, Cough, | | | | | | | Starting 04/30/17 at 1330 | | | | | | + [...]
--- OUTSIDE RECORDS SUMMARY | ~2019-03-30 | XMS | Encounter Summary ---
Demographics + + + | Address | [address] | | | [place] [address] | + + + | Home Phone | | + + + | Preferred Language | Unknown | + + + | Marital Status | Single | + + + | Rastafari Affiliation | Unknown | + + + | Race | Unknown | + + + | Ethnic Group | Unknown | + + + Author + + + | Author | [facility] | | | and [place] | + + + | Organization | [facility] | | | and [place] [...] [place] | | | | | [address] | | + + + + + Care Team Providers + +------+ + | Care Nanotechnician Name | Role | Phone | + [...] | | | | | | | ID | | | | | | | CYSTO/URETER | | | | | | | O/PYELOSCOPY | | | | | | | , CALCULUS | | | | | | | TX ID | | | | | | | [...] +--------+---------+ + + + | 05/11/ | Surgery | [facility] | Gold Florentino, | Cystoscopy, Right | | 2018 | | MED CTR OR INTRA OP | [address] | Ureteroscopy, | | | | [address] | [place], [place] | Retrograde | | | | [place], [place] | [address] | Pyelogram, Right | | | | [address] | | Ureteral Stent | | | | [phone] | | Removal | +--------+---------+ + + + Social History [...] time. Follow up: Call Dr Florentino's office ([phone]) to set up your follow-up appointment or [...] glucose < 50, | | | Starting [facility] 05/11/17 at 1733, | | | Repeat [...] PRN, Pain, pain, | | | Starting [facility] 05/11/17 at 1733, Max | | | [...] +---+---+ | | | +---+---+ + +-------+ +--------+---+ + | iohexol (OMNIPAQUE 350) 350 | Given | 05/11/19 | 30 mLs | | Surgical | | mg/mL injection PRN, Starting | | 18 6:23 | | | Site | | [facility] 05/11/17 at 1823, Intra-op | | PM PST | | | | + +-------+ [...]
--- OUTSIDE RECORDS SUMMARY | ~2019-03-30 | XMS | Encounter Summary ---
Demographics + + + | Address | [address] | | | [place] [address] | + + + | Home Phone | | + + + | Preferred Language | Unknown | + + + | Marital Status | Single | + + + | Congregational Affiliation | Unknown | + + + | Race | Unknown | + + + | Ethnic Group | Unknown | + + + Author + + + | Author | [facility] | | | and [place] | + + + | Organization | [facility] | | | and [place] | + + + | Address | Unknown | + + + | Phone | Unavailable | + + + Support + + + + + | Name | Relationship | Address | Phone | + + + + + | Gt Welch | ECON | [address] [facility] | | | | | [place] | | | | | [place] | | | | | [address] | | + + + + + Care Team Providers + +------+ + | Care Clinical Project Leader Name | Role | Phone | + +------+ + | No, Physician | PCP | Unavailable | + +------+ + Encounter Details +--------+ + + + + | Date | Type | Department | Care Team | Description | +--------+ + + + + | 05/05/ | Orders Only | [facility] | Conversion | | | 2017 | | [address] | Transaction, | | | | | [address] | Provider Unknown | | | | | [address] | [phone] | | | | | [phone] | | | +--------+ + + + [...]
--- OUTSIDE RECORDS SUMMARY | ~2019-03-30 | XMS | Encounter Summary ---
Demographics + + + | Address | [address] | | | [place] [address] | + + + | Home Phone | | + + + | Preferred Language | Unknown | + + + | Marital Status | Single | + + + | Hoahaoism Affiliation | Unknown | + + + | Race | Unknown | + + + | Ethnic Group | Unknown | + + + Author + + + | Author | [facility] | | | and [place] | + + + | Organization | [facility] | | | and [place] | + + + | Address | Unknown | + + + | Phone | Unavailable | + + + Support + + + + + | Name | Relationship | Address | Phone | + + + + + | Gt Welch | ECON | [address] [facility] | | | | | [place] | | | | | [place] | | | | | [address] | | + + + + + Care Team Providers + +------+ + | Care Fur Pointer Name | Role | Phone | + +------+ + PCP | Unavailable | + +------+ + Encounter Details +--------+ + + + + | Date | Type | Department | Care Team | Description | +--------+ + + + + | 08/21/ | Emergency | [facility] | More Moore | [place] [facility] [place] | | 2009 | | MEDICAL CENTER | MD Gabriel [address] | | | | | EMERGENCY CENTER | [address] [place], [place] | | | | | [address] [facility] | [address] | | | | | [place], [place] | [phone] | | | | | [address] | | | | | | [phone] | | | +--------+ + + + [...] +--------+ + + + | US OB LIMITED 1 OR | Routin | 08/21/2009 | | Results for this | | MORE FETUS | e | 10:15 PM | | procedure are in the | | | | PDT | | results section. | + +--------+ + + + documented in this encounter Results US OB Limited 1 or More Fetus (08/21/2009 10:15 PM PDT) + + | Specimen | + + | | + + + + + | Narrative | Performed At | + + + | [id number] | | | [facility] [address] | | | , RADIOLOGY | | | Patient Name: VEE RAMIREZ Date of : 1990 | | | Medical Record: [id number] Account: [id number] EMR/ED [id number]/ | | | Exam Date/Time: 08/21/2009 09:26 P Ordering | | | Provider: MORE MOORE Order Detail: [id number] / / [facility] Exam | | | Description: US OBSTETRICAL LIMITED | | | | | | LIMITED OBSTETRICAL SONOGRAM 08/21/2009 HISTORY A 19-year-old | | | female with pelvic pain and spotting for the last 2 days. | | | FINDINGS A pelvic sonogram via transabdominal and transvaginal | | | route using 4-MHz and 8-MHz transducers confirms an early | | | intrauterine with a crown-rump length measuring 2.6 mm | | | consistent with an estimated gestational age of 5 weeks 6 days. | | | Cardiac activity is seen at 122 beats per minute. A yolk sac is | | | visualized. There is an adjacent subchorionic hemorrhage measuring | | | 1.55 x 0.64 x 1.87 cm. Mean sac dimension is 1.3 cm, EGA 5 weeks 5 | | | days. Composite EGA by ultrasound 5 weeks 6 days is consistent with | | | an estimated date of confinement of 04/17/2010. The uterus = 9.3 x | | | 4.8 x 6.6 cm. No masses, no free fluid in the cul-de-sac. The right | | | ovary is sonographically normal. Right ovary 3.3 x 1.7 x 3.0 cm. Left | | | ovary has a 1.7 cm corpus luteum cyst. Overall, the left ovary = 4.5 | | | x 2.3 x 2.8 cm. IMPRESSION 1. Single intrauterine live | | | at approximately 5 weeks 6 days estimated gestational age. 2. A | | | moderate-sized subchorionic hemorrhage. Read by MAISHA Angela | | | MD ELIZABETH 08/21/2009 10:19 P Electronically Signed by MAISHA Angela | | | MD ELIZABETH 08/23/2009 06:06 P P DT: | | | 08/23/2009 11:06 A [id number]/ cc: MAISHA JOHNSON MD | | | PHYSICIAN ED MD DANIELA MILLER, | | | CNM | | + + + + + | Procedure Note | + + | Louie, Rad Conversion - 12/30/2018 6:19 PM PDT | | [id number] | | [facility] | | [facility] [address] | | , | | RADIOLOGY | | | | Patient Name: VEE RAMIREZ | | Date of : 1990 | | Medical Record: [id number] | | Account: [id number] | | EMR/ED T1221/ | | | | | | Exam Date/Time: 08/21/2009 09:26 P | | Ordering Provider: MORE MOORE | | Order Detail: [id number] / / [facility] | | Exam Description: US OBSTETRICAL LIMITED | | | | LIMITED OBSTETRICAL SONOGRAM 08/21/2009 | | | | HISTORY | | A 19-year-old female with pelvic pain and spotting for the last | | 2 days. | | | | FINDINGS | | A pelvic sonogram via transabdominal and transvaginal route using 4-MHz | | and 8-MHz transducers confirms an early intrauterine with a | | crown-rump length measuring 2.6 mm consistent with an estimated | | gestational age of 5 weeks 6 days. Cardiac activity is seen at 122 beats | | per minute. A yolk sac is visualized. There is an adjacent subchorionic | | hemorrhage measuring 1.55 x 0.64 x 1.87 cm. Mean sac dimension is | | 1.3 cm, EGA 5 weeks 5 days. Composite EGA by ultrasound 5 weeks 6 days | | is consistent with an estimated date of confinement of 04/17/2010. The | | uterus = 9.3 x 4.8 x 6.6 cm. No masses, no free fluid in the cul-de-sac. | | The right ovary is sonographically normal. Right ovary 3.3 x 1.7 x 3.0 | | cm. Left ovary has a 1.7 cm corpus luteum cyst. Overall, the left ovary | | = 4.5 x 2.3 x 2.8 cm. | | | | IMPRESSION | | 1. Single intrauterine live at approximately 5 weeks 6 days | | estimated gestational age. | | 2. A moderate-sized subchorionic hemorrhage. | | | | | | | | Read by | | MAISHA JOHNSON MD 08/21/2009 10:19 P | | Electronically Signed by | | MAISHA JOHNSON MD 08/23/2009 06:06 P | | | | P | | A | | LETHA/[id number]/ | | cc: MAISHA JOHNSON MD | | PHYSICIAN ED | | MORE MOORE MD | | DANIELA ANGEL CNM | + + documented in this encounter Visit Diagnoses + + | Diagnosis | + + | Cramp in limb Cramp of limb | + + documented in this encounter"
--- OUTSIDE RECORDS SUMMARY | ~2019-03-30 | XMS | Encounter Summary ---
Demographics + + + | Address | [address] | | | [place] [address] | + + + | Home Phone | | + + + | Preferred Language | Unknown | + + + | Marital Status | Single | + + + | Latter Day Affiliation | Unknown | + + + | Race | Unknown | + + + | Ethnic Group | Unknown | + + + Author + + + | Author | [facility] | | | and [place] | + + + | Organization | [facility] | | | and [place] | + + + | Address | Unknown | + + + | Phone | Unavailable | + + + Support + + + + + | Name | Relationship | Address | Phone | + + + + + | Gt Welch | ECON | [address] [facility] | | | | | [place] | | | | | [place] | | | | | [address] | | + + + + + Care Team Providers + +------+ + | Care Traveling Auditor Name | Role | Phone | + +------+ + | Bro Mora MD | PCP | | + +------+ + Encounter Details +--------+ + + + + | Date | Type | Department | Care Team | Description | +--------+ + + + + | 11/06/ | Emergency | [facility] | Ariane Almanza, | Plantar fasciitis | | 2016 - | | MEDICAL CENTER | MD Mahi Alexandra | | | | | EMERGENCY RAUL | [place] [address] | | | 11/07/ | | [address] | [phone] | | | 2015 | | [place], [place] | | | | | | [address] | | | | | | [phone] | | | +--------+ + + + [...]
--- OUTSIDE RECORDS SUMMARY | ~2019-03-30 | XMS | Encounter Summary ---
Demographics + + + | Address | [address] | | | [place] [address] | + + + | Home Phone [...] + + + | Author | [facility] | | | and [place] | + + + | Organization | [facility] | | | and [place] | + + + | Address | Unknown | + + + | Phone | Unavailable | + + + Support + + + + + | Name | Relationship | Address | Phone | + + + + + | Gt Rebekah | ECON | [address] [facility] | | | | | [place] | | | | | [place] | | | | | [address] | | + + + + + Care Team Providers + +------+ + | Care Low Pressure Kettle Operator Name | Role | Phone | + +------+ + PCP | Unavailable | + +------+ + Encounter Details +--------+ + + + + | Date | Type | Department | Care Team | Description | +--------+ + + + + | 10/31/ | Emergency | [facility] | Caleb Bowling | Abdominal Pain, | | 2008 | | MEDICAL CENTER | MD Gabriel [address] | Unspecified Site | | | | EMERGENCY CENTER | [address] [place], [place] | | | | | [address] | [address] | | | | | [place], [place] | [phone] | | | | | [address] | | | | | | [phone] | | | +--------+ + + + [...]
--- OUTSIDE RECORDS SUMMARY | ~2019-03-30 | XMS | Encounter Summary ---
Demographics + + + | Address | [address] | | | [place] [address] | + + + | Home Phone | | + + + | Preferred Language | Unknown | + + + | Marital Status | Single | + + + | Voodoo Affiliation | Unknown | + + + | Race | Unknown | + + + | Ethnic Group | Unknown | + + + Author + + + | Author | [facility] | | | and [place] | + + + | Organization | [facility] | | | and [place] | + + + | Address | Unknown | + + + | Phone | Unavailable | + + + Support + + + + + | Name | Relationship | Address | Phone | + + + + + | Gtjuliann Welch | ECON | [address] | | | | | [place] | | | | | [place] | | | | | [address] | | + + + + + Care Team Providers + +------+ + | Care Needle Punch Operator Name | Role | Phone | + +------+ + PCP | Unavailable | + +------+ + Encounter Details +--------+ + + + + | Date | Type | Department | Care Team | Description | +--------+ + + + + | 10/10/ | Emergency | [facility] | Sherry Ramirez, | Pelvic pain; | | 2011 | | MEDICAL CENTER | DO [address] | Left ovarian cyst; | | | | EMERGENCY CENTER | [place] [address] | Endometriosis | | | | [address] | [phone] | | | | | [place], [place] | | | | | | [address] | | | | | | [phone] | | | +--------+ + + + [...] + +--------+ + + + | CULTURE, GENITAL | STAT | 02/15/2012 | | Results for this | | | | 9:02 PM | | procedure are in the | | | | PDT | | results section. | + +--------+ + + + | WET MOUNT, GENITAL | STAT | 02/15/2012 | | Results for this | | | | 9:02 PM | | procedure are in the | | | | PDT | | results section. | + +--------+ + + + | US PELVIS W | Routin | 02/15/2012 | | Results for this | | TRANSVAGINAL | e | 8:42 PM | | procedure are in the | | | | PDT | | results section. | + +--------+ + + + documented in this encounter Results Culture, Genital (02/15/2012 9:02 PM PDT) + + | Specimen | + + | | + + + + + | Narrative | Performed At | + + + | Specimen Description VAGINAL SPECIMEN | EXTERNAL LAB | | Testing performed at | | | [facility];[address] [facility];[place] [address] CULTURE | | | 2+ NORMAL GENITAL ROCAEL | | | Testing performed at [facility], [address] [place] [address] | | | [place] [address] REPORT STATUS | | | 02/18/2012 FINAL | | + + + + +---------+ + + | Performing | Address | City/State/Zipcode | Phone Number | | Organization | | | | + +---------+ + + | EXTERNAL LAB | | | | + +---------+ + + Wet Mount, Genital (02/15/2012 9:02 PM PDT) + + | Specimen | + + | | + + + + + | Narrative | Performed At | + + + | Specimen Description VAGINAL SPECIMEN | EXTERNAL LAB | | Testing performed at | | | [address];[place] [address] Bacteria, Wet Prep | | | NO YEAST OR TRICHOMONAS SEEN | | | Testing performed at [address] | | | [facility];[place] [address] REPORT STATUS | | | 02/15/2012 FINAL | | + + + + +---------+ + + | Performing | Address | City/State/Zipcode | Phone Number | | Organization | | | | + +---------+ + + | EXTERNAL LAB | | | | + +---------+ + + US Pelvis W Transvaginal (02/15/2012 8:42 PM PDT) + + | Specimen | + + | | + + + + + | Narrative | Performed At | + + + | HISTORY: 22 years. Female. Generalized pelvic pain. History of | | | endometriosis. TECHNIQUE: Transabdominal and endovaginal pelvic | | | sonography. COMPARISON: Pelvic ultrasound August 21, 2009. | | | FINDINGS: Uterus measures 9.3 x 5.2 x 6.8 cm. Image for stripe | | | thickness is normal. Prominent peripheral uterine vessels are noted, | | | which can be seen in pelvic congestion syndrome. The right ovary | | | is normal measuring 38 x 17 x 36 mm. The left ovary measures 50 x | | | 34 x 41 mm. A hypoechoic solid appearing lesion involves the left | | | ovary, measuring 34 x 41 x 20 mm, demonstrating no significant color | | | flow. Ovarian blood flow was documented with color Doppler | | | analysis. IMPRESSION: 1. 41-mm hyperechoic relatively avascular | | | lesion of the left ovary, potentially an acute hemorrhagic cyst. | | | Follow-up pelvic ultrasound in 6 weeks is recommended to document | | | resolution. This is a new finding compared with the previous study in | | | 2009. 2. Prominence of the uterine vessels, could be normal | | | variant, or could be due to pelvic congestion syndrome. Please | | | clinically correlate. 3. Normal right ovary. Electronically | | | signed by Arturo Juárez MD on 02/15/2012 8:27 PM | | + + + + + | Procedure Note | + + | Mack Palma - 12/29/2018 7:20 AM PDT HISTORY:22 years. Female. Generalized | | pelvic pain. History of endometriosis. TECHNIQUE:Transabdominal and endovaginal pelvic | | sonography. COMPARISON:Pelvic ultrasound August 21, 2009. FINDINGS:Uterus measures 9.3 x | | 5.2 x 6.8 cm. Image for stripe thickness is normal. Prominent peripheral uterine vessels | | are noted, which can be seen in pelvic congestion syndrome. The right ovary is normal | | measuring 38 x 17 x 36 mm. The left ovary measures 50 x 34 x 41 mm. A hypoechoic solid | | appearing lesion involves the left ovary, measuring 34 x 41 x 20 mm, demonstrating no | | significant color flow. Ovarian blood flow was documented with color Doppler analysis. | | IMPRESSION:1. 41-mm hyperechoic relatively avascular lesion of the left ovary, | | potentially an acute hemorrhagic cyst. Follow-up pelvic ultrasound in 6 weeks is | | recommended to document resolution. This is a new finding compared with the previous | | study in 2009. 2. Prominence of the uterine vessels, could be normal variant, or could | | be due to pelvic congestion syndrome. Please clinically correlate. 3. Normal right | | ovary. | |The left ovary measures 50 x 34 x 41 mm. A hypoechoic solid appearing lesion involves the l eft ovary, measuring 34 x 41 x 20 mm, demonstrating no significant color flow. | | | |Ovarian blood flow was documented with color Doppler analysis. | | | |IMPRESSION: | |1. 41-mm hyperechoic relatively avascular lesion of the left ovary, potentially an acute h emorrhagic cyst. Follow-up pelvic ultrasound in 6 weeks is recommended to document resolutio n. This is a new finding compared with the previous study in 2009. | | | |2. Prominence of the uterine vessels, could be normal variant, or could be due to pelvic c ongestion syndrome. Please clinically correlate. | | | |3. Normal right ovary. | | | | | + + documented in this encounter Visit Diagnoses + + | Diagnosis | + + | Pelvic pain | + + | Left ovarian cyst Other and unspecified ovarian cyst | + + | Endometriosis Endometriosis, site unspecified | + + documented in this encounter"
--- OUTSIDE RECORDS SUMMARY | ~2019-03-30 | XMS | Clinical Summary ---
Demographics + + + | Address | [address] | | | [place] [address] | + + + | Home Phone [...] + | Organization | [facility] | | | and [place] | + + + | Address | Unknown | + + + | Phone | Unavailable | + + + Support + + + + + | Name | Relationship | Address | Phone | + + + + + | Gt Welch | ECON | [address] | | | | | [place] | | | | | [place] | | | | | [address] | | + + + + + Care Team Providers + +------+ + | Care Mechanical Systems Designer Name | Role | Phone | + +------+ + | No, Physician | PCP | Unavailable | + +------+ + Allergies + + + + + + | Active Allergy | Reactions | Severity | Noted | Comments | | | | | Date | | + + + + + + | Lamotrigine | Rash | Low | 12/24/20 | | | | | | 17 | | + + + + + + | Tamsulosin Hcl | Rash | Low | 05/11/19 | | | | | | 18 | | + + + + + + Medications + + + +---------+------+------+-------+ | Medication | Sig | Dispensed | Refills | Star | End | Statu | | | | | | t | Date | s | | | | | | Date | | | + + + +---------+------+------+-------+ | SUMAtriptan | Take 25 mg by mouth | | 0 | | | Activ | | (IMITREX) 25 mg | as needed for | | | | | e | | tablet | Migraine. | | | | | | + + + +---------+------+------+-------+ | buPROPion | Take 300 mg by mouth | | 0 | | | Activ | | (WELLBUTRIN XL) 300 | every morning. | | | | | e | | mg 24 hr tablet | | | | | | | + + + +---------+------+------+-------+ | | Place 1 Film under | | 0 | | | Activ | | buprenorphine-naloxo | the tongue Daily. | | | | | e | | ne (SUBOXONE) 8-2 mg | | | | | | | | SL film | | | | | | | + + + +---------+------+------+-------+ | LATUDA 20 MG | Take 4 tablets by | | 0 | 12/ | | Activ | | tablet | mouth nightly. | | | 01/25 | | e | | | | | | 17 | | | + + + +---------+------+------+-------+ | albuterol 90 | Inhale 2 puffs into | | 0 | | | Activ | | mcg/puff inhaler | the lungs as needed. | | | | | e | + + + +---------+------+------+-------+ | buprenorphine | | | 0 | 01/1 | | Activ | | (SUBUTEX) 8 mg SUBL | | | | 8/20 | | e | | | | | | 19 | | | + + + +---------+------+------+-------+ | FLUoxetine | | | 0 | 11/2 | | Activ | | (PROZAC) 20 MG | | | | 9/20 | | e | | tablet | | | | 18 | | | + + + +---------+------+------+-------+ | FLUZONE | | | 0 | 11/0 | | Activ | | QUADRIVALENT vaccine | | | | 8/20 | | e | | injection | | | | 18 | | | + + + +---------+------+------+-------+ | COMBIVENT RESPIMAT | | | 0 | 10/2 | | Activ | | 20-100 MCG/ACT | | | | 7/20 | | e | | inhaler | | | | 18 | | | + + + +---------+------+------+-------+ | methylphenidate | | | 0 | 01/1 | | Activ | | (CONCERTA) 54 mg ER | | | | 8/20 | | e | | tablet | | | | 19 | | | + + + +---------+------+------+-------+ | methylphenidate | take 1 tablet by | | 0 | 10/2 | | Activ | | (CONCERTA) 27 mg ER | mouth every morning | | | 4/20 | | e | | tablet | | | | 18 | | | + + + +---------+------+------+-------+ | phentermine | | | 0 | 10/1 | | Activ | | (ADIPEX-P) 37.5 mg | | | | 2/20 | | e | | tablet | | | | 18 | | | + + + +---------+------+------+-------+ | propranolol | take 1 capsule by | | 0 | 11/0 | | Activ | | (INDERAL LA) 80 mg | mouth once daily | | | 20 | | e | | SR capsule | | | | 18 | | | + + + +---------+------+------+-------+ | QUEtiapine | take 1 tablet by | | 0 | 11/0 | | Activ | | (SEROQUEL XR) 300 mg | mouth at bedtime | | | 20 | | e | | ER tablet | | | | 18 | | | + + + +---------+------+------+-------+ | ziprasidone | take 1 capsule by | | 0 | 10/2 | | Activ | | (GEODON) 40 mg | mouth AFTER EVENING | | | 20 | | e | | capsule | MEAL for 4 days then | | | 18 | | | | | INCREA... (REFER | | | | | | | | TO PRESCRIPTION | | | | | | | | NOTES). | | | | | | + + + +---------+------+------+-------+ Active Problems + + + | Problem | Noted Date | + + + | History of cervical dysplasia | 05/11/2017 | + + + + + | Overview: Overview: | | LEEP in 2011 | | | | Dx Name changed by system update on 02/17/2017 | + + + + + | Supervision of other high-risk (V23.89) | 05/11/2017 | + + + + + | Overview: Overview: | | [facility] preferred. | + + + + + | Tobacco use disorder | 05/11/2017 | + + + | OLAF report recommends avoiding opiates and benzodiazepines | 03/28/2014 | + + + | Endometriosis | 03/27/2014 | + + + | Preventative health care | 03/27/2014 | + + + + + | Overview: Pap | + + Immunizations + + + + | Name | Administration Dates | Next Due | + + + + | INFLUENZA QUADR | 05/23/2014 | | | W/PRES | | | | (PED/ADOL/ADULT) | | | | MULTIDOSE | | | + + + + Family History + + +------+ + | Medical History | Relation | Name | Comments | + + +------+ + | Diabetes | Father | | | + + +------+ + | High blood pressure | Father | | | + + +------+ + | Clotting disorder | Maternal | | Pulmonary embolus | | | Aunt | | | + + +------+ + | Clotting disorder | Mother | | Pulmonary embolus | + + +------+ + | Cancer | Paternal | | | | | Grandfath | | | | | er | | | + + +------+ + | Cancer | Paternal | | | | | Grandmoth | | | | | er | | | + + +------+ + + +------+ + + | Relation | Name | Status | Comments | + +------+ + + | Father | | Alive | | + +------+ + + | Maternal Aunt | | | | + +------+ + + | Mother | | Alive | | + +------+ + + | Paternal Grandfather | | | | + +------+ + + | Paternal Grandmother | | | | + +------+ + + Social History + + + [...] | | | + +---+---+---+ + + | Tobacco Cessation: Ready to [...] recent travel history available. | + + Last Filed Vital Signs + + + [...] | | + + + + + Plan of Treatment + + + + + | Health Maintenance | Due Date | Last Done | Comments | + + + + + | Vaccine: | | | | | Dtap/Tdap/Td (1 - | 8 | | | | Tdap) | | | | + + + + + | Vaccine: Influenza | | 05/23/2014 | | | (#1) | 9 | | | + + + + + | Cervical Cancer | | | | | Screening (Pap) | 9 | | | + + + + + Implants + +-------+--------+ +--------+--------+--------+ | Implanted | Type | Area | Manufacture | Device | Shelf | Model | | | | | r | | Expira | / | | | | | | Identi | tion | Serial | | | | | | fier | Date | / Lot | + +-------+--------+ +--------+--------+--------+ | Stent Uro Unvrs Sft 7fr 26cm | Stent | Right: | JOLANTA | | 03/01/ | [id number] | | - SxImplanted: Qty: 1 on | | | [employer] | | 2019 | /X | | 04/30/2017 by Kilo Gallo | | Ureter | - JOLANTA | | | [id number] | | MD Jeff at [facility] | | | | | | 09 | + +-------+--------+ +--------+--------+--------+ Results Not on filefrom Last 3 Months Insurance + +--------+ +--------+ +---------+--------+ | Payer | Benefi | Subscriber | Effect | Phone | Address | Type | | | t Plan | ID | esmer | | | | | | / | | Dates | | | | | | Group | | | | | | + +--------+ +--------+ +---------+--------+ | [employer] | MODA | [id number] | 04/30/ | [phone] | | Medica | | MEDICAID HMO | HEALTH | | 2017-P | 1 | | id | | | MDCD | | resent | | | | | | [place] | | | | | | + +--------+ +--------+ +---------+--------+ + +--------+ +--------+ + + | Guarantor Name | Accoun | Relation to | Date | Phone | Billing Address | | | t Type | Patient | of | | | | | | | | | | + +--------+ +--------+ + + | Albania Bain | Person | Self | [birth year] | [address] | | [place] | al/Fam | | 1990 | [phone] | [place], [place] | | | yoni | | | 3 (Home) | [phone] | + +--------+ +--------+ + + Advance Directives + + + + + | Type | Date Recorded | Patient | Explanation | | | | Senior Fire Protection Engineer | | + + + + + | Power of | | | | | Tile Erector | | | | + + + + + | Advance | 07/25/2014 9:26 | | | | Directive | AM | | | + + + + + + + + + + | Code Status | Date | Date | Comments | | | Activated | Inactivated | | + + + + + | Full Code | 05/11/2017 | 05/11/2017 | | | | 6:55 PM | 9:37 PM | | + + + + + + + + +---+ | | | | | + + + +---+ | Full Code | 05/01/2017 | 05/02/2017 | | | | 11:21 AM | 6:59 PM | | + + + +---+ + + + +---+ | | | | | + + + +---+ | Full Code | 04/30/2017 | 04/30/2017 | | | | 6:04 AM | 10:56 AM | | + + + +---+
--- OUTSIDE RECORDS SUMMARY | ~2019-03-30 | XMS | Encounter Summary ---
Demographics + + + | Address | [address] | | | [place] [address] | + + + | Home Phone [...] + + + | Author | [facility] | | | and [place] | + + + | Organization | [facility] | | | and [place] | + + + | Address | Unknown | + + + | Phone | Unavailable | + + + Support + + + + + | Name | Relationship | Address | Phone | + + + + + | Gt Welch | ECON | [address] | | | | | [place] | | | | | [place] | | | | | [address] | | + + + + + Care Team Providers + +------+ + | Care Saddle Lining Stitcher Name | Role | Phone | + +------+ + | No, Physician | PCP | Unavailable | + +------+ + Encounter Details +--------+ + + + + | Date | Type | Department | Care Team | Description | +--------+ + + + + | 05/11/ | Orders Only | [facility] | Conversion | | | 2018 | | [address] | Transaction, | | | | | [address] | Provider Unknown | | | | | [address] | [phone] | | | | | [phone] | | | +--------+ + + + [...]
--- OUTSIDE RECORDS SUMMARY | ~2019-03-30 | XMS | Encounter Summary ---
Demographics + + + | Address | [address] | | | [place] [address] | + + + | Home Phone | | + + + | Preferred Language | Unknown | + + + | Marital Status | Single | + + + | Pentecostal Affiliation | Unknown | + + + | Race | Unknown | + + + | Ethnic Group | Unknown | + + + Author + + + | Author | [facility] | | | and [place] | + + + | Organization | [facility] | | | and [place] | + + + | Address | Unknown | + + + | Phone | Unavailable | + + + Support + + + + + | Name | Relationship | Address | Phone | + + + + + | Gt Welch | ECON | [address] | | | | | [place] | | | | | [place] | | | | | [address] | | + + + + + Care Team Providers + +------+ + | Care Video Recorder Mechanic Name | Role | Phone | + +------+ + | Bro Mora MD | PCP | | + +------+ + Encounter Details +--------+ + + + + | Date | Type | Department | Care Team | Description | +--------+ + + + + | 08/18/ | Hospital | [facility] | Lopez Lopez | | | 2015 | Encounter | MED CTR LABOR AND | MD [address] | | | | | DELIV[address] | [place], [place] | | | | | [place], | [address] | | | | | [place] [address] | | | | | | [phone] | | | +--------+ + + + [...] you are having false or true labor [id number] [employer]. [address] [place] [address]. All righ ts reserved. This information is [...] of Dr. Mora and sees him at [facility]. No record available at this time. Reports [...] - 1.030 | [facility] | | | Early | | | [facility] | | [...] [facility]N FARI[facility] | [address] | [place], [place] | [phone] | | [facility] | | [address] | | | - LABORATORY | | | | + + + + + documented in this encounter Visit Diagnoses Not on filedocumented in this encounter"
--- OUTSIDE RECORDS SUMMARY | ~2019-03-30 | XMS | Encounter Summary ---
Demographics + + + | Address | [address] | | | [place] [address] | + + + | Home Phone [...] + | Organization | [facility] | | | and [place] | + + + | Address | Unknown | + + + | Phone | Unavailable | + + + Support + + + + + | Name | Relationship | Address | Phone | + + + + + | Gt Welch | ECON | [address] | | | | | [place] | | | | | [place] | | | | | [address] | | + + + + + Care Team Providers + +------+ + | Care Furnace Fitter Name | Role | Phone | + +------+ + | Bro Mora MD | PCP | | + +------+ + Reason for Visit + + + | Reason | Comments | + + + | Appointment | | + + + Encounter Details +--------+ + + + + | Date | Type | Department | Care Team | Description | +--------+ + + + + | 05/18/ | Telephone | [facility] | Gold Florentino, | Appointment | | 2018 | | [address] | MD [address] | | | | | [place] | [place] | | | | | [address] | [address] | | | | | [phone] | | | +--------+ + + + [...]
--- OUTSIDE RECORDS SUMMARY | ~2019-03-30 | XMS | Encounter Summary ---
Demographics + + + | Address | [address] | | | [place] [address] | + + + | Home Phone | | + + + | Preferred Language | Unknown | + + + | Marital Status | Single | + + + | Alevism Affiliation | Unknown | + + + | Race | Unknown | + + + | Ethnic Group | Unknown | + + + Author + + + | Author | [facility] | | | and [place] | + + + | Organization | [facility] | | | and [place] | + + + | Address | Unknown | + + + | Phone | Unavailable | + + + Support + + + + + | Name | Relationship | Address | Phone | + + + + + | Gt Welch | ECON | [address] [facility] [facility] | | | | | [place] | | | | | [place] | | | | | [address] | | + + + + + Care Team Providers + +------+ + | Care Mail Service Coordinator Name | Role | Phone | [...] STENT, | | | | [address] [facility] [address] | [address] | bilateral retrograde | | | | [place] | [address] | pyelogram, right | | | | [address] | | ureteral stent | | | | [phone] | | placement | +--------+---------+ + + [...] Stiles MD - 05/02/2017 8:53 AM PST [facility] UROLOGY DISCHARGE SUMMARY Patient Name: [...] Hospital Course: The patient was admitted to [facility] by Dr. Gallo for an infected ureteral ston e. She had been seen at [facility] in [facility] but the urologist correctional medicine physician their felt she was too complex to be admitted there. She was treated with IV antibiotics and went to [facility] operating room for ureteral stent [...] closer to her h ome, likely in [place]. She is aware she still has a [...] urologist closer to her home, likely in [place]. She s leisa have follow-up in the next 1-2 weeks. If there are any urological concerns or questions Please call [facility] at . Electronically Signed by: Juliet Darnell MD, 05/02/2017 8:53 [facility] Jones thapa in this encounter Discharge Instructions Instructions Juliet Darnell MD - 05/02/2017 [facility] DISCHARGE INSTRUCTIONS FOLLOWING YOUR PROCEDURE FOR [...] issues with gastric ulcers CONTACT INFORMATION: - [facility] Office Number: [facility] Office [place] Office FOLLOWUP INFORMATION: - will see you back postoperatively in 5-10 days or you can work to schedule with a urologist in [place] with a Xray prior, please call to [...] given. Hardcopy prescriptions given. Pt still at [facility] at this time awaiting ride.( I have been given an Low census). 2: 59 PM Juliet Stiles MD - 05/02/2017 8:35 AM PSTFormatting of this note might be differ ent from the original. [facility] Day: 3 DATE/TIME: 05/02/2017 8:35 IMPRESSION POD #2 s/p Right ureteral stent by DR. Gallo for infected stone PLAN 1. D/c to home. Patient wants to do f/u in [place] which is closer to home. Will ne [...] Signed by: Juliet Darnell MD, 05/02/2017 8:35 [facility] Juliet Stiles MD - 1 07/02/2016 11:[address] [facility] Day: 2 DATE/TIME: 05/01/2017 11:26 [...] tomorrow. Patient wants to do f/u in [place] which is closer to ome. I expect [...] to open eyes" -hasn't been oob to [facility] -urine culture no growth to date. Per [...] | JO[facility]N MURO | [address] [facility] | [place] [address] | | | [facility] | | [...] + + | RESULT | Performed at [facility] | | [facility] | | | | [facility], | | [facility] | | | | [address] [place], [place] | | HOSPITAL | | | | [address] | | LABORATORY | | + + [...] | [facility] MUR[facility] | [address] [facility] | [place] [address] | | | [facility] | | | | | LABORATORY [...] + + | RESULT | Performed at [facility] | | [facility] | | | | [facility], | | [facility] | | | | [address], [place], [place] | | HOSPITAL | | | | [address] | | LABORATORY | | + + [...] + | [facility] | [address] [facility] | [place] [address] | | | [facility] | | | | | LABORATORY | | | | + + + + + [place] Pyelogram Retrograde (04/30/2017 10:10 AM [facility]) + + | Specimen | + [...] + + + | [facility] | [address] [facility] | [place] [address] | | | [facility] | | [...] | [facility] MURO | [address] [facility] | [place] [address] | | | [facility] | | | | | LABORATORY [...]
--- OUTSIDE RECORDS SUMMARY | ~2019-03-30 | XMS | Clinical Summary ---
Demographics + + + | Address | [address] | | | [place] [address] | + + + | Home Phone [...] | [facility] | [...] [place] | | | | | [address] | | + + + + + Care Team Providers + +------+ + | Care Safety Representative Name | Role | Phone | + [...] Right: | JOLANTA | | 03/01/ | [id number] | | - SxImplanted: Qty: 1 on | | | [employer] | | 2019 | /X | | 04/30/2017 by Kilo Gallo | | Ureter | - JOLANTA | | | /[id number] | | MD Jeff at [facility] | | | | | | 09 [...] | [employer] | MODA | [id number] | 04/30/ | [phone] | | Medica | | MEDICAID HMO [...] Self | [birth year] | | [address] | | [place] | al/Fam | | 1990 | [phone] | [place], [place] | | | yoni | | | 3 (Home) | [address] | + +--------+ +--------+ + + Advance Directives + + + + + | Type | Date Recorded | Patient | Explanation | | | | Food Bagging Machine Operator | | + + + + + | Power of | | | | | Division Toll Wire Chief | | | | + + + [...]
--- OUTSIDE RECORDS SUMMARY | ~2019-03-30 | XMS | Encounter Summary ---
Demographics + + + | Address | [address] | | | [place] [address] | + + + | Home Phone | | + + + | Preferred Language | Unknown | + + + | Marital Status | Single | + + + | Scientology Affiliation | Unknown | + + + | Race | Unknown | + + + | Ethnic Group | Unknown | + + + Author + + + | Author | [facility] | | | and [place] | + + + | Organization | [facility] | | | and [place] | + + + | Address | Unknown | + + + | Phone | Unavailable | + + + Support + + + + + | Name | Relationship | Address | Phone | + + + + + | Gt Welch | ECON | [address] | | | | | [place] | | | | | [place] | | | | | [address] | | + + + + + Care Team Providers + +------+ + | Care Pipefitter Welder Name | Role | Phone | + [...] [address] | | | | | [address] | [place] [address] | | | | | [place] | [phone] | | | | | [address] | | | | | | [phone] | | | +--------+ + + + [...] [address] | | amanda | Forearm; fwkl-gjb-[id number] catheter | Tawanna Choi, | Oriana Jaimes [...] - 04/30/2017 9:43 AM PST Anesthesia Airway [id number]/24/2017 | | 9:30Preprocedure check: patient identified, oxygen, [...] YOLANDA Cohenectronically Signed by: Yolanda Caba MD [facility] | | date/time: 04/30/2017 9:43 | |Other [...]
--- OUTSIDE RECORDS SUMMARY | ~2019-03-30 | XMS | Encounter Summary ---
Demographics + + + | Address | [address] | | | [place] [address] | + + + | Home Phone | | + + + | Preferred Language | Unknown | + + + | Marital Status | Single | + + + | Sabianism Affiliation | Unknown | + + + | Race | Unknown | + + + | Ethnic Group | Unknown | + + + Author + + + | Author | [facility] | | | and [place] | + + + | Organization | [facility] | | | and [place] | + + + | Address | Unknown | + + + | Phone | Unavailable | + + + Support + + + + + | Name | Relationship | Address | Phone | + + + + + | Gt Rebekah | ECON | [address] | | | | | [place] | | | | | [place] | | | | | [address] | | + + + + + Care Team Providers + +------+ + | Care Board Member Name | Role | Phone | + [...] | | | | EMERGENCY CENTER | [place] [address] | | | 08/10/ | | [address] | [phone] | | | 2006 | | [place], [place] | | | | | | [address] | | | | | | [phone] | | | +--------+ + + + [...]
--- OUTSIDE RECORDS SUMMARY | ~2019-03-30 | XMS | Encounter Summary ---
Demographics + + + | Address | [address] | | | [place] [address] | + + + | Home Phone | | + + + | Preferred Language | Unknown | + + + | Marital Status | Single | + + + | Gnosticist Affiliation | Unknown | + + + | Race | Unknown | + + + | Ethnic Group | Unknown | + + + Author + + + | Author | [facility] | | | and [place] | + + + | Organization | [facility] | | | and [place] | + + + | Address | Unknown | + + + | Phone | Unavailable | + + + Support + + + + + | Name | Relationship | Address | Phone | + + + + + | Gt Rebekah | ECON | [address] | | | | | [place] | | | | | [place] | | | | | [address] | | + + + + + Care Team Providers + +------+ + | Care Vp Medical Name | Role | Phone | + [...] | Specialty | Oncology | Diagnoses | [place], | [facility] | | | Services | | 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 | [address] | Clinic [address] | | | | | embolism | [address] [place] | [place] | | | | | Procedures | [place], [place] | [place], | | | | | [place] OFFICE | [address] | [place] [address] | | | | | OUTPATIENT | Phone: | Phone: | | | | | NEW 45 | [phone] | [phone] | | | | | MINUTES | Fax: | Fax: | | | | | | [phone] | [phone] | +--------+ + + + + + Encounter Details +--------+ + + + + | Date | Type | Department | Care Team | Description | +--------+ + + + + | 06/07/ | Hospital | [facility] | Marcell Lebron | No Show | | 2018 | Encounter | MED CTR MEDICAL | MD Luis Carlos [address] | | | | | ONCOLOGY CLINIC [address] [place] | | | | | [address] [place] | [place] [address] | | | | | [place] [address] | [phone] | | | | | [phone] | | | +--------+ + + + [...]
--- OUTSIDE RECORDS SUMMARY | ~2019-03-30 | XMS | Encounter Summary ---
Demographics + + + | Address | [address] | | | [place] [address] | + + + | Home Phone | | + + + | Preferred Language | Unknown | + + + | Marital Status | Single | + + + | Anglican Affiliation | Unknown | + + + | Race | Unknown | + + + | Ethnic Group | Unknown | + + + Author + + + | Author | [facility] | | | and [place] | + + + | Organization | [facility] | | | and [place] | + + + | Address | Unknown | + + + | Phone | Unavailable | + + + Support + + + + + | Name | Relationship | Address | Phone | + + + + + | Gt Welch | ECON | 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 | | | Testing performed at [facility], [address] | | | [place] [address] REPORT STATUS | | | 02/27/2013 FINAL [...]
--- OUTSIDE RECORDS SUMMARY | ~2019-03-30 | XMS | Encounter Summary ---
Demographics + + + | Address | [address] | | | [place] [address] | + + + | Home Phone | | + + + | Preferred Language | Unknown | + + + | Marital Status | Single | + + + | Rastafari Affiliation | Unknown | + + + | Race | Unknown | + + + | Ethnic Group | Unknown | + + + Author + + + | Author | [facility] | | | and [place] | + + + | Organization | [facility] | | | and [place] | + + + | Address | Unknown | + + + | Phone | Unavailable | + + + Support + + + + + | Name | Relationship | Address | Phone | + + + + + | Gt Hartarte | ECON | [address] | | | | | [place] | | | | | [place] | | | | | [address] | | + + + + + Care Team Providers + +------+ + | Care Craft Coordinator Name | Role | Phone | + +------+ + | No, Physician | PCP | Unavailable | + +------+ + Encounter Details +--------+ + + + + | Date | Type | Department | Care Team | Description | +--------+ + + + + | 12/13/ | Orders Only | [facility] | Provider, | | | 2019 | | SYSTEM GENERIC OP | MD [address] | | | | | [address] | [place] | | | | | [address] [place], [place] | [place] [address] | | | | | [address] | | | | | | [phone] | | | +--------+ + + + [...]
--- OUTSIDE RECORDS SUMMARY | ~2019-03-30 | XMS | Encounter Summary ---
Demographics + + + | Address | [address] | | | [place] [address] | + + + | Home Phone | | + + + | Preferred Language | Unknown | + + + | Marital Status | Single | + + + | Jainism Affiliation | Unknown | + + + | Race | Unknown | + + + | Ethnic Group | Unknown | + + + Author + + + | Author | [facility] | | | and [place] | + + + | Organization | [facility] | | | and [place] | + + + | Address | Unknown | + + + | Phone | Unavailable | + + + Support + + + + + | Name | Relationship | Address | Phone | + + + + + | Gt Welch | ECON | [address] [facility] | | | | | [place] | | | | | [place] | | | | | [address] | | + + + + + Care Team Providers + +------+ + | Care Mainframe Systems Administrator Name | Role | Phone | + +------+ + PCP | Unavailable | + +------+ + Reason for Visit +--------+ + | Reason | Comments | +--------+ + | Other | | +--------+ + Encounter Details +--------+ + + + + | Date | Type | Department | Care Team | Description | +--------+ + + + + | 06/08/ | Telephone | [facility] | Annamarie Ward RN | Other | | 2017 | | MED CTR MEDICAL | | | | | | ONCOLOGY CLINIC [address] | | | | | | [address] | | | | | | [place] [address] | | | | | | [phone] | | | +--------+ + + + [...]
--- OUTSIDE RECORDS SUMMARY | ~2019-03-30 | XMS | Encounter Summary ---
Demographics + + + | Address | [address] | | | [place] [address] | + + + | Home Phone | | + + + | Preferred Language | Unknown | + + + | Marital Status | Single | + + + | Zoroastrian Affiliation | Unknown | + + + | Race | Unknown | + + + | Ethnic Group | Unknown | + + + Author + + + | Author | [facility] | | | and [place] | + + + | Organization | [facility] | | | and [place] | + + + | Address | Unknown | + + + | Phone | Unavailable | + + + Support + + + + + | Name | Relationship | Address | Phone | + + + + + | Gt Welch | ECON | [address] | | | | | [place] | | | | | [place] | | | | | [address] | | + + + + + Care Team Providers + +------+ + | Care Advice Clerk Name | Role | Phone | [...] | | | | | | | AR | | | | | | | CYSTO/URETER | | | | | | | O/PYELOSCOPY | | | | | | | , CALCULUS | | | | | | | TX [place] | | | | | | | [...] + + | 05/11/ | Surgery | [facility] | Gold Florentino, | Cystoscopy, Right | | 2018 | | MED CTR OR INTRA OP | [address] | Ureteroscopy, | | | | [address] | [place], [place] | Retrograde | | | | [place], [place] | [address] | Pyelogram, Right | | | | [address] | | Ureteral Stent | | | | [phone] | | Removal | +--------+---------+ + + [...] time. Follow up: Call Dr Florentino's office ([phone]) to set up your follow-up appointment or [...] glucose < 50, | | | Starting [facility] 05/11/17 at 1733, | | | [...] PRN, Pain, pain, | | | Starting [facility] 05/11/17 at 1733, Max | | [...] 6:23 | | | Site | | [facility] 05/11/17 at 1823, Intra-op | | [...]
--- OUTSIDE RECORDS SUMMARY | ~2019-03-30 | XMS | Encounter Summary ---
Demographics + + + | Address | [address] | | | [place] [address] | + + + | Home Phone | | + + + | Preferred Language | Unknown | + + + | Marital Status | Single | + + + | Lutheran Affiliation | Unknown | + + + | Race | Unknown | + + + | Ethnic Group | Unknown | + + + Author + + + | Author | [facility] | | | and [place] | + + + | Organization | [facility] | [...] [address] [facility] | | | | | [place] | | | | | [place] | | | | | [address] | | + + + + + Care Team Providers + +------+ + | Care Organic Section Technical Lead Name | Role | Phone | + [...] | | | | | | | [place] | | | | | | | CYSTO/URETER | | | | | | | O/PYELOSCOPY | | | | | | | , CALCULUS | | | | | | | TX [place] | | | | | | | [...] | +--------+ + + + + | 01/04/ | Hospital | [facility] | Gold Florentino A, | | | 2018 | Encounter | MED CTR XRAY [address] | [address] [facility] | | | | | [place] | [place], [place] | | | | | [place] [address] | [address] | | | | | [phone] | | | +--------+ + + + [...] + | Louie, Rad Results In - 05/12/2017 8:58 AM PST [...]
--- OUTSIDE RECORDS SUMMARY | ~2019-03-30 | XMS | Encounter Summary ---
Demographics + + + | Address | [address] | | | [place] [address] | + + + | Home Phone | | + + + | Preferred Language | Unknown | + + + | Marital Status | Single | + + + | Oriental Orthodox Affiliation | Unknown | + + + | Race | Unknown | + + + | Ethnic Group | Unknown | + + + Author + + + | Author | [facility] | | | and [place] | + + + | Organization | [facility] | | | and [place] | [...] [place] | | | | | [address] | | + + + + + Care Team Providers + +------+ + | Care Ditch Worker Name | Role | Phone | + +------+ + | Bro Mora MD | PCP | | + +------+ + Encounter Details +--------+ + + + + | Date | Type | Department | Care Team | Description | +--------+ + + + + | 07/25/ | Hospital | [facility] | Bro Mora, | Supervision of other | | 2015 | Encounter | MED CTR ULTRASOUND | [address] | normal , | | | | [address] [place] | [place] | second trimester | | | | [place] | [place] [address] | | | | | [address] | [phone] | | | | | [phone] | | | | | | | Nicholas Dior, | | | | | | Technologist | | +--------+ + + + + [...] +--------+ + + + | US OB TRANSVAGINAL | Routin | 07/25/2014 | Supervision of | Results for this | | | e | 3:22 PM | other normal | procedure are in the | | | | PDT | , second | results section. | | | | | trimester | | + +--------+ + + + documented in this encounter Results US OB Transvaginal (07/25/2014 3:22 PM PDT) + + | Specimen | + + | | + + + + + | Narrative | Performed At | + + + | US OB TRANSVAGINAL 07/25/2014 2:59 PM HISTORY: CHECK CERVICAL | [facility] | | LENGTH. 24-year-old with uncertain LMP, undergoing check for | | | cervical length only. COMPARISON: None available | | | FINDINGS: The cervix is long and closed, measuring 4.3 cm in length. | | | heart rate is recorded at 152 bpm . IMPRESSION - | | | Cervix is long and closed, measuring 4.3 cm in length. Dictated | | | and Signed by: Babak Arreaga MD Electronically signed: | | | 07/25/2014 4:33 PM | | + + + + + | Procedure Note | + + | Louie, Rad Results In - 07/25/2014 4:37 PM PDT US OB TRANSVAGINAL 07/25/2014 2:59 PM | | | | HISTORY: CHECK CERVICAL LENGTH. 24-year-old with uncertain LMP, | | undergoing check for cervical length only. | | | | COMPARISON: None available | | | | FINDINGS: | | The cervix is long and closed, measuring 4.3 cm in length. | | | | heart rate is recorded at 152 bpm . | | | | IMPRESSION - | | Cervix is long and closed, measuring 4.3 cm in length. | | | | Dictated and Signed by: Babak Arreaga MD | | Electronically signed: 07/25/2014 4:33 PM | + + + +---------+ + + [...]
--- OUTSIDE RECORDS SUMMARY | ~2019-03-30 | XMS | Encounter Summary ---
Demographics + + + | Address | [address] | | | [place] [address] | + + + | Home Phone | | + + + | Preferred Language | Unknown | + + + | Marital Status | Single | + + + | Judaism Affiliation | Unknown | + + + | Race | Unknown | + + + | Ethnic Group | Unknown | + + + Author + + + | Author | [facility] | | | and [place] | + + + | Organization | [facility] | | | and [place] | + + + | Address | Unknown | + + + | Phone | Unavailable | + + + Support + + + + + | Name | Relationship | Address | Phone | + + + + + | Gt Hartarte | ECON | [address] | | | | | [place] | | | | | [place] | | | | | [address] | | + + + + + Care Team Providers + +------+ + | Care Die Polisher Name | Role | Phone | + +------+ + PCP | Unavailable | + +------+ + Encounter Details +--------+---------+ + + + | Date | Type | Department | Care Team | Description | +--------+---------+ + + + | 05/24/ | Office | [facility] | Chadd Gold Cervantes, | Right ureteral | | 2018 | Visit | [address] | MD [address] | calculus (Primary | | | | [place], [place] | [place], [place] | Dx) | | | | [address] | [id number] | | | | | [phone] | | | +--------+---------+ + + + Social History [...] + + + | Blood Pressure | 128/88 | 05/24/2017 8:40 AM | | | | | PST | | + + + + + | Pulse | 100 | 05/24/2017 8:40 AM | | | | | PST | | + + + + + | Temperature | - | - | | + + + + + | Respiratory Rate | 16 | 05/24/2017 8:40 AM | | | | | PST | | + + + + + | Oxygen Saturation | - | - | | + + + + + | Inhaled Oxygen | - | - | | | Concentration | | | | + + + + + | Weight | 93.8 kg (206 lb 12.7 | 05/24/2017 8:40 AM | | | | oz) | PST | | + + + + + | Height | 172.7 cm (5' 8") | 05/24/2017 8:40 AM | | | | | PST | | + + + + + | Body Mass Index | 31.44 | 05/24/2017 8:40 AM | | | | | PST [...] of this encounter Patient Instructions Patient Instructions Gold Florentino MD - 05/24/2017 8:30 AM PST Kidney Stones A kidney stone (nephrolithiasis) begins as tiny crystals that form inside the kidney where urine is made. Eighty percent of kidney stones are calcium stones mostly calcium oxalate but also some with calcium phosphate. Other types include uric acid stones, struvite stones (from a preceding infection), and cystine stones. When the stone breaks free and begins to move down the ureter (the narrow tube joining the kidney to the bladder) it often causes sharp back and side pain, often with nausea and vomit ing. When the stone reaches the bladder, the pain stops. Once in your bladder, the kidney st one may pass through the urethra (urinary opening) while you are urinating. If your kidney stone is still inside the kidney, there is no way to predict how long it otis l be before it breaks free and causes any symptoms, but it usually does not cause any pain w hile it is inside the kidney. Most stones will pass on their own within a few days or up to 3-4 weeks.You may notice a red, pink, or brown color to your urine. This is normal while p assing a kidney stone. A large stone may not pass on its own and may require special procedu res to remove it. These procedures include lithotripsy, which uses ultrasound-like waves to break up the stone; and ureteroscopy, which pushes a thin, basket-like instrument through th e urethra and bladder and into the ureter to pull out the stone. Home care The following guidelines will help you care for yourself at home: 1. Drink plenty of fluids. This increases urine flow and reduces the risk of further stone formation. Healthy adults (no heart/liver/kidney disease) who have had a kidney stone should drink 12, 8-ounce glasses of fluids per day. Most of this should be water. The goal is to p roduce 1.5 to 2 quarts of almost colorless urine per 24 hours. 2. You should collect your urine in a container and then drain it through a strainer to col lect any stones or pieces of stones. Take these to your doctor to help identify your specifi c type of stone to aid in future treatment and dietary changes. 3. Try to stay as active as possible since this will help the stone pass. Don't stay in bed unless you have pain that prevents you from getting up. 4. If you develop pain, you may take ibuprofen or naproxen for pain, unless another medicin e was prescribed. [NOTE: If you have chronic liver or kidney disease or ever had a stomach u lcer or GI bleeding, talk with your doctor before using these medicines.] Prevention Each year, there is a 5% to 10% chance that a new stone will form (50% chance over the next 5 to 7 years).The risk is higher if you have a family history of kidney stones or have ce rtain chronic illnesses such as hypertension, obesity, or diabetes.However, there are life style and dietary changes that you canmake to reduce the risk of a recurrence. Most kidney stones are made of calcium. The following is advice for preventing a recurrence of calcium stones. If you don t know the type of stone you have, follow this advice unt il the cause of your stone is determined. Things that help: The most important thing you can do is to drink plenty of fluids each day, as described above (#1). Eat more fruits and vegetables (especially those high in potassium). Eat foods high in natural citrate like fruit and fruit juices (using low sugar). Low calcium contributes to the formation of calcium type kidney stones. Eat a normal lucille cium diet and speak with your doctor if you are taking calcium supplements. It may be detrim ental to reduce your calcium intake. New research shows that eating calcium-rich and oxalate -rich foods together lowers your risk of stones by binding the minerals in the stomach and i ntestines before they can reach the kidneys. Limit salt intake to 2 grams (1 teaspoon) per day. Use limited amounts when cooking, and don t add salt at the table. Processed and canned foods are usually high in salt. Spinach, rhubarb, peanuts, cashews and almonds, grapefruit and grapefruit juice are all high oxalate foods and should be reduced, or eaten with calcium rich foods (dairy, dark leaf y greens, soy products, and calcium enriched foods, among others). Reducing the amount of animal meat in your diet may lower your risk of uric acid stones. Avoid excess sugar (sucrose) and fructose (sweetener in many soft drinks) in your diet. Avoid use of Vitamin C supplements. Drink lots of water to keep urine dilute at all times. Ideally, you should drink enough water to produce 2 liters of urine every day. A low sodium, low fat, low oxalate, low animal protein diet is helpful. Also increase ci trate intake, as citrate is a stone inhibitor. Citrate can be found in stevan, oranges, pine apple, and grapefruit. Ask your primary care provider if grapefruit consumption is OK for yo u, as this particular citrus fruit may interact with some medications. Magnesiuim is also a stone inhibitor, and may help reduce the risks of kidney stones. Follow-up care Follow up with your doctor as advised by our staff. Talk to your doctor about urine and blo od tests to find out the cause of your stone. If you had an X-ray, CT scan, or other diagnostic test, it will be reviewed by a specialist . You will be notified of any new findings that may affect your care. When to seek medical care Get prompt medical attention if any of the following occur: Severe sharp back or side pain Repeated vomiting or unable to keep down fluids Weakness, dizziness, or fainting Fever of 100.4F (38C) or higher, or as directed by your health care provider Blood (pink or red color) in your urine Foul smelling or cloudy urine Unable to pass urine for 8 hours or increasing bladder pressure [id number] [employer]. [address] [place] [address]. All righ ts reserved. This information is not intended as a substitute for professional medical care. Always follow your healthcare professional's instructions. documented in this encounter Progress Notes Gold Florentino MD - 05/24/2017 8:30 AM PSTFormatting of this note might be different fro m the original. [place] is a 27 y.o. female patient of No Physician on file being seen today for a post op for kidney stone. [place] presented to [facility] on ~04/29/2017 with a 3 mm right ureteral stone associated with infection and obstruction. She was apparently refused at [facility], and was then sent by [facility] air transport to [place] where she was treated at [facility] by Dr. Kilo Gallo. A right ureteral stent was placed by Dr. Kilo Gallo on 04/30/2017. Dr. Gallo encountere d "extensive cystitis throughout the bladder" with a right distal ureteral calculus with min imal obstruction and minimal hydronephrosis and no grossly purulent urine obtained from the right renal pelvis. Contralateral left retrograde pyelogram was normal. She underwent right ureteroscopy on 05/11/2017, but at the time of her procedure, it appeared that her stone and spontaneously passed. Her stent was simultaneously removed. [place] reports that she has done very well since her stent removal. She states she feels much better without a stent. She denies having any urinary tract infection symptoms. She denies any dysuria or hematuria or increased urinary frequency. She denies any renal colic. She denies any back or flank or abdominal pain. She denies any fever or chills or nausea or vomiting. She reports her bowels are moving normally. She denies any calf cramping or calf pain or leg swelling. She denies any chest pain or sh ortness of breath. She denies any cough or hemoptysis or angina. Overall, she feels like she is doing very well, and offers no complaints. She continues to use Suboxone intermittently. She is not taking any narcotics currently, a fter becoming addicted to oxycodone which she used for perhaps 5 years. She has never previously had kidney stones. She blames her current stone disease on drinki ng 40 ounces of Red Bull daily. She is smoking 1 cigarette per day. She is currently on Wellbutrin. I spent in excess of 25 minutes with [place] today, over 50% of this time spent in recreational counselor ing regarding her ureteral calculus and dietary recommendations to reduce her risk of stone disease. Past Medical History She has a past medical history of Asthma; Endometriosis of ovary; Pulmonary embolism (HCC) (05/22/2014); and Uterine cancer (HCC) (05/08/2014). Past Surgical History She has a past surgical history that includes Carpal tunnel release (2008); Endometrial bio psy; Cystoscopy Insertion/Removal Stent/Stone (N/A, 04/30/2017); and Ureteroscopy (Right, 05/11/2017). Family History: Mother is alive at age [...] Rash Medications: Outpatient Encounter Prescriptions as of 05/24/2017 Medication Sig Dispense Refill albuterol 90 mcg/puff inhaler Inhale 2 puffs into the lungs as needed. buprenorphine-naloxone (SUBOXONE) 8-[address] 1 Film under the tongue Daily. buPROPion (WELLBUTRIN XL) 300 mg 24 hr tablet Take 300 mg by mouth every morning. ketorolac (TORADOL) 10 MG tablet Take 1 tablet by mouth every 6 hours as needed for Wang n. 12 tablet 0 LATUDA 20 MG tablet Take 4 tablets by mouth nightly. 0 oxybutynin (DITROPAN) 5 mg tablet Take 1 tablet by mouth every 6 hours as needed for Ur inary incontinence or Bladder Spasms. 30 tablet 1 SUMAtriptan (IMITREX) 25 mg tablet Take 25 mg by mouth as needed for Migraine. traMADol (ULTRAM) 50 mg tablet Take 1 tablet by mouth every 8 hours as needed for Pain. 10 tablet 0 No facility-administered encounter medications on file as of 05/24/2017. PHYSICAL EXAM Vitals: BP 128/88 | Pulse 100 | Resp 16 | Ht 1.727 m (5' 8") | Wt 93.8 kg (206 lb 12.7 oz) | LMP 04/06/2014 (Approximate) | BMI 31.44 kg/m General: Awake, alert, in no distress. Cheerful and cooperative. Speech is fluent. Appe ars to be stated age. Accompanied to the office by her 2-year-old son. Neck: Supple; no lymphadenopathy. Lungs: Normal respiratory effort, no wheezing, no stridor, no tachypnea. Back: No CVA tenderness. Abdomen: Soft, nondistended, nontender, no hepatosplenomegaly. No masses. No guarding; be nign. Bladder nondistended. No flank tenderness. Extremities: Non-edematous. Hips and long bones nontender to fist percussion. No palpable cord. Negative Homans sign. No leg or calf or ankle swelling. Neuro: Awake, alert, oriented x3. Normal station and gait. Psychiatric: Mood and affect are normal. Normal judgment. Skin: Warm and dry, no erythematous rash. Groin: No mass. No lymphadenopathy. DIAGNOSTIC DATA: Lab Results Component Value Date CREA 0.66 05/11/2017 BUN 11 05/11/2017 NA 142 05/11/2017 K 4.0 05/11/2017 CL 105 05/11/2017 CO2 28 05/11/2017 Lab Results Component Value Date WBC 12.2 (H) 05/11/2017 HGB 13.7 05/11/2017 HCT 40.2 05/11/2017 MCV 91.8 05/11/2017 PLT 360 05/11/2017 Lab Results Component Value Date ALT 19 [...] SQUAMEPIUA 0-2 05/11/2017 BACTERIAUA 1+ (A) 05/11/2017 CT ABDOMEN AND PELVIS WITHOUT CONTRAST (CPT) IMPRESSION- Right ureteral stent in good position. No residual hydronephrosis. There is a persistent small calcification near the right UVJ, however it is 3 mm from the ureteral stent and likely represents a phlebolith. Moderate amount of stool throughout the colon. Dictated and Signed by: Don Domínguez MD Electronically signed: 05/06/2017 (Images personally reviewed with the patient today) CLINICAL INFORMATION: Right ureteral calculus, spontaeously passed. COMPARISON: Radiograph dated 05/11/[address] 05/05/2017. FINDINGS: Frontal view of the abdomen. Bowel gas pattern: Normal. Abnormal calcifications: No abnormal calcification identified. Bones: No acute abnormality. IMPRESSION - No calcified stone identified. Dictated and Signed by: Don Domínguez MD Electronically signed: 05/24/2017 (Images personally reviewed with the patient today) IMPRESSION: 1. 3 mm distal right ureteral calculus. Spontaneously passed. She appears stone free. I told [place] that I cannot rule out a phlebolith masquerading as a ureteral stone after re -reviewing her CT. Status post right ureteral stent placement by Dr. Gallo on 04/30/2017, a nd negative right ureteroscopy on 05/11/2017. 2. Severe right flank pain. Resolved. 3. Chronic narcotic dependence. Currently on Suboxone. 4. Pelvic phleboliths. These are evident on her KUB. She is completely asymptomatic. 5. Anxiety disorder. 6. History of pulmonary embolus. This is following a hysterectomy procedure. Cannot rule out coagulopathy. 7. Family history of pulmonary emboli. 8. History of uterine cancer. Status post hysterectomy in 2015. 9. Endometriosis. PLAN: Elements of a kidney stone risk reduction diet are once again reviewed with [place] in det ail. I recommended that she increase water intake to target a urinary output of 2 L per day . I again gave [place] a list of foods containing oxalates, and I recommended a low oxalat e diet, with instructions to minimize oxalate consumption to 40-50 mg per day. I also recom mended a low sodium, low animal protein, low fat, high citrate diet. She has already. We also discussed her past history of pulmonary embolus, and her family history of pulmonar y emboli. I told her that she needs to see a physical therapy coordinator for further evaluation of her coa gulopathy. A referral has previously been submitted to the [facility] for a hematology consultation, but I do not see her follow-up appointment. Note to nursing: Please check on status of hematology consultation. [place]ia's follow-up here will remain open. However, I told her that she must notify me im mediately if she experiences any UTI symptoms or back or flank or abdominal pain. Additionally, I have asked her to follow-up in one year with a KUB and urinalysis prior to her follow-up visit. [place] is instructed to resume her usual and customary care with her primary care provide r. This document was generated in part using voice recognition software. Although I have atte mpted to edit the content, I have not thoroughly proofread this note, and plant operator/shift supervisor erro rs may occur. documented in this en counter Plan of Treatment Not on filedocumented as of this encounter Procedures + +--------+ + + + | Procedure Name | Priori | Date/Time | Associated Diagnosis | Comments | | | ty | | | | + +--------+ + + + | IMAGING REPORT - | | 04/29/2017 | | Results for this | | EXTERNAL SCAN | | 12:00 AM | | procedure are in the | | | | PST | | results section. | + +--------+ + + + documented in this encounter Results IMAGING REPORT - EXTERNAL SCAN (04/29/2017 12:00 AM PST) [...]
--- OUTSIDE RECORDS SUMMARY | ~2019-03-30 | XMS | Encounter Summary ---
Demographics + + + | Address | [address] | | | [place] [address] | + + + | Home Phone [...] | Organization | [facility] | | | and [place] | + + + | Address | Unknown | + + + | Phone | Unavailable | + + + Support + + + + + | Name | Relationship | Address | Phone | + + + + + | Gt Welch | ECON | [address] | | | | | [place] | | | | | [place] | | | | | [address] | | + + + + + Care Team Providers + +------+ + | Care Clerical Methods Analyst Name | Role | Phone | + [...] + + | 07/25/ | Emergency | [facility] | Mary Jo, | Cough (Primary Dx); | | 2014 | | [facility] | Luis Carlos Cervantes MD [address] | Asthma, unspecified | | | | CENTER [address] | [address] | asthma severity, | | | | [place], [place] | [place] [address] | with acute | | | | [address] | [phone] | exacerbation; | | | | [phone] | | and | | | | [...] as of this encounter Discharge Instructions Instructions LuisC arlos Camargo MD - 07/25/2014Use promethazine with codeine [...] | ---- 07/25/2014 | | | 08:34 [facility] | | | -COUGH/VOMITING/16 WKS PREG 07/04/2014 18:23 [place] [facility] -[facility] [...] | history of tobacco use 06/19/2014 15:28 [facility] | | | [facility] Emergency -COUGH, [...] Acute bronchitis 05/20/2014 | | | 19:00 [facility] | | | -Unspecified hemorrhage in [...] tobacco use | | | 04/27/2014 19:33 [facility] | | | Emergency -Cervicalgia | | [...] ------ --------- 2 0 | | | [facility] 2 0 | | | [facility] 3 0 | | | [facility] 6 0 | | | [facility] 1 0 | | | [facility] 14 0 | | | Total Note: Visits indicate total known | | | visits. Medicaid [place] Dx are the number of primary diagnoses on the | | | [facility]'s non-emergent dx list. | | | | | | --- Guidelines Source: [facility] Guidelines | | | Date: [...]
--- OUTSIDE RECORDS SUMMARY | ~2019-03-30 | XMS | Encounter Summary ---
Demographics + + + | Address | [address] | | | [place] [address] | + + + | Home Phone | | + + + | Preferred Language | Unknown | + + + | Marital Status | Single | + + + | Jew Affiliation | Unknown | + + + | Race | Unknown | + + + | Ethnic Group | Unknown | + + + Author + + + | Author | [facility] | | | and [place] | + + + | Organization | [facility] | | | and [place] | + + + | Address | Unknown | + + + | Phone | Unavailable | + + + Support + + + + + | Name | Relationship | Address | Phone | + + + + + | Gt Welch | ECON | [address] [facility] [address] | | | | | [place] | | | | | [place] | | | | | [address] | | + + + + + Care Team Providers + +------+ + | Care Baggage Agent Name | Role | Phone | + +------+ + | Bro Mora MD | PCP | | + +------+ + Encounter Details +--------+ + + + + | Date | Type | Department | Care Team | Description | +--------+ + + + + | 04/30/ | Hospital | [facility] | Conversion | Pain | | 2017 | Encounter | CONVERSION [address] | Transaction, | | | | | [address] | Provider Unknown | | | | | [place], [place] | [phone] | | | | | [address] | (Fax) | | | | | [phone] | | | +--------+ + + + [...]
--- OUTSIDE RECORDS SUMMARY | ~2019-03-30 | XMS | Encounter Summary ---
Demographics + + + | Address | [address] | | | [place] [address] | + + + | Home Phone | | + + + | Preferred Language | Unknown | + + + | Marital Status | Single | + + + | Yarsani Affiliation | Unknown | + + + | Race | Unknown | + + + | Ethnic Group | Unknown | + + + Author + + + | Author | [facility] | | | and [place] | + + + | Organization | [facility] | | | and [place] | + + + | Address | Unknown | + + + | Phone | Unavailable | + + + Support + + + + + | Name | Relationship | Address | Phone | + + + + + | Gt Welch | ECON | [address] [facility] | | | | | [place] | | | | | [place] | | | | | [address] | | + + + + + Care Team Providers + +------+ + | Care Technical Manager Name | Role | Phone | [...] | | | EMERGENCY CENTER | [address] [place], [place] | | | | | [address] [facility] | [address] | | | | | [place], [place] | [phone] | | | | | [address] | | | | | | [phone] | | | +--------+ + + + [...]
--- OUTSIDE RECORDS SUMMARY | ~2019-03-30 | XMS | Encounter Summary ---
Demographics + + + | Address | [address] | | | [place] [address] | + + + | Home Phone | | + + + | Preferred Language | Unknown | + + + | Marital Status | Single | + + + | Sikhism Affiliation | Unknown | + + + | Race | Unknown | + + + | Ethnic Group | Unknown | + + + Author + + + | Author | [facility] | | | and [place] | + + + | Organization | [facility] | | | and [place] | + + + | Address | Unknown | + + + | Phone | Unavailable | + + + Support + + + + + | Name | Relationship | Address | Phone | + + + + + | Gt Hartarte | ECON | [address] [facility] | | | | | [place] | | | | | [place] | | | | | [address] | | + + + + + Care Team Providers + +------+ + | Care Guidance Counselor Name | Role | Phone | + +------+ + PCP | Unavailable | + +------+ + Encounter Details +--------+ + + + + | Date | Type | Department | Care Team | Description | +--------+ + + + + | 05/24/ | Hospital | [facility] | ChaddGold, | Right ureteral | | 2018 | Encounter | MED CTR XRAY [address] [facility] | calculus | | | | [place] | [place], [place] | | | | | [place] [address] | [address] | | | | | [phone] | | | +--------+ + + + [...]
--- OUTSIDE RECORDS SUMMARY | ~2019-03-30 | XMS | Encounter Summary ---
Demographics + + + | Address | [address] | | | [place] [address] | + + + | Home Phone [...] Organization | [facility] | | | and [place] | + + + | Address | Unknown | + + + | Phone | Unavailable | + + + Support + + + + + | Name | Relationship | Address | Phone | + + + + + | Gt Welch | ECON | [address] [facility] | | | | | [place] | | | | | [place] | | | | | [address] | | + + + + + Care Team Providers + +------+ + | Care Inspector Repairer Sandstone Name | Role | Phone | + [...] | | | | EMERGENCY CENTER | [place] [address] | | | | | [address] | [phone] | | | | | [place], [place] | | | | | | [address] | | | | | | [phone] | | | +--------+ + + + [...] | | | | | performed at [facility];888 | | | | | | Patricia Pearson;[place], [place] | | | | | | [address] | | | | + + + [...] | | | Basophils | performed at [facility];888 | K/uL | LAB | | | | Patricia Alexandra;[place], [place] | | | | | | [address] | | | | + + + [...] EXTERNAL | | | | performed at [facility] | | LAB | | | | [facility];[place], [place] | | | | | | [address] | | | | + + + [...] EXTERNAL | | | | performed at [facility];888 | | LAB | | | | Patricia Alexandra;[place] | | | | | | [address] | | | | + + + [...] EXTERNAL | | | | performed at [facility];888 | | LAB | | | | Patricia Alexandra;[place], [place] | | | | | | [address] | | | | + + + [...] | | | | | | MDRD [facility] traceable | | | | | | equation.Testing | | | | | | performed at [facility];888 | | | | | | [facility];[place], [place] | | | | | | [address] | | | | + + + [...] - 1.030 | EXTERNAL | | | [place] | | | LAB | | + [...] | | | Urine | performed at [facility];888 | | LAB | | | | Patricia Alexandra;[place] | | | | | | [address] | | | | + + + [...]
--- OUTSIDE RECORDS SUMMARY | ~2019-03-30 | XMS | Encounter Summary ---
Demographics + + + | Address | [address] | | | [place] [address] | + + + | Home Phone | | + + + | Preferred Language | Unknown | + + + | Marital Status | Single | + + + | Islam Affiliation | Unknown | + + + | Race | Unknown | + + + | Ethnic Group | Unknown | + + + Author + + + | Author | [facility] | | | and [place] | + + + | Organization | [facility] | | | and [place] | + + + | Address | Unknown | + + + | Phone | Unavailable | + + + Support + + + + + | Name | Relationship | Address | Phone | + + + + + | Gt Rebekah | ECON | [address] [facility] | | | | | [place] | | | | | [place] | | | | | [address] | | + + + + + Care Team Providers + +------+ + | Care Admitting Manager Name | Role | Phone | [...] | +--------+ + + + + | 01/15/ | Telephone | [facility] | Gold Florentino, | Other | | 2018 | | [address] | [address] | | | | | [place] | [place] | | | | | [address] | [address] | | | | | [phone] | | | +--------+ + + + [...]
--- OUTSIDE RECORDS SUMMARY | ~2019-03-30 | XMS | Encounter Summary ---
Demographics + + + | Address | [address] | | | [place] [address] | + + + | Home Phone [...] + + + | Author | [facility] | | | and [place] | + + + | Organization | [facility] | | | and [place] | + + + | Address | Unknown | + + + | Phone | Unavailable | + + + Support + + + + + | Name | Relationship | Address | Phone | + + + + + | Gt Welch | ECON | [address] [facility] | | | | | [place] | | | | | [place] | | | | | [address] | | + + + + + Care Team Providers + +------+ + | Care Bedspread Cutter Hand Name | Role | Phone | + [...] + + | 05/05/ | Emergency | [facility] | Gabriel Torres, | Right flank pain | | 2017 | | MED CTR EMERGENCY | MD [address] | (Primary Dx); Pain | | | | CENTER [address] | [facility] [place] [place] | due to ureteral | | | | [place], [place] | [place] [address] | stent, initial | | | | [address] | [phone] | encounter (HCC); | | | | [phone] | | Pruritic rash | +--------+ + [...] be sent through Care Everywhere.Stents, Uretera l (Luxembourgish)documented in this encounter Medications at Time of [...] C?MRN: | | | | | | [id number] | | | [id number] | | | his | | | [...] | | | ent/67 | | | [id number] | | | -[id number] | | | [...] | | | St. | | | [place] | | | y | | | [...] | | | St. | | | [place] | | | y H. | | [...] | | | St. | | | [place] | | | y | | | [...] - 1.030 | [facility] | | | [place] | | | [facility] | | [...] + | [facility] | [address] | [place] | [phone] | | [facility] | | [address] | | | - LABORATORY | | [...] | | | | mmol/L | [facility] | | | | | | MEDICAL [...] mL/min/1.73m2 | Nicole STOUT | | | ARGENTINE | RATE,ESTIMATED | | MEDICAL | | | | mL/min/1.30q8Wlzr than | | CENTER - | | [...] [address] | [place] | [phone] | | [facility] | | [address] | | | - LABORATORY | | [...] [address] | [place] | [phone] | | [facility] | | [address] | | | - LABORATORY | | [...]
--- OUTSIDE RECORDS SUMMARY | ~2019-03-30 | XMS | Encounter Summary ---
Demographics + + + | Address | [address] | | | [place] [address] | + + + | Home Phone [...] Collaborative & [facility] | | | and [place] | + + + | Address | Unknown | + + + | Phone | Unavailable | + + + Support + + + + + | Name | Relationship | Address | Phone | + + + + + | Gt Welch | ECON | [address] [facility] | | | | | [place] | | | | | [place] | | | | | [address] | | + + + + + Care Team Providers + +------+ + | Care Plush Weaver Name | Role | Phone | + +------+ + | Bro Mora MD | PCP | | + +------+ + Encounter Details +--------+ + + + + | Date | Type | Department | Care Team | Description | +--------+ + + + + | 02/01/ | Emergency | [facility] | Nico Orourke | Pain, dental; | | 2015 | | MEDICAL CENTER | MD Michael [address] | Elevated blood | | | | EMERGENCY [place] | [place] [facility] | pressure | | | | [address] | [place] [address] | | | | | [place] | [phone] | | | | | [address] | | | | | | [phone] | | | +--------+ + + + [...]
--- OUTSIDE RECORDS SUMMARY | ~2019-03-30 | XMS | Encounter Summary ---
Demographics + + + | Address | [address] | | | [place] [address] | + + + | Home Phone | | + + + | Preferred Language | Unknown | + + + | Marital Status | Single | + + + | Amish Affiliation | Unknown | + + + | Race | Unknown | + + + | Ethnic Group | Unknown | + + + Author + + + | Author | and Services Daniel | | | and [place] | + + + | Organization | [facility] | | | and [place] | + + + | Address | Unknown | + + + | Phone | Unavailable | + + + Support + + + + + | Name | Relationship | Address | Phone | + + + + + | Gt Welch | ECON | [address] [facility] | | | | | [place] | | | | | [place] | | | | | [address] | | + + + + + Care Team Providers + +------+ + | Care Federal Aid Coordinator Name | Role | Phone | [...] + + | 10/13/ | Hospital | [facility] | Marcell Hummel | | | 2015 | Encounter | MED CTR LABOR AND | DO Michael [address] | | | | | DELIVERY [address] | [place] [address] | | | | | [place], | [place] [address] | | | | | [place] [address] | [phone] | | | | | [phone] | | | +--------+ + + + [...] as of this encounter Discharge Instructions Instructions Brainna Sahu RN - 10/13/2014Discharge Education for the [...] - 1.030 | [facility] | | | [place] | | | [facility] | | [...] [address] | [place] | [phone] | | [facility] | | [address] | | | - LABORATORY | | [...]
--- OUTSIDE RECORDS SUMMARY | ~2019-03-30 | XMS | Encounter Summary ---
Demographics + + + | Address | [address] | | | [place] [address] | + + + | Home Phone [...] | Organization | [facility] | | | and [place] | + + + | Address | Unknown | + + + | Phone | Unavailable | + + + Support + + + + + | Name | Relationship | Address | Phone | + + + + + | Gt Hartarte | ECON | [address] [facility] | | | | | [place] | | | | | [place] | | | | | [address] | | + + + + + Care Team Providers + +------+ + | Care Broke Worker Name | Role | Phone | + +------+ + | No, Physician | PCP | Unavailable | + +------+ + Encounter Details +--------+ + + + + | Date | Type | Department | Care Team | Description | +--------+ + + + + | 12/13/ | Orders Only | [facility] | Provider, | | | 2019 | | SYSTEM GENERIC OP | MD [address] | | | | | CONVERSION [address] | [place] | | | | | [address] [place], [place] | [place] [address] | | | | | [address] | | | | | | [phone] | | | +--------+ + + + [...]
--- OUTSIDE RECORDS SUMMARY | ~2019-03-30 | XMS | Encounter Summary ---
Demographics + + + | Address | [address] | | | [place] [address] | + + + | Home Phone [...] Organization | [facility] | | | and [place] | + + + | Address | Unknown | + + + | Phone | Unavailable | + + + Support + + + + + | Name | Relationship | Address | Phone | + + + + + | Gt Welch | ECON | [address] [facility] | | | | | [place] | | | | | [place] | | | | | [address] | | + + + + + Care Team Providers + +------+ + | Care Surface Grinder Name | Role | Phone | + [...] | | | | CENTER [address] | [address] [facility] | | | | | [place], [place] | [place] [address] | | | | | [address] | [phone] | | | | | [phone] | | | +--------+ + + + [...] sent through Care Everywhere.Pharyngitis, St rep (Presumed) (Belarusian)documented in this encounter Medications at Time of [...] C?MRN: | | | | | | [id number] | | | [id number] | | | his | | | [...] | | | ent/67 | | | [id number] | | | -[id number] | | | [...] | | | St. | | | [place] | | | y | | | [...] | | | St. | | | [place] | | | y H. | | [...] | | | St. | | | [place] | | | y H. | | [...] | | | St. | | | [place] | | | y | | | [...] | 1.010, 1.015, | | | | [place], | | 1.020, 1.025 | | | [...] - 1.030 | [facility] | | | [place] | | | [facility] | | [...] ST. | [address] | [place], [place] | [phone] | | [facility] | | [address] | | | - LABORATORY | | [...] ST. | [address] | [place] | [phone] | | [facility] | | [address] | | | - LABORATORY | | [...]
--- OUTSIDE RECORDS SUMMARY | ~2019-03-30 | XMS | Encounter Summary ---
Demographics + + + | Address | [address] | | | [place] [address] | + + + | Home Phone | | + + + | Preferred Language | Unknown | + + + | Marital Status | Single | + + + | Zoroastrianism Affiliation | Unknown | + + + | Race | Unknown | + + + | Ethnic Group | Unknown | + + + Author + + + | Author | [facility] | | | and [place] | + + + | Organization | [facility] | | | and [place] | + + + | Address | Unknown | + + + | Phone | Unavailable | + + + Support + + + + + | Name | Relationship | Address | Phone | + + + + + | Gt Welch | ECON | [address] [facility] | | | | | [place] | | | | | [place] | | | | | [address] | | + + + + + Care Team Providers + +------+ + | Care Forge Press Operator Name | Role | Phone | [...] | | | | | | | [place] | | | | | | | CYSTO/URETER | | | | | | | O/PYELOSCOPY | | | | | | | , CALCULUS | | | | | | | [place] | | | | | | | [...] + + | 01/04/ | Hospital | [facility] | Gold Florentino A, | | | 2018 | Encounter | MED CTR XRAY [address] | [address] [facility] | | | | | [place] | [place], [place] | | | | | [place] [address] | [address] | | | | | [phone] | | | +--------+ + + + [...]
--- OUTSIDE RECORDS SUMMARY | ~2019-03-30 | XMS | Encounter Summary ---
Demographics + + + | Address | [address] | | | [place] [address] | + + + | Home Phone | | + + + | Preferred Language | Unknown | + + + | Marital Status | Single | + + + | Jain Affiliation | Unknown | + + + | Race | Unknown | + + + | Ethnic Group | Unknown | + + + Author + + + | Author | [facility] | | | and [place] | + + + | Organization | [facility] | | | and [...] [place] | | | | | [place] | | | | | [address] | | + + + + + Care Team Providers + +------+ + | Care Motorcycle Deliverer Name | Role | Phone | + [...] | calculus (Primary | | | | [place], [place] | [place], [place] | Dx) | | | | [address] | [address] | | | | | [phone] | | | +--------+ + + + [...]
--- OUTSIDE RECORDS SUMMARY | ~2019-03-30 | XMS | Encounter Summary ---
Demographics + + + | Address | [address] | | | [place] [address] | + + + | Home Phone [...] | Organization | [facility] | | [...] [place] | | | | | [address] | | + + + + + Care Team Providers + +------+ + | Care Review Manager Name | Role | Phone | [...] | | MEDICAL CENTER | [address] [facility] | | | | | EMERGENCY CENTER | [place], [place] | | | | | [address] [facility] | [address] | | | | | [place], [place] | | | | | | [address] | | | | | | [phone] | | | +--------+ + + + [...]
--- OUTSIDE RECORDS SUMMARY | ~2019-03-30 | XMS | Encounter Summary ---
Demographics + + + | Address | [address] | | | [place] [address] | + + + | Home Phone [...] + + | Author | [facility] | | | and [place] | + + + | Organization | [facility] | | | and [place] | + + + | Address | Unknown | + + + | Phone | Unavailable | + + + Support + + + + + | Name | Relationship | Address | Phone | + + + + + | Gt Rebekah | ECON | [address] [facility] | | | | | [place] | | | | | [place] | | | | | [address] | | + + + + + Care Team Providers + +------+ + | Care Skull Grinder Name | Role | Phone | [...] | | | EMERGENCY CENTER | [address] [place], [place] | | | | | [address] | [address] | | | | | [place], [place] | [phone] | | | | | [address] | | | | | | [phone] | | | +--------+ + + + [...]
--- OUTSIDE RECORDS SUMMARY | ~2019-03-30 | XMS | Encounter Summary ---
Demographics + + + | Address | [address] | | | [place] [address] | + + + | Home Phone [...] | [facility] | | | and [place] | + + + | Address | Unknown | + + + | Phone | Unavailable | + + + Support + + + + + | Name | Relationship | Address | Phone | + + + + + | Gt Welch | ECON | [address] [facility] | | | | | [place] | | | | | [place] | | | | | [address] | | + + + + + Care Team Providers + +------+ + | Care Credit Authorizer Name | Role | Phone | + [...] + + | 07/30/ | Emergency | [facility] | James Thompson, | Reactive airway | | 2015 | | MED CTR EMERGENCY | [address] | disease, mild | | | | CENTER [address] | [place] | persistent, with | | | | [place] | [id number] | acute exacerbation | | | | [address] | | (Primary Dx) | | | | [phone] | | | +--------+ + + + [...] sent through Care Everywhere.ASTHMA AND PREG NILSA ([place])documented in this encounter Medications at Time of [...] | ---- 07/30/2014 | | | 09:39 [facility] Emergency | | | -Cough, SOB 07/25/2014 16:01 [facility] | | | Center Emergency -Diff Breathing 07/25/2014 08:38 | | | [facility] Emergency -Unspecified | | | infection or infestation of mother, antepartum | | | | | | condition or complication | | | | | | -Asthma, unspecified type, with (acute) exacerbation | | | | | | -Cough | | | | | | -COUGH/VOMITING/16 WKS PREG 07/04/2014 18:23 [place] | | | [facility] Emergency -14 WEEKS , | | [...] | history of tobacco use 06/19/2014 15:28 [facility] | | | Hospital Emergency -COUGH, [...] Acute bronchitis 05/20/2014 | | | 19:00 [facility] Emergency | | | -Unspecified hemorrhage [...] ------ --------- 2 0 | | | [facility] 2 0 | | | [facility] 5 0 | | | [facility] 6 0 | | | [facility] 1 0 | | | [facility] 16 0 | | | Total Note: Visits indicate total known visits. | | | Medicaid [place] Dx are the number of primary diagnoses on the [facility]'s | | | non-emergent dx list. | | | | | | --- Guidelines Source: [facility] Guidelines | | | Date: [...]
--- OUTSIDE RECORDS SUMMARY | ~2019-03-30 | XMS | Encounter Summary ---
Demographics + + + | Address | [address] | | | [place] [address] | + + + | Home Phone [...] + + + | Author | [facility] | | | and [place] | + + + | Organization | [facility] | | | and [place] | + + + | Address | Unknown | + + + | Phone | Unavailable | + + + Support + + + + + | Name | Relationship | Address | Phone | + + + + + | Gt Welch | ECON | [address] [facility] | | | | | [place] | | | | | [place] | | | | | [address] | | + + + + + Care Team Providers + +------+ + | Care Rn Staff Name | Role | Phone | + [...] | | | | | | [place] [address] | | | | | | [phone] | | | +--------+ + + + [...]
--- OUTSIDE RECORDS SUMMARY | ~2019-03-30 | XMS | Encounter Summary ---
Demographics + + + | Address | [address] | | | [place] [address] | + + + | Home Phone | | + + + | Preferred Language | Unknown | + + + | Marital Status | Single | + + + | Jehovah'S Witness Affiliation | Unknown | + + + | Race | Unknown | + + + | Ethnic Group | Unknown | + + + Author + + + | Author | [facility] | | | and [place] | + + + | Organization | [facility] | | | and [place] | + + + | Address | Unknown | + + + | Phone | Unavailable | + + + Support + + + + + | Name | Relationship | Address | Phone | + + + + + | Gt Welch | ECON | [address] [facility] | | | | | [place] | | | | | [place] | | | | | [address] | | + + + + + Care Team Providers + +------+ + | Care Planning Official Name | Role | Phone | + [...] | | | | CENTER [address] | [facility] [place] | | | | | [place] | [place], [place] [address] | | | | | [address] | [phone] | | | | | [phone] | | | +--------+ + + + [...] C?MRN: | | | | | | [id number] | | | [id number] | | | his | | | [...] | | | ent/67 | | | [id number] | | | -[id number] | | | [...] | | | St. | | | [place] | | | y | | | [...] | | | St. | | | [place] | | | y | | | [...] | | | St. | | | [place] | | | y | | | Hospit | | | al | | | Patien | | | t is | | | curren | | | tly | | | establ | | | ished | | | with | | | St | | | [place] | | | y | | | [...] St | | | | | | [place] | | | y | | | [...] | | | [phone] | | | .These | | | [...] [address] | [place] | [phone] | | [facility] | | [address] | | | - LABORATORY | | [...]
--- OUTSIDE RECORDS SUMMARY | ~2019-03-30 | XMS | Encounter Summary ---
Demographics + + + | Address | [address] | | | [place] [address] | + + + | Home Phone | | + + + | Preferred Language | Unknown | + + + | Marital Status | Single | + + + | Hindu Affiliation | Unknown | + + + | Race | Unknown | + + + | Ethnic Group | Unknown | + + + Author + + + | Author | [facility] | | | and [place] | + + + | Organization | [facility] | | | and [place] | + + + | Address | Unknown | + + + | Phone | Unavailable | + + + Support + + + + + | Name | Relationship | Address | Phone | + + + + + | Gt Welch | ECON | [address] | | | | | [place] | | | | | [place] | | | | | [address] | | + + + + + Care Team Providers + +------+ + | Care [employer] Ax Consultant Name | Role | Phone | + +------+ + PCP | Unavailable | + +------+ + Encounter Details +--------+ + + + + | Date | Type | Department | Care Team | Description | +--------+ + + + + | 02/ | Emergency | [facility] | Surjit Morrison | Substance abuse; | | 2013 - | | [facility] | DO Crow Anguiano | Vomiting; Abdominal | | | | EMERGENCY CENTER | [place], [place] | pain; Discomfort | | 06/17/ | | [address] | [address] | during ; | | 2013 | | [place], [place] | | Suicidal ideation | | | | [address] | | | | | | [phone] | | | +--------+ + + + [...] different from the original. Case Management by PARAG Pimentel at 06/16/132256 Author: PARAG Pimentel Service: (none) Author Type: Fieldwork Coordinator Filed: 06/16/13 2159 Date of Service: 06/16/132256 Status: Signed Complaint Operator: PARAG Pimentel (Fieldwork Coordinator) CM spoke with patient about suicidal ideations. [...] faxed as soon as they arrive at [phone]. onver rafaela Transaction, Provider Unknown - 06/16/2013 9:05 PM PST Case Management by PARAG Pimentel at 06/16/132104 Author: PARAG Pimentel Service: (none) Author Type: Fieldwork Coordinator Filed: 06/16/132106 Date of Service: 06/16/132104 Status: Signed Complaint Operator: PARAG Pimentel (Fieldwork Coordinator) E.D. Visit Count ([address] Yr.) [address] ED 1 [facility] 1 Total 9 Provider Type Service [...] Visit Date Location Type Diagnoses 06/16/2013 20:51 [facility] Emergency - Abdominal Pain - Emesis - Nausea - Rash 05/25/2013 07:55 [facility] Emergency 1. Urinary tract infection, site not specified 2. Unspecified symptom associated with female genital organs 3. Leukorrhea, not specified as infective 4. Tobacco use disorder 5. Amphetamine or related acting sympathomimetic abuse, unspecified 05/17/2013 16:52 [facility] Emergency 0. Dehydration 1. Nausea with vomiting 1. Tobacco use disorder 1. Long-term (current) use of other medications 1. Counseling on substance use and abuse 05/12/2013 22:59 [facility] Emergency 1. Dental caries, unspecified 05/03/2013 11:37 [facility] Emergency - Issue of repeat prescriptions - Sleep disturbance, unspecified - Dysuria 04/29/2013 14:32 [facility] Emergency - Other specified symptoms asso ciated with female genital organs 04/23/2013 09:56 [facility] Emergency - Drug withdrawal 03/21/2013 15:26 [facility] Emergency 02/25/2013 23:34 [facility] ED Emergency - Arm Pain - Cellulitis [...] | | | Screen, | performed at [facility];888 | | | | | UA, POC | [address];[place] | | | | | | [address] | | | | + + + + + + | Barbiturate | NEGATIVEComment: | | EXTERNAL | | | s Screen, | Positive cutoff for | | LAB | | | Urine | CONCHA = 200 ng/mLTesting | | | | | | performed at [facility];[address] | | | | | | [address];[place] | | | | | | [address] | | | | + + + + + + | Benzodiazep | NEGATIVEComment: | | EXTERNAL | | | vin | Positive cutoff for | | LAB | | | Screen, | BENZO = 200 ng/mLTesting | | | | | Urine | performed at [facility];888 | | | | | | [address];[place] | | | | | | [address] | | | | + + + + + + | Cocaine | NEGATIVEComment: | | EXTERNAL | | | | Positive cutoff for | | LAB | | | | EPIFANIO = 300 ng/mLTesting | | | | | | performed at [facility];888 | | | | | | [address];[place] | | | | | | [address] | | | | + + + + + + | Methadone | NEGATIVEComment: | | EXTERNAL | | | | Positive cutoff for | | LAB | | | | MTD = 300 ng/mLTesting | | | | | | performed at [facility];[address] | | | | | | [address];[place] | | | | | | [address] | | | | + + + + + + | Opiates | NEGATIVEComment: | | EXTERNAL | | | | Positive cutoff for | | LAB | | | | OPI = 300 ng/mLTesting | | | | | | performed at [facility];[address] | | | | | | [address];[place] | | | | | | [address] | | | | + + + + + + | PCP | NEGATIVEComment: | | EXTERNAL | | | | Positive cutoff for PCP | | LAB | | | | = 25 ng/mLTesting | | | | | | performed at [facility] | | | | | | [address];[place] | | | | | | [address] | | | | + + + [...] | | | | | performed at [facility];[address] | | | | | | [address];[place] | | | | | | [address] | | | | + + + [...] | | | Ur | performed at [facility];[address] | | LAB | | | | [address];[place], [place] | | | | | | [address] | | | | + + + [...] EXTERNAL | | | | performed at [facility];[address] | | LAB | | | | [address];[place] | | | | | | [address] | | | | + + + + + + | RBC, UA | 0-2Comment: Testing | 0 - 5 /hpf | EXTERNAL | | | | performed at [facility];[address] | | LAB | | | | [address];[place] | | | | | | [address] | | | | + + + + + + | Epithelial | 6-10Comment: Testing | /lpf | EXTERNAL | | | Cells | performed at [facility];[address] | | LAB | | | | [address];[place] | | | | | | [address] | | | | + + + + + + | Bacteria, | TRACE (A)Comment: | | EXTERNAL | | | UA | Testing performed at | | LAB | | | | [facility];8 [facility] | | | | | | [facility];[place] [address] | | | | + + + [...] | | | | | performed at [facility] | | | | | | [address];[place], [place] | | | | | | [address] | | | | + + + [...] EXTERNAL | | | | performed at [facility] | | LAB | | | | [address];[place] | | | | | | [address] | | | | + + + + + + | RED CELL | 3.94Comment: Testing | 3.70 - 5.10 | EXTERNAL | | | COUNT | performed at [facility];888 | M/uL | LAB | | | | [address];[place] | | | | | | [address] | | | | + + + + + + | Hgb | 12.7Comment: Testing | 11.3 - 15.5 | EXTERNAL | | | | performed at [facility];888 | g/dL | LAB | | | | [address];[place] | | | | | | [address] | | | | + + + + + + | Hematocrit, | 35.6Comment: Testing | 34.0 - 46.0 % | EXTERNAL | | | POC | performed at [facility];[address] | | LAB | | | | [address];[place] | | | | | | [address] | | | | + + + + + + | MCV | 90.4Comment: Testing | 80.0 - 100.0 fl | EXTERNAL | | | | performed at [facility];[address] | | LAB | | | | [address];[place] | | | | | | [address] | | | | + + + + + + | MCH | 32.3Comment: Testing | 27.0 - 34.0 pg | EXTERNAL | | | | performed at [facility];[address] | | LAB | | | | [address];[place] | | | | | | [address] | | | | + + + + + + | MCHC | 35.7 (H)Comment: Testing | 32.0 - 35.5 | EXTERNAL | | | | performed at [facility];888 | g/dL | LAB | | | | [address];[place] | | | | | | [address] | | | | + + + + + + | RDW-CV | 41.1Comment: Testing | 37 - 53 fl | EXTERNAL | | | | performed at [facility];[address] | | LAB | | | | [address];[place] | | | | | | [address] | | | | + + + + + + | Platelet | 272Comment: Testing | 150 - 400 K/uL | EXTERNAL | | | Count | performed at [facility];[address] | | LAB | | | Plasma | [address];[place] | | | | | | [address] | | | | + + + + + + | MPV | 8.3Comment: Testing | fl | EXTERNAL | | | | performed at [facility];[address] | | LAB | | | | [address];[place] | | | | | | [address] | | | | + + + + + + | Differentia | AUTOMATEDComment: | | EXTERNAL | | | l Type | Testing performed at | | LAB | | | | [facility];[address];[place] [address] | | | | + + + [...] EXTERNAL | | | | performed at [facility];88 | | LAB | | | | [address];[place] | | | | | | [address] | | | | + + + [...] EXTERNAL | | | | performed at [facility];[address] | | LAB | | | | [address];[place] | | | | | | [address] | | | | + + + [...] | | | Alcohol | performed at [facility];888 | | LAB | | | | [address];[place] | | | | | | [address] | | | | + + + [...] | | EN LEVEL | performed at [facility];888 | ug/mL | LAB | | | | [address];[place], [place] | | | | | | [address] | | | | + + + [...] | | | Lvl | performed at [facility];888 | mg/dL | LAB | | | | [address];[place], [place] | | | | | | [address] | | | | + + + [...] EXTERNAL | | | | performed at [facility];888 | mmol/L | LAB | | | | [address];[place] | | | | | | [address] | | | | + + + + + + | K | 3.2 (L)Comment: Testing | 3.5 - 4.9 | EXTERNAL | | | | performed at [facility];888 | mmol/L | LAB | | | | [address];[place] | | | | | | [address] | | | | + + + + + + | Cl | 107Comment: Testing | 99 - 109 mmol/L | EXTERNAL | | | | performed at [facility];[address] | | LAB | | | | [address];[place] | | | | | | [address] | | | | + + + + + + | CO2 | 23Comment: Testing | 23 - 32 mmol/L | EXTERNAL | | | | performed at [facility];[address] | | LAB | | | | [address];[place] | | | | | | [address] | | | | + + + + + + | Anion Gap | 13Comment: Testing | 5 - 20 mmol/L | EXTERNAL | | | | performed at [facility];[address] | | LAB | | | | [address];[place] | | | | | | [address] | | | | + + + + + + | Glucose, | 82Comment: Testing | 65 - 99 mg/dL | EXTERNAL | | | Fasting | performed at [facility];[address] | | LAB | | | | [address];[place] | | | | | | [address] | | | | + + + + + + | BUN | 7 (L)Comment: Testing | 8 - 25 mg/dL | EXTERNAL | | | | performed at [facility];[address] | | LAB | | | | [address];[place] | | | | | | [address] | | | | + + + + + + | Creatinine | 0.63Comment: Testing | 0.50 - 1.00 | EXTERNAL | | | | performed at [facility];888 | mg/dL | LAB | | | | [address];[place] | | | | | | [address] | | | | + + + + + + | BUN/Creatin | 11Comment: Testing | | EXTERNAL | | | ine Ratio | performed at [facility];[address] | | LAB | | | | [address];[place] | | | | | | [address] | | | | + + + + + + | Calcium | 8.0 (L)Comment: Testing | 8.5 - 10.2 | EXTERNAL | | | | performed at [facility];888 | mg/dL | LAB | | | | [address];[place] | | | | | | [address] | | | | + + + + + + | Protein, | 6.8Comment: Testing | 6.3 - 8.2 g/dL | EXTERNAL | | | Total | performed at [facility];[address] | | LAB | | | | [address];[place] | | | | | | [address] | | | | + + + + + + | Albumin | 3.5 (L)Comment: Testing | 3.6 - 5.0 g/dL | EXTERNAL | | | | performed at [facility];[address] | | LAB | | | | [address];[place] | | | | | | [address] | | | | + + + + + + | Globulin | 3.3Comment: Testing | 1.3 - 4.9 g/dL | EXTERNAL | | | | performed at [facility];[address] | | LAB | | | | [address];[place] | | | | | | [address] | | | | + + + + + + | A/G Ratio | 1.1Comment: Testing | 1.0 - 2.4 | EXTERNAL | | | | performed at [facility];[address] | | LAB | | | | [address];[place] | | | | | | [address] | | | | + + + + + + | Bilirubin | 0.4Comment: Testing | 0.1 - 1.5 mg/dL | EXTERNAL | | | Total | performed at [facility];[address] | | LAB | | | | [address];[place] | | | | | | [address] | | | | + + + + + + | ALP, | 50Comment: Testing | 35 - 115 U/L | EXTERNAL | | | External | performed at [facility];[address] | | LAB | | | | [address];[place] | | | | | | [address] | | | | + + + + + + | AST | 16Comment: Testing | 10 - 45 U/L | EXTERNAL | | | | performed at [facility];[address] | | LAB | | | | [address];[place] | | | | | | [address] | | | | + + + + + + | ALT | 18Comment: Testing | 10 - 65 U/L | EXTERNAL | | | | performed at [facility];[address] | | LAB | | | | [address];[place] | | | | | | [address] | | | | + + + [...] | | | | | | at [facility];[address] | | | | | | [facility];[place] [address] | | | | + + + [...]
--- OUTSIDE RECORDS SUMMARY | ~2019-03-30 | XMS | Encounter Summary ---
Demographics + + + | Address | [address] | | | [place] [address] | + + + | Home Phone [...] + | Author | [facility] | | | and [place] | + + + | Organization | [facility] | | | and [place] | + + + | Address | Unknown | + + + | Phone | Unavailable | + + + Support + + + + + | Name | Relationship | Address | Phone | + + + + + | Gt Welch | ECON | [address] | | | | | [place] | | | | | [place] | | | | | [address] | | + + + + + Care Team Providers + +------+ + | Care Sales Service Supervisor Name | Role | Phone | [...] + + | 02/25/ | [facility] | Pelvic pain in | | 2013 | | [facility] | Nico Contreras MD | female (Primary Dx); | | | | CENTER [address] | [address] | Ovarian cyst, left | | | | [place], [place] | [place], [place] | | | | | [address] | [address] | | | | | [phone] | | | +--------+ + + + [...] TRACKING (3 MO.) Visit Date Location | [facility] | | Type Diagnoses | | | -------- | | | ---- 02/24/2014 23:42 [place] | | | [facility] Emergency -left ovary pain | | | 01/30/2014 10:02 [facility] | | | Emergency -Threatened , antepartum [...] ovarian cyst 01/24/2014 16:45 | | | [facility] Emergency -DENTAL | | | PAIN | | | -Unspecified disorder of the | | | teeth and supporting structures | | | | | | -Periapical abscess without sinus | | | | | | 1. Periapical abscess without sinus | | | | | | 2. Tobacco use disorder 12/22/2013 17:30 [facility] | [facility] 1. Acute bronchitis | | | | | | 2. Other malaise and fatigue | | | | | | 2. Personal history of tobacco use | | | VISIT COUNT (1 YR.) Visits Medicaid NE Dx Location | | | ------ --------- 3 0 | | | [facility] 3 0 | | | [facility] 1 0 | | | [facility] 4 0 | | | [facility] 1 0 | | | [facility] 1 0 | | | [facility] 2 0 | | | [facility] 1 0 | | | [facility] 2 0 | | | [facility] 18 0 | | | Total Note: Visits indicate total known visits. | | | Medicaid [place] Dx are the number of primary diagnoses on the [facility]'s | | | non-emergent dx list. | | | | | | --- Guidelines Source: [facility] Guidelines | | | Date: [...]
--- OUTSIDE RECORDS SUMMARY | ~2019-03-30 | XMS | Encounter Summary ---
Demographics + + + | Address | [address] | | | [place] [address] | + + + | Home Phone [...] + + + | Author | [facility] | | | and [place] | + + + | Organization | [facility] | | | and [place] | + + + | Address | Unknown | + + + | Phone | Unavailable | + + + Support + + + + + | Name | Relationship | Address | Phone | + + + + + | Gt Welch | ECON | [address] [facility] | | | | | [place] | | | | | [place] | | | | | [address] | | + + + + + Care Team Providers + +------+ + | Care Pairing Machine Operator Name | Role | Phone | + +------+ + | Bro Mora MD | PCP | | + +------+ + Encounter Details +--------+ + + + + | Date | Type | Department | Care Team | Description | +--------+ + + + + | 09/17/ | Emergency | [facility] | Gabe Wright, | Pneumonia of right | | 2016 | | MEDICAL CENTER | [address] | middle lobe due to | | | | EMERGENCY [facility] | [place] [address] | infectious organism | | | | [address] | [phone] | | | | | [place], [place] | | | | | | [address] | | | | | | [phone] | | | +--------+ + + + [...] | angiographic MIP reconstructions were performed by hybrid technologist. No | | | 3-D imaging. [...] CT angiographic MIP reconstructions were performed by hybrid technologist. No 3-D | | imaging. Radiation [...] lungs appear clear. Cardiomediastinal silhouette appears unremarkable. [place] us structures appear unremarkable. No pleural effusion [...] K/uL | LAB | | | | [facility], [address], | | | | | | [place] [address] | | | | + + + + + + | RED CELL | 4.40Comment: Testing | 3.70 - 5.10 | EXTERNAL | | | COUNT | performed at [facility], [address] | M/uL | LAB | | | | [address] [place], | | | | | | [place] [address] | | | | + + + + + + | Hgb | 13.3Comment: Testing | 11.3 - 15.5 | EXTERNAL | | | | performed at [facility], [address] | g/dL | LAB | | | | [address] [place], | | | | | | [place] [address] | | | | + + + + + + | Hematocrit, | 40.0Comment: Testing | 34.0 - 46.0 % | EXTERNAL | | | POC | performed at [facility], [address] | | LAB | | | | [address] [place], | | | | | | [place] [address] | | | | + + + + + + | MCV | 90.9Comment: Testing | 80.0 - 100.0 fl | EXTERNAL | | | | performed at [facility], [address] | | LAB | | | | [address] [place], | | | | | | [place] [address] | | | | + + + + + + | MCH | 30.2Comment: Testing | 27.0 - 34.0 pg | EXTERNAL | | | | performed at [facility], [address] | | LAB | | | | [address] [place], | | | | | | [place] [address] | | | | + + + + + + | MCHC | 33.2Comment: Testing | 32.0 - 35.5 | EXTERNAL | | | | performed at [facility], [address] | g/dL | LAB | | | | [address] [place], | | | | | | [place] [address] | | | | + + + + + + | RDW-CV | 41.1Comment: Testing | 37 - 53 fl | EXTERNAL | | | | performed at [facility], [address] | | LAB | | | | [address] [place], | | | | | | [place] [address] | | | | + + + + + + | Platelet | 275Comment: Testing | 150 - 400 K/uL | EXTERNAL | | | Count | performed at [facility], [address] | | LAB | | | Plasma | [address] [place], | | | | | | [place] [address] | | | | + + + + + + | MPV | 8.9Comment: Testing | fl | EXTERNAL | | | | performed at [facility], [address] | | LAB | | | | [address] [place], | | | | | | [place] [address] | | | | + + + + + + | Differentia | AUTOMATEDComment: | | EXTERNAL | | | l Type | Testing performed at | | LAB | | | | [facility], [address], | | | | | | [place] [address] | | | | + + + + + + | % Segmented | 52.76Comment: Testing | % | EXTERNAL | | | | performed at [facility], [address] | | LAB | | | Neutrophils | [address] [place], | | | | | | [place] [address] | | | | + + + + + + | % | 33.42Comment: Testing | % | EXTERNAL | | | Lymphocytes | performed at [facility], [address] | | LAB | | | | [address] [place], | | | | | | [place] [address] | | | | + + + + + + | % Monocytes | 10.92Comment: Testing | % | EXTERNAL | | | | performed at [facility], [address] | | LAB | | | | [address] [place], | | | | | | [place] [address] | | | | + + + + + + | % | 2.09Comment: Testing | % | EXTERNAL | | | Eosinophils | performed at [facility], [address] | | LAB | | | | [address] [place], | | | | | | [place] [address] | | | | + + + + + + | % Basophils | 0.81Comment: Testing | % | EXTERNAL | | | | performed at [facility], [address] | | LAB | | | | [address] [place], | | | | | | [place] [address] | | | | + + + + + + | Absolute | 6.14Comment: Testing | 1.90 - 7.40 | EXTERNAL | | | Segmented | performed at [facility], [address] | K/uL | LAB | | | Neutrophils | [address] [place], | | | | | | [place] [address] | | | | + + + + + + | Absolute | 3.89Comment: Testing | 1.00 - 3.90 | EXTERNAL | | | Lymphocytes | performed at [facility], [address] | K/uL | LAB | | | | [address] [place], | | | | | | [place] [address] | | | | + + + + + + | Absolute | 1.27 (H)Comment: Testing | 0.00 - 0.80 | EXTERNAL | | | Monocytes | performed at [facility], [address] | K/uL | LAB | | | | [address] [place], | | | | | | [place] [address] | | | | + + + + + + | Absolute | 0.24Comment: Testing | 0.00 - 0.50 | EXTERNAL | | | Eosinophils | performed at [facility], [address] | K/uL | LAB | | | | [address] [place], | | | | | | [place] [address] | | | | + + + + + + | Absolute | 0.10Comment: Testing | 0.00 - 0.10 | EXTERNAL | | | Basophils | performed at [facility], [address] | K/uL | LAB | | | | [address] [place], | | | | | | [place] [address] | | | | + + + + + + | Na | 142Comment: Testing | 135 - 143 | EXTERNAL | | | | performed at [facility], [address] | mmol/L | LAB | | | | [address] [place], | | | | | | [place] [address] | | | | + + + + + + | K | 3.2 (L)Comment: Testing | 3.5 - 4.9 | EXTERNAL | | | | performed at [facility], [address] | mmol/L | LAB | | | | [address] [place], | | | | | | [place] [address] | | | | + + + + + + | Cl | 107Comment: Testing | 99 - 109 mmol/L | EXTERNAL | | | | performed at [facility], [address] | | LAB | | | | [address] [place], | | | | | | [place] [address] | | | | + + + + + + | CO2 | 27Comment: Testing | 23 - 32 mmol/L | EXTERNAL | | | | performed at [facility], [address] | | LAB | | | | [address] [place], | | | | | | [place] [address] | | | | + + + + + + | Anion Gap | 11Comment: Testing | 5 - 20 mmol/L | EXTERNAL | | | | performed at [facility], [address] | | LAB | | | | [address] [place], | | | | | | [place] [address] | | | | + + + + + + | Glucose, | 90Comment: Testing | 65 - 99 mg/dL | EXTERNAL | | | Fasting | performed at [facility], [address] | | LAB | | | | [address] [place], | | | | | | [place] [address] | | | | + + + + + + | BUN | 6 (L)Comment: Testing | 8 - 25 mg/dL | EXTERNAL | | | | performed at [facility], [address] | | LAB | | | | [address] [place], | | | | | | [place] [address] | | | | + + + + + + | Creatinine | 0.7Comment: Testing | 0.50 - 1.00 | EXTERNAL | | | | performed at [facility], [address] | mg/dL | LAB | | | | [address] [place], | | | | | | [place] [address] | | | | + + + + + + | BUN/Creatin | 9Comment: Testing | | EXTERNAL | | | ine Ratio | performed at [facility], [address] | | LAB | | | | [address] [place], | | | | | | [place] [address] | | | | + + + + + + | Calcium | 8.0 (L)Comment: Testing | 8.5 - 10.5 | EXTERNAL | | | | performed at [facility], [address] | mg/dL | LAB | | | | [address] [place], | | | | | | [place] [address] | | | | + + + + + + | Protein, | 7.0Comment: Testing | 6.3 - 8.2 g/dL | EXTERNAL | | | Total | performed at [facility], [address] | | LAB | | | | [address] [place], | | | | | | [place] [address] | | | | + + + + + + | Albumin | 3.3 (L)Comment: Testing | 3.6 - 5.0 g/dL | EXTERNAL | | | | performed at [facility], [address] | | LAB | | | | [address] [place], | | | | | | [place] [address] | | | | + + + + + + | Globulin | 3.7Comment: Testing | 1.3 - 4.9 g/dL | EXTERNAL | | | | performed at [facility], [address] | | LAB | | | | [address] [place], | | | | | | [place] [address] | | | | + + + + + + | A/G Ratio | 0.9 (L)Comment: Testing | 1.0 - 2.4 | EXTERNAL | | | | performed at [facility], [address] | | LAB | | | | [address] [place], | | | | | | [place] [address] | | | | + + + + + + | Bilirubin | 0.2Comment: Testing | 0.1 - 1.5 mg/dL | EXTERNAL | | | Total | performed at [facility], [address] | | LAB | | | | [address] [place], | | | | | | [place] [address] | | | | + + + + + + | ALP, | 49Comment: Testing | 35 - 115 U/L | EXTERNAL | | | External | performed at [facility], [address] | | LAB | | | | [address] [place], | | | | | | [place] [address] | | | | + + + + + + | AST | 18Comment: Testing | 10 - 45 U/L | EXTERNAL | | | | performed at [facility], [address] | | LAB | | | | [address] [place], | | | | | | [place] [address] | | | | + + + + + + | ALT | 29Comment: Testing | 10 - 65 U/L | EXTERNAL | | | | performed at [facility], [address] | | LAB | | | | [address] [place], | | | | | | [place] [address] | | | | + + + [...] | | | | | | at [facility], [address] | | | | | | [place], [place] | | | | | | [address] | | | | + + + + + + | CK, Total | 53Comment: Testing | 30 - 240 U/L | EXTERNAL | | | | performed at [facility], [address] | | LAB | | | | [address] [place], | | | | | | [place] [address] | | | | + + + [...] | | | | | performed at [facility], [address] | | | | | | [address] [place], | | | | | | [place] [address] | | | | + + + + + + | aPTT, | 29Comment: Testing | 23 - 32 seconds | EXTERNAL | | | Patient | performed at [facility], [address] | | LAB | | | | [address] [place], | | | | | | [place] [address] | | | | + + + + + + | CK-MB | <0.5 (L)Comment: Testing | 0.5 - 3.6 ng/mL | EXTERNAL | | | | performed at [facility], [address] | | LAB | | | | [address] [place], | | | | | | [place] [address] | | | | + + + + + + | CK-MB Index | UNABLE TO | | EXTERNAL | | | | CALCULATEComment: | | LAB | | | | Testing performed at | | | | | | [facility], [address], | | | | | | [place] [address] | | | | + + + [...] | | | | | | ACUTE NE Testing | | | | | | performed at [facility], [address] | | | | | | [address] [place], | | | | | | [place] [address] | | | | + + + [...] | | | | | performed at [facility], [address] | | | | | | [address] [place], | | | | | | [place] [address] | | | | + + + [...]
--- OUTSIDE RECORDS SUMMARY | ~2019-03-30 | XMS | Encounter Summary ---
Demographics + + + | Address | [address] | | | [place] [address] | + + + | Home Phone | | + + + | Preferred Language | Unknown | + + + | Marital Status | Single | + + + | Synagogue Affiliation | Unknown | + + + | Race | Unknown | + + + | Ethnic Group | Unknown | + + + Author + + + | Author | [facility] | | | and [place] | + + + | Organization | [facility] | | | and [place] | + + + | Address | Unknown | + + + | Phone | Unavailable | + + + Support + + + + + | Name | Relationship | Address | Phone | + + + + + | Gt Welch | ECON | [address] [facility] | | | | | [place] | | | | | [place] | | | | | [address] | | + + + + + Care Team Providers + +------+ + | Care Client Technologies Analyst Name | Role | Phone | [...] [place] | | | | | [place], [place] | | | | | | [address] | | | | | | [phone] | | | +--------+ + + + [...]
--- OUTSIDE RECORDS SUMMARY | ~2019-03-30 | XMS | Encounter Summary ---
Demographics + + + | Address | [address] | | | [place] [address] | + + + | Home Phone [...] | [facility] | | | and [place] | + + + | Address | Unknown | + + + | Phone | Unavailable | + + + Support + + + + + | Name | Relationship | Address | Phone | + + + + + | Gtjuliann Welch | ECON | [address] [facility] | | | | | [place] | | | | | [place] | | | | | [address] | | + + + + + Care Team Providers + +------+ + | Care Karate Teacher Name | Role | Phone | + +------+ + PCP | Unavailable | + +------+ + Encounter Details +--------+ + + + + | Date | Type | Department | Care Team | Description | +--------+ + + + + | 10/10/ | Emergency | [facility] | Sherry Ramirez, | Pelvic pain; | | 2011 | | MEDICAL CENTER | DO [address] | Left ovarian cyst; | | | | EMERGENCY CENTER | [place] [address] | Endometriosis | | | | [address] | [phone] | | | | | [place], [place] | | | | | | [address] | | | | | | [phone] | | | +--------+ + + + [...] | Testing performed at | | | [facility];[address] [facility];[place] [address] CULTURE | | | 2+ NORMAL GENITAL ROCAEL | | | Testing performed at [facility], [address] [place] [address] | | | [place] [address] REPORT STATUS | | | 02/18/2012 FINAL [...] | Testing performed at | | | [address];[place] [address] Bacteria, Wet Prep | | | NO YEAST OR TRICHOMONAS SEEN | | | Testing performed at [address] | | | [facility];[place] [address] REPORT STATUS | | | 02/15/2012 FINAL [...]
--- OUTSIDE RECORDS SUMMARY | ~2019-03-30 | XMS | Encounter Summary ---
Demographics + + + | Address | [address] | | | [place] [address] | + + + | Home Phone | | + + + | Preferred Language | Unknown | + + + | Marital Status | Single | + + + | Quaker Affiliation | Unknown | + + + | Race | Unknown | + + + | Ethnic Group | Unknown | + + + Author + + + | Author | [facility] | | | and [place] | + + + | Organization | [facility] | | | and [...] [place] | | | | | [address] | | + + + + + Care Team Providers + +------+ + | Care Medical Affairs Director Name | Role | Phone | [...] [address] | | | | | [address] | [address] [place], [place] | | | 05/02/ | | [place] | [address] | | | 2017 | | [address] | | | | | | [phone] | | | +--------+ + + + [...] Stiles MD - 05/02/2017 8:53 AM PST [facility] UROLOGY DISCHARGE SUMMARY Patient Name: Albania Bain [...] Hospital Course: The patient was admitted to [facility] by Dr. Gallo for an infected ureteral ston e. She had been seen at [facility] but the urologist energy economist their felt she was too complex to be admitted there. She was treated with IV antibiotics and went to [facility] operating room for ureteral stent placement. [...] closer to her h ome, likely in [place]. She is aware she still has a [...] urologist closer to her home, likely in [place]. She s hould have follow-up in the next 1-2 weeks. If there are any urological concerns or questions Please call [facility] at . Electronically Signed by: Juliet Darnell MD, 05/02/2017 8:53 [facility] Jones thapa in this encounter Discharge Instructions Instructions Juliet Darnell MD - 05/02/2017 [facility] DISCHARGE INSTRUCTIONS FOLLOWING YOUR PROCEDURE FOR [...] issues with gastric ulcers CONTACT INFORMATION: - [facility] Office Number: [facility] Office [place] Office FOLLOWUP INFORMATION: - will see you back postoperatively in 5-10 days or you can work to schedule with a urologist in [place] with a Xray prior, please call to [...] given. Hardcopy prescriptions given. Pt still at [facility] at this time awaiting ride.( I have been given an Low census). 2: 59 PM Juliet Stiles MD - 05/02/2017 8:35 AM PSTFormatting of this note might be differ ent from the original. [facility] Day: 3 DATE/TIME: 05/02/2017 8:35 IMPRESSION POD #2 s/p Right ureteral stent by DR. Gallo for infected stone PLAN 1. D/c to home. Patient wants to do f/u in [place] which is closer to home. Will ne [...] Medications and labs were personally reviewed by ne. Electronically Signed by: Juliet Darnell MD, 05/02/2017 8:35 [facility] Juliet Stiles MD - 1 07/02/2016 11:26 AM PST [facility] Day: 2 DATE/TIME: 05/01/2017 11:26 [...] tomorrow. Patient wants to do f/u in [place] which is closer to h ome. I [...] to open eyes" -hasn't been oob to [place] -urine culture no growth to date. Per [...] + | JOSE[facility]N MURO | [address] [facility] | [place] [address] | | | [facility] | | [...] | | | Source | | | [facility] | | | | | | HOSPITAL | | | | | | LABORATORY | | + + + + + + | RESULT | No growth or <1,000 | | [facility] | | | | CFU/mL | | [facility] | | | | | | HOSPITAL | | | | | | LABORATORY | | + + + + + + | RESULT | Performed at [facility] | | [facility] | | | | [facility], | | [facility] | | | | [address], [place], [place] | | HOSPITAL | | | | [address] | | LABORATORY | | + + [...] + | JOSELYN ZHAOClementine | [address] | [place] [address] | | | FAMILY H[facility]ITAL | | [...] + + | RESULT | Performed at [facility] | | [facility] | | | | [facility], | | [facility] | | | | [address], [place], [place] | | HOSPITAL | | | | [address] | | LABORATORY | | + + [...] + | [facility] MUR[facility] | [address] [facility] | [place] [address] | | | FAMILY H[facility]ITAL | | [...] + + + | [facility] MUR[facility] | [address] [facility] | [place] [address] | | | FAMILY H[facility]PITAL | | [...] + + + | [facility] MUR[facility] | [address] | [place] [address] | | | [facility] | | | | | [...] | | | | (DILAUDID) 1 mg/mL RUG TOUCH UP PAINTER | | 17 6:46 | | | [...] | | | | Dose(mg): 0, Starting RUG TOUCH UP PAINTER | | | | | | | Dose(mg): 0.2, Incremental | | | | | | | Increase RUG TOUCH UP PAINTER Dose(mg): 0.1, | | | | | | | Maximum RUG TOUCH UP PAINTER Dose(mg): 0.4, | | | | | [...]
--- OUTSIDE RECORDS SUMMARY | ~2019-03-30 | XMS | Encounter Summary ---
Demographics + + + | Address | [address] | | | [place] [address] | + + + | Home Phone [...] | Organization | [facility] | | | and [place] | + + + | Address | Unknown | + + + | Phone | Unavailable | + + + Support + + + + + | Name | Relationship | Address | Phone | + + + + + | Gt Welch | ECON | [address] [facility] | | | | | [place] | | | | | [place] | | | | | [address] | | + + + + + Care Team Providers + +------+ + | Care Ice Cream Server Name | Role | Phone | + +------+ + | Bro Mora MD | PCP | | + +------+ + Encounter Details +--------+ + + + + | Date | Type | Department | Care Team | Description | +--------+ + + + + | 07/25/ | Hospital | [facility] | Bro Mora, | Supervision of other | | 2015 | Encounter | MED CTR [facility]TR[facility] | [id number] | normal , | | | | [address] | [place] | second trimester | | | | [place] | [place] [address] | | | | | [address] | [phone] | | | | | [phone] | | | | | | | [...]
--- OUTSIDE RECORDS SUMMARY | ~2019-03-30 | XMS | Encounter Summary ---
Demographics + + + | Address | [address] | | | [place] [address] | + + + | Home Phone [...] + + | Organization | [facility] | | | and [place] | + + + | Address | Unknown | + + + | Phone | Unavailable | + + + Support + + + + + | Name | Relationship | Address | Phone | + + + + + | Gt Welch | ECON | [address] [facility] | | | | | [place] | | | | | [place] | | | | | [address] | | + + + + + Care Team Providers + +------+ + | Care Collection Advisor Name | Role | Phone | + +------+ + | Bro Mora MD | PCP | | + +------+ + Encounter Details +--------+ + + + + | Date | Type | Department | Care Team | Description | +--------+ + + + + | 06/30/ | Emergency | [facility] | Mike Perry MD | Epigastric abdominal | | 2017 | | MEDICAL CENTER | [address] | pain; Nausea and | | | | EMERGENCY CENTER | [place] [address] | vomiting, | | | | [address] | [phone] | intractability of | | | | [place], [place] | | vomiting not | | | | [address] | | specified, | | | | [phone] | | unspecified vomiting | | | [...] + + + | VEE RAMIREZ 1990 26 years Female CTA CHEST PULMONARY | | | EMBOLISM W CONTRAST 06/30/2016 8:07 PM HISTORY: Pulmonary | | | embolism. Elevated d-dimer. TECHNIQUE: 1.5-mm axial images of the | | | chest were acquired in the arterial phase according to a CT | | | angiography protocol. Coronal CT angiographic MIP reconstructions | | | were performed by cardiac catheterization technologist. No 3-D imaging. Radiation dose | [...] MIP | | reconstructions were performed by cardiac catheterization technologist. No 3-D imaging. Radiation dose | [...] | | | | | performed at [facility] | | | | | | [facility];[place], [place] | | | | | | [address] | | | | + + + [...] EXTERNAL | | | | performed at [facility];888 | K/uL | LAB | | | | [address];[place] | | | | | | [address] | | | | + + + + + + | RED CELL | 4.33Comment: Testing | 3.70 - 5.10 | EXTERNAL | | | COUNT | performed at [facility];888 | M/uL | LAB | | | | [address];[place] | | | | | | [address] | | | | + + + + + + | Hgb | 13.6Comment: Testing | 11.3 - 15.5 | EXTERNAL | | | | performed at [facility];888 | g/dL | LAB | | | | [address];[place] | | | | | | [address] | | | | + + + + + + | Hematocrit, | 37.9Comment: Testing | 34.0 - 46.0 % | EXTERNAL | | | POC | performed at [facility];888 | | LAB | | | | [address];[place] | | | | | | [address] | | | | + + + + + + | MCV | 87.6Comment: Testing | 80.0 - 100.0 fl | EXTERNAL | | | | performed at [facility];[address] | | LAB | | | | [address];[place] | | | | | | [address] | | | | + + + + + + | MCH | 31.4Comment: Testing | 27.0 - 34.0 pg | EXTERNAL | | | | performed at [facility];[address] | | LAB | | | | [address];[place] | | | | | | [address] | | | | + + + + + + | MCHC | 35.8 (H)Comment: Testing | 32.0 - 35.5 | EXTERNAL | | | | performed at [facility];888 | g/dL | LAB | | | | [address];[place] | | | | | | [address] | | | | + + + + + + | RDW-CV | 38.5Comment: Testing | 37 - 53 fl | EXTERNAL | | | | performed at [facility];[address] | | LAB | | | | [address];[place] | | | | | | [address] | | | | + + + + + + | Platelet | 207Comment: Testing | 150 - 400 K/uL | EXTERNAL | | | Count | performed at [facility];888 | | LAB | | | Plasma | [address];[place] | | | | | | [address] | | | | + + + + + + | MPV | 8.8Comment: Testing | fl | EXTERNAL | | | | performed at [facility];888 | | LAB | | | | [address];[place] | | | | | | [address] | | | | + + + + + + | Differentia | AUTOMATEDComment: | | EXTERNAL | | | l Type | Testing performed at | | LAB | | | | [facility];[address];[place] [address] | | | | + + + + + + | % Segmented | 60.57Comment: Testing | % | EXTERNAL | | | | performed at [facility];888 | | LAB | | | Neutrophils | [address];[place] | | | | | | [address] | | | | + + + + + + | % | 28.91Comment: Testing | % | EXTERNAL | | | Lymphocytes | performed at [facility];888 | | LAB | | | | [address];[place] | | | | | | [address] | | | | + + + + + + | % Monocytes | 7.73Comment: Testing | % | EXTERNAL | | | | performed at [facility];888 | | LAB | | | | [address];[place] | | | | | | [address] | | | | + + + + + + | % | 2.31Comment: Testing | % | EXTERNAL | | | Eosinophils | performed at [facility];888 | | LAB | | | | [address];[place] | | | | | | [address] | | | | + + + + + + | % Basophils | 0.48Comment: Testing | % | EXTERNAL | | | | performed at [facility];888 | | LAB | | | | [address];[place] | | | | | | [address] | | | | + + + + + + | Absolute | 6.04Comment: Testing | 1.90 - 7.40 | EXTERNAL | | | Segmented | performed at [facility];888 | K/uL | LAB | | | Neutrophils | [address];[place] | | | | | | [address] | | | | + + + + + + | Absolute | 2.89Comment: Testing | 1.00 - 3.90 | EXTERNAL | | | Lymphocytes | performed at [facility];888 | K/uL | LAB | | | | [address];[place] | | | | | | [address] | | | | + + + + + + | Absolute | 0.77Comment: Testing | 0.00 - 0.80 | EXTERNAL | | | Monocytes | performed at [facility];888 | K/uL | LAB | | | | [address];[place] | | | | | | [address] | | | | + + + + + + | Absolute | 0.23Comment: Testing | 0.00 - 0.50 | EXTERNAL | | | Eosinophils | performed at [facility];888 | K/uL | LAB | | | | [address];[place] | | | | | | [address] | | | | + + + + + + | Absolute | 0.05Comment: Testing | 0.00 - 0.10 | EXTERNAL | | | Basophils | performed at [facility];888 | K/uL | LAB | | | | [address];[place] | | | | | | [address] | | | | + + + [...] EXTERNAL | | | | performed at [facility];888 | | LAB | | | | [address];[place], [place] | | | | | | [address] | | | | + + + [...] EXTERNAL | | | | performed at [facility];888 | mmol/L | LAB | | | | [address];[place] | | | | | | [address] | | | | + + + + + + | K | 3.4 (L)Comment: Testing | 3.5 - 4.9 | EXTERNAL | | | | performed at [facility];888 | mmol/L | LAB | | | | [address];[place] | | | | | | [address] | | | | + + + + + + | Cl | 107Comment: Testing | 99 - 109 mmol/L | EXTERNAL | | | | performed at [facility];[address] | | LAB | | | | [address];[place] | | | | | | [address] | | | | + + + + + + | CO2 | 29Comment: Testing | 23 - 32 mmol/L | EXTERNAL | | | | performed at [facility];[address] | | LAB | | | | [address];[place] | | | | | | [address] | | | | + + + + + + | Anion Gap | 10Comment: Testing | 5 - 20 mmol/L | EXTERNAL | | | | performed at [facility] | | LAB | | | | [address];[place] | | | | | | [address] | | | | + + + + + + | Glucose, | 114 (H)Comment: Testing | 65 - 99 mg/dL | EXTERNAL | | | Fasting | performed at [facility];[address] | | LAB | | | | [address];[place] | | | | | | [address] | | | | + + + + + + | BUN | 9Comment: Testing | 8 - 25 mg/dL | EXTERNAL | | | | performed at [facility] | | LAB | | | | [address];[place] | | | | | | [address] | | | | + + + + + + | Creatinine | 0.56Comment: Testing | 0.50 - 1.00 | EXTERNAL | | | | performed at [facility]888 | mg/dL | LAB | | | | [address];[place] | | | | | | [address] | | | | + + + + + + | BUN/Creatin | 17Comment: Testing | | EXTERNAL | | | ine Ratio | performed at [facility];[address] | | LAB | | | | [address];[place] | | | | | | [address] | | | | + + + + + + | Calcium | 8.6Comment: Testing | 8.5 - 10.5 | EXTERNAL | | | | performed at [facility]888 | mg/dL | LAB | | | | [address];[place] | | | | | | [address] | | | | + + + + + + | Protein, | 6.6Comment: Testing | 6.3 - 8.2 g/dL | EXTERNAL | | | Total | performed at [facility] | | LAB | | | | [address];[place] | | | | | | [address] | | | | + + + + + + | Albumin | 3.3 (L)Comment: Testing | 3.6 - 5.0 g/dL | EXTERNAL | | | | performed at [facility];[address] | | LAB | | | | [address];[place] | | | | | | [address] | | | | + + + + + + | Globulin | 3.3Comment: Testing | 1.3 - 4.9 g/dL | EXTERNAL | | | | performed at [facility];[address] | | LAB | | | | [address];[place] | | | | | | [address] | | | | + + + + + + | A/G Ratio | 1.0Comment: Testing | 1.0 - 2.4 | EXTERNAL | | | | performed at [facility];[address] | | LAB | | | | [address];[place] | | | | | | [address] | | | | + + + + + + | Bilirubin | 0.2Comment: Testing | 0.1 - 1.5 mg/dL | EXTERNAL | | | Total | performed at [facility];888 | | LAB | | | | [address];[place] | | | | | | [address] | | | | + + + + + + | ALP, | 52Comment: Testing | 35 - 115 U/L | EXTERNAL | | | External | performed at [facility];[address] | | LAB | | | | [address];[place] | | | | | | [address] | | | | + + + + + + | AST | 22Comment: Testing | 10 - 45 U/L | EXTERNAL | | | | performed at [facility]888 | | LAB | | | | [address];[place] | | | | | | [address] | | | | + + + + + + | ALT | 35Comment: Testing | 10 - 65 U/L | EXTERNAL | | | | performed at [facility];888 | | LAB | | | | [address];[place] | | | | | | [address] | | | | + + + [...] | | | | | | at [facility];[address] [facility] | | | | | | [address];[place] [address] | | | | + + + [...] EXTERNAL | | | | performed at [facility];888 | | LAB | | | | [address];[place] | | | | | | [address] | | | | + + + + + + | Clarity | CLEARComment: Testing | | EXTERNAL | | | | performed at [facility];[address] | | LAB | | | | [address];[place] | | | | | | [address] | | | | + + + + + + | Specific | 1.006Comment: Testing | 1.002 - 1.030 | EXTERNAL | | | [place] | performed at [facility];888 | | LAB | | | | [address];[place] | | | | | | [address] | | | | + + + + + + | Leukocyte | NEGATIVEComment: Testing | | EXTERNAL | | | Esterase, | performed at [facility];888 | | LAB | | | Urine | [address];[place] | | | | | | [address] | | | | + + + + + + | Nitrite, | NEGATIVEComment: Testing | | EXTERNAL | | | Urine | performed at [facility];888 | | LAB | | | | [address];[place] | | | | | | [address] | | | | + + + + + + | Urobilinoge | NORMALComment: Testing | mg/dL | EXTERNAL | | | n, Urine | performed at [facility];[address] | | LAB | | | | [address];[place] | | | | | | [address] | | | | + + + + + + | Protein, | NEGATIVEComment: Testing | mg/dL | EXTERNAL | | | Urine | performed at [facility] | | LAB | | | | [address];[place] | | | | | | [address] | | | | + + + + + + | pH, Urine | 6.0Comment: Testing | 5.0 - 8.0 | EXTERNAL | | | | performed at [facility];888 | | LAB | | | | [address];[place] | | | | | | [address] | | | | + + + + + + | Blood, | NEGATIVEComment: Testing | | EXTERNAL | | | Urine | performed at [facility];[address] | | LAB | | | | [address];[place] | | | | | | [address] | | | | + + + + + + | Ketones | NEGATIVEComment: Testing | mg/dL | EXTERNAL | | | | performed at [facility];[address] | | LAB | | | | [address];[place] | | | | | | [address] | | | | + + + + + + | Bilirubin, | NEGATIVEComment: Testing | | EXTERNAL | | | Urine | performed at [facility];888 | | LAB | | | | [address];[place] | | | | | | [address] | | | | + + + + + + | Glucose, | NEGATIVEComment: Testing | mg/dL | EXTERNAL | | | Urine | performed at [facility];[address] | | LAB | | | | [address];[place], [place] | | | | | | [address] | | | | + + + [...] | | | Ur | performed at [facility] | | LAB | | | | [address];[place] | | | | | | [address] | | | | + + + [...]
--- OUTSIDE RECORDS SUMMARY | ~2019-03-30 | XMS | Encounter Summary ---
Demographics + + + | Address | [address] | | | [place] [address] | + + + | Home Phone [...] Organization | [facility] | | [...] [place] | | | | | [address] | | + + + + + Care Team Providers + +------+ + | Care Ad Setter Name | Role | Phone | + [...] | 01/15/ | Telephone | [facility] [place] [facility] | Gold Florentino, | Other | | 2018 | | [address] | [address] | | | | | [place] | [place] | | | | | [address] | [address] | | | | | [phone] | | | +--------+ + + + [...]
--- OUTSIDE RECORDS SUMMARY | ~2019-03-30 | XMS | Encounter Summary ---
Demographics + + + | Address | [address] | | | [place] [address] | + + + | Home Phone | | + + + | Preferred Language | Unknown | + + + | Marital Status | Single | + + + | Mormon Affiliation | Unknown | + + + | Race | Unknown | + + + | Ethnic Group | Unknown | + + + Author + + + | Author | [facility] | | | and [place] | + + + | Organization | [facility] | | | and [place] | + + + | Address | Unknown | + + + | Phone | Unavailable | + + + Support + + + + + | Name | Relationship | Address | Phone | + + + + + | Gt Welch | ECON | [address] [facility] | | | | | [place] | | | | | [place] | | | | | [address] | | + + + + + Care Team Providers + +------+ + | Care Ad Operations Associate Name | Role | Phone | + [...] | | | | | | [place] | | | | | | | CYSTO/URETER | | | | | | | O/PYELOSCOPY | | | | | | | , CALCULUS | | | | | | | [place] | | | | | | | [...] + + | 05/11/ | Hospital | [facility] | Gold Florentino, | Ureteral calculus, | | 2018 | Encounter | MED CTR OR INTRA OP | MD [address] | right | | | | [address] | [place], [place] | | | | | [place], [place] | [address] | | | | | [address] | | | | | | [phone] | | | +--------+ + + + [...] time. Follow up: Call Dr Florentino's office ([phone]) to set up your follow-up appointment or [...] glucose < 50, | | | Starting [facility] 05/11/17 at 1733, | | | Repeat [...] PRN, Pain, pain, | | | Starting [facility] 05/11/17 at 1733, Max | | | [...]
--- OUTSIDE RECORDS SUMMARY | ~2019-03-30 | XMS | Encounter Summary ---
Demographics + + + | Address | [address] | | | [place] [address] | + + + | Home Phone | | + + + | Preferred Language | Unknown | + + + | Marital Status | Single | + + + | Denominational Affiliation | Unknown | + + + | Race | Unknown | + + + | Ethnic Group | Unknown | + + + Author + + + | Author | [facility] | | | and [place] | + + + | Organization | [facility] | | | and [place] | + + + | Address | Unknown | + + + | Phone | Unavailable | + + + Support + + + + + | Name | Relationship | Address | Phone | + + + + + | Gt Welch | ECON | [address] [facility] | | | | | [place] | | | | | [place] | | | | | [address] | | + + + + + Care Team Providers + +------+ + | Care Tub Mender Name | Role | Phone | + [...] [place] | | | | | [address] | [address] | | | | | [phone] | | | +--------+ + + + [...]
--- OUTSIDE RECORDS SUMMARY | ~2019-03-30 | XMS | Encounter Summary ---
Demographics + + + | Address | [address] | | | [place] [address] | + + + | Home Phone [...] Author + + + | Author | [facility] | | | and [place] | + + + | Organization | [facility] | | | and [place] | + + + | Address | Unknown | + + + | Phone | Unavailable | + + + Support + + + + + | Name | Relationship | Address | Phone | + + + + + | Gt Welch | ECON | [address] [facility] | | | | | [place] | | | | | [place] | | | | | [address] | | + + + + + Care Team Providers + +------+ + | Care Scout Leaser Name | Role | Phone | + [...] + + | 03/28/ | Emergency | [facility] | Nico [place] | Leg numbness | | 2013 | | MED CTR EMERGENCY | MD Michael [address] | (Primary Dx); Leg | | | | CENTER [address] [facility] | weakness | | | | [place], [place] | [place] [address] | | | | | [address] | [phone] | | | | | [phone] | | | +--------+ + + + [...] through Care Everywhere.ED WEAKNESS, UN K CAUSE (AMHARIC)ED PARAESTHESIAS (AMHARIC)documented in this encounter Medications at Time of [...] | appearance. Mild kylah cisterna magna configuration. Archer-white | | | differentiation is normal. No [...] + | MISCELLANEOUS LAB | | | [phone] | + +---------+ + + | MISCELANIOUS LAB | | | [phone] | + +---------+ + + ED INFORMATION EXCHANGE (03/28/2014 12:09 AM PST) + + | Specimen | + + | | + + + + + | Narrative | Performed At | + + + | VISIT TRACKING (3 MO.) Visit Date Location | [facility] | | Type Diagnoses | | | -------- | | | ---- 03/28/2014 00:06 [place] | | | [facility] Emergency -Numbness 02/25/2014 | | | 00:09 [facility] Emergency | | | -Unspecified symptom associated with female genital organs | | | | | | -left ovary pain | | | | | | -Abdominal Pain | | | | | | -Other and unspecified ovarian cyst 01/30/2014 10:02 [place] | | | [facility] Emergency -Threatened , | | | antepartum [...] ovarian cyst 01/24/2014 16:45 | | | [facility] Emergency -DENTAL | | | PAIN [...] ------ | | | --------- 3 0 [facility] | | | [facility] 3 0 [facility] | | | [facility] 1 0 [facility] | | | [facility] 3 0 | | | [facility] 2 0 | | | [facility] 1 0 | | | [facility] 2 0 | | | [facility] 2 0 | | | [facility] 17 0 | | | Total Note: Visits indicate total known visits. | | | Medicaid [place] Dx are the number of primary diagnoses on the [facility]'s | | | non-emergent dx list. | | | | | | --- Guidelines Source: [facility] Guidelines | | | Date: 05/13/2013 [...]
--- OUTSIDE RECORDS SUMMARY | ~2019-03-30 | XMS | Encounter Summary ---
Demographics + + + | Address | [address] | | | [place] [address] | + + + | Home Phone [...] | Organization | [facility] | | | and [place] | + + + | Address | Unknown | + + + | Phone | Unavailable | + + + Support + + + + + | Name | Relationship | Address | Phone | + + + + + | Gt Welch | ECON | [address] [facility] | | | | | [place] | | | | | [place] | | | | | [address] | | + + + + + Care Team Providers + +------+ + | Care Breastfeeding Peer Counselor Name | Role | Phone | [...] | | | EMERGENCY CENTER | [address] [place], [place] | | | | | [address] [facility] | [address] | | | | | [place], [place] | [phone] | | | | | [address] | | | | | | [phone] | | | +--------+ + + + [...] Performed At | + + + | [id number] [facility] | | | [facility] [address] | | | , RADIOLOGY | | | Patient Name: VEE RAMIREZ Date of : 1990 | | | Medical Record: [id number] Account: [id number] EMR/ED T1221/ | | | Exam Date/Time: 08/21/2009 09:26 P Ordering | | | Provider: MORE MOORE Order Detail: [id number] / / [facility] Exam | | | Description: US [...] DT: | | | 08/23/2009 11:06 A [id number]/ cc: MAISHA JOHNSON MD | | | PHYSICIAN ED MD DANIELA MILLER, | | | CNM | | + + + + + | Procedure Note | + + | Louie, Rad Conversion - 12/30/2018 6:19 PM PDT | | [id number] | | [facility] | | [facility] [address] | | , | | RADIOLOGY | | | | Patient Name: VEE RAMIREZ | | Date of : 1990 | | Medical Record: [id number] | | Account: [id number] | | EMR/ED T1221/ | | | [...] | P | | A | | LETHA/[id number]/ | | cc: MAISHA JOHNSON MD | | PHYSICIAN ED | | MORE MOORE MD | | DANIELA ANGEL CNM | + + documented in this encounter Visit Diagnoses + + | Diagnosis | + + | Cramp in limb Cramp of limb | + + documented in this encounter"
--- OUTSIDE RECORDS SUMMARY | ~2019-03-30 | XMS | Encounter Summary ---
Demographics + + + | Address | [address] | | | [place] [address] | + + + | Home Phone | | + + + | Preferred Language | Unknown | + + + | Marital Status | Single | + + + | Methodist Affiliation | Unknown | + + + | Race | Unknown | + + + | Ethnic Group | Unknown | + + + Author + + + | Author | [facility] | | | and [place] | + + + | Organization | [facility] | | | and [place] | + + + | Address | Unknown | + + + | Phone | Unavailable | + + + Support + + + + + | Name | Relationship | Address | Phone | + + + + + | Gt Hartarte | ECON | [address] | | | | | [place] | | | | | [place] | | | | | [address] | | + + + + + Care Team Providers + +------+ + | Care Counter Tender Name | Role | Phone | + +------+ + PCP | Unavailable | + +------+ + Encounter Details +--------+---------+ + + + | Date | Type | Department | Care Team | Description | +--------+---------+ + + + | 05/24/ | Office | [facility] | Chadd Gold Cervantes, | Right ureteral | | 2018 | Visit | [address] | MD [address] | calculus (Primary | | | | [place], [place] | [place], [place] | Dx) | | | | [address] | [address] | | | | | [phone] | | | +--------+---------+ + + + [...] for 8 hours or increasing bladder pressure [id number] [employer] [place] [address]. All righ ts reserved. This information is [...] op for kidney stone. [place] presented to [facility] on ~04/29/2017 with a 3 mm right ureteral stone associated with infection and obstruction. She was apparently refused at [facility], and was then sent by [facility] air transport to [place] where she was treated at [facility] by Dr. Kilo aGllo. A right ureteral stent was placed by [...] over 50% of this time spent in staff counselor ing regarding her ureteral calculus and [...] L per day . I again gave [place] a list of foods containing oxalates, and [...] her that she needs to see a structures assembler for further evaluation of her coa gulopathy. A referral has previously been submitted to the [facility] for a hematology consultation, but I [...] have not thoroughly proofread this note, and material planner erro rs may occur. documented in this [...]
[~2019-03-30 14:05] MED LIST changes: +METHADONE HCL40 MG PO
--- OUTSIDE RECORDS SUMMARY | 2019-03-30 14:08 | XMS ---
PreManage Notification: VEE RAMIREZ Security Parking Lot Attendant And Cashier Events No recent Security Events currently on file CRITERIA MET - Group Notification - [facility] Guidelines - [employer] CARE PROVIDERS CANDIS RICKS Nurse Practitioner: Women's Health 11/06/2017-Current PHONE: [phone] DANIELA ANGEL Primary Care 02/20/2015-Current PHONE: [phone] LEE CHAUDHRY Primary Care 04/07/2016-Dee MATSON PHONE: Unknown Care Guidelines exist for the following facilities: [facility] ( 10/06/2014 ) Care History Medical/Surgical 11/06/2017 [facility] - Patient is currently established with [facility]. If patient is seen in the ED during business hours. Please contact CHWs at [facility] at [phone]. - Please refer patient to Candis Ricks [...] ED please contact Community Health WorkerTiffanie at [phone]. These are guidelines and the provider should exercise clinical judgment when providing care. E.D. VISIT COUNT (12 MO[address] 2 [facility] TOTAL 2 NOTE: Visits indicate total known visits. 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
[2019-03-30] MEDS ORDERED: METHADONE HCL40 MG PO (14:19)
== END 2019-03-30 16:39 | disposition home or self-care (01) ==
LOC: ED 14:05
DX: S09.90XA Unspecified injury of head, initial encounter (principal); T14.8XXA Other injury of unspecified body region, initial encounter; W01.198A Fall on same level from slipping, tripping and stumbling with subsequent striking against other object, initial encounter; Z87.891 Personal history of nicotine dependence; Z88.8 Allergy status to other drugs, medicaments and biological substances; Z79.899 Other long term (current) drug therapy
CPT/HCPCS: 70450; 99284-25

== ENCOUNTER 2021-11-06 22:48 | Emergency (ER) | payer OTHER ==
[~2021-11-06] VITALS: Ht 172.7 cm; Wt 117.8 kg
--- OUTSIDE RECORDS SUMMARY | 2021-11-06 22:56 | XMS ---
PreManage Notification: VEE RAMIREZ Security Scheduling Agent Events No recent Security Events currently on file CRITERIA MET - Group Notification CARE PROVIDERS EMBER DUBOIS Counselor: Addiction (Substance Use Disorder) Current PHONE: [phone] ADITYA REAGAN Pain Medicine: Pain Medicine Current PHONE: Unknown LORENA Nurse Practitioner: Family Dee Billy PHONE: [phone] CANDIS RICKS Nurse Practitioner: Women's Health 11/06/2017-Current PHONE: [phone] Care Guidelines exist for the following facilities: [facility] ( 10/06/2014 ) Care History Medical/Surgical 11/06/2017 [facility] - Patient is currently established with [facility]. If patient is seen in the ED during business hours. Please contact CHWs at [facility] at Ext [phone]. - Please refer patient to Candis Ricks [...] ED please contact Community Health WorkerTiffanie at [phone]. These are guidelines and the provider should exercise clinical judgment when providing care. E.D. VISIT COUNT ([address] [facility] TOTAL 1 NOTE: Visits indicate total known visits. ED/UCC VISIT TRACKING (12 MO.) 11/06/2021 22:[address] [facility] [place] TYPE: Emergency COMPLAINT: - FLU SYMPTOMS INPATIENT VISIT TRACKING (12 MO.) No inpatient visits to display in this time frame [email or web address]
== END 2021-11-07 01:36 | disposition home or self-care (01) ==
LOC: ED 22:48
DX: J98.8 Other specified respiratory disorders (principal); B97.89 Other viral agents as the cause of diseases classified elsewhere; Z20.822 Contact with and (suspected) exposure to COVID-19; Z87.891 Personal history of nicotine dependence; Z88.8 Allergy status to other drugs, medicaments and biological substances
CPT/HCPCS: 87502; 87880; 99283; C9803; U0003